=== PATIENT | female | born 1960 | race Caucasian/White ===

== ENCOUNTER → 2017-01-23 | Outpatient (CLI) | payer OTHER ==
[2017-01-23 09:58] LABS: ALT 39 U/L (9-52); AST 22 U/L (14-36); Alkaline Phosphatase 57 U/L (38-126); Anion Gap 7 mmol/L; Blood Urea Nitrogen 17 mg/dL (7-17); Calcium 9.2 mg/dL (8.4-10.2); Carbon Dioxide 28 mmol/L (22-30); Chloride 109 mmol/L (98-107); Cholesterol 181 mg/dL (<200); Glucose 85 mg/dL (74-99); HDL Cholesterol 44 mg/dL (40-60); Non-African American GFR(MDRD) >60 (>60 ml/min/1.73 sqM); Potassium 4.2 mmol/L (3.5-5.1); Sodium 144 mmol/L (137-145); Total Protein 6.4 g/dL (6.3-8.2); Triglycerides 76 mg/dL (<150)
== END | disposition home or self-care (01) ==
LOC: LABWHC1 08:40
PROVIDERS: ATTEND Internal Medicine Endocrinology, Diabetes & Metabolism
DX: E89.0 Postprocedural hypothyroidism (principal)
CPT/HCPCS: 36415; 80053; 80061; 82306; 84439; 84443

== ENCOUNTER → 2017-11-20 | Outpatient (CLI) | payer OTHER ==
--- NOTE | 2017-11-20 15:59 | US ---
EXAMINATION TYPE: US kidneys/renal and bladder DATE OF EXAM: 11/20/2017 COMPARISON: US CLINICAL HISTORY: N39.0 frequent recurrent urinary tract infection. EXAM MEASUREMENTS: Right Kidney: 10.2 x 4.9 x 5.4 cm Left Kidney: 10.4 x 4.6 x 5.1 cm Right Kidney: No hydronephrosis or masses seen Left Kidney: No hydronephrosis or masses seen Bladder: wnl Bilateral Jets seen: Yes There is no evidence for hydronephrosis at this point in time. No nephrolithiasis is seen. No kar s are identified. The urinary bladder is anechoic. Bilateral ureteral jets are seen. IMPRESSION: Unremarkable study.
== END | disposition home or self-care (01) ==
LOC: RADUSWWP 15:39
PROVIDERS: ATTEND Internal Medicine
DX: N39.0 Urinary tract infection, site not specified (principal)
CPT/HCPCS: 76770

== ENCOUNTER → 2018-02-06 | Outpatient (CLI) | payer OTHER ==
--- NOTE | 2018-02-06 15:14 | CT ---
EXAMINATION TYPE: CT facial bones wo con DATE OF EXAM: 02/06/2018 COMPARISON: None HISTORY: Kicked in a face by a horse CT DLP: 594 mGycm CONTRAST: 0 mL of Isovue 300 The paranasal sinuses are examined in the axial plane at 2 mm thick sections. Reconstructed images i n the coronal plane were obtained. There is dental amalgam scatter artifact. Maxillary spine is intact. Zygomatic arches are intact. Tonny al bones are intact. Temporomandibular junction appears within normal limits. Orbital floors appear n ormal. The maxillary sinuses are clear. The ethmoid air cells are clear. The sphenoid sinuses are clear. The frontal sinuses are clear. The septum is evaluated. There is septal deviation to the left. The ostiomeatal units are patent. IMPRESSIONS: 1. No acute fractures or facial bones.
== END | disposition home or self-care (01) ==
LOC: RADCTMAIN 14:47
PROVIDERS: ATTEND Internal Medicine
DX: S09.93XA Unspecified injury of face, initial encounter (principal)
CPT/HCPCS: 70486

== ENCOUNTER → 2018-08-09 | Outpatient (CLI) | payer OTHER ==
--- NOTE | 2018-08-13 08:47 | MM ---
Reason for exam: screening (asymptomatic). Last mammogram was performed 2 years and 4 months ago. History: Patient is postmenopausal. Family history of breast cancer in sister, breast cancer in maternal aunt, and breast cancer in aunt. Excisional biopsy of the left breast, 1999. Benign excisional biopsy of the right breast. Took hormonal contraceptives for 2 years beginning at age 20. Physical Findings: A clinical breast exam by your physician is recommended on an annual basis and results should be correlated with mammographic findings. MG Screening Mammo w CAD Bilateral CC and MLO view(s) were taken. Prior study comparison: April 13, 2016, bilateral MG screening mammo w CAD. January 19, 2014, bilateral MG screening mammo w CAD. The breast tissue is extremely dense which could obscure a lesion on mammography. There is chronic nodularity in the left breast. No significant changes when compared with prior studies. ASSESSMENT: Benign, BI-RAD 2 RECOMMENDATION: Routine screening mammogram of both breasts in 1 year.
== END ==
LOC: RADMAMWWP 09:08
PROVIDERS: ATTEND Internal Medicine
DX: Z12.31 Encounter for screening mammogram for malignant neoplasm of breast (principal)
CPT/HCPCS: 77067

== ENCOUNTER → 2018-08-15 | Outpatient (CLI) | payer OTHER ==
--- NOTE | 2018-08-15 13:56 | US ---
EXAMINATION TYPE: US kidneys/renal and bladder DATE OF EXAM: 08/15/2018 COMPARISON: US 2018 CLINICAL HISTORY: R10.9 Bilateral flank pain, Z87.440 Personal. Lower back pain, recurrent UTI, micro scopic hematuria. EXAM MEASUREMENTS: Right Kidney: 10.3 x 5.1 x 5.0 cm Left Kidney: 10.0 x 4.7 x 4.8 cm Right Kidney: no hydronephrosis or masses seen, inferior pole limited by overlying bowel gas Left Kidney: no hydronephrosis or masses seen Bladder: wnl Bilateral Jets seen: yes There is no evidence for hydronephrosis at this point in time. No nephrolithiasis is seen. No kar s are identified. The urinary bladder is anechoic. Bilateral ureteral jets are seen. IMPRESSION: No distinct abnormality appreciated.
== END | disposition home or self-care (01) ==
LOC: RADUSWWP 11:03
PROVIDERS: ATTEND Internal Medicine
DX: R10.9 Unspecified abdominal pain (principal); N39.0 Urinary tract infection, site not specified
CPT/HCPCS: 76770

== ENCOUNTER → 2018-09-03 | Outpatient (CLI) | payer OTHER ==
[2018-09-03 13:07] LABS: Blood Urea Nitrogen 13 mg/dL (7-17)
--- NOTE | 2018-09-03 14:47 | CT ---
EXAMINATION TYPE: CT abdomen pelvis w con DATE OF EXAM: 09/03/2018 COMPARISON: None HISTORY: Left lower quadrant abdominal pain. CT DLP: 682.2 mGycm Automated exposure control for dose reduction was used. CONTRAST: CT scan of the abdomen pelvis is performed with IV Contrast, patient injected with 100ml mL of Isovue 300. FINDINGS- LUNG BASES-groundglass changes and subsegmental changes involving both lung bases likely the basis of atelectasis correlate clinically to exclude early infiltrate.. LIVER/GB-tiny hypodensity involving the anterior margin of the left lobe and right lobe of the liver is too small to characterize but likely related to simple cyst.. PANCREAS-1 to 2 mm hypodensity within the body of the pancreas too small to characterize but likely b enign.. SPLEEN- No gross abnormality is seen. ADRENALS- No gross abnormality is seen. KIDNEYS/BLADDER- no hydronephrosis, nephrolithiasis or renal mass. BOWEL-bowel gas pattern nonspecific. Small hiatal hernia noted. The colon is decompressed particularl y on the left which limits its evaluation. No definite abnormality noted. LYMPH NODES- No greater than 1cm abdominal or pelvic lymph nodes areappreciated. OSSEOUS STRUCTURES-hypertrophic and mild degenerative changes of the vertebral column. OTHER- aorta of normal caliber. No aneurysm. Retroaortic left renal vein incidentally noted. IMPRESSION- 1. No acute process. 2. Tiny hepatic lesions too small to characterize but likely related to simple cysts. Additionally is a 1 to 2 mm hypodensity within the bilateral pancreas on image 36 to small to characterize and could be followed on six-month basis. Likely benign. 3. Subsegmental groundglass and areas of consolidation involving both lungs. Findings could been the basis of atelectasis rather than developing infiltrate, correlate clinically.
== END ==
LOC: RADCTMAIN 12:31
PROVIDERS: ATTEND Urology
DX: R31.29 Other microscopic hematuria (principal); R10.31 Right lower quadrant pain
CPT/HCPCS: 82565; 84520; 74177; 36415; Q9967

== ENCOUNTER → 2019-01-24 | Outpatient (CLI) | payer OTHER ==
[2019-01-24 18:40] LABS: African American GFR (CKD) 71.9 (60.0-200.0); Albumin 4.3 g/dL (3.80-4.90); Albumin/Globulin Ratio 2.39 (1.60-3.17); Anion Gap 7.9 mmol/L (4.00-12.00); Calcium 9.4 mg/dL (8.7-10.3); Carbon Dioxide 28.1 mmol/L (21.6-31.8); Globulin 1.8 g/dL (1.6-3.3); LDL Cholesterol,Calculated 86.2 mg/dL (0.0-131.0); Total Bilirubin 0.7 mg/dL (0.2-1.2); Total Protein 6.1 g/dL (6.2-8.2); VLDL Calculation 16.8 mg/dL (5.00-40.00)
[2019-01-24 18:48] LABS: T4, Free (Free Thyroxine) 1.2 ng/dL (0.80-1.80)
== END | disposition home or self-care (01) ==
LOC: LABWHC1 08:31
PROVIDERS: ATTEND Internal Medicine
DX: E78.5 Hyperlipidemia, unspecified (principal); E89.0 Postprocedural hypothyroidism; I10 Essential (primary) hypertension
CPT/HCPCS: 36415; 80053; 80061; 84439; 84443

== ENCOUNTER 2019-02-05 09:29 | Day surgery (SDC) | payer OTHER ==
[2019-01-29 11:36] VITALS: BMI 26.8
[~2019-02-05 09:29] MED LIST: LACTATED RINGERS 1,000 ML IV SCH
[2019-02-05] MEDS ORDERED: LIDOCAINE 1% 20 ML VIAL (10MG/ML) FOR IV START INTRADERMA ONE (09:45)
[2019-02-05 09:57] VITALS: TEMP 97.8
[2019-02-05] MEDS ORDERED: LIDOCAINE 1% INJ 10MG/ML (20 ML MDV) ONE (11:04)
[2019-02-05] MEDS ORDERED: PROPOFOL 10 MG/ML 20 ML VIAL IV ONE (11:04)
--- NOTE | 2019-02-05 11:21 | P.GSHP ---
History of Present Illness H&P Date: 02/05/19 Chief Complaint: Colon cancer screening 58-year-old female here today for colonoscopy. No rectal bleeding or melena. Last colonoscopy 9 years ago or so. No family history of colon cancer. No constipation. Occasional loose stools somewhat chronic in nature. Some right-s ided pain. Past Medical History Past Medical History: Hyperlipidemia, Hypertension, Thyroid Disorder Additional Past Medical History / Comment(s): Grave's Disease History of Any Multi-Drug Resistant Organisms: None Reported Past Surgical History: Breast Surgery, Hysterectomy, Orthopedic Surgery, Tonsillectomy Additional Past Surgical History / Comment(s): lumpectomy-BILAT BREASTS. BILAT KNEE SX. FATTY TUMOR REMOVED FROM BACK. COLONOSCOPY Past Anesthesia/Blood Transfusion Reactions: No Reported Reaction Past Psychological History: Anxiety Smoking Status: Current every day smoker Past Alcohol Use History: None Reported Additional Past Alcohol Use History / Comment(s): SMOKES 1/2 PPD FOR PAST 20 YEARS Past Drug Use History: None Reported - Past Family History Father Family Medical History: Cancer Medications and Allergies Home Medications Medication Instructions Recorded Confirmed Type Triamterene-Hctz 37.5-25Mg 1 each PO DAILY 04/14/14 01/29/19 History [Dyazide 37.5-25 Capsule] Atenolol 25 mg PO DAILY 01/29/19 01/29/19 History Cholecalciferol [Vitamin D3 (25 5,000 unit PO DAILY 01/29/19 01/29/19 History Mcg = 1000 Iu)] Escitalopram [Lexapro] 10 mg PO DAILY 01/29/19 01/29/19 History Levothyroxine Sodium [Synthroid] 88 mcg PO DAILY 01/29/19 01/29/19 History Pravastatin Sodium [Pravachol] 40 mg PO HS 01/29/19 01/29/19 History Allergies Allergy/AdvReac Type Severity Reaction Status Date / Time lisinopril Allergy Confusion Verified 02/21/15 18:38 prednisone Allergy Rash/Hives Verified 04/14/14 20:29 promethazine HCl Allergy Confusion Verified 02/21/15 18:38 [From Phenergan] hydrochlorothiazide AdvReac Unknown Verified 02/21/15 18:38 Surgical - Exam Vital Signs Temp Pulse Resp BP Pulse Ox 97.8 F 80 18 124/75 96 02/05/19 09:55 02/05/19 09:55 02/05/19 09:55 02/05/19 09:55 02/05/19 09:55 Physical exam: General: Well-developed, well-nourished HEENT: Normocephalic, sclerae nonicteric Abdomen: Nontender, nondistended Extremities: No edema Neuro: Alert and oriented Assessment and Plan (1) Colon cancer screening Narrative/Plan: Will proceed with colonoscopy Current Visit: Yes Status: Acute Code(s): Z12.11 - ENCOUNTER FOR SCREENING FOR MALIGNANT NEOPLASM OF COLON SNOMED Code(s): 068600615
--- NOTE | 2019-02-05 11:39 | P.PCN ---
Date of Procedure: 02/05/19 Procedure(s) Performed: PREOPERATIVE DIAGNOSIS: Colon cancer screening POSTOPERATIVE DIAGNOSIS: Tortuous colon otherwise normal PROCEDURE: Colonoscopy ANESTHESIA: MAC SURGEON: Herbert Yoder M.D. SPECIMENS: None ENDOSCOPIC PROCEDURE: The patient was placed on the endoscopy table in the left decubitus position. The Olympus colonoscope was inserted into the anus and passed under direct visualization to the base of the cecum. The appendiceal orifice was visualized. From that point the scope was slowly withdrawn inspecting all surfaces carefully. There were no neoplastic inflammatory or polypoid lesions throughout the cecum, ascending, transverse, descending, sigmoid and rectum. There was some tortuosity throughout the sigmoid colon however we were able advanced through that area without significant difficulty. There was no visible diverticulosis noted. Digital rectal examination was minerva l. The patient was taken to the recovery room in stable condition per anesthesia guidelines. RECOMMENDATIONS: Increase fiber. Follow-up colonoscopy 10 years.
[2019-02-05] MEDS ORDERED: IV FLUID CONTINUATION 1,000 ML IV ONE (11:45)
[2019-02-05 12:03] VITALS: BP 136/67; PULSE 67; RESP 18
== END 2019-02-05 12:15 | disposition home or self-care (01) ==
LOC: ORWHC2ENDO 09:29
PROVIDERS: ATTEND Surgery
DX: Z12.11 Encounter for screening for malignant neoplasm of colon (principal); E05.00 Thyrotoxicosis with diffuse goiter without thyrotoxic crisis or storm; E78.5 Hyperlipidemia, unspecified; F17.200 Nicotine dependence, unspecified, uncomplicated; I10 Essential (primary) hypertension; Z79.899 Other long term (current) drug therapy; Z88.8 Allergy status to other drugs, medicaments and biological substances; Z79.890 Hormone replacement therapy
CPT/HCPCS: J2001; J2704; G0121

== ENCOUNTER → 2019-04-30 | Outpatient (CLI) | payer OTHER ==
[2019-04-30 19:40] LABS: T4, Free (Free Thyroxine) 0.9 ng/dL (0.80-1.80)
== END | disposition home or self-care (01) ==
LOC: LABWHC1 12:04
PROVIDERS: ATTEND Internal Medicine
DX: E89.0 Postprocedural hypothyroidism (principal)
CPT/HCPCS: 36415; 84439; 84443

== ENCOUNTER → 2019-11-12 | Outpatient (CLI) | payer OTHER ==
[2019-11-12 18:38] LABS: T4, Free (Free Thyroxine) 1.4 ng/dL (0.80-1.80)
== END | disposition home or self-care (01) ==
LOC: LABWHC1 12:06
PROVIDERS: ATTEND Internal Medicine
DX: E89.0 Postprocedural hypothyroidism (principal)
CPT/HCPCS: 36415; 84439; 84443

== ENCOUNTER → 2020-01-13 | Outpatient (CLI) | payer OTHER ==
--- NOTE | 2020-01-13 12:23 | XR ---
EXAMINATION TYPE: XR foot complete RT DATE OF EXAM: 01/13/2020 COMPARISON: NONE HISTORY: 59-year-old female right foot pain, right foot injury TECHNIQUE: 3 views FINDINGS: Incidental Cintron's toe. Moderate degenerative change at the first MTP joint. Moderate-sized plantar calcaneal spur. No acute fracture, subluxation, dislocation seen. IMPRESSION: Moderate first MTP joint OA and a plantar heel spur. No acute osseous abnormality seen.
== END | disposition home or self-care (01) ==
LOC: RADXRMAIN 09:56
PROVIDERS: ATTEND Internal Medicine
DX: M19.071 Primary osteoarthritis, right ankle and foot (principal); M77.31 Calcaneal spur, right foot

== ENCOUNTER → 2020-04-09 | Outpatient (CLI) | payer OTHER ==
--- NOTE | 2020-04-10 14:22 | MR ---
EXAMINATION TYPE: MR ankle LT wo con DATE OF EXAM: 04/09/2020 COMPARISON: None HISTORY: LEFT ANKLE PAIN, SWELLING AND LIMITED MOTION/ NO PREV Multiplanar multiecho imaging of the left ankle was performed without contrast. There is abnormal increased signal on the T2 images in the soft tissues over the lateral malleolus an d distal fibula. There is increased signal and thickening of the peroneus longus tendon. peroneus curt vis is intact. The collateral ligaments are intact. There is no evidence of a fracture. There is a mi ld ankle joint effusion. Achilles tendon is intact. Plantar fascia appears intact. I see no focal bon e destruction. There is fluid around the peroneal tendons. The tarsal bones appear intact. Ankle mort ise is anatomic. IMPRESSION: Ankle joint effusion with fluid around the peroneal tendons consistent with tenosynovitis. There is p artial tear of the peroneal tendon. No ligamentous tear. No fracture seen.
== END | disposition home or self-care (01) ==
LOC: RADMRIMAIN 14:59
PROVIDERS: ATTEND Internal Medicine
DX: M25.472 Effusion, left ankle (principal); S86.312A Strain of muscle(s) and tendon(s) of peroneal muscle group at lower leg level, left leg, initial encounter

== ENCOUNTER → 2020-05-04 | Outpatient (CLI) | payer OTHER ==
--- NOTE | 2020-05-04 12:04 | XR ---
EXAMINATION TYPE: XR lumbosacral spine min 4V DATE OF EXAM: 05/04/2020 CLINICAL HISTORY: pain COMPARISON: NONE TECHNIQUE: Frontal, lateral, and oblique images of the lumbar spine are obtained. FINDINGS: There are 5 lumbar type vertebral bodies identified. The lumbar spine shows satisfactory alignment without evidence of acute fracture or dislocation. Vertebral body heights are within normal limits. Mild scattered degenerative disc space narrowing and spondylosis identified. The overlying soft tissue appears unremarkable. IMPRESSION: No acute fracture or dislocation is seen in the lumbar spine.ICD 10 NO FRACTURE, INITIAL EVALUATION
--- NOTE | 2020-05-04 12:19 | XR ---
EXAMINATION TYPE: XR Hip Complete LT DATE OF EXAM: 05/04/2020 CLINICAL HISTORY: pain TECHNIQUE: AP and frogleg views of the left hip are obtained. COMPARISON: None. FINDINGS: There is no acute fracture/dislocation evident. The joint space appears within normal li mits. The overlying soft tissue appears unremarkable. IMPRESSION: 1. There is no acute fracture or dislocation.ICD 10 NO FRACTURE, INITIAL EVALUATION
== END | disposition home or self-care (01) ==
LOC: RADXRMAIN 11:16
PROVIDERS: ATTEND Internal Medicine
DX: M54.5 Low back pain (principal); M25.552 Pain in left hip
CPT/HCPCS: 72110; 73502

== ENCOUNTER → 2020-05-27 | Outpatient (CLI) | payer OTHER ==
--- NOTE | 2020-05-27 16:21 | MR ---
EXAMINATION TYPE: MR lumbar spine wo con DATE OF EXAM: 05/27/2020 COMPARISON: None HISTORY: Low back pain into hip/left leg CONTRAST: 0 mL intravenous Gadavist. TECHNIQUE: Multiplanar, multisequence images of the lumbar spine were acquired. FINDINGS: L5-S1: No significant disc bulge or disc herniation. No spinal canal stenosis. No foraminal stenosi s. Appears to be some swelling of the left S1 nerve root exiting the spinal canal. Minimal disc bulg e has contact without obvious stenosis.. L4-L5: Mild disc bulge is present. There may be minimal grade 1 spondylolisthesis with disc uncoverin g. Facet hypertrophy and ligamentum flavum laxity in conjunction with the disc bulges contributing to spinal canal narrowing through the L4-5 level. No foraminal stenosis. L3-L4: No significant disc bulge or disc herniation. No spinal canal stenosis. No foraminal stenosi s. Mild facet hypertrophy is present with posterior lateral thecal sac compression.. L2-L3: No significant disc bulge or disc herniation. No spinal canal stenosis. No foraminal stenosi s. Neural foramen are patent.. L1-L2: No significant disc bulge or disc herniation. No spinal canal stenosis. No foraminal stenosi s. Neural foramen are patent.. T12-L1: No significant disc bulge or disc herniation. No spinal canal stenosis. No foraminal stenos is. Neural foramen are patent.. IMPRESSION: 1. Minimal grade 1 spondylolisthesis of L4 anterior to L5 with disc uncovering and facet hypertrophy and ligamentum flavum laxity contributing to spinal canal stenosis at the L4-5 level. 2. There may be some minimal disc contact with the exiting left S1 nerve root at the L5-S1 level with swelling of the nerve root within the spinal canal.
== END | disposition home or self-care (01) ==
LOC: RADMRIMAIN 07:36
PROVIDERS: ATTEND Internal Medicine
DX: M48.061 Spinal stenosis, lumbar region without neurogenic claudication (principal); M43.16 Spondylolisthesis, lumbar region
CPT/HCPCS: 72148

== ENCOUNTER → 2020-05-31 | Outpatient (CLI) | payer OTHER ==
--- NOTE | 2020-05-31 11:31 | MM ---
Reason for exam: screening (asymptomatic). Last mammogram was performed 1 year and 10 months ago. History: Patient is postmenopausal. Family history of breast cancer in sister, breast cancer in maternal aunt, and breast cancer in aunt. Excisional biopsy of the left breast, 1999. Benign excisional biopsy of the right breast. Took hormonal contraceptives for 2 years beginning at age 20. Physical Findings: A clinical breast exam by your physician is recommended on an annual basis and results should be correlated with mammographic findings. MG Screening Mammo w CAD Bilateral CC and MLO view(s) were taken. Prior study comparison: August 09, 2018, bilateral MG screening mammo w CAD. April 13, 2016, bilateral MG screening mammo w CAD. The breast tissue is heterogeneously dense. This may lower the sensitivity of mammography. There are benign appearing round calcifications bilaterally. There is chronic nodularity in the left breast. There is no discrete abnormality. ASSESSMENT: Benign, BI-RAD 2 RECOMMENDATION: Routine screening mammogram of both breasts in 1 year.
== END | disposition home or self-care (01) ==
LOC: RADMAMWWP 09:46
PROVIDERS: ATTEND Internal Medicine
DX: Z12.31 Encounter for screening mammogram for malignant neoplasm of breast (principal)
CPT/HCPCS: 77067

== ENCOUNTER 2020-08-05 08:39 | Day surgery (SDC) | payer OTHER ==
[2020-08-04 10:28] VITALS: BMI 28.3
[2020-08-05] MEDS ORDERED: LIDOCAINE 1% (10MG/ML) FOR IV START INTRADERMA ONE (09:10)
[2020-08-05 09:15] VITALS: TEMP 97.2
[2020-08-05] MEDS ORDERED: IOPAMIDOL M200 10 ML VIAL ONE (09:17)
[2020-08-05] MEDS ORDERED: fentaNYL (PF) 50 MCG/ML 2 ML AMP ONE (09:17)
[2020-08-05] MEDS ORDERED: DEXAMETHASONE SOD PHOSPHATE 10 MG/ML 1 ML VIAL ONE (09:17)
[2020-08-05] MEDS ORDERED: MIDAZOLAM 2 MG/2 ML VIAL ONE (09:17)
--- NOTE | 2020-08-05 09:34 | P.PCN ---
Date of Procedure: 08/05/20 Procedure(s) Performed: PREOPERATIVE DIAGNOSIS: 1-Lumbar radiculopathy . 2-lumbar spondylolisthesis. 3-lumbar degenerative disc disease POSTOPERATIVE DIAGNOSIS: Same as preoperative diagnoses. PROCEDURE 1. Transforaminal epidural steroid injection under fluoroscopic guidance at left L4-5, and left L5-S1 leveles. (Fluoroscopy images stored on file in the radiology Department ) 2. Lumbar epidurogram . ANESTHESIA: Local with 1% lidocaine 3 ml , moderate sedation with intravenous Versed 2 mg and fentanyle 50 micrograms. EBL: Minimal PROCEDURE INDICATION: The patient with low back pain and radiculopathy symptoms unresponsive to conservative treatment. PROCEDURE DESCRIPTION / TECHNIQUE: The patient was seen and identified in the preoperative area. Risks, benefits, complications, and alternatives were discussed with the patient. The patient agreed to proceed with the procedure and signed the consent. IV was started, and vital signs were stable. Patient was taken to the OR and time out was completed. The patient was placed in the prone position on procedure table and a pillow was placed under the abdomen to reduce lumbar lordosis. The lumbosacral area was prepped and draped in the usual sterile fashion. Critical pause was taken. Vital signs were closely monitored during the procedure. Conscious sedation was used during the procedure to decrease patient s anxiety. Using oblique fluoroscopy, the chin of the `JobGarrett dog at left L4-5 level was identified, and the skin and deeper tissues just below was localized with 1% lidocaine. Subsequently, a 22-gauge 3.5-inch spinal needle was advanced under a tunneled view fluoroscopic guidance just underneath the chin of the `Cristinoy dog at the left L4-5 Under lateral fluoroscopy, the needle was then advanced to the posterior border of the interforaminal space. After negative aspiration of CSF and blood and with no paresthesias, 1 mL Isovue 200 contrast dye was injected excellent epidurogram and outlining of the nerve root Subsequently, 3 mL of block solution containing 10 mg Deamethasone , and 2 mL of 0.9% normal saline PF was injected. Needle was removed and the same procedure was repeated at the left L5-S1 level . At the end of the procedure, skin was cleansed, and bandages were applied. COMPLICATIONS:none DISPOSITION / PLANS: The patient was placed in a supine position and transferred to the recovery area in a stable condition for observation. There was no evidence of lower extremity motor or sensory deficit after the procedure. Patient was discharged from the recovery room after meeting discharge criteria. Home discharge instructions were given to the patient by the staff. The patient was reexamined prior to discharge.
[2020-08-05] MEDS ORDERED: IV FLUID CONTINUATION 1,000 ML IV ONE (09:37)
[2020-08-05 09:41] VITALS: PULSE 65; RESP 18
[2020-08-05 09:56] VITALS: BP 120/81
--- NOTE | 2020-08-05 09:58 | FL ---
Fluoroscopy INDICATION: Pain FINDINGS: Fluoroscopy time: 6 seconds. Images obtained: 2. IMPRESSIONS: 1. Documentation of fluoroscopy.
== END 2020-08-05 10:09 | disposition home or self-care (01) ==
LOC: ORPAIN 08:39
PROVIDERS: ATTEND Specialist
DX: M51.16 Intervertebral disc disorders with radiculopathy, lumbar region (principal); M43.16 Spondylolisthesis, lumbar region; M48.061 Spinal stenosis, lumbar region without neurogenic claudication
CPT/HCPCS: 64483; 64484; J2250; J1100; J3010; Q9966

== ENCOUNTER 2020-12-08 12:45 | Day surgery (SDC) | payer OTHER ==
[2020-12-06 11:29] VITALS: BMI 27.2
[~2020-12-08 12:45] MED LIST changes: +DEXAMETHASONE SOD PHOSPHATE 4 MG/ML 1 ML VIAL IV ONE; +FAMOTIDINE 20 MG/2 ML VIAL IV PRN; +HYDROmorphone 0.5 MG/0.5 ML SYRINGE IVP PRN; +ONDANSETRON 4 MG/2 ML VIAL IVP ONE; +Pre Op ABX Message 1 EACH MISC MISCELLANE ONE
[2020-12-08 13:08] VITALS: TEMP 97.5
[2020-12-08] MEDS ORDERED: ONDANSETRON 4 MG/2 ML VIAL ONE (13:27)
[2020-12-08] MEDS ORDERED: MIDAZOLAM 2 MG/2 ML VIAL IVP ONE ×2 (14:11→14:14)
[2020-12-08] MEDS ORDERED: LIDOCAINE 1% INJ 10MG/ML (20 ML MDV) ONE (14:25)
[2020-12-08] MEDS ORDERED: PROPOFOL 10 MG/ML 20 ML VIAL IV ONE (14:25)
[2020-12-08] MEDS ORDERED: ROPIVACAINE 5 MG/ML 30 ML VIAL ONE (14:25)
[2020-12-08] MEDS ORDERED: DEXAMETHASONE SOD PHOSPHATE 4 MG/ML 1 ML VIAL ONE (14:25)
[2020-12-08] MEDS ORDERED: SUCCINYLCHOLINE CHLORIDE 100 MG/5 ML SYR IV ONE (14:25)
[2020-12-08] MEDS ORDERED: fentaNYL (PF) 50 MCG/ML 2 ML AMP ONE (14:25)
[2020-12-08] MEDS ORDERED: ceFAZolin 1,000 MG in SODIUM CHLORIDE 0.9% 1,000 ML IRRIGATION ONE (14:51)
--- NOTE | 2020-12-08 15:22 | P.ANPRN ---
Procedure Note - Anesthesia - Nerve Block Performed Left Adductor Canal Single Time Out Performed: Yes Date of Procedure: 12/08/20 Procedure Start Time: 14:08 Procedure Stop Time: 14:15 Location of Patient: PreOp Indication: Acute Post-Operative Pain, Requested by Surgeon Sedation Type: Sedate with meaningful contact maintained Preparation: Sterile Prep, Sterile Dressing Position: Supine Catheter: None Needle Types: On-Q Needle Gauge: 20 Ultrasound used to visualize needle placement: Yes Ultrasound used to observe medication spread: Yes Injectate: 0.5% Ropivacaine (see comment for volume) (10 ml + decadron 4 mg) Blood Aspirated: No Pain Paresthesia on Injection Noted: No Resistance on Injection: Normal Image Stored and Saved: Yes Events: Uneventful and Well Tolerated Left Popliteal Single Time Out Performed: Yes Date of Procedure: 12/08/20 Procedure Start Time: 14:13 Procedure Stop Time: 14:20 Location of Patient: PreOp Indication: Acute Post-Operative Pain, Requested by Surgeon Sedation Type: Sedate with meaningful contact maintained Preparation: Sterile Prep, Sterile Dressing Position: Right Lateral Catheter: None Needle Types: On-Q Needle Gauge: 20 Ultrasound used to visualize needle placement: Yes Ultrasound used to observe medication spread: Yes Injectate: 0.5% Ropivacaine (see comment for volume) (20 ml + decadron 4 mg) Blood Aspirated: No Pain Paresthesia on Injection Noted: No Resistance on Injection: Normal Image Stored and Saved: Yes Events: Uneventful and Well Tolerated
--- NOTE | 2020-12-08 15:29 | P.OP ---
Date of Procedure: 12/08/20 Preoperative Diagnosis: Ruptured peroneus brevis tendon left ankle Postoperative Diagnosis: Same Procedure(s) Performed: Open repair flexor tendon left ankle Implants: None Anesthesia: JULIUSA Surgeon: Darvin Garay Estimated Blood Loss (ml): 2 Pathology: other (Tendon left ankle) Condition: stable Disposition: PACU Operative Findings: Partial split longitudinal tear of the peroneus brevis tendon with partial retraction in enlargement just distal to the lateral malleolus Description of Procedure: Prior to the patient being brought to the operating room anesthesia administered a nerve block and left lower extremity under ultrasonic guidance mild sedation. The patient was then brought into the operative room placed on table supine position. Timeout was taken to confirm correct patient identifiers, correct procedure, and correct site of surgery. When the room was in agreement the patient was placed under general anesthetic. A wedge was placed underneath the left hip to internally rotate the left leg and a well-padded tourniquet placed on the left calf. The leg was exsanguinated and the tourniquet inflated to 250 motors mercury. Attention was directed over the posterior lateral ankle where an incision was made along the course of peroneal tendons from the hindfoot to an area approximately 4 cm proximal to the lateral malleolus. Incision was deepened down to the saphenous tissue careful to identify, avoid, and retract any neurovascular structures and cauterize any bleeding vessels. Blunt dissection was continued through the saphenous layer down to the retinaculum overlying the peroneal tendons. The retinaculum was carefully entered and then blunt instrumentation sling deep to the retinaculum but over the peroneal tendons. The retinaculum was incised along the entire length to expose peroneal tendons. Immediately there was abnormality noted the peroneus brevis there was a significant area of enlargement distally distal to the lateral malleolus indicated and more distal split tear with retraction and then a subsequent scarring there is also numerous areas of split tearing proximal to this area of enlargement. Sharp instrumentation was used to remove the diseased portions of the tendon so that normal tendinous tissue observed. The wound is irrigated with antibiotic saline. 4-0 FiberWire was used to re-tubularize the tendon. Once completed there was placed back in the peroneal groove on the posterior aspect of the fibula. The ankle was inverted and everted and the tendon slid smoothly through the groove. The wound is irrigated again with antibiotic saline. The retinaculum was then closed with 2-0 Vicryl. Subcu closure done for Monocryl. Skin closure done with 4-0 Stratafix in a running subcuticular manner. Dermal glue was applied around the incision allowed to dry then covered Steri-Strips. Jumpstart dressing was placed directly in the incision then a dry sterile dressing applied the left foot and ankle. The tourniquet was released and capillary refill return to all digits on left foot. The patient's placed a below-knee fracture boot ankle neutral position. Anesthesia was reversed and the patient was taken recovery with vital signs stable.
[2020-12-08 16:12] VITALS: BP 135/84; RESP 16
[2020-12-08 16:28] VITALS: PULSE 67
--- NOTE | 2020-12-15 11:25 | CDI ---
Outpatient Documentation Clarification Form Date: 12/15/20 CDS/Manager Er Name: Elisha Agrawal Phone: If any questions, call Iman Parker Financial Institution Manager at [phone] Patient Name: Marian Romo Admit Date: 12/08/20 Discharge Date: 12/08/20 ATTENTION: The [facility] Coding Staff appreciate your assistance in clarifying documentation. Please respond to the clarification below the line at the bottom and electronically sign. The [facility] Coding staff will review the response and follow-up if needed. Please note: Queries are made part of the Legal Health Record. If you have any questions, please contact the Financial Institution Manager. Dear Dr. Crane, Please provide clarification as to the exact area of the popliteal block. Please reference below. A popliteal block procedure note, without a description of the anatomy is not helpful in determining the correct code to report. A popliteal fossa injection is reported with CPT code 44239 (sciatic nerve), whereas a saphenous popliteal is reported with CPT code 65329 (other peripheral nerve block). Thank you for your kind consideration. It is referred to as a popliteal nerve block... I am not sure what you are asking. The block is a block of 2 nerves that come off the sciatic nerve. MTDD
== END 2020-12-08 16:42 | disposition home or self-care (01) ==
LOC: OR 12:45
PROVIDERS: ATTEND Podiatrist
DX: M66.372 Spontaneous rupture of flexor tendons, left ankle and foot (principal); E78.5 Hyperlipidemia, unspecified; I10 Essential (primary) hypertension; E03.9 Hypothyroidism, unspecified; E05.00 Thyrotoxicosis with diffuse goiter without thyrotoxic crisis or storm; Z97.3 Presence of spectacles and contact lenses; Z90.89 Acquired absence of other organs; Z90.710 Acquired absence of both cervix and uterus; Z98.891 History of uterine scar from previous surgery; Z98.890 Other specified postprocedural states; Z83.3 Family history of diabetes mellitus; Z82.49 Family history of ischemic heart disease and other diseases of the circulatory system; F17.210 Nicotine dependence, cigarettes, uncomplicated; Z79.890 Hormone replacement therapy; Z79.899 Other long term (current) drug therapy; Z88.8 Allergy status to other drugs, medicaments and biological substances
CPT/HCPCS: 27659; 64447; 64445; 76942; 88304; J2250; J1100; J0690 ×2; J2405; J2001; J3010; J2795; J0330; J2704

== ENCOUNTER → 2021-02-10 | Outpatient (CLI) | payer OTHER ==
--- NOTE | 2021-02-10 13:23 | XR ---
EXAMINATION TYPE: XR chest 2V DATE OF EXAM: 02/10/2021 COMPARISON: None HISTORY: 60-year-old female syncope, fall, chest and shoulder injury TECHNIQUE: Frontal and lateral views FINDINGS: Heart normal size. Aorta and pulmonary vasculature within normal limits. Strandy atelectasis in the l ower lungs. No consolidation, pneumothorax, or pleural effusion. IMPRESSION: Strandy bibasilar atelectasis. No acute cardiopulmonary process.
--- NOTE | 2021-02-10 13:24 | XR ---
EXAMINATION TYPE: XR shoulder complete LT DATE OF EXAM: 02/10/2021 Comparison: None Clinical History: 60-year-old female SYNCOPE, FALL, CHEST AND SHOULDER INJURY Findings: Moderate degenerative joint space narrowing and marginal spurring at the acromioclavicular joint. Sub acromial space is preserved. No tendinous or bursal calcifications. No acute fracture, subluxation, o r dislocation seen. Impression: Moderate AC joint OA. No acute osseous abnormality seen.
== END | disposition home or self-care (01) ==
LOC: RADXRMAIN 10:30
PROVIDERS: ATTEND Internal Medicine
DX: S40.912A Unspecified superficial injury of left shoulder, initial encounter (principal); S29.9XXA Unspecified injury of thorax, initial encounter; M19.012 Primary osteoarthritis, left shoulder; J98.11 Atelectasis; X58.XXXA Exposure to other specified factors, initial encounter
CPT/HCPCS: 71046

== ENCOUNTER → 2021-02-24 | Outpatient (CLI) | payer OTHER ==
--- NOTE | 2021-02-24 12:06 | XR ---
EXAMINATION TYPE: XR clavicle LT DATE OF EXAM: 02/24/2021 COMPARISON: NONE HISTORY: Fall, tenderness TECHNIQUE: 2 view left clavicle FINDINGS: Acromioclavicular junction is normal. Sternal clavicular junction is visualized is normal. No acute fractures are evident. Follow-up studies can be performed as clinically indicated IMPRESSION: 1. Normal left clavicle
== END | disposition home or self-care (01) ==
LOC: RADXRMAIN 10:31
PROVIDERS: ATTEND Internal Medicine
DX: S49.92XA Unspecified injury of left shoulder and upper arm, initial encounter (principal); X58.XXXA Exposure to other specified factors, initial encounter

== ENCOUNTER → 2021-04-08 | Outpatient (CLI) | payer OTHER ==
--- NOTE | 2021-04-08 09:15 | CT ---
EXAMINATION TYPE: CT chest wo con DATE OF EXAM: 04/08/2021 COMPARISON: Left clavicle x-ray February 24, 2021 HISTORY: Unspecified subluxation of left sternoclavicular joint, sprain injury CT DLP: 125.2 mGycm. Automated Exposure Control for Dose Reduction was Utilized. TECHNIQUE: CT scan of the upper one half thorax is performed without IV contrast as requested focusi ng on sternoclavicular joint. FINDINGS: LUNGS: Visualized lungs are clear. OTHER: Sternoclavicular joints appear symmetric and within normal limits coronal images 10 through 13 . No suspicious adjacent fluid or fat stranding noted. Left clavicle appears intact without acute or subacute fracture. Moderate narrowing at the acromioclavicular joints with mild to moderate spurring and moderate capsular hypertrophy is slightly more prominent on the left versus right side. Overlying soft tissue is unremarkable. Visualized portion of the thyroid gland is within normal limits. IMPRESSION: Symmetric appearance to left sternoclavicular joint without subluxation or fracture.
== END | disposition home or self-care (01) ==
LOC: RADCTMAIN 08:26
PROVIDERS: ATTEND Orthopaedic Surgery
DX: S43.202A Unspecified subluxation of left sternoclavicular joint, initial encounter (principal); S43.62XA Sprain of left sternoclavicular joint, initial encounter; X58.XXXA Exposure to other specified factors, initial encounter
CPT/HCPCS: 71250

== ENCOUNTER 2021-09-02 08:32 | Day surgery (SDC) | payer OTHER ==
[2021-09-01 13:32] VITALS: BMI 27.4
[~2021-09-02 08:32] MED LIST changes: -DEXAMETHASONE SOD PHOSPHATE 4 MG/ML 1 ML VIAL IV ONE; -FAMOTIDINE 20 MG/2 ML VIAL IV PRN; -HYDROmorphone 0.5 MG/0.5 ML SYRINGE IVP PRN; -Pre Op ABX Message 1 EACH MISC MISCELLANE ONE; +fentaNYL (PF) 50 MCG/ML 2 ML AMP IV PRN
[2021-09-02] MEDS ORDERED: MIDAZOLAM 2 MG/2 ML VIAL IVP ONE (09:35)
[2021-09-02] MEDS ORDERED: fentaNYL (PF) 50 MCG/ML 2 ML AMP IVP ONE (09:36)
--- NOTE | 2021-09-02 10:18 | P.ANPRN ---
Procedure Note - Anesthesia - Nerve Block Performed Left Adductor Canal Time Out Performed: Yes (09:35) Date of Procedure: 09/02/21 Procedure Start Time: :35 Procedure Stop Time: : Location of Patient: PreOp Indication: Acute Post-Operative Pain, Requested by Surgeon (Dr Garay) Sedation Type: Sedate with meaningful contact maintained Preparation: Sterile Prep Position: Supine Catheter: None Needle Types: Pajunk Needle Gauge: 21 Ultrasound used to visualize needle placement: Yes Ultrasound used to observe medication spread: Yes Injectate: 0.5% Ropivacaine (see comment for volume) (15cc + 5cc PF Normal saline) Blood Aspirated: No Pain Paresthesia on Injection Noted: No Resistance on Injection: Normal Image Stored and Saved: Yes Events: Uneventful and Well Tolerated
--- NOTE | 2021-09-02 10:20 | P.ANPRN ---
Procedure Note - Anesthesia - Nerve Block Performed Left Popliteal Time Out Performed: Yes Date of Procedure: 09/02/21 Procedure Start Time: 09:42 Procedure Stop Time: 09:50 Location of Patient: PreOp Indication: Acute Post-Operative Pain, Requested by Surgeon (Dr Garay) Sedation Type: Sedate with meaningful contact maintained Preparation: Sterile Prep Position: Right Lateral Catheter: None Needle Types: Pajunk Needle Gauge: 21 Ultrasound used to visualize needle placement: Yes Ultrasound used to observe medication spread: Yes Injectate: 0.5% Ropivacaine (see comment for volume) (15cc + 5cc PF Normal saline) Blood Aspirated: No Pain Paresthesia on Injection Noted: No Resistance on Injection: Normal Image Stored and Saved: Yes Events: Uneventful and Well Tolerated
[2021-09-02] MEDS ORDERED: PHENYLEPHRINE-0.9% NACL SYG 1,000 MCG/10 ML SYRINGE ONE (10:58)
[2021-09-02] MEDS ORDERED: SODIUM CHLORIDE 0.9% (PF) 10 ML VIAL ONE (10:58)
[2021-09-02] MEDS ORDERED: ROPIVACAINE 5 MG/ML 30 ML VIAL ONE (10:58)
[2021-09-02] MEDS ORDERED: fentaNYL (PF) 50 MCG/ML 2 ML AMP ONE (10:58)
[2021-09-02] MEDS ORDERED: MIDAZOLAM 2 MG/2 ML VIAL ONE (10:58)
[2021-09-02] MEDS ORDERED: ETOMIDATE 2 MG/ML 10 ML VIAL ONE (10:58)
[2021-09-02] MEDS ORDERED: LIDOCAINE 1% INJ 10MG/ML (20 ML MDV) ONE (10:58)
[2021-09-02] MEDS ORDERED: GLYCOPYRROLATE 0.2 MG/ML 2 ML VIAL ONE (10:58)
[2021-09-02] MEDS ORDERED: ePHEDrine 50 MG/ML 1 ML VIAL ONE (10:58)
[2021-09-02] MEDS ORDERED: ceFAZolin 1,000 MG in SODIUM CHLORIDE 0.9% 1,000 ML IRRIGATION ONE (11:03)
[2021-09-02 12:25] VITALS: TEMP 97.3
[2021-09-02 13:17] VITALS: RESP 20
--- NOTE | 2021-09-02 13:50 | P.OP ---
Date of Procedure: 09/02/21 Preoperative Diagnosis: Rupture of peroneus brevis tendon left ankle Postoperative Diagnosis: Same Procedure(s) Performed: Secondary repair of peroneal tendons left ankle by etmh-mo-ebcc anastomosis with use of allograft Implants: Arthrex AFELX 500 allograft Anesthesia: JULIUSA Surgeon: Darvin Garay Estimated Blood Loss (ml): 2 Pathology: none sent Condition: stable Disposition: PACU Operative Findings: Ruptured and retracted peroneus brevis tendon approximately 6-7 cm superior to the distal tip of the fibula Description of Procedure: Prior to the patient being brought to the operating room, anesthesia administered a nerve block and left lower extremity. The patient was then brought into the operating room and placed on table supine position. Timeout was taken to confirm correct patient identifiers, correct site of surgery, and correct procedure. When everybody in the room was in agreement with the timeout, the patient was induced and placed under general anesthesia. A well- padded tourniquet was placed on the left thigh and a bump underneath the left hip to internally rotate the left leg. The left leg was then prepped and draped usual manner. The leg was exsanguinated, the knee slightly flexed and the matthew rniquet inflated to 250 mmHg. Attention was directed over the lateral aspect of the plate left ankle were a previous incision was used for the current incision. The incision was deepened down to the saphenous tissue careful to identify, avoid, and retract any neurovascular structures and cauterize any bleeding vessels. Blunt dissection was then continued down to the peroneal tendon sheath. The peroneal tendon sheath and retinaculum were incised off the posterior aspect lateral malleolus, and the sheath was opened into the lateral hindfoot. The peroneus longus tendon was immediately identified and found to be intact, however the peroneus brevis was not visible. The course of the longus was then followed proximal into the lateral calf. And then as the expiration continued the brevis tendon stump was found. It appeared to have ruptured and completely contracted. There was no viable tendon for the brevis distal to the rupture site. The decision was made for a sbkc-am-rtwi anastomosis. The peritenon was stripped off both the brevis and longus tendons. Distal tension was placed on the brevis well proximal tension on the longus and then a bzsn-is-bxeg anastomosis was completed with the 2 tendons. Then the Arthrex AFLEX 500 allograft was trimmed to size and then wrapped around the repair site with approximate 5 mm distal and proximal to the repair. The allograft was securely fixated around the repair site utilizing 4-0 Monocryl. At that point the longus tendon was placed back in the fibular groove and the ankle taken through range of motion. The longus continued to glide smoothly through the area. The wound is then thoroughly irrigated with antibiotic saline. The retinaculum was then closed with 0 Vicryl back to the posterior aspect of the fibula. Subcu closure was done with 4-0 Monocryl and skin closure done with 3-0 Stratafix in a running subcuticular manner. Dermal glue was applied Lunder dry. Steri-Strips are placed across incision. An Arthrex jumpstart dressing was placed over the incision and then the area was covered with a bulky dry dressing. The tourniquet was released and capillary refill return to all digits on the left foot. The patient was then placed in a well-padded, well molded plaster posterior mold/sugar tong splint. As the splint dried ankle was held in neutral dorsiflexion and slight eversion. Once dried anesthesia was reversed and the patient was taken recovery with vital signs stable.
[2021-09-02 13:51] VITALS: BP 115/72; PULSE 70
== END 2021-09-02 13:59 | disposition home or self-care (01) ==
LOC: OR 08:32
PROVIDERS: ATTEND Podiatrist
DX: M66.372 Spontaneous rupture of flexor tendons, left ankle and foot (principal); E78.5 Hyperlipidemia, unspecified; I10 Essential (primary) hypertension; E05.00 Thyrotoxicosis with diffuse goiter without thyrotoxic crisis or storm; F17.200 Nicotine dependence, unspecified, uncomplicated; E07.9 Disorder of thyroid, unspecified; Z97.3 Presence of spectacles and contact lenses; Z98.891 History of uterine scar from previous surgery; Z98.890 Other specified postprocedural states; Z83.3 Family history of diabetes mellitus; Z82.49 Family history of ischemic heart disease and other diseases of the circulatory system; Z79.890 Hormone replacement therapy; Z79.899 Other long term (current) drug therapy; Z88.4 Allergy status to anesthetic agent
CPT/HCPCS: 64447; 64445; 76942; 27659; C1713; J2250; J0690 ×2; J2405; J2001; J3010; J2795; J2370

== ENCOUNTER → 2021-11-05 | Outpatient (CLI) | payer OTHER ==
[2021-11-05 23:07] LABS: T4, Free (Free Thyroxine) 1.44 ng/dL (0.800-1.800)
== END | disposition home or self-care (01) ==
LOC: LABWHC1 11:11
PROVIDERS: ATTEND Internal Medicine
DX: E89.0 Postprocedural hypothyroidism (principal); E55.9 Vitamin D deficiency, unspecified
CPT/HCPCS: 36415; 82306; 84439; 84443

== ENCOUNTER → 2021-12-22 | Outpatient (CLI) | payer OTHER ==
--- NOTE | 2021-12-23 13:44 | MM ---
Reason for Exam: Screening (asymptomatic). Last mammogram was performed 1 year(s) and 6 month(s) ago. Patient History: Menarche at age 14. First Full-Term at age 20. Left ovary removed at age 45. Right ovary removed at age 45. Hysterectomy at age 45. Postmenopausal. Hormonal Contraceptives for 2 years from age 20 until age 24. Benign Excisional Biopsy on the right side. 2000, Excisional Biopsy on the Left side. Maternal aunt had breast cancer. Maternal aunt had breast cancer. Sister had breast cancer, age 40. Risk Values: Jayshree 5 year model risk: 3.9%. NCI Lifetime model risk: 17.6%. Prior Study Comparison: 04/13/2016 Bilateral Screening Mammogram, [facility]. 08/09/2018 Bilateral Screening Mammogram, [facility]. 05/31/2020 Bilateral Screening Mammogram, [facility]. Tissue Density: The breast tissue is extremely dense which could obscure a lesion on mammography. Findings: Analyzed By CAD. No suspicious groups of microcalcifications, spiculated or lobular masses, architectural distortion or other secondary signs of malignancy are mammographically apparent. Overall Assessment: Benign, BI-RAD 2 Management: Screening Mammogram of both breasts in 1 year. A negative mammogram report should not preclude additional follow up of suspicious palpable abnormalities. Patient should continue monthly self breast exam. A clinical breast exam by your physician is recommended on an annual basis and results should be correlated with mammographic findings. Electronically signed and approved by: Gómez Royal D.O. Radiologis
--- NOTE | 2021-12-23 15:01 | BD ---
EXAMINATION TYPE: Axial Bone Density DATE OF EXAM: 12/22/2021 COMPARISON: NONE CLINICAL HISTORY: 61 years year old Female. ICD-10 CODE: N95.1 POST MENOPAUSAL SYMPTOMS Height: 65 Weight: 175.4 FRAX RISK QUESTIONS: Alcohol (3 or more units per day): no Family History (Parent hip fracture): no Glucocorticoids (More than 3mos): no (Ex: prednisone, prednisolone, methylprednisolone, dexamethasone, and hydrocortisone). History of Fracture in Adulthood: yes Secondary Osteoporosis: 1. Type 1 Diabetes: no 2. Hyperthyroidism: no 3. Menopause before 45: no 4. Malnutrition: no 5. Chronic liver disease: no Rheumatoid Arthritis: no Current Tobacco Use: yes RISK FACTORS HISTORY OF: Surgery to Spine/Hip(right/left)/Wrist (right/left): no Family History of Osteoporosis: no Active: yes Diet low in dairy products/other sources of calcium: yes Postmenopausal woman: yes Lost more than 2 inches in height since high school: no MEDICATIONS: Thyroid Medications: thyroid How Long: since 2002 Additional History: EXAM MEASUREMENTS: Bone mineral densitometry was performed using the [employer]oco System. Bone mineral density as measured about the Lumbar spine is: ----- L1-L4(G/cm2): 1.107 T Score Values are as follows: ----- L1: -1.6 ----- L2: -1.6 ----- L3: -0.1 ----- L4: 0.1 ----- L1-L4: -0.7 Bone mineral density has: decreased -2.7 % since study of: 07.24.2011 Bone mineral density about the R hip (g/cm2): 0.894 Bone mineral density about the L hip (g/cm2): 0.902 T Score values are as follows: -----R Neck: -1.0 -----L Neck: -1.0 -----R Total: 0.2 -----L Total: -0.3 Bone mineral density has: decreased -8.7 % since study of: FRAX%s: The graph provided illustrates a 12.2% chance for a major osteoporotic fx and a 1.3% chance f or the hips probability for fx in 10 years time. IMPRESSION: Normal (Values between +1 and -1 indicate normal bone mass). Consider repeating this study in 5 year s or sooner if there is some new clinical indication. NOTE: T-SCORE=SD OF THE YOUNG ADULT MEAN.
== END | disposition home or self-care (01) ==
LOC: RADMAMWWP 15:52
PROVIDERS: ATTEND Internal Medicine
DX: Z12.31 Encounter for screening mammogram for malignant neoplasm of breast (principal); N95.1 Menopausal and female climacteric states
CPT/HCPCS: 77067; 77080

== ENCOUNTER 2022-10-17 20:01 | Emergency (ER) | payer MEDICARE, OTHER ==
[2022-10-17 20:19] VITALS: BP 126/56; PULSE 78; TEMP 98.3
[2022-10-17] MEDS ORDERED: SODIUM CHLORIDE 0.9% 1,000 ML IV STA (20:29)
[2022-10-17] MEDS ORDERED: MORPHINE SULFATE 4 MG/ML SYRINGE IVP STA (20:30)
--- NOTE | 2022-10-17 20:35 | ED ---
Abdominal Pain HPI - General Chief Complaint: Abdominal Pain Stated Complaint: R ABD PAIN Time Seen by Provider: 10/17/22 20:21 Source: patient, RN notes reviewed, old records reviewed Mode of arrival: ambulatory Limitations: no limitations - History of Present Illness Initial Comments: This is a pleasant 62-year-old female that presents alert and oriented with complaints of right lower quadrant pain for the past 2 weeks. Worse with any movement. Denies any fevers. Does have nausea that is worse with eating. States that she did see her primary care doctor today and was diagnosed with urinary tract infection and started on Cipro. She states he was concerned that right lower quadrant pain may be appendicitis and sent her to the emergency room . Patient does have a history of Graves' disease, is a daily smoker. Abdominal surgeries in the past consist of hysterectomy, section and bladder surgery. MD Complaint: abdominal pain -: week(s) (2) Location: RLQ Radiation: R flank Severity scale (1-10): 8 Quality: sharp Consistency: constant Improves With: nothing Worsens With: movement Associated Symptoms: nausea Treatments Prior to Arrival: other (PCP today, diagnosed with UTI, Cipro prescribed) - Related Data Home Medications Medication Instructions Recorded Confirmed Triamterene-Hctz 37.5-25Mg 1 each PO DAILY 04/14/14 09/01/21 [Dyazide 37.5-25 Capsule] Escitalopram [Lexapro] 10 mg PO DAILY 01/29/19 09/01/21 Levothyroxine Sodium [Synthroid] 88 mcg PO DAILY 01/29/19 09/01/21 Pravastatin Sodium [Pravachol] 40 mg PO DAILY 01/29/19 09/01/21 atenoloL [Atenolol] 25 mg PO DAILY 01/29/19 09/01/21 Acetaminophen [Tylenol Arthritis] 650 mg PO DIRECTED PRN 09/01/21 09/01/21 Previous Rx's Medication Instructions Recorded HYDROcodone/APAP 7.5-325MG [[place] 1 tab PO Q4-6H PRN #30 tab 09/02/21 7.5-325] Allergies Allergy/AdvReac Type Severity Reaction Status Date / Time lisinopril Allergy Confusion Verified 10/17/22 20:19 prednisone Allergy Rash/Hives Verified 10/17/22 20:19 promethazine HCl Allergy Confusion Verified 10/17/22 20:19 [From Phenergan] propofol Allergy Unknown Verified 10/17/22 20:19 hydrochlorothiazide AdvReac Unknown Verified 10/17/22 20:19 STEROIDS Allergy Unknown Uncoded 10/17/22 20:19 Review of Systems ROS Statement: Those systems with pertinent positive or pertinent negative responses have been documented in the HPI. ROS Other: All systems not noted in ROS Statement are negative. Past Medical History Past Medical History: Hyperlipidemia, Hypertension, Thyroid Disorder Additional Past Medical History / Comment(s): Grave's Disease. lt ankle torn tendon History of Any Multi-Drug Resistant Organisms: None Reported Past Surgical History: Bladder Surgery, Breast Surgery, Hysterectomy, Orthopedic Surgery, Tonsillectomy Additional Past Surgical History / Comment(s): memo lumpectomy, lipoma removed from rt side, memo knee arthroscopy Past Anesthesia/Blood Transfusion Reactions: Previous Problems w/ Anesthesia Additional Past Anesthesia/Blood Transfusion Reaction / Comment(s): allergic reaction to propofol. mother allergic to propofol Past Psychological History: No Psychological Hx Reported Smoking Status: Current every day smoker Past Alcohol Use History: None Reported Past Drug Use History: None Reported General Exam Limitations: no limitations General appearance: alert, in no apparent distress Head exam: Present: atraumatic Eye exam: Present: normal appearance. Absent: scleral icterus, conjunctival injection, periorbital swelling Neck exam: Present: full ROM. Absent: meningismus Respiratory exam: Present: normal lung sounds bilaterally. Absent: respiratory distress, accessory muscle use Cardiovascular Exam: Present: regular rate GI/Abdominal exam: Present: soft, tenderness (RLQ), rebound. Absent: distended, rigid Extremities exam: Present: full ROM, normal capillary refill. Absent: pedal edema Back exam: Absent: paraspinal tenderness, vertebral tenderness Neurological exam: Present: alert, oriented X3 Psychiatric exam: Present: normal affect, normal mood Skin exam: Present: warm, dry. Absent: cyanosis, diaphoretic, pallor Course Vital Signs 10/17/22 20:17 Temperature 98.3 F Pulse Rate 78 Respiratory 20 Rate Blood Pressure 126/56 O2 Sat by Pulse 96 Oximetry Medical Decision Making - Medical Decision Making Labs show no evidence of leukocytosis. Creatinine 1.14 with previous creatinine of 1.31. Lactic acid is negative at 1.3. Patient was given morphine and IV fluids with improvement in her pain. CT of the abdomen with contrast was performed showing the appendix is normal. Small hiatal hernia noted. Impression no evidence of obstructive uropathy or renal calculus. Appendix is normal. Small hiatal hernia. 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 She was prescribed Cipro. She was directed to take this medication as prescribed and follow-up with her primary care doctor this week. She is agreeable to this plan of care. Case was discussed with Dr. Anders. History of hypertension, Graves' disease, hyperlipidemia, hysterectomy Was pt. sent in by a medical professional or institution (, PA, [facility], urgent care, hospital, or fci...) When possible be specific @ -Dr Carter PCP Did you speak to anyone other than the patient for history (EMS, parent, family, police, friend...)? What history was obtained from this source @ -No Did you review nursing and triage notes (agree or disagree)? Why? @ -I reviewed and agree with nursing and triage notes Were old charts reviewed (outside hosp., previous admission, EMS record, old EKG, old radiological studies, urgent care reports/EKG's, fci records)? Report findings @ -No old charts were reviewed Differential Diagnosis (chest pain, altered mental status, abdominal pain women, abdominal pain men, vaginal bleeding, weakness, fever, dyspnea, syncope, headache, dizziness, GI bleed, back pain, seizure, CVA, palpatations, mental health, musculoskeletal)? @ -Differential Abdominal Pain Women: Appendicitis, Cholecystitis, diverticulosis, ischemic bowel, pancreatitis, hepatitis, UTI, gastroenteritis, AAA, incarcerated hernia, bowel obstruction, constipation, inflammatory bowel, hepatitis, peptic ulcer disease, splenic infarction, perforated viscus, vulvitis, ovarian torsion, PID, kidney stone, placenta abruption, this is not meant to be an all-inclusive list EKG interpreted by me (3pts min.). @ -n/a X-rays interpreted by me (1pt min.). @ -None done CT interpreted by me (1pt min.). @ -no U/S interpreted by me (1pt. min.). @ -None done What testing was considered but not performed or refused? (CT, X-rays, U/S, labs)? Why? @ -None What meds were considered but not given or refused? Why? @ -None Did you discuss the management of the patient with other professionals ([facility] i.e., Dr., PA, [facility], lab, RT, psych nurse, social worker clinical, emergency medical services coordinator, teacher, information management officer, business case analyst)? Give summary @ -No Was smoking cessation discussed for >3mins.? @ -No Was critical care preformed (if so, how long)? @ -No Were there social determinants of health that impacted care today? How? (Homelessness, low income, unemployed, alcoholism, drug addiction, transportation, low edu. Level, literacy, decrease access to med. care, senior living, rehab)? @ -No Was there de-escalation of care discussed even if they declined (Discuss DNR or withdrawal of care, Hospice)? DNR status @ -No What co-morbidities impacted this encounter? (DM, HTN, Smoking, COPD, CAD, Cancer, CVA, ARF, Chemo, Hep., AIDS, mental health diagnosis, sleep apnea, morbid obesity)? @ -Hypertension, Graves' disease, hyperlipidemia, hysterectomy Was patient admitted / discharged? Hospital course, mention meds given and route, prescriptions, significant lab abnormalities, going to OR and other pertinent info. @ -Discharged Undiagnosed new problem with uncertain prognosis? @ -No Drug Therapy requiring intensive monitoring for toxicity (Heparin, Nitro, Insulin, Cardizem)? @ -No Were any procedures done? @ -No Diagnosis/symptom? @ -Abdominal pain Acute, or Chronic, or Acute on Chronic? @ -Acute Uncomplicated (without systemic symptoms) or Complicated (systemic symptoms)? @ -Uncomplicated Side effects of treatment? @ -No Exacerbation, Progression, or Severe Exacerbation? @ -No Poses a threat to life or bodily function? How? (Chest pain, USA, HI, pneumonia, PE, COPD, DKA, ARF, appy, cholecystitis, CVA, Diverticulitis, Homicidal, Suicidal, threat to staff... and all critical care pts) @ -No - Lab Data Result diagrams: 10/17/22 20:37 10/17/22 20:37 Lab Results 10/17/22 10/17/22 10/17/22 Range/Units 20:37 20:37 20:37 WBC 8.1 (3.8-10.6) k/uL RBC 4.99 (3.80-5.40) m/uL Hgb 15.1 (11.4-16.0) gm/dL Hct 45.2 (34.0-46.0) % MCV 90.6 (80.0-100.0) fL MCH 30.3 (25.0-35.0) pg MCHC 33.4 (31.0-37.0) g/dL RDW 13.1 (11.5-15.5) % Plt Count 244 (150-450) k/uL MPV 8.1 Neutrophils % 53 % Lymphocytes % 38 % Monocytes % 5 % Eosinophils % 2 % Basophils % 1 % Neutrophils # 4.3 (1.3-7.7) k/uL Lymphocytes # 3.1 (1.0-4.8) k/uL Monocytes # 0.4 (0-1.0) k/uL Eosinophils # 0.1 (0-0.7) k/uL Basophils # 0.1 (0-0.2) k/uL PT 9.9 (9.0-12.0) sec INR 0.9 (<1.2) APTT 23.3 (22.0-30.0) sec Sodium 137 (137-145) mmol/L Potassium 3.9 (3.5-5.1) mmol/L Chloride 105 (98-107) mmol/L Carbon Dioxide 23 (22-30) mmol/L Anion Gap 9 mmol/L BUN 21 H (7-17) mg/dL Creatinine 1.14 H (0.52-1.04) mg/dL Est GFR (CKD-EPI)AfAm 60 (>60 ml/min/1.73 sqM) Est GFR (CKD-EPI)NonAf 52 (>60 ml/min/1.73 sqM) Glucose 136 H (74-99) mg/dL Plasma Lactic Acid Dionte (0.7-2.0) mmol/L Calcium 10.3 H (8.4-10.2) mg/dL Total Bilirubin 1.2 (0.2-1.3) mg/dL AST 26 (14-36) U/L ALT 26 (4-34) U/L Alkaline Phosphatase 59 (38-126) U/L Total Protein 7.1 (6.3-8.2) g/dL Albumin 4.2 (3.5-5.0) g/dL Amylase 55 (30-110) U/L Lipase 212 (23-300) U/L 10/17/22 Range/Units 20:37 WBC (3.8-10.6) k/uL RBC (3.80-5.40) m/uL Hgb (11.4-16.0) gm/dL Hct (34.0-46.0) % MCV (80.0-100.0) fL MCH (25.0-35.0) pg MCHC (31.0-37.0) g/dL RDW (11.5-15.5) % Plt Count (150-450) k/uL MPV Neutrophils % % Lymphocytes % % Monocytes % % Eosinophils % % Basophils % % Neutrophils # (1.3-7.7) k/uL Lymphocytes # (1.0-4.8) k/uL Monocytes # (0-1.0) k/uL Eosinophils # (0-0.7) k/uL Basophils # (0-0.2) k/uL PT (9.0-12.0) sec INR (<1.2) APTT (22.0-30.0) sec Sodium (137-145) mmol/L Potassium (3.5-5.1) mmol/L Chloride (98-107) mmol/L Carbon Dioxide (22-30) mmol/L Anion Gap mmol/L BUN (7-17) mg/dL Creatinine (0.52-1.04) mg/dL Est GFR (CKD-EPI)AfAm (>60 ml/min/1.73 sqM) Est GFR (CKD-EPI)NonAf (>60 ml/min/1.73 sqM) Glucose (74-99) mg/dL Plasma Lactic Acid Dionte 1.3 (0.7-2.0) mmol/L Calcium (8.4-10.2) mg/dL Total Bilirubin (0.2-1.3) mg/dL AST (14-36) U/L ALT (4-34) U/L Alkaline Phosphatase (38-126) U/L Total Protein (6.3-8.2) g/dL Albumin (3.5-5.0) g/dL Amylase (30-110) U/L Lipase (23-300) U/L Disposition Clinical Impression: Abdominal pain Disposition: HOME SELF-CARE Condition: Good Instructions (If sedation given, give patient instructions): Abdominal Pain (ED) Additional Instructions: Take the antibiotics as prescribed today by your primary care doctor for urinary tract infection. Follow-up with your doctor this week. Return to the emergency room with any new or concerning symptoms including increased pain, fevers or persistent nausea vomiting. Is patient prescribed a controlled substance at d/c from ED?: No Referrals: Mike Carter MD [Primary Care Provider] - 1-2 days Time of Disposition: 22:59
--- NOTE | 2022-10-17 21:09 | CT ---
EXAMINATION TYPE: CT abdomen pelvis w con CT DLP: 1120.5 mGycm, Automated exposure control for dose reduction was used. DATE OF EXAM: 10/17/2022 8:56 PM COMPARISON: CT abdomen pelvis most recent from 09/03/2018 CLINICAL INDICATION:Female, 62 years old with history of abdominal pain; RLQ abdominal pain. TECHNIQUE: Axial CT of the abdomen and pelvis. Sagittal and coronal reformats were created on a [employer] workstation. Contrast used:100cc mL of Isovue 300 with IV Contrast, Oral contrast used: without Oral Contrast FINDINGS: LOWER CHEST: Unremarkable ABDOMEN LIVER: Unremarkable GALLBLADDER AND BILE DUCTS: Unremarkable. PANCREAS: Unremarkable. SPLEEN: Unremarkable. ADRENAL GLANDS: Unremarkable. KIDNEYS AND URETERS: No evidence of hydronephrosis or renal calculus. The ureters are unremarkable. PELVIS BLADDER: Unremarkable REPRODUCTIVE: Unremarkable. ABDOMEN & PELVIS STOMACH AND BOWEL: No evidence of bowel obstruction. The appendix is normal. Small hiatal hernia. PERITONEUM/RETROPERITONEUM: No evidence of pneumoperitoneum or free fluid. VASCULATURE: No evidence of aortic aneurysm. MUSCULOSKELETAL: No acute osseous abnormalities. Mild disc degeneration changes are present throughou t the thoracolumbar spine. The spinous process of L3-L4 and L4-L5 and close proximity and demonstrate s pseudoarthrosis. There is grade 2 anterolisthesis of L4 and L5. LYMPH NODES: No gross evidence for lymphadenopathy. SOFT TISSUE/ABDOMINAL WALL: Fat-containing umbilical hernia. IMPRESSION: 1. No evidence of obstructive uropathy or renal calculus. The appendix is normal. 2. Small hiatal hernia. 3. Grade 2 anterolisthesis of L4 and L5. 4. Evidence of Baastrup's disease.
[2022-10-17 21:42] LABS: Albumin 4.2 g/dL (3.5-5.0); Calcium 10.3 mg/dL (8.4-10.2); Potassium 3.9 mmol/L (3.5-5.1); Total Bilirubin 1.2 mg/dL (0.2-1.3); Total Protein 7.1 g/dL (6.3-8.2)
[2022-10-17 21:45] LABS: INR 0.9 (<1.2); Partial Thromboplastin Time 23.3 sec (22.0-30.0); Prothrombin Time 9.9 sec (9.0-12.0)
[2022-10-17 22:40] LABS: Basophils # (A) 0.1 k/uL (0-0.2); Basophils % (A) 1 %; Eosinophils # (A) 0.1 k/uL (0-0.7); Eosinophils % (A) 2 %; HCT 45.2 % (34.0-46.0); HGB 15.1 gm/dL (11.4-16.0); Lymphocytes # (A) 3.1 k/uL (1.0-4.8); Lymphocytes % (A) 38 %; MCH 30.3 pg (25.0-35.0); MCHC 33.4 g/dL (31.0-37.0); MCV 90.6 fL (80.0-100.0); Mean Platelet Volume 8.1; Monocytes # (A) 0.4 k/uL (0-1.0); Monocytes % (A) 5 %; Neutrophils # (A) 4.3 k/uL (1.3-7.7); Neutrophils % (A) 53 %; Platelet Count 244 k/uL (150-450); RBC 4.99 m/uL (3.80-5.40); RDW 13.1 % (11.5-15.5); WBC 8.1 k/uL (3.8-10.6)
[2022-10-17 23:14] VITALS: RESP 18
[2022-10-17 23:14] LABS: Appearance,Urine Clear (Clear); Bacteria,Urine Rare /hpf; Bilirubin,Urine Negative (Negative); Blood,Urine Negative (Negative); Color,Urine Yellow; Glucose,Urine (UA) Negative (Negative); Hyaline Casts,Urine 1 /lpf (0-2); Ketones,Urine Negative (Negative); Leukocyte Esterase,Urine Moderate (Negative); Mucus,Urine Rare /hpf; Nitrite,Urine Negative (Negative); Protein,Urine Negative (Negative); RBC,Urine 2 /hpf (0-5); Squamous Epithelial Cell,Urine 1 /hpf (0-4); WBC,Urine 13 /hpf (0-5)
[2022-10-17 23:33] LABS: Specific Gravity,Urine >1.050 (1.001-1.035)
== END 2022-10-17 23:14 | disposition home or self-care (01) ==
LOC: EC 20:01
DX: R10.31 Right lower quadrant pain (principal); E78.5 Hyperlipidemia, unspecified; I10 Essential (primary) hypertension; E07.9 Disorder of thyroid, unspecified; F17.200 Nicotine dependence, unspecified, uncomplicated; Z88.8 Allergy status to other drugs, medicaments and biological substances; Z79.890 Hormone replacement therapy; Z79.899 Other long term (current) drug therapy
CPT/HCPCS: 36415; 80053; 82150; 83605; 83690; 85025; 85610; 85730; 81001; 74177; 99284; 96374; 96361; J2270; Q9967

== ENCOUNTER → 2022-11-02 | Outpatient (CLI) | payer MEDICARE, OTHER ==
[2022-11-02 15:50] LABS: HCT 45.3 % (37.2-46.3); HGB 14.3 g/dL (12.0-15.0); MCH 29.1 pg (27.0-32.0); MCHC 31.6 g/dL (32.0-37.0); MCV 92.3 fL (80.0-97.0); Mean Platelet Volume 10.2 fL (9.5-12.2); NRBC Per 100 WBC 0 /100 WBCS (0.0-0.0); Platelet Count 257 X 10*3/uL (140-440); RBC 4.91 X 10*6/uL (4.10-5.20); WBC 7.67 X 10*3/uL (4.50-10.00)
[2022-11-02 16:18] LABS: African American GFR (CKD) 50.9 (60.0-200.0); Anion Gap 10.8 mmol/L (10.00-18.00); Blood Urea Nitrogen 19.8 mg/dL (9.0-27.0); Carbon Dioxide 27.2 mmol/L (20.0-27.5); Non-African American GFR(CKD) 43.9 (60.0-200.0); Potassium 4.4 mmol/L (3.5-5.5)
== END | disposition home or self-care (01) ==
LOC: LABPAT 10:38
PROVIDERS: ATTEND Internal Medicine Interventional Cardiology
DX: Z01.812 Encounter for preprocedural laboratory examination (principal); R94.39 Abnormal result of other cardiovascular function study
CPT/HCPCS: 36415; 80051; 82565; 84520; 85027

== ENCOUNTER 2022-11-08 05:42 | Day surgery (SDC) | payer MEDICARE, OTHER ==
[2022-11-08] MEDS ORDERED: ALPRAZolam 0.5 MG TAB PO PRN (05:52)
[2022-11-08] MEDS ORDERED: ALPRAZolam 0.25 MG TAB PO PRN (05:52)
[2022-11-08] MEDS ORDERED: SODIUM CHLORIDE 0.9% 1,000 ML in EMPTY BAG 1 BAG IV SCH (05:52)
[2022-11-08] MEDS ORDERED: ASPIRIN 325 MG TAB PO STA (05:52)
[2022-11-08] MEDS ORDERED: NITROGLYCERIN SL TABS 0.4 MG TAB SUBLINGUAL PRN (05:52)
[2022-11-08] MEDS ORDERED: SODIUM CHLORIDE 0.9% 1,000 ML IV ONE (06:15)
[2022-11-08 06:18] VITALS: RESP 18
[2022-11-08 06:21] VITALS: TEMP 98.1
[2022-11-08] MEDS ORDERED: fentaNYL (PF) 50 MCG/ML 2 ML AMP IV ONE (07:57)
[2022-11-08] MEDS ORDERED: LIDOCAINE 1% INJ 10MG/ML (5 ML VIAL-PF) SQ ONE (07:59)
[2022-11-08] MEDS ORDERED: MIDAZOLAM 2 MG/2 ML VIAL IV ONE (08:03)
[2022-11-08] MEDS ORDERED: VERAPAMIL SYRINGE (5 MG/10 ML) INTRAARTER ONE (08:06)
[2022-11-08] MEDS ORDERED: HEPARIN SODIUM 1,000 UN/ML (10ML VL) IV ONE (08:12)
[2022-11-08] MEDS ORDERED: IOPAMIDOL-370 100ML BTL INJ ONE (08:17)
[2022-11-08] MEDS ORDERED: RX INFO: IV CONTRAST WAS GIVEN 1 EACH MISC MISCELLANE PRN (08:27)
[2022-11-08] MEDS ORDERED: SODIUM CHLORIDE 0.9% 1,000 ML IV SCH (08:30)
--- NOTE | 2022-11-08 08:32 | P.CARDCATH ---
Date of Procedure: 11/08/22 Description of Procedure: Cardiac Catheterization: The patient is a 62-year-old female with known history of hypertension, hyperlipidemia, chronic tobacco use who has been complaining of progressive dyspnea and had an abnormal MPI. Recommendations were made regarding cardiac catheterization, the risks and the complications were discussed with the patient who is in full understanding and agreement. Procedure Description: Patient was brought to outside laborer in fasting semi-sedated state after receiving Fentanyl and Benadryl achieiving moderate conscious sedated state. Using Xylocaine Anesthesia and Seldinger technique, a 6-[place]icaraguan sheath was introduced in the right radial artery . Subsequently, selective coronary angiography was performed using a 5-[place]icaraguan 3.5 bend Deonte catheter. Multiple views of the coronary artery including hemiaxial views were obtained. The 5-[place]icaraguan pigtail catheter was used to cross the aortic valve and LVEDP was calculated. Following that, catheter and sheath were removed. Hemostasis was obtained with deployment of TR band . There was no immediate complication. Patient was returned to room in stable condition. Of note, the patient received a total of 4500 units of intravenous heparin as well as intra-arterial verapamil. Findings: Left main: This is a short sized vessel, bifurcating into LAD and left circumflex, left main has no high-grade stenosis LAD: This is a large size vessel, reaching to the apex, giving rise to a moderately sized diagonal branch the LAD in the mid segment has 10-20% plaque with no high-grade stenosis Left circumflex: This is a large nondominant vessel and rise to a large obtuse marginal branch that has no evidence of high-grade stenosis RCA: This is a dominant vessel, bifurcating distally to PDA and PLV. The RCA has no evidence of high-grade stenosis. Left Ventriculogram: Not performed Hemodynamics: There was no gradient across the aortic valve, LVEDP was 12-14 mmHg Conclusion: 1. Mild disease in the LAD 2. Right dominance 3. Normal LVEDP Recommendations: I have recommended to continue present therapy with smoking cessation and aggressive coronary risk modification. The findings and the recommendations were discussed with the patient and the family and they were in full understanding and agreement. Duration of sedation is 23 minutes.
[2022-11-08 11:27] VITALS: BP 130/69
[2022-11-08 11:42] VITALS: PULSE 58
[2022-11-09] MEDS ORDERED: LEVOTHYROXINE 100 MCG TAB PO SCH (06:30)
[2022-11-09] MEDS ORDERED: ASPIRIN 325 MG TAB PO SCH (09:00)
[2022-11-09] MEDS ORDERED: PRAVASTATIN SODIUM 40 MG TAB PO SCH (09:00)
[2022-11-09] MEDS ORDERED: ESCITALOPRAM 10 MG TAB PO SCH (09:00)
[2022-11-09] MEDS ORDERED: atenoloL 25 MG TAB PO SCH (09:00)
== END 2022-11-08 11:57 | disposition home or self-care (01) ==
LOC: CATHCVL 05:42
PROVIDERS: ATTEND Internal Medicine Interventional Cardiology
DX: I25.10 Atherosclerotic heart disease of native coronary artery without angina pectoris (principal); I10 Essential (primary) hypertension; E78.5 Hyperlipidemia, unspecified; F17.200 Nicotine dependence, unspecified, uncomplicated
CPT/HCPCS: 93458; C1769 ×2; C1894; J2250; J2001; J3010; J1644; Q9967

== ENCOUNTER → 2023-02-20 | Outpatient (CLI) | payer MEDICARE, OTHER ==
--- NOTE | 2023-02-20 12:47 | US ---
EXAMINATION TYPE: US venous doppler duplex LE LT DATE OF EXAM: 02/20/2023 12:36 PM COMPARISON: NONE CLINICAL INDICATION: Female, 62 years old with history of PAIN IN LEG M79.662; Lt leg pain x 3 months , unexplained bruise distal posterior calf SIDE PERFORMED: Left TECHNIQUE: The lower extremity deep venous system is examined utilizing real time linear array sonog gianna with graded compression, doppler sonography and color-flow sonography. VESSELS IMAGED: Common Femoral Vein Deep Femoral Vein Greater Saphenous Vein * Femoral Vein Popliteal Vein Small Saphenous Vein * Proximal Calf Veins (* superficial vessels) Left Leg: Negative for DVT complicated santiago cyst noted at left posterior fossa: 6.7x2.8x1.5cm attempted to call office with results at 12:40, no answer IMPRESSION: Grayscale, color doppler, spectral doppler imaging performed of the deep veins of the lo wer extremities. There is normal flow, compressibility, vascular waveforms.
== END | disposition home or self-care (01) ==
LOC: RADUSWWP 12:04
PROVIDERS: ATTEND Internal Medicine
DX: M79.662 Pain in left lower leg (principal)

== ENCOUNTER → 2023-02-21 | Outpatient (CLI) | payer MEDICARE, OTHER ==
--- NOTE | 2023-02-21 10:06 | XR ---
EXAMINATION TYPE: XR lumbosacral spine 5 views DATE OF EXAM: 02/21/2023 Comparison: 05/04/2020 Clinical History: 62-year-old female M54.40 Findings: 5 lumbar type vertebral bodies. Hypertrophic facet arthropathy lower lumbar spine. Accentuated lower lumbar lordosis. Degenerative grade 1 retrolisthesis T12-L1 and L1-L2. Grade 1 anterolisthesis L4-L5. Mild multilevel endplate spondylosis. Vertebral body heights are preserved. Impression: Mild multilevel degenerative disc disease. Hypertrophic facet arthropathy mid to lower lumbar spine. Degenerative grade 1 spondylolisthesis T12-L1, L1-L2, and L4-L5. No vertebral compression collapse.
== END | disposition home or self-care (01) ==
LOC: RADXRMAIN 09:26
PROVIDERS: ATTEND Internal Medicine
DX: M51.16 Intervertebral disc disorders with radiculopathy, lumbar region (principal); M47.26 Other spondylosis with radiculopathy, lumbar region; M43.15 Spondylolisthesis, thoracolumbar region
CPT/HCPCS: 72110

== ENCOUNTER → 2023-09-14 | Outpatient (CLI) | payer MEDICARE ==
[2023-09-14 17:06] LABS: HCT 43.9 % (37.2-46.3); HGB 14.8 g/dL (12.0-15.0); MCH 30.8 pg (27.0-32.0); MCHC 33.7 g/dL (32.0-37.0); MCV 91.3 FL (80.0-97.0); Mean Platelet Volume 10.5 FL (9.5-12.2); NRBC Per 100 WBC 0 X 10*3/uL (0.00-0.01); Platelet Count 277 X 10*3/uL (140-440); RBC 4.81 X 10*6/uL (4.10-5.20); RDW 13.1 % (11.5-14.5); WBC 6.48 X 10*3/uL (4.50-10.00)
[2023-09-14 17:42] LABS: ALT 36 U/L (8-44); AST 26 U/L (13-35); Albumin 4.5 g/dL (3.8-4.9); Alkaline Phosphatase 66 U/L (41-126); Blood Urea Nitrogen 29.4 mg/dL (9.0-27.0); Calcium 10.5 mg/dL (8.7-10.3); Carbon Dioxide 20.6 mmol/L (21.6-31.8); Chloride 104 mmol/L (96-109); Chol/HDL Ratio 4.03 Ratio; Globulin 2.5 g/dL (1.6-3.3); Glucose 95 mg/dL (70-110); LDL Cholesterol,Calculated 104.5 mg/dL (0.0-131.0); Potassium 4.5 mmol/L (3.5-5.5); Sodium 138 mmol/L (135-145); Total Bilirubin 0.7 mg/dL (0.3-1.2)
[2023-09-14 20:51] LABS: INR 0.95 sec (0.93-1.11); Prothrombin Time 10.3 sec (9.9-11.9)
== END | disposition home or self-care (01) ==
LOC: LABPAT 09:20
PROVIDERS: ATTEND Orthopaedic Surgery
DX: Z01.812 Encounter for preprocedural laboratory examination (principal); M43.16 Spondylolisthesis, lumbar region; M47.26 Other spondylosis with radiculopathy, lumbar region
CPT/HCPCS: 36415; 80053; 80061; 82306; 85027; 85610; 86850; 86900; 86901; 87070

== ENCOUNTER 2023-09-25 09:00 | Inpatient (IN) | payer MEDICARE, OTHER ==
--- NOTE | 2023-09-23 10:35 | P.HPOR ---
History of Present Illness H&P Date: 09/14/23 .D:Date: 09/14/23 : 09:00am .T:Title: [facility] HISTORY AND PHYSICAL Age: 63 year Height: 5'5" Weight: 170 lbs BP:132/80 BMI: 28.29 kg/m2 VAS: 8 Hand:Right IMPRESSION: It was my pleasure to have seen and examined Marian. I reviewed the patient's clinical syndrome, physical findings, and imaging studies during the appointment today. It is my impression that the patient has a diagnosis of. 1. L4-5 Grade I spondylolisthesis, unstable. 2. L4-S1 spondylosis with stenosis and radiculopathy 3. Low back pain I outlined the natural course history without intervention and various interventional options. Spine Surgery Risk Review Ms. Romo is presenting for evaluation of low back pain, LE radiculopathy and weakness with severe pain increase since previous visits to the point where she cannot performe her ADLs without pain, it is affecting her mobility and her life significantly at this time. It was my pleasure to have seen and examined Ms. Romo. In our visit today we have had a chance to go over subjective complaints, physical examination findings and treatments including the natural course history without intervention and various interventional options. The patients imaging demonstrates: L4-5 spondylolistheiss Grade I unstable, L4-S1 spondylosis with stenosis. On physical exam, Ms. Romo demonstrates: Low back pain, mechanical made worse by standing, sitting and twisting. She has LE radiculopathy with increased tension on SLR b/l. She has palapable step off at L4-5 with audible click on back bend. She has LE weakness. I have explained to the patient that as their condition progresses it will cause further neurological deficits and eventual paralysis. Based on the patients imaging, physical exam, and the rapid progression and disabling nature of their symptoms, at this time I recommend surgery in the form of a: Minimally invasive posteriorlateral and interbody fusion L4-S1 I discussed the risk and benefits of this procedure at length with Ms. Romo. The patient and significant other agreed to considered pursuing the procedure abovementioned. Prior to surgery, she should follow up with her PCP (Cardio, ID, IM etc) for clearance. Questions were invited and answered, and the patient wishes to proceed as outlined below. Currently, I am recommendin.Minimally invasive posteriorlateral and interbody fusion L4-S1 2.Review of surgical risks and benefits as well as an educational packet on the proposed surgical procedure. Risks: All surgical procedures come with inherent risks, including those related to positioning, anesthesia, intraoperative findings, and postoperative complications. It is important to understand that surgery does not come with any guarantee of a successful outcome as complications and adverse events are always possible. The patient was given a handout in office today discussing the surgical procedure and risks associated with the intervention, both of which were discussed with the patient. These risks include but are not limited to the following: * Experiencing same, different or even worse symptoms in back, neck, arms, or legs compared to before surgery. Requiring further surgery or other forms of treatment presently or at some time in the future at same or other levels of the intended spine surgery. On an extreme but fortunately relatively rare basis severe complication such as blindness, stroke, heart attack, temporary and/or permanent nerve injury, paralysis, coma, or may occur, sometimes without known explanation. Surgical complications may include but are not limited to risk of infection, fluid accumulation in the surgical dissection site, including a seroma or hematoma, that requires additional surgery, wound drainage, bleeding, new numbness or weakness, vision changes/loss, spinal fluid leakage, non-healing and/or infected incision, headaches, difficulty or inability to swallow, hoarseness, hemopneumothorax, pneumothorax, impotence, retrograde ejaculation, vaginal dryness; injury to nerves, spinal cord, blood vessels, lymphatics or other vital organs (i.e., bowel injury, injury to the great vessels); heterotopic bone formation; complications related to the hardware such as screws, rods, cages including misplaced hardware, device failure, instrumentation at the wrong spine level, hardware fracture/breakage, or hardware loosening; vertebral failure of the spinal column above or below the newly placed hardware; retained surgical instrumentations or devices and the need for further surgery. * Medical risks of the planned spine surgery include but are not limited to generalized Infections to the whole body or local areas outside of the surgical site (sepsis), heart attack, bleeding, anaphylaxis, meningitis, seizure, epilepsy, hearing loss, burn dias, laceration of the head or other areas of the body, bruising, hypersensitivity of the skin, bladder over distension; allergic reaction; shoulder injury related to positioning; fat, blood and air clots to other areas of the body like heart, lungs, brain; failure of internal organs such as lungs, kidneys, liver and excessive bleeding. If blood transfusions are necessary, note that transfusions may cause intolerance reactions such as anaphylaxis or other complex reactions. Despite best efforts, the results of spine surgery might not heal in terms of bone, soft tissues such as skin, fascia, ligaments, and joints. Additionally, in order to achieve best possible results, spine surgery may be carried out beyond the initially planned levels and involve decompression, fusion including insertion of hardware at levels other than the original intended area of surgical interest change some portions of the procedure in order to ensure the best possible outcomes. With spine surgery and spinal fusion, there are different off label uses of instrumentation (devices, implants and hardware) as well as biological substances (bone morphogenic proteins, demineralized bone matrix) as well as using extra bone from allograft sources (i.e. cadaver bone) or autograft (iliac crest bone, ribs, or the spine itself). The patient has been given information about these practices and their inherent risks and benefits. [facility] is an educational center that serves as a training facility for neurosurgical and orthopedic PE MANAGER and Nursing students. Physician assistants are medically trained surgical providers who function in the outpatient, inpatient, and operating room setting under the direct supervision of the attending surgeon. [facility] has multiple operating rooms with single and overlapping rooms running daily. They currently function under the required guidelines as produced by the [facility] Finance Committee with regards to the overlapping rooms and will continue to comply with changes to this policy as they occur. The requirements include and are complied with as follows: (1) the critical portions of the overlapping rooms will not occur at the same time, (2) the attending physician will be physically present during the critical portions of the procedure and immediately available during the entire case, and (3) a back-up attending is designated should the primary attending not be immediately available. The patient has had a chance to review all the listed information, has been given print outs detailing this information, and has had all his/her questions answered to their satisfaction. It was my pleasure to have seen and examined Ms. Romo. In our visit today we have had a chance to go over my understanding of our patient's current condition, the natural course history without intervention and various interventional options. Questions were invited and answered, and the patient wis hes to proceed as outlined above. I have seen and examined the patient for 25 minutes and we have spent more than 50% of the time in repeat and detailed counseling about the patient's condition, its natural course history with out and as much as can be predicted with surgery and re-review of various surgical treatment options. In conclusion, Ms. Romo and her SO requested we proceed with the above suggested surgery and are willing to accept risks and limitations of the suggested surgery as nature of the disease process and our best attempts at treatment for the condition. Thank you again for allowing us to be part of your patient's care. Please don't hesitate to contact me if you have any further questions. FOLLOW UP: Post Procedure PATIENT EDUCATION: Medications Reviewed: YES In our visit today Ms. Romo and I have had a chance to go over my understanding of the patient's current condition, the natural course history without intervention and various interventional options. Questions were invited and answered, and the patient wishes to proceed as outlined above. I will be sure to keep you updated after Ms. Romo returns here for further follow-up. Thank you again for your referral. Please do not hesitate to contact me if you have any further questions. Signed and authenticated by: Nuno Adrian [facility] [address] [place] [id number] This message is confidential, intended only for the named recipient(s) and may contain information that is privileged or exempt from disclosure under applicable law. If you are not the intended recipient(s), you are notified that the dissemination, distribution or copying of this information is strictly prohibited. If you received this message in error, please notify the sender then delete this message. # SIGNED BY Nuno Hagan (VILMAO)09/14/2023 11:31AM Past Medical History Past Medical History: Hyperlipidemia, Hypertension, Osteoarthritis (OA), Thyroid Disorder Additional Past Medical History / Comment(s): Grave's Disease. Left ankle - torn tendon, "repaired twice nani year but still not right." Varicose veins. Heart murmur. History of Any Multi-Drug Resistant Organisms: None Reported Past Surgical History: Bladder Surgery, Breast Surgery, Hysterectomy, Orthopedic Surgery, Tonsillectomy Additional Past Surgical History / Comment(s): Bilateral breast lumpectomy, lipoma removed from right side, bilateral knee arthroscopy, left ankle tendon repair X2. Past Anesthesia/Blood Transfusion Reactions: Previous Problems w/ Anesthesia Additional Past Anesthesia/Blood Transfusion Reaction / Comment(s): Allergic reaction to Propofol, Mother allergic to Propofol. Smoking Status: Current every day smoker - Past Family History Mother Family Medical History: Coronary Artery Disease (CAD) Father Family Medical History: Cancer Sister(s) Family Medical History: Cancer Medications and Allergies Home Medications Medication Instructions Recorded Confirmed Type Triamterene-Hctz 37.5-25Mg 1 each PO QAM 04/14/14 09/18/23 History [Dyazide 37.5-25 Capsule] Escitalopram [Lexapro] 10 mg PO QAM 01/29/19 09/18/23 History Levothyroxine Sodium [Synthroid] 100 mcg PO QAM 01/29/19 09/18/23 History Pravastatin Sodium [Pravachol] 40 mg PO QAM 01/29/19 09/18/23 History atenoloL [Atenolol] 25 mg PO QAM 01/29/19 09/18/23 History Ibuprofen [Motrin] 600 mg PO Q6HR PRN 11/06/22 09/18/23 History Allergies Allergy/AdvReac Type Severity Reaction Status Date / Time lisinopril Allergy Confusion Verified 09/18/23 09:54 prednisone Allergy Rash/Hives Verified 09/18/23 09:54 promethazine HCl Allergy Confusion Verified 09/18/23 09:54 [From Phenergan] propofol Allergy Unknown Verified 09/18/23 09:54 hydrochlorothiazide AdvReac Unknown Verified 09/18/23 09:54 STEROIDS Allergy Unknown Uncoded 09/18/23 09:54 Physical Examination Osteopathic Statement: *. No significant issues noted on an osteopathic structural exam other than those noted in the History and Physical/Consult.
[~2023-09-25 09:00] MED LIST changes: +HYDROmorphone 0.5 MG/0.5 ML SYRINGE IVP PRN; -LACTATED RINGERS 1,000 ML IV SCH; +MIDAZOLAM 2 MG/2 ML VIAL IV PRN; -ONDANSETRON 4 MG/2 ML VIAL IVP ONE; +TRANEXAMIC 1,000 MG/100ML-NACL 1,000 MG in SALINE 1 100ML.BAG IVPB PRN; -fentaNYL (PF) 50 MCG/ML 2 ML AMP IV PRN
[2023-09-25] MEDS: LACTATED RINGERS 1,000 ML IV SCH (09:21)
[2023-09-25] MEDS: HYDROmorphone 0.5 MG/0.5 ML SYRINGE IVP ONE ×3 (09:21→15:37)
[2023-09-25] MEDS: LACTATED RINGERS 1,000 ML IV ONE (09:30)
[2023-09-25] MEDS: ACETAMINOPHEN TAB 500 MG TAB PO PRN (09:56)
[2023-09-25] MEDS: GABAPENTIN 300 MG CAP PO PRN (09:56)
[2023-09-25] MEDS: ONDANSETRON 4 MG/2 ML VIAL IVP PRN (09:56)
[2023-09-25] MEDS ORDERED: ETOMIDATE 2 MG/ML 10 ML VIAL ONE (11:19)
[2023-09-25] MEDS ORDERED: ePHEDrine 50 MG/ML 1 ML VIAL ONE (11:19)
[2023-09-25] MEDS ORDERED: SUCCINYLCHOLINE CHLORIDE 200 MG/10 ML VIAL IV ONE (11:19)
[2023-09-25] MEDS ORDERED: KETAMINE HCL IN 0.9 % NACL 50 MG/5 ML SYRINGE ONE (11:19)
[2023-09-25] MEDS ORDERED: fentaNYL (PF) 50 MCG/ML 2 ML AMP ONE (11:19)
[2023-09-25] MEDS ORDERED: TRANEXAMIC 1,000 MG/100ML-NACL PREMIX BAG ONE (11:19)
[2023-09-25] MEDS ORDERED: MIDAZOLAM 2 MG/2 ML VIAL ONE (11:19)
[2023-09-25] MEDS ORDERED: ROCURONIUM 10 MG/ML (5 ML VIAL) IV ONE (11:19)
[2023-09-25] MEDS ORDERED: LIDOCAINE 1% INJ 10MG/ML (20 ML MDV) ONE (11:19)
[2023-09-25] MEDS: TRANEXAMIC 1,000 MG/100ML-NACL 1,000 MG in SALINE 1 100ML.BAG IVPB PRN (11:24)
[2023-09-25] MEDS: VANCOMYCIN 1,000 MG VIAL MISCELLANE ONE ×2 (12:21→14:01)
[2023-09-25] MEDS: THROMBIN (BOVINE) 5,000 UNIT VIAL TOPICAL ONE (12:22)
[2023-09-25] MEDS: ceFAZolin 3,000 MG in SODIUM CHLORIDE 0.9% IRRIGATIO 3,000 ML IRRIGATION ONE (12:24)
[2023-09-25] MEDS ORDERED: MAGNESIUM HYDROXIDE 2,400 MG/30 ML CUP PO PRN (14:27)
[2023-09-25] MEDS ORDERED: SENNOSIDES-DOCUSATE SODIUM 1 EACH TAB PO PRN (14:27)
--- NOTE | 2023-09-25 14:52 | P.OP ---
Date of Procedure: 09/25/23 Preoperative Diagnosis: 1. L4-5 GRADE I SPONDYLOLISTHESIS, UNSTABLE 2. L4-S1 SPONDYLOSIS WITH STENOSIS, SEVERE 3. LE RADICULOPATHY 4. LOW BACK PAIN Postoperative Diagnosis: 1. L4-5 GRADE I SPONDYLOLISTHESIS, UNSTABLE 2. L4-S1 SPONDYLOSIS WITH STENOSIS, SEVERE 3. LE RADICULOPATHY 4. LOW BACK PAIN Procedure(s) Performed: 1. L4-5 POSTEROLATERAL AND INTERBODY FUSION 2. L5-S1 POSTEROLATERAL AND INTERBODY FUSION 3. L4-5 BILATERAL LAMINECTOMY, FACETECTOMY AND FORAMINOTOMY 4. L5-S1 BILATERAL LAMINECTOMY, FACETECTOMY AND FORAMINOTOMY 5. L4-S1 SEGMENTAL INSTRUMENTATION 6. L4-5 AND L5-S1 INSERTION OF BIOMECHANICAL DEVICE 7. USE OF Mamaya NAVIGAITON FOR SCREW PLACEMENT USE OF IONM [id number], [id number], [id number], 14763, 03600, [id number], [id number], [id number] Implants: -FUAD EVEREST RODS AND SCREWS -GLOBUS SABLE CAGES X2 10MM 9-16MM 8 DEG; 6-12 10MM 8 DEG -AUTOGRAFT, ALLOGRAFT, MAGNATOS Anesthesia: GETA Surgeon: Nuno Hagan Scrap Bunch Maker #1: Flex Ariza (WAS PRESENT AND ASSISTED WITH ALL ASPECTS OF THE CASE FROM POSITIONTO CLOSURE) Estimated Blood Loss (ml): 250 IV fluids (ml): 1,500 Urine output (ml): 350 Pathology: none sent Condition: stable Disposition: PACU Indications for Procedure: Ms. Romo is presenting for evaluation of low back pain, LE radiculopathy and weakness with severe pain increase since previous visits to the point where she cannot performe her ADLs without pain, it is affecting her mobility and her life significantly at this time. It was my pleasure to have seen and examined Ms. Romo. In our visit today we have had a chance to go over subjective complaints, physical examination findings and treatments including the natural course history without intervention and various interventional options. The patients imaging demonstrates: L4-5 spondylolistheiss Grade I unstable, L4-S1 spondylosis with stenosis. On physical exam, Ms. Romo demonstrates: Low back pain, mechanical made worse by standing, sitting and twisting. She has LE radiculopathy with increased tension on SLR b/l. She has palapable step off at L4-5 with audible click on back bend. She has LE weakness. I have explained to the patient that as their condition progresses it will cause further neurological deficits and eventual paralysis. Based on the patients imaging, physical exam, and the rapid progression and disabling nature of their symptoms, at this time I recommend surgery in the form of a: Minimally invasive posteriorlateral and interbody fusion L4-S1 I discussed the risk and benefits of this procedure at length with Ms. Romo. The patient and significant other agreed to considered pursuing the procedure abovementioned. Prior to surgery, she should follow up with her PCP (Cardio, ID, IM etc) for clearance. Questions were invited and answered, and the patient wishes to proceed as outlined below. Currently, I am recommendin.Posteriorlateral and interbody DECOMPRESSION AND fusion L4-S1 Description of Procedure: L4-S1 open Decompression and fusion (gabe) The patient was seen and examined in the preoperative area. All preoperative protocols were followed. Informed consent was obtained, risks and benefits of the procedure were discussed at length. Risks including bleeding infection damage to the surrounding tissue and risk of reoperation were discussed with the patient. Risk of anesthesia up to and including was discussed with the patient. These are outlined in the risk review. They were willing to accept these risks and all the risks of surgery. The patient was given a weight-based dose of antibiotics in the form of 2 g Ancef. The patient was seen and evaluated by the anesthesia team who deemed them fit for surgery. The site was marked, the patient was willing to proceed with the procedure. The patient was transferred to the operative suite by the Department of anesthesia. They were then drifted off to sleep by the department anesthesia and GETA was performed. The patient tolerated this well. Vizcarra catheter was placed by nursing staff, a-traumatically. Once confirmation of lines and ventilation the patient was transferred to a prone Patrick table very carefully. All bony prominences including wrists, elbows, axilla, chest, hips, and thighs, and feet were padded very well. Special attention was paid to the genitalia, and these were padded accordingly. SCDs were placed on bilateral lower extremities and were connected. Arms were well padded and placed on arm boards up and out in the 90/90 position. Once in position, again we confirmed good ventilation capabilities and that lines were running appropriately. The patients Lumbar spine was then exposed. 1010s were placed outlining the incision site. Standard alcohol was used to clean the incision site and allowed to dry. C-arm was used to needle localize the pedicles at L4-S1 and bio-trey the patient and confirm level for incision which was marked with a skin marker. Operative briefing was performed with all teams and everyone in agreement to proceed. The patient was then prepped and draped in a normal sterile fashion. Timeout was then performed, and all parties agreed with the procedure to be performed. Midline skin incision was made over the previously bio-marked area and dissection taken down over the SP of L3-S1. L4-S1 was taken out over facet joints and TPs and a penfield 4 used to trey the L4 pedicle. Lateral image used to confirm levels. Once confirmed, screws were proceeded to be placed b/l at pedicles from L4-S1 using Amp'd Mobile Navigation. An SP clamp was used, 3D C arm spin obtained and confirmed to be accurate. Once this was confirmed screws were placed using a navigated ling, navigated awl-tap and navigated concrete mixing truck driver. Once screws were placed they were confirmed to be in good position using AP and Lateral fluoroscopy. The wound was then irrigated. Screws were tested and all tested above 20 mA. We then proceeded to decompression and cage placement. Attention was then turned to interbody fusion at L5-S1. Bilateral laminectomy, complete facetectomy and foraminotomy performed at L5-S1 using high speed ling and Kerrison rongeur. The ligamentum was removed and the dural sac decompressed. Exiting and traversing roots visualized and decompressed. Neural elements were then protected, and disc space accessed with an osteotome. Sequential shaving then done under lateral imaging and complete discectomy performed using nick, pituitary and curette. Once good bleeding endplates accomplished and good height hoahaoism with trials, a combination of autograft, allograft and synthetic placed anterior in the disc space. The cage was then selected and impacted into place under lateral imaging. The cage was then expanded restoring height, lordosis and alignment. The cage was backfilled with bone graft through a funnel. The mail inserter was removed and the area inspected. Good cage placement, stable cage and no injuries. Area was irrigated copiously, and meticulous hemostasis achieved. The tubular retractor was then removed under direct visualization. Attention was then turned to interbody fusion at L4-5. Bilateral laminectomy, complete facetectomy and foraminotomy performed at L4-5 using high speed ling and Kerrison rongeur. The ligamentum was removed and the dural sac decompressed. Exiting and traversing roots visualized and decompressed. Neural elements were then protected, and disc space accessed with an osteotome. Sequential shaving then done under lateral imaging and complete discectomy performed using nick, pituitary and curette. Once good bleeding endplates accomplished and good height hoahaoism with trials, a combination of autograft, allograft and synthetic placed anterior in the disc space. The cage was then selected and impacted into place under lateral imaging. The cage was then expanded restoring height, lordosis and alignment. The cage was backfilled with bone graft through a funnel. The mail inserter was removed and the area inspected. Good cage placement, stable cage and no injuries. Area was irrigated copiously, and meticulous hemostasis achieved. The wound and disc spaces were irrigated and meticulous hemostasis achieved. Rods were then sized and selected and placed into S1 screws b/l. Set screws locked these in place and then sequentially reduced into L4 and L5 b/l for alig nment hoahaoism. This was accomplished. Set screws were then all placed and final tightened. A cross link was selected and placed and final tightened. TPs were then decorticated with a high speed ling. The wound was irrigated with 3L Ancef irrigation, 3L gentamicin irrigation and 3L NSS. Surgery was placed over the dura. Autograft and MagnatOs then placed in the posterolateral gutters and impacted into place. Deep drain placed and secured to the skin. Final images confirmed good placement of hardware and good reduction of listhesis as well as hoahaoism of height and lordosis. Fascia was then closed with #1 PDS. Deep subq closed with 0 Vicryl. Superficial subq closed with 2-0 Vicryl and skin with rosina. Wound edges approximated very well. Wound was then cleaned with alcohol and dried. Wounds dressed with Optifoam dressings. The patient was then transferred off the table back to their hospital bed a- traumatically. They were extubated by the department of anesthesia. They were then transferred to PACU in stable condition having tolerated the procedure with no complications.
--- NOTE | 2023-09-25 14:53 | FL ---
Fluoroscopy History: PLDF dap [id number], 34 sec fluoro
[2023-09-25] MEDS: GABAPENTIN 300 MG CAP PO SCH (18:08)
[2023-09-25] MEDS: ESCITALOPRAM 10 MG TAB PO SCH (18:08)
[2023-09-25] MEDS: HYDROmorphone 0.5 MG/0.5 ML SYRINGE IVP PRN (18:09)
[2023-09-25] MEDS: ACETAMINOPHEN TAB 325 MG TAB PO SCH (18:09)
[2023-09-25] MEDS: CYCLOBENZAPRINE 5 MG TAB PO PRN (20:01)
[2023-09-25] MEDS: HYDROcodone/APAP 10-325MG 1 EACH TAB PO PRN (20:01)
[2023-09-25] MEDS: HYDROmorphone 1 MG/ML 1 ML SYRINGE IVP PRN (22:27)
[2023-09-26] MEDS: LEVOTHYROXINE 100 MCG TAB PO SCH (05:33)
[2023-09-26] MEDS: MAGNESIUM HYDROXIDE 2,400 MG/30 ML CUP PO SCH (08:18)
[2023-09-26] MEDS: PANTOPRAZOLE 40 MG TABLET PO SCH (08:18)
[2023-09-26] MEDS: TAMSULOSIN 0.4 MG CAP.ER.24H PO SCH (08:18)
[2023-09-26] MEDS: PRAVASTATIN SODIUM 40 MG TAB PO SCH (08:18)
[2023-09-26 08:24] LABS: Basophils # (A) 0.03 X 10*3/uL (0.00-0.10); Basophils % (A) 0.3 %; Eosinophils # (A) 0.05 X 10*3/uL (0.04-0.35); Eosinophils % (A) 0.6 %; HCT 35.1 % (37.2-46.3); HGB 11.5 g/dL (12.0-15.0); Lymphocytes # (A) 1.62 X 10*3/uL (0.90-5.00); Lymphocytes % (A) 18.7 %; MCH 30.4 pg (27.0-32.0); MCHC 32.8 g/dL (32.0-37.0); MCV 92.9 FL (80.0-97.0); Mean Platelet Volume 10.3 FL (9.5-12.2); Monocytes # (A) 0.63 X 10*3/uL (0.20-1.00); Monocytes % (A) 7.3 %; NRBC Per 100 WBC 0 X 10*3/uL (0.00-0.01); Neutrophils # (A) 6.29 X 10*3/uL (1.80-7.70); Neutrophils % (A) 72.8 %; Platelet Count 209 X 10*3/uL (140-440); RBC 3.78 X 10*6/uL (4.10-5.20); RDW 13.2 % (11.5-14.5); WBC 8.65 X 10*3/uL (4.50-10.00)
[2023-09-26 08:41] LABS: Blood Urea Nitrogen 22.4 mg/dL (9.0-27.0); Calcium 8.8 mg/dL (8.7-10.3); Carbon Dioxide 23.8 mmol/L (21.6-31.8); Chloride 101 mmol/L (96-109); Glucose 114 mg/dL (70-110); Potassium 4.3 mmol/L (3.5-5.5); Sodium 137 mmol/L (135-145)
--- NOTE | 2023-09-26 08:59 | CT ---
EXAMINATION TYPE: CT lumbar spine wo con DATE OF EXAM: 09/25/2023 11:30 PM COMPARISON: None HISTORY: s/p revision L4-S1 decompression CT DLP: 1379.9 mGycm Automated exposure control for dose reduction was used. Unenhanced CT of the lumbar spine was performed. Bone and soft tissue window settings are submitted as well as coronal and sagittal reconstructions. Postsurgical changes of revision L4-S1 decompression. Extensive postsurgical soft tissue changes note d. Skin rosina are in place. L1-L2: Normal disc space height. No disc herniation protrusion or central stenosis. No facet joint arthropathy. No evidence for foraminal encroachment. L2-L3: Normal disc space height. No disc herniation protrusion or central stenosis. No facet joint arthropathy. No evidence for foraminal encroachment. L3-L4: Decompressive laminectomy. Pedicular screws at L4. Postsurgical soft tissue air. L4-L5: Decompressive laminectomy with a grade 1 anterolisthesis measuring 5 mm of L4 and L5. Interver tebral spacer in place. Postsurgical soft tissue changes with pedicular screws and extensive streak a rtifact. L5-S1: Decompressive laminectomy with intervertebral body spacer place. Pedicular screws noted. There is 1 mm anterolisthesis L5 on S1. Postsurgical soft tissue changes. IMPRESSION: Postsurgical changes decompressive laminectomy with postoperative alignment and postsurgical soft tis kuldip changes as noted.
--- NOTE | 2023-09-26 11:59 | P.PN ---
Subjective Progress Note Date: 09/26/23 Principal diagnosis: s/p L4-S1 posterior lateral and interbody fusion Patient evaluated today at bedside, she is resting in her hospital bed, her is present at bedside. Patient states that she was able to get up to the chair earlier today. She does have an LSO brace at bedside. She states that the lower extremity symptoms are much improved since surgery. She does c omplain of discomfort in her low back with movement. She denies headaches, lightheadedness, chest pain or shortness of breath Objective - Vital Signs Vital signs: Vital Signs Temp 98.6 F 09/26/23 08:00 Pulse 106 H 09/26/23 08:00 Resp 16 09/26/23 08:00 BP 107/71 09/26/23 08:00 Pulse Ox 94 L 09/26/23 08:00 FiO2 Intake & Output 09/25/23 09/26/23 09/26/23 18:59 06:59 18:59 Intake Total 1951 Output Total 400 350 Balance 1552 -350 Weight 83.1 kg Intake: IV 1951 Output: Urine 150 350 Estimated Blood Loss 250 Other: Voiding Method Indwelling Catheter Indwelling Catheter - Exam Gen: AOx3, NAD VSS stable at this time Integument: Postop dressing is in good position and condition, no significant swelling or redness appreciated Palpation: Tenderness with palpation appreciated to the lower lumbar spine ROM: Full range of motion in all major muscle groups of the bilateral lower extremities and upper extremities, no focal deficits Sensory Exam: Senory exam to light touch is intact C5-T1 Senosry exam to light touch is intact L2-S1 Motor: 4/5 strength appreciated in the right lower extremity with hip flexion, knee extension, knee flexion, plantarflexion, dorsiflexion, EHL, FHL 4-/5 strength appreciated in the left lower extremity with hip flexion, knee extension, knee flexion, plantarflexion, dorsiflexion, EHL, FHL Reflexes: 2/4 in all UE and LE Negative Babinski, negative clonus bilaterally - Labs CBC & Chem 7: 09/26/23 04:10 09/26/23 04:10 Labs: Abnormal Lab Results - Last 24 Hours (Table) 09/26/23 09/26/23 Range/Units 04:10 04:10 RBC 3.78 L (4.10-5.20) X 10*6/uL Hgb 11.5 L (12.0-15.0) g/dL Hct 35.1 L (37.2-46.3) % Anion Gap 12.20 H (4.00-12.00) mmol/L Est GFR (CKD-EPI) 42 L (>=60) Glucose 114 H (70-110) mg/dL Assessment and Plan Assessment: Postoperative day #1 status post L4-S1 posterior lateral and interbody fusion Plan: Pain control, continue with current medications. Explained to patient to try to limit the use of IV pain medication at this time. Continue scheduled stool softeners DVT prophylaxis, heparin 5000 units every 12 hours Monitor surgical dressing Weight-bear as tolerated, LSO brace when walking longer distances Continue with PT/OT Encourage incentive spirometer Discussed with nursing, discontinue Tom catheter later today Medical recommendations appreciated Discharge planning: Anticipate discharge to home with home health care in the next 24-48 hours Time with Patient: Less than 30
--- NOTE | 2023-09-26 12:02 | P.CONS ---
History of Present Illness - Reason for Consult lumbar laminectomy and fusion - History of Present Illness 63-year-old pleasant female is admitted for L4-S1 lumbar laminectomy and fusion surgery. Postsurgery patient is still having some pain does have bowel sounds, did not pass gas yet. Patient is bit hypotensive which is expected in postoperative. Otherwise patient denies any other symptoms REVIEW OF SYSTEMS: CONSTITUTIONAL: No fever, no malaise, no fatigue. HEENT: No recent visual problems or hearing problems. Denied any sore throat. CARDIOVASCULAR: No chest pain, orthopnea, PND, no palpitations, no syncope. PULMONARY: No shortness of breath, no cough, no hemoptysis. GASTROINTESTINAL: No diarrhea, no nausea, no vomiting, no abdominal pain. NEUROLOGICAL: No headaches, no weakness, no numbness. HEMATOLOGICAL: Denies any bleeding or petechiae. GENITOURINARY: Denies any burning micturition, frequency, or urgency. MUSCULOSKELETAL/RHEUMATOLOGICAL: Denies any joint pain, swelling, or any muscle pain. ENDOCRINE: Denies any polyuria or polydipsia. The rest of the 14-point review of systems is negative. PHYSICAL EXAMINATION: GENERAL: The patient is alert and oriented x3, not in any acute distress. Well developed, well nourished. HEENT: Pupils are round and equally reacting to light. EOMI. No scleral icterus. No conjunctival pallor. Normocephalic, atraumatic. No pharyngeal erythema. No thyromegaly. CARDIOVASCULAR: S1 and S2 present. No murmurs, rubs, or gallops. PULMONARY: Chest is clear to auscultation, no wheezing or crackles. ABDOMEN: Soft, nontender, nondistended, normoactive bowel sounds. No palpable organomegaly. MUSCULOSKELETAL: Back pain EXTREMITIES: No cyanosis, clubbing, or pedal edema. NEUROLOGICAL: Gross neurological examination did not reveal any focal deficits. SKIN: No rashes. Assessment and plan -Lumbar laminectomy and fusion surgery: Pain management as per primary service patient does have bowel sounds, patient is on gabapentin for neuropathy -Hyperlipidemia -Hypothyroidism For above-mentioned chronic medical problems patient will be resumed on her home medications DVT prophylaxis: As per primary service surgery Past Medical History Past Medical History: Hyperlipidemia, Hypertension, Osteoarthritis (OA), Thyroid Disorder Additional Past Medical History / Comment(s): Grave's Disease. Left ankle - torn tendon, "repaired twice nani year but still not right." Varicose veins. Heart murmur. History of Any Multi-Drug Resistant Organisms: None Reported Past Surgical History: Bladder Surgery, Breast Surgery, Hysterectomy, Orthopedic Surgery, Tonsillectomy Additional Past Surgical History / Comment(s): Bilateral breast lumpectomy, lipoma removed from right side, bilateral knee arthroscopy, left ankle tendon repair X2. Past Anesthesia/Blood Transfusion Reactions: Previous Problems w/ Anesthesia Additional Past Anesthesia/Blood Transfusion Reaction / Comm: Allergic reaction to Propofol, Mother allergic to Propofol. Past Psychological History: No Psychological Hx Reported Additional Psychological History / Comment(s): raising 7 grandchildren Smoking Status: Former smoker Past Alcohol Use History: None Reported Additional Past Alcohol Use History / Comment(s): Smoker for years 06/28ppd, quit smoking 3 days ago. Past Drug Use History: None Reported - Past Family History Mother Family Medical History: Coronary Artery Disease (CAD) Father Family Medical History: Cancer Sister(s) Family Medical History: Cancer Medications and Allergies Home Medications Medication Instructions Recorded Confirmed Type Triamterene-Hctz 37.5-25Mg 1 each PO QAM 04/14/14 09/25/23 History [Dyazide 37.5-25 Capsule] Escitalopram [Lexapro] 10 mg PO QAM 01/29/19 09/25/23 History Levothyroxine Sodium [Synthroid] 100 mcg PO QAM 01/29/19 09/25/23 History Pravastatin Sodium [Pravachol] 40 mg PO QAM 01/29/19 09/25/23 History atenoloL [Atenolol] 25 mg PO QAM 01/29/19 09/25/23 History Ibuprofen [Motrin] 600 mg PO Q6HR PRN 11/06/22 09/25/23 History Allergies Allergy/AdvReac Type Severity Reaction Status Date / Time lisinopril Allergy Confusion Verified 09/25/23 09:33 prednisone Allergy Rash/Hives Verified 09/25/23 09:33 promethazine HCl Allergy Confusion Verified 09/25/23 09:33 [From Phenergan] propofol Allergy Unknown Verified 09/25/23 09:33 hydrochlorothiazide AdvReac Unknown Verified 09/25/23 09:33 STEROIDS Allergy Unknown Uncoded 04/02/24 09:33 Physical Exam Vitals: Vital Signs Temp Pulse Resp BP Pulse Ox 09/26/23 08:00 98.6 F 106 H 16 107/71 94 L 09/26/23 00:38 82 98/62 96 09/25/23 22:25 96/66 09/25/23 19:59 97.6 F 89 14 97/65 94 L 09/25/23 17:40 77 106/68 98 09/25/23 17:25 81 113/74 99 09/25/23 17:10 79 109/74 98 09/25/23 16:55 76 104/63 98 09/25/23 16:40 82 112/76 99 09/25/23 16:25 97.6 F 72 101/67 97 09/25/23 16:00 77 16 125/74 97 09/25/23 15:45 74 16 130/73 97 09/25/23 15:30 78 16 127/76 96 09/25/23 15:15 72 18 119/73 98 09/25/23 15:00 75 16 131/77 98 09/25/23 14:51 97.4 F L 80 16 144/75 93 L Intake and Output 09/25/23 09/26/23 09/26/23 22:59 06:59 14:59 Output Total 350 Balance -350 Output: Urine 350 Other: Voiding Method Indwelling Catheter Indwelling Catheter Weight 83.1 kg Results CBC & Chem 7: 09/26/23 04:10 09/26/23 04:10 Labs: Abnormal Lab Results - Last 24 Hours (Table) 09/26/23 09/26/23 Range/Units 04:10 04:10 RBC 3.78 L (4.10-5.20) X 10*6/uL Hgb 11.5 L (12.0-15.0) g/dL Hct 35.1 L (37.2-46.3) % Anion Gap 12.20 H (4.00-12.00) mmol/L Est GFR (CKD-EPI) 42 L (>=60) Glucose 114 H (70-110) mg/dL
[2023-09-26] MEDS: HYDROcodone/APAP 5-325MG 1 EACH TAB PO PRN (18:41)
[2023-09-26] MEDS: guaiFENesin SYRUP 100MG/5ML 200 MG/10 ML CUP PO PRN (20:36)
[2023-09-26] MEDS: HEPARIN SODIUM,PORCINE 5,000 UNIT/ML 1 ML VIAL SQ SCH (22:00)
[2023-09-26] MEDS: BENZONATATE 100 MG CAP PO PRN (23:32)
[2023-09-27] MEDS: IPRATROPIUM-ALBUTEROL 3 ML NEB INHALATION PRN (02:10)
--- NOTE | 2023-09-27 07:42 | XR ---
EXAMINATION TYPE: XR chest 1V DATE OF EXAM: 09/27/2023 HISTORY: Shortness of breath. COMPARISON: 08/09/2022 TECHNIQUE: Single view of the chest is submitted. FINDINGS: Demonstrated are scattered senescent parenchymal change. Basilar atelectasis and/or infiltrates. Correlate clinically and progress studies are recommended. The heart is stable. Hilar and mediastinal structures are within normal limits. Degenerative changes are seen of the dorsal spine. IMPRESSION: 1. Basilar atelectasis and/or infiltrates. Correlate clinically and progress studies are recommended .
[2023-09-27] MEDS: DEXMEDETOMIDINE/0.9% NACL(PMX) 400 MCG in EMPTY BAG 1 BAG IV SCH (07:53)
[2023-09-27] MEDS: SENNOSIDES-DOCUSATE SODIUM 1 EACH TAB PO SCH (11:00)
--- NOTE | 2023-09-27 11:23 | P.PN ---
Subjective Progress Note Date: 09/27/23 Principal diagnosis: s/p L4-S1 posterior lateral and interbody fusion Patient evaluated today at bedside, she is resting in her hospital bed, her is present at bedside. Patient appears overly medicated today at bedside, she is quite confused. Patient's states that this has been like that since earlier this morning when he arrived. Chest x-ray was done today which revealed atelectasis like changes, patient recently quit smoking. Patient is also complaining of significant abdominal discomfort at this time. Patient's urinary catheter was removed yesterday, she has been urinating with no issues. She continues to ambulate with the assistance of a walker. The LSO brace has been delivered. Patient cannot remember the last time she had a bowel movement, the states it was before her surgery. She denies headaches, lightheadedness, chest pain or shortness of breath Objective - Vital Signs Vital signs: Vital Signs Temp 98.6 F 09/27/23 06:50 Pulse 99 09/27/23 06:50 Resp 17 09/27/23 06:50 BP 125/76 09/27/23 06:50 Pulse Ox 94 L 09/27/23 06:50 FiO2 Intake & Output 09/26/23 09/27/23 09/27/23 18:59 06:59 18:59 Other: Voiding Method Indwelling Catheter Indwelling Catheter # Voids 2 - Exam Gen: AOx3, NAD VSS stable at this time Integument: Postop dressing was removed today at bedside, rosina are all in good position and condition. A new bandage was placed. Palpation: Tenderness with palpation appreciated to the lower lumbar spine ROM: Full range of motion in all major muscle groups of the bilateral lower extremities and upper extremities, no focal deficits Sensory Exam: Senory exam to light touch is intact C5-T1 Senosry exam to light touch is intact L2-S1 Motor: 4/5 strength appreciated in the right lower extremity with hip flexion, knee extension, knee flexion, plantarflexion, dorsiflexion, EHL, FHL 4-/5 strength appreciated in the left lower extremity with hip flexion, knee extension, knee flexion, plantarflexion, dorsiflexion, EHL, FHL Reflexes: 2/4 in all UE and LE Negative Babinski, negative clonus bilaterally - Labs CBC & Chem 7: 09/26/23 04:10 09/26/23 04:10 Assessment and Plan Assessment: Postoperative day #2 status post L4-S1 posterior lateral and interbody fusion Confusion Abdominal distention Constipation Abnormal chest x-ray Other medical comorbidity Plan: Pain control, discussed with nursing we did adjust significant medications. Discontinued IV pain medication, discontinue gabapentin. Adjusted both the [place] and Flexeril. After discussion with nursing, internal medicine has ordered multiple labs for further evaluation GI prophylaxis, multiple stool softeners have been scheduled as daily DVT prophylaxis, heparin 5000 units every 12 hours Monitor surgical dressing Weight-bear as tolerated, LSO brace when walking longer distances Continue with PT/OT Encourage incentive spirometer Medical recommendations appreciated Will continue to follow during hospital stay Time with Patient: Less than 30
[2023-09-27 12:34] LABS: Basophils % (A) 0 %; Eosinophils # (A) 0.1 k/uL (0-0.7); Eosinophils % (A) 1 %; HCT 37.3 % (34.0-46.0); HGB 11.7 gm/dL (11.4-16.0); Lymphocytes # (A) 1.3 k/uL (1.0-4.8); Lymphocytes % (A) 13 %; MCH 30.7 pg (25.0-35.0); MCHC 31.4 g/dL (31.0-37.0); MCV 97.6 fL (80.0-100.0); Mean Platelet Volume 7.9; Monocytes # (A) 0.4 k/uL (0-1.0); Monocytes % (A) 4 %; Neutrophils # (A) 7.9 k/uL (1.3-7.7); Neutrophils % (A) 80 %; Platelet Count 181 k/uL (150-450); RBC 3.83 m/uL (3.80-5.40); RDW 12.8 % (11.5-15.5); WBC 9.9 k/uL (3.8-10.6)
[2023-09-27 12:50] LABS: ALT 19 U/L (4-34); AST 48 U/L (14-36); African American GFR (CKD) 56 (>60 ml/min/1.73 sqM); Albumin 3.2 g/dL (3.5-5.0); Albumin/Globulin Ratio 1.2; Alkaline Phosphatase 62 U/L (38-126); Anion Gap 4 mmol/L; Blood Urea Nitrogen 22 mg/dL (7-17); Carbon Dioxide 27 mmol/L (22-30); Chloride 99 mmol/L (98-107); Globulin 2.6 g/dL; Glucose 128 mg/dL (74-99); Non-African American GFR(CKD) 48 (>60 ml/min/1.73 sqM); Potassium 4.3 mmol/L (3.5-5.1); Sodium 130 mmol/L (137-145); Total Bilirubin 2.3 mg/dL (0.2-1.3); Total Protein 5.8 g/dL (6.3-8.2)
--- NOTE | 2023-09-27 14:11 | P.PN ---
Subjective Progress Note Date: 09/27/23 - Reason for Consult lumbar laminectomy and fusion - History of Present Illness 63-year-old pleasant female is admitted for L4-S1 lumbar laminectomy and fusion surgery. Postsurgery patient is still having some pain does have bowel sounds, did not pass gas yet. Patient is bit hypotensive which is expected in postoperative. Otherwise patient denies any other symptoms 09/27/2023 Patient is seen in follow-up this morning and is confused and requiring 4 L of oxygen and reports does not wear oxygen outpatient. is at bedside and patient reports this is not her baseline. Recommend holding narcotics and adjusting medications with orthopedics as attending. Abdomen appears distended and patient reports is not passing gas and has not had a bowel movement yet. Patient reports she had a bowel movement prior to being hospitalized. Patient appears slightly jaundiced although denies drinking will add CMP and monitor LFTs and get an ammonia level. Recommend bowel regimen scheduled and will obtain abdominal x-ray as well. Wean FiO2 as tolerated. Encouraged continued incentive spirometer use at least 10 times every hour while awake. Would recommend patient getting up out of the bed and sitting in the chair. LSO brace is ordered. Patient also to be evaluated by physical therapy and walker is being ordered. Patient is afebrile with no reports of chest pain or palpitations. Patient did have a chest x-ray this morning which showed basilar atelectasis and/or infiltrate to correlate clinically. Will order procalcitonin. Review of systems: Constitutional: No reports of fatigue, fever, or chills Cardiovascular: No reports of chest pain or palpitations Respiratory: reports of shortness of breath GI: No reports of nausea, vomiting, or diarrhea, reports not passing gas and has not had a bowel movement since before admission : No reports of dysuria or retention Neurovascular: reports of generalized weakness and some back pain All medications have been reviewed PHYSICAL EXAMINATION: GENERAL: The patient is alert and oriented x2, appears confused. Well developed, well nourished. Obese HEENT: Pupils are round and equally reacting to light. EOMI. No scleral icterus. No conjunctival pallor. Normocephalic, atraumatic. No pharyngeal erythema. No thyromegaly. CARDIOVASCULAR: S1 and S2 present. No murmurs, rubs, or gallops. PULMONARY: Diminished breath sounds bilaterally with some faint expiratory wheezing, no rhonchi noted ABDOMEN: Soft, nontender, appears distended, normoactive bowel sounds. No palpable organomegaly. MUSCULOSKELETAL: Back pain EXTREMITIES: No cyanosis, clubbing, or pedal edema. NEUROLOGICAL: Gross neurological examination did not reveal any focal deficits. Diffusely weak SKIN: No rashes. Appears jaundice Assessment: -Lumbar laminectomy and fusion surgery: Pain management as per primary service patient does have bowel sounds, patient is on gabapentin for neuropathy -Acute hypoxic respiratory failure, likely secondary to atelectasis, incentive spirometer ordered and will wean FiO2 as tolerated. Breathing treatments initiated as well -History of neuropathy -Acute confusion, multifactorial, likely toxic metabolic encephalopathy secondary to narcotic use -Abdominal distention, rule out constipation -Hyperlipidemia -History of hypertension -Hypothyroidism -Continued ongoing nicotine dependence, quit 3 days ago for surgery -Obesity with a BMI of 30.5 -GI prophylaxis -DVT prophylaxis -Full code Plan: Patient is status post laminectomy with fusion of L4-S1 with orthopedics LSO brace ordered and pending patient is being evaluated by physical therapy and walker is also being ordered Incentive spirometer at the bedside and encouraged the patient to continue using at least 10 times every hour. Patient currently on 4 L via nasal cannula and does not wear oxygen outpatient. Patient having some shortness of breath and chest x-ray was obtained likely atelectasis cannot exclude infiltrate. Will order procalcitonin Abdomen is distended and patient appears jaundiced will order CMP along with ammonia Recommend avoiding narcotics if possible especially IV narcotics as patient's mentation is confused today Encouraged oral intake Patient also reports has not had a bowel movement since prior to surgery and reports not passing much gas. Will order abdominal x-ray and recommend bowel regimen to be scheduled. Will add lactulose Home medications reviewed and resumed as appropriate although gabapentin has been discontinued given patient's mentation Will await labs and continue to monitor closely We will continue to follow with orthopedics during hospitalization. Thank you kindly for this consultation. The impression and plan of care has been dictated by Sue Jay, Nurse Practitioner as directed. Dr. Pelon MD I have performed a history and examination and MDM of this patient, discussed the same with the dictator, and agree with the dictator's assessment and plan as written ,documented as a scribe. Based on total visit time, I have performed more than 50% of the visit. Objective - Vital Signs Vital signs: Vital Signs Temp 98.6 F 09/27/23 06:50 Pulse 99 09/27/23 06:50 Resp 17 09/27/23 06:50 BP 125/76 09/27/23 06:50 Pulse Ox 94 L 09/27/23 06:50 FiO2 Intake & Output 09/26/23 09/27/23 09/27/23 18:59 06:59 18:59 Other: Voiding Method Indwelling Catheter Indwelling Catheter # Voids 2 - Labs CBC & Chem 7: 09/27/23 12:07 09/27/23 12:07
[2023-09-27] MEDS: LACTULOSE 20 GM/30 ML CUP PO SCH (14:41)
--- NOTE | 2023-09-27 15:18 | XR ---
EXAMINATION TYPE: XR abdomen 1V DATE OF EXAM: 09/27/2023 HISTORY: Pain. Technique: 2 views of the abdomen are submitted. Comparison: None. Findings: There is no convincing evidence of pneumoperitoneum. The Bowel gas pattern is nonspecific and nonobstructive. Distended small and large bowel scattered air-fluid levels seen felt to reflect ileus. No mass effects are noted. No renal calcifications are identified. IMPRESSION: 1. Nonspecific nonobstructive bowel gas pattern . Findings suggest ileus. Progress studies are advise d.
[2023-09-27] MEDS: bisacodyL 10 MG SUPP RECTAL STA (18:27)
[2023-09-27] MEDS: BUDESONIDE 1 MG/2 ML NEBU INHALATION SCH (21:25)
[2023-09-27] MEDS: CYCLOBENZAPRINE 5 MG TAB PO SCH (21:58)
[2023-09-28] MEDS: PIPERACILLIN-TAZOBACTAM 3.375 GM in SODIUM CHLORIDE 0.9% 100 ML IVPB SCH (06:27)
[2023-09-28] MEDS: bisacodyL 10 MG SUPP RECTAL SCH (08:40)
--- NOTE | 2023-09-28 08:44 | XR ---
EXAMINATION TYPE: XR KUB DATE OF EXAM: 09/28/2023 COMPARISON: NONE HISTORY: Pain TECHNIQUE: Single supine KUB image of the abdomen is obtained FINDINGS: Persistent distention of small and large bowel although somewhat improved compatible with improving i leus. No convincing evidence for pneumoperitoneum. No unusual calcifications. The lung bases are clear. The osseous structures are intact. IMPRESSION: 1. Improving ileus
[2023-09-28 08:49] LABS: Basophils # (A) 0.01 X 10*3/uL (0.00-0.10); Basophils % (A) 0.1 %; Eosinophils # (A) 0.04 X 10*3/uL (0.04-0.35); Eosinophils % (A) 0.5 %; HCT 28.6 % (37.2-46.3); HGB 9.4 g/dL (12.0-15.0); Lymphocytes # (A) 1.04 X 10*3/uL (0.90-5.00); Lymphocytes % (A) 13.4 %; MCH 30.8 pg (27.0-32.0); MCHC 32.9 g/dL (32.0-37.0); MCV 93.8 FL (80.0-97.0); Mean Platelet Volume 10.4 FL (9.5-12.2); Monocytes # (A) 0.71 X 10*3/uL (0.20-1.00); Monocytes % (A) 9.1 %; NRBC Per 100 WBC 0 X 10*3/uL (0.00-0.01); Neutrophils # (A) 5.95 X 10*3/uL (1.80-7.70); Neutrophils % (A) 76.4 %; Platelet Count 178 X 10*3/uL (140-440); RBC 3.05 X 10*6/uL (4.10-5.20); RDW 12.7 % (11.5-14.5); WBC 7.79 X 10*3/uL (4.50-10.00)
[2023-09-28 09:03] LABS: BUN/Creat Ratio 13.55 Ratio (12.00-20.00); Blood Urea Nitrogen 14.9 mg/dL (9.0-27.0); Calcium 8.9 mg/dL (8.7-10.3); Carbon Dioxide 27.6 mmol/L (21.6-31.8); Chloride 100 mmol/L (96-109); Glucose 107 mg/dL (70-110); Potassium 4.1 mmol/L (3.5-5.5); Sodium 134 mmol/L (135-145)
--- NOTE | 2023-09-28 11:42 | P.GSCN ---
History of Present Illness Consult date: 09/28/23 History of present illness: CHIEF COMPLAINT: Back surgery Reason for consult: Ileus HISTORY OF PRESENT ILLNESS: This is a 63-year-old female who is status post L5- S1 bilateral laminectomy and fusion with orthopedic service. Patient had increase in abdominal pain and no bowel movement since surgery. Patient reports she was having pain in the right lower abdomen. She reports a prior surgery on her bladder. Otherwise no further abdominal surgeries. She had an abdominal x- ray that had reported ileus. She has received multiple laxatives including lactulose milk of mag and Dulcolax suppository. After the suppository she had a large bowel movement. Patient reports her abdomen is still distended with decrease in pain in the right lower quadrant. But she is feeling hungry. Patient reports she has been able to ambulate. She reports prior to surgery for about 4 months her mobility was decreased. PAST MEDICAL HISTORY: See below PAST SURGICAL HISTORY: See below MEDICATIONS: See below ALLERGIES: See below SOCIAL HISTORY: No illicit drug use. REVIEW OF SYSTEMS: CONSTITUTIONAL: Denies fever or chills. HEENT: Denies blurred vision, vision changes, or eye pain. Denies hemoptysis CARDIOVASCULAR: Denies chest pain or pressure. RESPIRATORY: No shortness of breath. GASTROINTESTINAL: See HPI for pertinent findings HEMATOLOGIC: Denies bleeding disorders. GENITOURINARY: Denies any blood in urine or increased urinary frequency. SKIN: Denies pruitis. Denies rash. PHYSICAL EXAM: VITAL SIGNS: Reviewed GENERAL: Well-developed in no acute distress. HEENT: No sclera icterus. Extraocular movements grossly intact. Moist buccal mucosa. Head is atraumatic, normocephalic. No nasal drainage. ABDOMEN: Soft. Mildly distended. Tenderness with palpation right lower abdomen NEUROLOGIC: Alert and oriented. Cranial nerves II through XII grossly intact. LABORATORY DATA: WBC 7.79 Hgb 9.4 platelets 178 Sodium is 134 potassium 4.1 creatinine 1.1 IMAGING: Abdominal x-ray from 4 4 reports nonspecific nonobstructive bowel gas pattern. Findings suggest ileus. KUB x-ray from today reports improving ileus ASSESSMENT: 1. Abdominal ileus likely related to patient's back surgery and narcotic use 2. Status post lumbar laminectomy and fusion PLAN: -Further recommendations forthcoming per surgeon -Continue lactulose and Dulcolax suppositories -Encourage patient to ambulate -Continue n.p.o. for now Physician Paper Supervisor note has been reviewed by physician. Signing provider agrees with the documented findings, assessment, and plan of care. I have personally seen and examined the patient, reviewed the MAP CLERK /PAs history, exam and MDM and agree with the assessment and plan as written. Based on total visit time, I have performed more than 50% of the visit. As above: Patient with abdominal bloating after recent back surgery. X-rays consistent with colonic ileus. Patient has had large amount of flatus and bowel movements today. She says she feels less distended. May begin clear liquids. No carbonation. Will follow. Past Medical History Past Medical History: Hyperlipidemia, Hypertension, Osteoarthritis (OA), Thyroid Disorder Additional Past Medical History / Comment(s): Grave's Disease. Left ankle - torn tendon, "repaired twice nani year but still not right." Varicose veins. Heart murmur. History of Any Multi-Drug Resistant Organisms: None Reported Past Surgical History: Bladder Surgery, Breast Surgery, Hysterectomy, Orthopedic Surgery, Tonsillectomy Additional Past Surgical History / Comment(s): Bilateral breast lumpectomy, lipoma removed from right side, bilateral knee arthroscopy, left ankle tendon repair X2. Past Anesthesia/Blood Transfusion Reactions: Previous Problems w/ Anesthesia Additional Past Anesthesia/Blood Transfusion Reaction / Comm: Allergic reaction to Propofol, Mother allergic to Propofol. Past Psychological History: No Psychological Hx Reported Additional Psychological History / Comment(s): raising 7 grandchildren Smoking Status: Former smoker Past Alcohol Use History: None Reported Additional Past Alcohol Use History / Comment(s): Smoker for years /4ppd, quit smoking 3 days ago. Past Drug Use History: None Reported - Past Family History Mother Family Medical History: Coronary Artery Disease (CAD) Father Family Medical History: Cancer Sister(s) Family Medical History: Cancer Medications and Allergies Home Medications Medication Instructions Recorded Confirmed Type Triamterene-Hctz 37.5-25Mg 1 each PO QAM 04/14/14 09/25/23 History [Dyazide 37.5-25 Capsule] Escitalopram [Lexapro] 10 mg PO QAM 01/29/19 09/25/23 History Levothyroxine Sodium [Synthroid] 100 mcg PO QAM 01/29/19 09/25/23 History Pravastatin Sodium [Pravachol] 40 mg PO QAM 01/29/19 09/25/23 History atenoloL [Atenolol] 25 mg PO QAM 01/29/19 09/25/23 History Ibuprofen [Motrin] 600 mg PO Q6HR PRN 11/06/22 09/25/23 History Allergies Allergy/AdvReac Type Severity Reaction Status Date / Time lisinopril Allergy Confusion Verified 09/25/23 09:33 prednisone Allergy Rash/Hives Verified 09/25/23 09:33 promethazine HCl Allergy Confusion Verified 09/25/23 09:33 [From Phenergan] propofol Allergy Unknown Verified 09/25/23 09:33 hydrochlorothiazide AdvReac Unknown Verified 09/25/23 09:33 STEROIDS Allergy Unknown Uncoded 09/25/23 09:33 Surgical - Exam Vital Signs Temp Pulse Resp BP Pulse Ox 96.9 F L 66 18 147/69 94 L 09/25/23 09:17 09/25/23 09:17 09/25/23 09:17 09/25/23 09:17 09/25/23 09:17 Results - Labs 09/28/23 06:00 09/28/23 06:00 Abnormal Lab Results - Last 24 Hours (Table) 09/27/23 09/27/23 09/27/23 Range/Units 12:07 12:07 12:07 RBC (4.10-5.20) X 10*6/uL Hgb (12.0-15.0) g/dL Hct (37.2-46.3) % Neutrophils # 7.9 H (1.3-7.7) k/uL Sodium 130 L (137-145) mmol/L BUN 22 H (7-17) mg/dL Creatinine 1.20 H (0.52-1.04) mg/dL Est GFR (CKD-EPI) (>=60) Glucose 128 H (74-99) mg/dL Total Bilirubin 2.3 H (0.2-1.3) mg/dL AST 48 H (14-36) U/L Total Protein 5.8 L (6.3-8.2) g/dL Albumin 3.2 L (3.5-5.0) g/dL Procalcitonin 1.02 H (0.02-0.09) ng/mL 09/28/23 09/28/23 Range/Units 06:00 06:00 RBC 3.05 L (4.10-5.20) X 10*6/uL Hgb 9.4 L (12.0-15.0) g/dL Hct 28.6 L (37.2-46.3) % Neutrophils # (1.3-7.7) k/uL Sodium 134 L (137-145) mmol/L BUN (7-17) mg/dL Creatinine (0.52-1.04) mg/dL Est GFR (CKD-EPI) 56 L (>=60) Glucose (74-99) mg/dL Total Bilirubin (0.2-1.3) mg/dL AST (14-36) U/L Total Protein (6.3-8.2) g/dL Albumin (3.5-5.0) g/dL Procalcitonin (0.02-0.09) ng/mL Diabetes panel 09/27/23 09/28/23 Range/Units 12: 06:00 Sodium 130 L 134 L (137-145) mmol/L Potassium 4.3 4.1 (3.5-5.1) mmol/L Chloride 99 100 (98-107) mmol/L Carbon Dioxide 27 27.6 (22-30) mmol/L BUN 22 H 14.9 (7-17) mg/dL Creatinine 1.20 H 1.1 (0.52-1.04) mg/dL Glucose 128 H 107 (74-99) mg/dL Calcium 9.0 8.9 (8.4-10.2) mg/dL AST 48 H (14-36) U/L ALT 19 (4-34) U/L Alkaline Phosphatase 62 (38-126) U/L Total Protein 5.8 L (6.3-8.2) g/dL Albumin 3.2 L (3.5-5.0) g/dL Calcium panel 09/27/23 09/28/23 Range/Units 12:07 06:00 Calcium 9.0 8.9 (8.4-10.2) mg/dL Albumin 3.2 L (3.5-5.0) g/dL Pituitary panel 09/27/23 09/28/23 Range/Units 12:07 06:00 Sodium 130 L 134 L (137-145) mmol/L Potassium 4.3 4.1 (3.5-5.1) mmol/L Chloride 99 100 (98-107) mmol/L Carbon Dioxide 27 27.6 (22-30) mmol/L BUN 22 H 14.9 (7-17) mg/dL Creatinine 1.20 H 1.1 (0.52-1.04) mg/dL Glucose 128 H 107 (74-99) mg/dL Calcium 9.0 8.9 (8.4-10.2) mg/dL Adrenal panel 09/27/23 09/28/23 Range/Units 12:07 06:00 Sodium 130 L 134 L (137-145) mmol/L Potassium 4.3 4.1 (3.5-5.1) mmol/L Chloride 99 100 (98-107) mmol/L Carbon Dioxide 27 27.6 (22-30) mmol/L BUN 22 H 14.9 (7-17) mg/dL Creatinine 1.20 H 1.1 (0.52-1.04) mg/dL Glucose 128 H 107 (74-99) mg/dL Calcium 9.0 8.9 (8.4-10.2) mg/dL Total Bilirubin 2.3 H (0.2-1.3) mg/dL AST 48 H (14-36) U/L ALT 19 (4-34) U/L Alkaline Phosphatase 62 (38-126) U/L Total Protein 5.8 L (6.3-8.2) g/dL Albumin 3.2 L (3.5-5.0) g/dL
--- NOTE | 2023-09-28 12:22 | P.PN ---
Subjective Progress Note Date: 09/28/23 Principal diagnosis: s/p L4-S1 posterior lateral and interbody fusion Patient evaluated today at bedside, she is resting in her hospital bed, her is present at bedside. Patient seems a lot more alert today and is feeling much better. She did have a large bowel movement, she still has some distention in the belly. She has been evaluated by general surgery who is r ecommending continuation of stool softeners at this time and n.p.o. diet. She has been limited with regards to her activity level, she has been getting to the bathroom but has not been working significantly with physical therapy. She denies any headaches, lightheadedness, chest pain or shortness of breath Objective - Vital Signs Vital signs: Vital Signs Temp 98.3 F 09/28/23 07:21 Pulse 92 09/28/23 09:23 Resp 18 09/28/23 08:40 BP 126/75 09/28/23 07:21 Pulse Ox 94 L 09/28/23 07:21 FiO2 Intake & Output 09/27/23 09/28/23 09/28/23 18:59 06:59 18:59 Intake Total 200 Balance 200 Intake: Oral 200 Other: Voiding Method Toilet # Voids 3 3 - Exam Gen: AOx3, NAD VSS stable at this time Integument: postop dressing was changed today at bedside, there was some's bloody serosanguineous drainage noted on the previous bandage. [place] are all in good position and condition. Palpation: Tenderness with palpation appreciated to the lower lumbar spine ROM: Full range of motion in all major muscle groups of the bilateral lower extremities and upper extremities, no focal deficits Sensory Exam: Senory exam to light touch is intact C5-T1 Senosry exam to light touch is intact L2-S1 Motor: 4/5 strength appreciated in the right lower extremity with hip flexion, knee extension, knee flexion, plantarflexion, dorsiflexion, EHL, FHL 4-/5 strength appreciated in the left lower extremity with hip flexion, knee extension, knee flexion, plantarflexion, dorsiflexion, EHL, FHL Reflexes: 2/4 in all UE and LE Negative Babinski, negative clonus bilaterally - Labs CBC & Chem 7: 09/28/23 06:00 09/28/23 06:00 Labs: Abnormal Lab Results - Last 24 Hours (Table) 09/27/23 09/27/23 09/27/23 Range/Units 12:07 12:07 12:07 RBC (4.10-5.20) X 10*6/uL Hgb (12.0-15.0) g/dL Hct (37.2-46.3) % Neutrophils # 7.9 H (1.3-7.7) k/uL Sodium 130 L (137-145) mmol/L BUN 22 H (7-17) mg/dL Creatinine 1.20 H (0.52-1.04) mg/dL Est GFR (CKD-EPI) (>=60) Glucose 128 H (74-99) mg/dL Total Bilirubin 2.3 H (0.2-1.3) mg/dL AST 48 H (14-36) U/L Total Protein 5.8 L (6.3-8.2) g/dL Albumin 3.2 L (3.5-5.0) g/dL Procalcitonin 1.02 H (0.02-0.09) ng/mL 09/28/23 09/28/23 Range/Units 06:00 06:00 RBC 3.05 L (4.10-5.20) X 10*6/uL Hgb 9.4 L (12.0-15.0) g/dL Hct 28.6 L (37.2-46.3) % Neutrophils # (1.3-7.7) k/uL Sodium 134 L (137-145) mmol/L BUN (7-17) mg/dL Creatinine (0.52-1.04) mg/dL Est GFR (CKD-EPI) 56 L (>=60) Glucose (74-99) mg/dL Total Bilirubin (0.2-1.3) mg/dL AST (14-36) U/L Total Protein (6.3-8.2) g/dL Albumin (3.5-5.0) g/dL Procalcitonin (0.02-0.09) ng/mL Assessment and Plan Assessment: Postoperative day #3 status post L4-S1 posterior lateral and interbody fusion Confusion, improving Postoperative ileus Constipation Abnormal chest x-ray Other medical comorbidity Plan: Pain control, continue current medication GI prophylaxis, continue stool softeners, general surgery recommendations DVT prophylaxis, heparin 5000 units every 12 hours during hospital stay Monitor surgical dressing Weight-bear as tolerated, LSO brace when walking longer distances Continue with PT/OT Encourage incentive spirometer Medical recommendations appreciated Discharge planning: Had a long discussion today with the patient regarding her activity level. If patient is unable to advance her activities with physical therapy, likely subacute rehab would be needed. Will continue to follow and evaluate patient during hospital stay Time with Patient: Less than 30
[2023-09-29] MEDS ORDERED: LACTULOSE 20 GM/30 ML CUP PO PRN (05:06)
--- NOTE | 2023-09-29 05:15 | P.PN ---
Subjective Progress Note Date: 09/28/23 - Reason for Consult lumbar laminectomy and fusion - History of Present Illness 63-year-old pleasant female is admitted for L4-S1 lumbar laminectomy and fusion surgery. Postsurgery patient is still having some pain does have bowel sounds, did not pass gas yet. Patient is bit hypotensive which is expected in postoperative. Otherwise patient denies any other symptoms 09/27/2023 Patient is seen in follow-up this morning and is confused and requiring 4 L of oxygen and reports does not wear oxygen outpatient. is at bedside and patient reports this is not her baseline. Recommend holding narcotics and adjusting medications with orthopedics as attending. Abdomen appears distended and patient reports is not passing gas and has not had a bowel movement yet. Patient reports she had a bowel movement prior to being hospitalized. Patient appears slightly jaundiced although denies drinking will add CMP and monitor LFTs and get an ammonia level. Recommend bowel regimen scheduled and will obtain abdominal x-ray as well. Wean FiO2 as tolerated. Encouraged continued incentive spirometer use at least 10 times every hour while awake. Would recommend patient getting up out of the bed and sitting in the chair. LSO brace is ordered. Patient also to be evaluated by physical therapy and walker is being ordered. Patient is afebrile with no reports of chest pain or palpitations. Patient did have a chest x-ray this morning which showed basilar atelectasis and/or infiltrate to correlate clinically. Will order procalcitonin. 09/28/2023 Patient is seen in follow-up this morning mentation is much improved and patient reports to feeling hungry. Patient reports her abdominal pain and distention is somewhat improved and patient was able to have multiple bowel movements and is passing gas. Patient was empirically started on Zosyn with a mildly elevated procalcitonin of 1 with concerns of possible infiltrate and/or atelectasis on chest x-ray from yesterday. Patient was requiring 4 L of oxygen currently on room air and reports is tolerating. Oxygen saturations are 90 to 92% on room air. Encouraged incentive spirometer use as patient is not using this much as well as increased activity as tolerated. Patient would benefit from getting up with physical therapy daily. Patient is currently afebrile with no reported chest pain or palpitations. Patient reports to feeling slight shortness of breath at times although improved from yesterday. Review of systems: Constitutional: No reports of fatigue, fever, or chills Cardiovascular: No reports of chest pain or palpitations Respiratory: reports of shortness of breath that is improving GI: No reports of nausea, vomiting, or diarrhea, reports is now passing gas and has had 5 bowel movements since last night : No reports of dysuria or retention Neurovascular: reports of generalized weakness and some back pain All medications have been reviewed PHYSICAL EXAMINATION: GENERAL: The patient is alert and oriented x3, much improved from yesterday. Well developed, well nourished. Obese HEENT: Pupils are round and equally reacting to light. EOMI. No scleral icterus. No conjunctival pallor. Normocephalic, atraumatic. No pharyngeal erythema. No thyromegaly. CARDIOVASCULAR: S1 and S2 present. No murmurs, rubs, or gallops. PULMONARY: Diminished breath sounds bilaterally with no wheezing, no rhonchi noted ABDOMEN: Soft, nontender, appears less distended, normoactive bowel sounds. No palpable organomegaly. MUSCULOSKELETAL: Back pain EXTREMITIES: No cyanosis, clubbing, or pedal edema. NEUROLOGICAL: Gross neurological examination did not reveal any focal deficits. Diffusely weak SKIN: No rashes. Assessment: -Lumbar laminectomy and fusion surgery: Pain management as per primary service patient does have bowel sounds, patient is on gabapentin for neuropathy -Acute hypoxic respiratory failure, likely secondary to atelectasis, incentive spirometer ordered and will wean FiO2 as tolerated. Breathing treatments initiated as well -History of neuropathy -Acute confusion, multifactorial, likely toxic metabolic encephalopathy secondary to narcotic use, improving -Abdominal distention, with concerns of colonic ileus, likely secondary to narcotic use, improving as patient is now having bowel movements and less distended -Hyperlipidemia -History of hypertension -Hypothyroidism -Continued ongoing nicotine dependence, quit 3 days ago for surgery -Obesity with a BMI of 30.5 -GI prophylaxis -DVT prophylaxis -Full code Plan: Patient is status post laminectomy with fusion of L4-S1 with orthopedics LSO brace ordered and pending patient is being evaluated by physical therapy and walker is also being ordered. Patient reports would like to return home although not working much with physical therapy and continues to have weakness. Recommend PT/OT therapy daily. Patient may benefit from ECF for continued PT/OT therapy Incentive spirometer at the bedside and encouraged the patient to continue using at least 10 times every hour. Patient currently off oxygen and maintaining oxygen saturation above 90%. Patient was having some shortness of breath requiring 4 L of oxygen yesterday and chest x-ray was obtained likely atelectasis cannot exclude infiltrate. Procalcitonin mildly elevated at 1 and will continue empiric antibiotics for now Abdomen is less distended and patient is now having multiple bowel movements. Continue current regimen. General surgery was consulted with concerns of poss ible ileus as noted on imaging. Patient to slowly advance to clear liquids as patient reports feeling hungry and denies abdominal pain Recommend avoiding narcotics if possible especially IV narcotics as patient's mentation is much improved from yesterday Encouraged oral intake Home medications reviewed and resumed as appropriate although gabapentin has been discontinued given patient's mentation We will continue to follow with orthopedics during hospitalization. Thank you kindly for this consultation. The impression and plan of care has been dictated by Nurse Erik Stephenson as directed. Dr. Pelon MD I have performed a history and examination and MDM of this patient, discussed the same with the dictator, and agree with the dictator's assessment and plan as written ,documented as a scribe. Based on total visit time, I have performed more than 50% of the visit. Objective - Vital Signs Vital signs: Vital Signs Temp 98.3 F 09/29/23 02:00 Pulse 67 09/29/23 02:00 Resp 18 09/29/23 02:00 BP 131/80 09/29/23 02:00 Pulse Ox 96 09/29/23 02:00 FiO2 Intake & Output 09/28/23 09/28/23 09/29/23 06:59 18:59 06:59 Other: Voiding Method Toilet # Voids 3 1 2 - Labs CBC & Chem 7: 09/28/23 06:00 09/28/23 06:00 Labs: Abnormal Lab Results - Last 24 Hours (Table) 09/28/23 09/28/23 Range/Units 06:00 06:00 RBC 3.05 L (4.10-5.20) X 10*6/uL Hgb 9.4 L (12.0-15.0) g/dL Hct 28.6 L (37.2-46.3) % Sodium 134 L (135-145) mmol/L Est GFR (CKD-EPI) 56 L (>=60)
--- NOTE | 2023-09-29 07:44 | P.PN ---
Subjective Progress Note Date: 09/29/23 Principal diagnosis: s/p L4-S1 posterior lateral and interbody fusion Patient evaluated today at bedside, she is resting in her hospital bed, She is resting comfortably. Patient feels a lot better, she has had 2 bowel movements since yesterday. She has been advanced to clears at this time, general surgery continues to follow. Her back pain is well-controlled. She has been urinating with no issues. She denies any headaches, lightheadedness, chest pain or shortness of breath Objective - Vital Signs Vital signs: Vital Signs Temp 98.3 F 09/29/23 02:00 Pulse 67 09/29/23 02:00 Resp 18 09/29/23 02:00 BP 131/80 09/29/23 02:00 Pulse Ox 96 09/29/23 02:00 FiO2 Intake & Output 09/28/23 09/29/23 09/29/23 18:59 06:59 18:59 Other: Voiding Method Toilet # Voids 1 2 - Exam Gen: AOx3, NAD VSS stable at this time Integument: Postop dressing is in good position and condition, mild bloody serosanguineous drainage present. Palpation: Tenderness with palpation appreciated to the lower lumbar spine ROM: Full range of motion in all major muscle groups of the bilateral lower extremities and upper extremities, no focal deficits Sensory Exam: Senory exam to light touch is intact C5-T1 Senosry exam to light touch is intact L2-S1 Motor: 4/5 strength appreciated in the right lower extremity with hip flexion, knee ex tension, knee flexion, plantarflexion, dorsiflexion, EHL, FHL 4-/5 strength appreciated in the left lower extremity with hip flexion, knee extension, knee flexion, plantarflexion, dorsiflexion, EHL, FHL Reflexes: 2/4 in all UE and LE Negative Babinski, negative clonus bilaterally - Labs CBC & Chem 7: 09/28/23 06:00 09/28/23 06:00 Labs: Abnormal Lab Results - Last 24 Hours (Table) 09/28/23 09/28/23 Range/Units 06:00 06:00 RBC 3.05 L (4.10-5.20) X 10*6/uL Hgb 9.4 L (12.0-15.0) g/dL Hct 28.6 L (37.2-46.3) % Sodium 134 L (135-145) mmol/L Est GFR (CKD-EPI) 56 L (>=60) Assessment and Plan Assessment: Postoperative day #4 status post L4-S1 posterior lateral and interbody fusion Confusion, improving Postoperative ileus, improving Constipation Abnormal chest x-ray Other medical comorbidity Plan: Pain control, continue current medication GI prophylaxis, continue stool softeners, general surgery recommendations DVT prophylaxis, heparin 5000 units every 12 hours during hospital stay Monitor surgical dressing Weight-bear as tolerated, LSO brace when walking longer distances Continue with PT/OT Encourage incentive spirometer Medical recommendations appreciated Discharge planning: possible discharge to home on 09/30/2023 Time with Patient: Less than 30
--- NOTE | 2023-09-29 08:05 | XR ---
EXAMINATION TYPE: XR KUB portable DATE OF EXAM: 09/29/2023 COMPARISON: 09/28/2023 HISTORY: Follow-up ileus TECHNIQUE: Single supine KUB image of the abdomen is obtained FINDINGS: Small bowel demonstrates no evidence for dilatation or air fluid levels. Gas and fecal material is seen in non-distended colon. No convincing evidence for pneumoperitoneum. Midline skin rosina and postoperative changes of lumbar laminectomy and fusion. No unusual calcifications. The lung bases are clear. The osseous structures are intact. IMPRESSION: 1. Resolution of previously noted postoperative ileus. Normal bowel gas pattern seen at this time.
--- NOTE | 2023-09-29 15:10 | P.PN ---
Subjective Progress Note Date: 09/29/23 - Reason for Consult lumbar laminectomy and fusion - History of Present Illness 63-year-old pleasant female is admitted for L4-S1 lumbar laminectomy and fusion surgery. Postsurgery patient is still having some pain does have bowel sounds, did not pass gas yet. Patient is bit hypotensive which is expected in postoperative. Otherwise patient denies any other symptoms 09/27/2023 Patient is seen in follow-up this morning and is confused and requiring 4 L of oxygen and reports does not wear oxygen outpatient. is at bedside and patient reports this is not her baseline. Recommend holding narcotics and adjusting medications with orthopedics as attending. Abdomen appears distended and patient reports is not passing gas and has not had a bowel movement yet. Patient reports she had a bowel movement prior to being hospitalized. Patient appears slightly jaundiced although denies drinking will add CMP and monitor LFTs and get an ammonia level. Recommend bowel regimen scheduled and will ob tain abdominal x-ray as well. Wean FiO2 as tolerated. Encouraged continued incentive spirometer use at least 10 times every hour while awake. Would recommend patient getting up out of the bed and sitting in the chair. LSO brace is ordered. Patient also to be evaluated by physical therapy and walker is being ordered. Patient is afebrile with no reports of chest pain or palpitations. Patient did have a chest x-ray this morning which showed basilar atelectasis and/or infiltrate to correlate clinically. Will order procalcitonin. 09/28/2023 Patient is seen in follow-up this morning mentation is much improved and patient reports to feeling hungry. Patient reports her abdominal pain and distention is somewhat improved and patient was able to have multiple bowel movements and is passing gas. Patient was empirically started on Zosyn with a mildly elevated procalcitonin of 1 with concerns of possible infiltrate and/or atelectasis on chest x-ray from yesterday. Patient was requiring 4 L of oxygen currently on room air and reports is tolerating. Oxygen saturations are 90 to 92% on room air. Encouraged incentive spirometer use as patient is not using this much as well as increased activity as tolerated. Patient would benefit from getting up with physical therapy daily. Patient is currently afebrile with no reported chest pain or palpitations. Patient reports to feeling slight shortness of breath at times although improved from yesterday. 09/29/2023 Patient is evaluated in follow-up today she is postoperative day #4 lumbar laminectomy and fusion. Patient was found to have a postoperative ileus which is improving at this time she has had multiple soft bowel movements and follow- up abdominal imaging reveals resolution of previously noted postoperative ileus with a normal bowel gas pattern seen at this time. Review of systems: Constitutional: No reports of fatigue, fever, or chills Cardiovascular: No reports of chest pain or palpitations Respiratory: reports of shortness of breath that is improving GI: No reports of nausea, vomiting, or diarrhea, reports is now passing gas and has had 5 bowel movements since last night : No reports of dysuria or retention Neurovascular: reports of generalized weakness and some back pain All medications have been reviewed PHYSICAL EXAMINATION: GENERAL: The patient is alert and oriented x3, much improved from yesterday. Well developed, well nourished. Obese HEENT: Pupils are round and equally reacting to light. EOMI. No scleral icterus. No conjunctival pallor. Normocephalic, atraumatic. No pharyngeal erythema. No thyromegaly. CARDIOVASCULAR: S1 and S2 present. No murmurs, rubs, or gallops. PULMONARY: Diminished breath sounds bilaterally with no wheezing, no rhonchi noted ABDOMEN: Soft, nontender, appears less distended, normoactive bowel sounds. No palpable organomegaly. MUSCULOSKELETAL: Back pain EXTREMITIES: No cyanosis, clubbing, or pedal edema. NEUROLOGICAL: Gross neurological examination did not reveal any focal deficits. Diffusely weak SKIN: No rashes. Assessment: -Lumbar laminectomy and fusion surgery: Pain management as per primary service patient does have bowel sounds, patient is on gabapentin for neuropathy -Acute hypoxic respiratory failure, likely secondary to atelectasis, incentive spirometer ordered and will wean FiO2 as tolerated. Breathing treatments initiated as well -History of neuropathy -Acute confusion, multifactorial, likely toxic metabolic encephalopathy second yoshi to narcotic use, improving -Abdominal distention, with concerns of colonic ileus, likely secondary to narcotic use, improving as patient is now having bowel movements and less distended -Hyperlipidemia -History of hypertension -Hypothyroidism -Continued ongoing nicotine dependence, quit 3 days ago for surgery -Obesity with a BMI of 30.5 -GI prophylaxis -DVT prophylaxis -Full code Plan: Patient is status post laminectomy with fusion of L4-S1 with orthopedics LSO brace ordered and pending patient is being evaluated by physical therapy and walker is also being ordered. Patient reports would like to return home although not working much with physical therapy and continues to have weakness. Recommend PT/OT therapy daily. Patient may benefit from ECF for continued PT/OT therapy Incentive spirometer at the bedside and encouraged the patient to continue using at least 10 times every hour. Patient currently off oxygen and maintaining oxygen saturation above 90%. Patient was having some shortness of breath requiring 4 L of oxygen yesterday and chest x-ray was obtained likely atelec tasis cannot exclude infiltrate. Procalcitonin mildly elevated at 1 and will continue empiric antibiotics for now patient has been weaned to 2 L of nasal cannula with improvement in her oxygen saturations. Encouraged to continue to use the incentive spirometer 10 times an hour while awake. Abdomen is less distended and patient is now having multiple bowel movements. Continue current regimen. General surgery was consulted with concerns of possible ileus as noted on imaging. Patient to slowly advance to clear liquids as patient reports feeling hungry and denies abdominal pain Recommend avoiding narcotics if possible especially IV narcotics as patient's mentation is much improved from yesterday Encouraged oral intake Home medications reviewed and resumed as appropriate although gabapentin has been discontinued given patient's mentation We will continue to follow with orthopedics during hospitalization. Thank you kindly for this consultation. Possible discharge home in the next 24 hours. The impression and plan of care has been dictated by Antoinette Bowers, Nurse Practitioner as directed. Dr. Pelon MD I have performed a history and physical examination and medical decision making of this patient, discussed the same with the dictator, and agree with the dictators assessment and plan as written, documented as a scribe. Based on total visit time, I have performed more than 50% of this visit. Objective - Vital Signs Vital signs: Vital Signs Temp 97.9 F 09/29/23 07:29 Pulse 84 09/29/23 08:13 Resp 18 09/29/23 07:29 BP 119/67 09/29/23 07:29 Pulse Ox 94 L 09/29/23 07:29 FiO2 Intake & Output 09/28/23 09/29/23 09/29/23 18:59 06:59 18:59 Other: Voiding Method Toilet # Voids 1 2 # Bowel Movements 1 - Labs CBC & Chem 7: 09/28/23 06:00 09/28/23 06:00 Assessment and Plan Time with Patient: Less than 30
--- NOTE | 2023-09-29 19:36 | P.PN ---
Subjective Patient seen and evaluated at bedside. Patiet has some abdominal pain. Objective - Vital Signs Vital signs: Vital Signs Temp 98.3 F 09/29/23 13:53 Pulse 86 09/29/23 13:53 Resp 18 09/29/23 13:53 BP 129/70 09/29/23 13:53 Pulse Ox 93 L 09/29/23 13:53 FiO2 Intake & Output 09/29/23 09/29/23 09/30/23 06:59 18:59 06:59 Other: # Voids 2 3 # Bowel Movements 1 - Exam gen: nad cv: rrr pul: non labored breathing abd: soft, non tender to palpation, no guarding or rebound tenderness - Labs CBC & Chem 7: 09/28/23 06:00 09/28/23 06:00 Assessment and Plan Assessment: 63 yo female w/ ileus -advance diet as tolerated -pain meds prn -monitor bowel function Time with Patient: Greater than 30
--- NOTE | 2023-09-30 12:44 | P.PN ---
Subjective Progress Note Date: 09/30/23 Principal diagnosis: Colonic ileus Patient doing well today. Tolerating regular diet. Repeat x-ray showed normal bowel pattern. Having bowel function. Last bowel movement this morning. No abdominal pain. Objective - Vital Signs Vital signs: Vital Signs Temp 98.5 F 09/30/23 07:21 Pulse 81 09/30/23 09:16 Resp 18 09/30/23 07:21 BP 138/78 09/30/23 07:21 Pulse Ox 95 09/30/23 09:04 FiO2 Intake & Output 09/29/23 09/30/23 09/30/23 18:59 06:59 18:59 Other: # Voids 3 1 # Bowel Movements 1 - Exam Abdomen: Soft, nondistended, nontender - Labs CBC & Chem 7: 09/28/23 06:00 09/28/23 06:00 Assessment and Plan (1) Paralytic ileus of small intestine and colon Narrative/Plan: 63-year-old female with ileus after recent back surgery. Patient doing better at this time. Symptoms have resolved. Will sign off. Please reconsult if needed. Current Visit: Yes Status: Acute Code(s): K56.0 - PARALYTIC ILEUS SNOMED Code(s): 6215263603
[2023-09-30] MEDS ORDERED: BUTALB/APAP/CAFF 50-325-40MG TAB PO PRN (13:02)
--- NOTE | 2023-09-30 13:13 | P.PN ---
Subjective Progress Note Date: 09/30/23 Principal diagnosis: s/p L4-S1 posterior lateral and interbody fusion Patient evaluated today at bedside, she is resting in her hospital bed, multiple family members are present. Patient's abdominal pain continues to improve, she did have a bowel movement. General surgery has evaluated the patient and signed off. I was notified by nursing that the patient's incision has drained significantly over the last 24 hours, they have been multiple dressing changes, there is also some erythema and warmness noted in her left flank. When discussing lightheadedness, dizziness and headaches it was very difficult to get the patient to describe these. It sounds like she has been getting more dizzy and having a headache when she is ambulating. Patient has been lying in bed quite a bit often, she has been up to the bedside to use the restroom on occasion. Objective - Vital Signs Vital signs: Vital Signs Temp 98.5 F 09/30/23 07:21 Pulse 81 09/30/23 09:16 Resp 18 09/30/23 07:21 BP 138/78 09/30/23 07:21 Pulse Ox 95 09/30/23 09:04 FiO2 Intake & Output 09/29/23 09/30/23 09/30/23 18:59 06:59 18:59 Other: # Voids 3 1 # Bowel Movements 1 - Exam Gen: AOx3, NAD VSS stable at this time Integument: Incision is well-healing, rosina are in good position. There is a moderate amount of serosanguineous/clear fluid. It is not kev blood at this time. There is some redness noted in the left flank, it is warm to touch Palpation: Tenderness with palpation appreciated to the lower lumbar spine ROM: Full range of motion in all major muscle groups of the bilateral lower extremities and upper extremities, no focal deficits Sensory Exam: Senory exam to light touch is intact C5-T1 Senosry exam to light touch is intact L2-S1 Motor: 4/5 strength appreciated in the right lower extremity with hip flexion, knee extension, knee flexion, plantarflexion, dorsiflexion, EHL, FHL 4-/5 strength appreciated in the left lower extremity with hip flexion, knee extension, knee flexion, plantarflexion, dorsiflexion, EHL, FHL Reflexes: 2/4 in all UE and LE Negative Babinski, negative clonus bilaterally - Labs CBC & Chem 7: 09/28/23 06:00 09/28/23 06:00 Assessment and Plan Assessment: Postoperative day #5 status post L4-S1 posterior lateral and interbody fusion Postoperative ileus, resolved Other medical comorbidity Plan: Pain control, continue current medication GI prophylaxis, continue stool softeners, general surgery recommendations DVT prophylaxis, heparin 5000 units every 12 hours during hospital stay Monitor surgical dressing, a compressive dressing was applied today at bedside Weight-bear as tolerated, LSO brace when walking longer distances Continue with PT/OT Encourage incentive spirometer Medical recommendations appreciated I was able to discuss physical exam findings with my attending Dr. Hagan. Order has been placed for Diamox to be given along with an abdominal binder. With the patient's symptoms and if excessive drainage, there is question for a dural leak. Patient will be laid flat the rest of the day, we will reassess on 10/01/2023 dressing and symptoms.
[2023-09-30] MEDS: acetaZOLAMIDE 250 MG TAB PO SCH (13:51)
--- NOTE | 2023-09-30 15:00 | P.PN ---
Subjective Progress Note Date: 09/30/23 - Reason for Consult lumbar laminectomy and fusion - History of Present Illness 63-year-old pleasant female is admitted for L4-S1 lumbar laminectomy and fusion surgery. Postsurgery patient is still having some pain does have bowel sounds, did not pass gas yet. Patient is bit hypotensive which is expected in postoperative. Otherwise patient denies any other symptoms 09/27/2023 Patient is seen in follow-up this morning and is confused and requiring 4 L of oxygen and reports does not wear oxygen outpatient. is at bedside and patient reports this is not her baseline. Recommend holding narcotics and adjusting medications with orthopedics as attending. Abdomen appears distended and patient reports is not passing gas and has not had a bowel movement yet. Patient reports she had a bowel movement prior to being hospitalized. Patient appears slightly jaundiced although denies drinking will add CMP and monitor LFTs and get an ammonia level. Recommend bowel regimen scheduled and will ob tain abdominal x-ray as well. Wean FiO2 as tolerated. Encouraged continued incentive spirometer use at least 10 times every hour while awake. Would recommend patient getting up out of the bed and sitting in the chair. LSO brace is ordered. Patient also to be evaluated by physical therapy and walker is being ordered. Patient is afebrile with no reports of chest pain or palpitations. Patient did have a chest x-ray this morning which showed basilar atelectasis and/or infiltrate to correlate clinically. Will order procalcitonin. 09/28/2023 Patient is seen in follow-up this morning mentation is much improved and patient reports to feeling hungry. Patient reports her abdominal pain and distention is somewhat improved and patient was able to have multiple bowel movements and is passing gas. Patient was empirically started on Zosyn with a mildly elevated procalcitonin of 1 with concerns of possible infiltrate and/or atelectasis on chest x-ray from yesterday. Patient was requiring 4 L of oxygen currently on room air and reports is tolerating. Oxygen saturations are 90 to 92% on room air. Encouraged incentive spirometer use as patient is not using this much as well as increased activity as tolerated. Patient would benefit from getting up with physical therapy daily. Patient is currently afebrile with no reported chest pain or palpitations. Patient reports to feeling slight shortness of breath at times although improved from yesterday. 09/29/2023 Patient is evaluated in follow-up today she is postoperative day #4 lumbar laminectomy and fusion. Patient was found to have a postoperative ileus which is improving at this time she has had multiple soft bowel movements and follow- up abdominal imaging reveals resolution of previously noted postoperative ileus with a normal bowel gas pattern seen at this time. 09/30/2023 Patient is evaluated today postoperative day#5 lumbar laminectomy and fusion. She also had evidence of postoperative ileus which has resolved in the interim. Patient is having copious amounts of serosanguinous drainage from the lumbar surgical site. Stapes are intact with no significant redness or swelling around the immediate incision however to the left flank there is a warm reddended area which is tender to palpation. Patient was initially placed on zosyn with concerns for early infiltrate vs atelectasis however orthopedics requesting pat ient to be transitioned to cefazolin 2gm every 8 hours due to post surgical drainage. Sodium level up to 134. BUN 14.9, creatinine 1.1. Patient remains afebrile, and on room air. Review of systems: Constitutional: No reports of fatigue, fever, or chills Cardiovascular: No reports of chest pain or palpitations Respiratory: reports of shortness of breath that is improving GI: No reports of nausea, vomiting, or diarrhea, reports is now passing gas and has had 5 bowel movements since last night : No reports of dysuria or retention Neurovascular: reports of generalized weakness and some back pain All medications have been reviewed PHYSICAL EXAMINATION: GENERAL: The patient is alert and oriented x3, much improved from yesterday. Well developed, well nourished. Obese HEENT: Pupils are round and equally reacting to light. EOMI. No scleral icterus. No conjunctival pallor. Normocephalic, atraumatic. No pharyngeal erythema. No thyromegaly. CARDIOVASCULAR: S1 and S2 present. No murmurs, rubs, or gallops. PULMONARY: Diminished breath sounds bilaterally with no wheezing, no rhonchi not ed ABDOMEN: Soft, nontender, appears less distended, normoactive bowel sounds. No palpable organomegaly. MUSCULOSKELETAL: Back pain EXTREMITIES: No cyanosis, clubbing, or pedal edema. NEUROLOGICAL: Gross neurological examination did not reveal any focal deficits. Diffusely weak SKIN: No rashes. Stapes are intact with no significant redness or swelling around the immediate incision however to the left flank there is a warm reddended area which is tender to palpation. Copious serosanguineous drainage from lumbar wound. Assessment: -Lumbar laminectomy and fusion surgery: Pain management as per primary service -Acute hypoxic respiratory failure, likely secondary to atelectasis, incentive s pirometer ordered and will wean FiO2 as tolerated. Breathing treatments initiated as well -History of neuropathy -Acute confusion, multifactorial, likely toxic metabolic encephalopathy secondary to narcotic use, improving -Abdominal distention, with concerns of colonic ileus, likely secondary to na rcotic use, improving as patient is now having bowel movements and less distended -Hyperlipidemia -History of hypertension -Hypothyroidism -Continued ongoing nicotine dependence, quit 3 days ago for surgery -Obesity with a BMI of 30.5 -GI prophylaxis -DVT prophylaxis -Full code Plan: Patient is status post laminectomy with fusion of L4-S1 with orthopedics LSO brace ordered and pending patient is being evaluated by physical therapy and walker is also being ordered. Patient reports would like to return home although not working much with physical therapy and continues to have weakness. Recommend PT/OT therapy daily. Patient may benefit from ECF for continued PT/OT therapy Incentive spirometer at the bedside and encouraged the patient to continue using at least 10 times every hour. Patient currently off oxygen and maintaining oxygen saturation above 90%. Patient was having some shortness of breath requiring 4 L of oxygen yesterday and chest x-ray was obtained likely atelectasis cannot exclude infiltrate. Procalcitonin mildly elevated at 1 and will continue empiric antibiotics for now patient has been weaned to 2 L of nasal cannula with improvement in her oxygen saturations. Encouraged to continue to use the incentive spirometer 10 times an hour while awake. Ileus resolving diet advanced to low fat Recommend avoiding narcotics if possible especially IV narcotics as patient's mentation is much improved from yesterday Encouraged oral intake Antibiotics changed to IV cefazolin as orthopedics recommended for the increased drainage from the surgical site. We will continue to follow with orthopedics during hospitalization. Thank you kindly for this consultation. Possible discharge home in the next 24 hours. The impression and plan of care has been dictated by Antoinette Bowers, Nurse Practitioner as directed. Dr. Pelon MD I have performed a history and physical examination and medical decision making of this patient, discussed the same with the dictator, and agree with the dictators assessment and plan as written, documented as a scribe. Based on total visit time, I have performed more than 50% of this visit. Objective - Vital Signs Vital signs: Vital Signs Temp 98.4 F 09/30/23 13:48 Pulse 87 09/30/23 13:48 Resp 18 09/30/23 13:48 BP 130/77 09/30/23 13:48 Pulse Ox 96 09/30/23 13:48 FiO2 Intake & Output 09/29/23 09/30/23 09/30/23 18:59 06:59 18:59 Other: # Voids 3 1 # Bowel Movements 1 - Labs CBC & Chem 7: 09/28/23 06:00 09/28/23 06:00 Assessment and Plan Time with Patient: Less than 30
[2023-09-30] MEDS: HYDROcodone/APAP 7.5-325MG 1 EACH TAB PO PRN (21:06)
[2023-10-01 08:52] LABS: Basophils # (A) 0.03 X 10*3/uL (0.00-0.10); Basophils % (A) 0.5 %; Eosinophils # (A) 0.16 X 10*3/uL (0.04-0.35); Eosinophils % (A) 2.8 %; HCT 30.2 % (37.2-46.3); HGB 9.6 g/dL (12.0-15.0); Lymphocytes # (A) 1.46 X 10*3/uL (0.90-5.00); Lymphocytes % (A) 25.3 %; MCH 30.2 pg (27.0-32.0); MCHC 31.8 g/dL (32.0-37.0); Mean Platelet Volume 9.3 FL (9.5-12.2); Monocytes # (A) 0.59 X 10*3/uL (0.20-1.00); Monocytes % (A) 10.2 %; NRBC Per 100 WBC 0 X 10*3/uL (0.00-0.01); Neutrophils # (A) 3.48 X 10*3/uL (1.80-7.70); Neutrophils % (A) 60.5 %; Platelet Count 267 X 10*3/uL (140-440); RBC 3.18 X 10*6/uL (4.10-5.20); RDW 12.8 % (11.5-14.5); WBC 5.76 X 10*3/uL (4.50-10.00)
[2023-10-01 09:02] LABS: BUN/Creat Ratio 14.75 Ratio (12.00-20.00); Blood Urea Nitrogen 17.7 mg/dL (9.0-27.0); Calcium 8.9 mg/dL (8.7-10.3); Carbon Dioxide 21.1 mmol/L (21.6-31.8); Chloride 109 mmol/L (96-109); Glucose 80 mg/dL (70-110); Potassium 3.8 mmol/L (3.5-5.5); Sodium 139 mmol/L (135-145)
--- NOTE | 2023-10-01 09:34 | P.PN ---
Subjective Progress Note Date: 10/01/23 Principal diagnosis: 1. L4-5 Grade I spondylolisthesis, unstable. 2. L4-S1 spondylosis with stenosis and radiculopathy 3. Low back pain Patient seen and examined this morning. Patient is resting comfortably in bed. Patient does report sciatica pain that is present in the left lower extremity. She does state that this was present prior to procedure. Dr. Hagan was present earlier this morning and changed surgical dressing. IV antibiotics have been changed. We will continue to monitor for incisional output and erythema to the left flank area. Patient is able to sit up at intervals and ambulate to restroom. Patient is looking forward to progress her activity and recovery. Objective - Vital Signs Vital signs: Vital Signs Temp 98.3 F 10/01/23 07:35 Pulse 95 10/01/23 07:35 Resp 18 10/01/23 07:35 BP 155/94 10/01/23 07:35 Pulse Ox 81 L 10/01/23 07:35 FiO2 Intake & Output 09/30/23 10/01/23 10/01/23 18:59 06:59 18:59 Other: # Voids 1 1 - Exam Physical Examination General: The patient is awake and alert, in no acute distress Skin: Skin is warm and dry, left flank area is tender to touch with erythema noted. Surgical incision is well approximated with rosina intact. Decreased output overnight from incision. Dressing was changed by surgeon this morning. Eye: Pupils are equal, round and reactive to light, extra-ocular movements are intact; there is normal conjunctiva bilaterally. Neck: The neck is supple, there is no tenderness and ROM intact. Cardiovascular: There is a regular rate and rhythm. No murmur, rub or gallop is appreciated. Respiratory: Lungs are clear to auscultation, respirations are non-labored, breath sounds are equal. Gastrointestinal: Soft, non-distended, non-tender abdomen. Back: There is no tenderness to palpation in the midline, paralumbar, parathoracic or buttocks region. There is no obvious deformity . Musculoskeletal: ROM limited secondary to pain and stiffness from surgical procedure. Muscle strength in all major muscle groups of bilateral upper extremities 5/5, bilateral lower extremities 4/5 Neurological: CN 2-12 intact. There are no obvious motor or sensory deficits. Movement and coordination equal and intact. Sensory exam to light touch intact C5-T1 and intact from L2-S1. Reflexes 2/4 in bilateral upper and lower extremities. Negative Hoffmans, babinski, and clonus signs. Psychiatric: Cooperative, appropriate mood & affect, normal judgment. - Labs CBC & Chem 7: 10/01/23 05:15 10/01/23 05:15 Labs: Abnormal Lab Results - Last 24 Hours (Table) 10/01/23 Range/Units 05:15 RBC 3.18 L (4.10-5.20) X 10*6/uL Hgb 9.6 L (12.0-15.0) g/dL Hct 30.2 L (37.2-46.3) % MCHC 31.8 L (32.0-37.0) g/dL MPV 9.3 L (9.5-12.2) FL Assessment and Plan Assessment: Postop day 6: L4-S1 PLIF 1. L4-5 Grade I spondylolisthesis, unstable. 2. L4-S1 spondylosis with stenosis and radiculopathy 3. Low back pain Plan: -Appreciate provider relations consultant and team management. -Continue with IV antibiotics. -Activity: Ambulate QID, OOB all meals, up and about, limit lifting bending twisting to less than 5 lbs. Use walker or cane if needed for stability. -Daily PT/OT, increase ambulation strength and balance. -LSO Brace when up and about, not needed in bed or chair -Pain control: Adequate at this time -Meds: reviewed -GI ppx: senna, MOM, Lactulose -DVT PPX: Heparin -Hygiene: Shower today. Maintain dressing clean and dry. Meticulous cleaning after BMs away from the incision site -Encourage IS 10x/hr -Dispo: Clinically pending *I reviewed and discussed this case with my attending Dr. Hagan, whom has reviewed this chart and films and is in agreement with assessment and plan of care as outlined above. I have personally seen and examined the patient, performed the documentation and the assessment and plan as written. Number of minutes spent on the visit: 25m.
--- NOTE | 2023-10-01 13:27 | P.PN ---
Subjective Progress Note Date: 10/01/23 this is a 63-year-old patient who originally presented on 09/28/2023 for an elective L4 to S1 lumbar laminectomy and fusion surgery. Postoperatively patient developed some redness and drainage from surgical site. Also concerns of early infiltrate seen on x-ray. Patient was also evaluated by surgical se rvices for ileus. Ileus has resolved surgical services have signed off. Dr. Leonardo group covering we are resuming care patient on 10/01/2023 On 10/01/2023 patient is resting comfortably in bed. Per surgical services possible plans of returning to or for possible drainage. Patient remains on IV antibiotic kefzole. current vital signs temp 98.3, heart rate 95, respiratory rate 18, blood pressure 150/80 with a pulse ox of 97%. white blood cell 5.76. Repeat labs ordered for a.m. Objective - Vital Signs Vital signs: Vital Signs Temp 98.3 F 10/01/23 07:35 Pulse 88 10/01/23 09:44 Resp 18 10/01/23 08:17 BP 155/94 10/01/23 07:35 Pulse Ox 97 10/01/23 09:33 FiO2 Intake & Output 09/30/23 10/01/23 10/01/23 18:59 06:59 18:59 Other: Voiding Method Toilet # Voids 1 1 - Exam Head normocephalic Neck supple Lungs clear to auscultation bilaterally no wheezing or crackles Heart regular rate and rhythm S1-S2, no rub or gallop Abdomen is soft nontender nondistended positive bowel sounds no hepatosplenomegaly Extremities no edema Neuro alert and orientated to 3 left flank to surgical incision warm reddened to touch with significant serosanguineous drainage from lumbar wound - Labs CBC & Chem 7: 10/01/23 05:15 10/01/23 05:15 Labs: Abnormal Lab Results - Last 24 Hours (Table) 10/01/23 10/01/23 Range/Units 05:15 05:15 RBC 3.18 L (4.10-5.20) X 10*6/uL Hgb 9.6 L (12.0-15.0) g/dL Hct 30.2 L (37.2-46.3) % MCHC 31.8 L (32.0-37.0) g/dL MPV 9.3 L (9.5-12.2) FL Carbon Dioxide 21.1 L (21.6-31.8) mmol/L Est GFR (CKD-EPI) 51 L (>=60) Assessment and Plan Assessment: 1. Status post lumbar laminectomy and fusion surgery on 09/28/2023 2. Increase redness and drainage to surgical site 3. Acute hypoxic respiratory failure. Likely secondary to atelectasis incentive spirometer at bedside continue breathing treatments 4. Acute confusion resolved 5. Abdominal distention concerns of ileus patient was evaluated by surgical services improved 6. History of hyperlipidemia 7. History of essential hypertension 8. History of hypothyroidism 9. Ongoing nicotine dependence Thank you for this consultation we will continue to follow patient closely throughout stay Patient remains on IV antibiotic continue incentive spirometer Repeat labs ordered for a.m.
[2023-10-01] MEDS: ONDANSETRON 4 MG/2 ML VIAL IVP PRN (14:02)
--- NOTE | 2023-10-01 15:56 | P.PN ---
Subjective Progress Note Date: 10/01/23 Principal diagnosis: Colonic ileus We were reconsulted today because of nausea vomiting. Patient states she feels dizzy and feels like the room is spinning at times. She has episodes like this and then in between these episodes her symptoms are mostly gone. Denies abdominal pain. Denies bloating. Had flatus this morning. No bowel movement today. Objective - Vital Signs Vital signs: Vital Signs Temp 98.1 F 10/01/23 12:46 Pulse 84 10/01/23 12:46 Resp 20 10/01/23 12:46 BP 133/78 10/01/23 12:46 Pulse Ox 97 10/01/23 12:46 FiO2 Intake & Output 09/30/23 10/01/23 10/01/23 18:59 06:59 18:59 Other: Voiding Method Toilet # Voids 1 1 - Exam Abdomen: Soft, nondistended, nontender - Labs CBC & Chem 7: 10/01/23 05:15 10/01/23 05:15 Labs: Abnormal Lab Results - Last 24 Hours (Table) 10/01/23 10/01/23 Range/Units 05:15 05:15 RBC 3.18 L (4.10-5.20) X 10*6/uL Hgb 9.6 L (12.0-15.0) g/dL Hct 30.2 L (37.2-46.3) % MCHC 31.8 L (32.0-37.0) g/dL MPV 9.3 L (9.5-12.2) FL Carbon Dioxide 21.1 L (21.6-31.8) mmol/L Est GFR (CKD-EPI) 51 L (>=60) Assessment and Plan (1) Paralytic ileus of small intestine and colon Narrative/Plan: Patient with recurrent vomiting. No bloating at this time. Will order abdominal x-rays for tomorrow morning. Continue antiemetics for now. Will follow. Current Visit: Yes Status: Acute Code(s): K56.0 - PARALYTIC ILEUS SNOMED Code(s): 6541887403
--- NOTE | 2023-10-02 07:12 | P.PN ---
Subjective Progress Note Date: 10/02/23 Principal diagnosis: L4-S1 spondylosis with stenosis LE weakness LE radiculopathy Low back pain Pt s/e this AM in bed with Nursing at bedside. Yesterday, the patient gradually sat up and got up to go to the bathroom, when she was in the bathroom she got really dizzy and had to get back in bed. Once she got back in bed, she was still fairly dizzy and states she vomited. She states today that she is dizzy as well and feels like she is getting worse. No HO. No vomiting since last night. She states some back pain that is better with rest. When she coughs or sneezez she gets a shooting pain down her buttock region. She states otherwise her legs feel good. She denies any f/c/sob/cp at this time. Objective - Vital Signs Vital signs: Vital Signs Temp 98.2 F 10/02/23 01:11 Pulse 72 10/02/23 01:11 Resp 17 10/02/23 01:11 BP 138/81 10/02/23 01:11 Pulse Ox 95 10/02/23 01:11 FiO2 Intake & Output 10/01/23 10/02/23 10/02/23 18:59 06:59 18:59 Other: Voiding Method Toilet # Voids 3 - Exam Physical Exam: -Patient is alert and oriented 3 appears well-nourished well-hydrated is in no acute distress. They do not appear septic. -There is TTP about the incision region with drainage noted from the top of the incision. This is serous in nature and difficult to tell if completely clear, b ut still draining. Most of incision is CDI, but there is drainage from the top portion of the inci son of serous like fluid. -Upper extremities show [5] out of 5 strength in all major muscle groups. -Lower extremities with [5] out of 5 strength in all major muscle groups -There is [FROM] that is [painless] of the b/l UE and LE in all major joints. Neg SLR, NEG tensioning signs -They are intact to light touch sensation in C5 to T1 and L2 to S1 nerve distribution. -DTR [2]/4 all upper and lower extremities -Patient has palpable distal pulses all 4 ext -Compartments are soft and compressible. -Patient shows a negative Eddie's [-Neg Hoffmans b/l] [-Neg Clonus b/l] [-Neg babinski b/l] Cranial nerves II through XII are grossly intact. - Labs CBC & Chem 7: 10/01/23 05:15 10/01/23 05:15 Labs: Abnormal Lab Results - Last 24 Hours (Table) 10/01/23 10/01/23 Range/Units 05:15 05:15 RBC 3.18 L (4.10-5.20) X 10*6/uL Hgb 9.6 L (12.0-15.0) g/dL Hct 30.2 L (37.2-46.3) % MCHC 31.8 L (32.0-37.0) g/dL MPV 9.3 L (9.5-12.2) FL Carbon Dioxide 21.1 L (21.6-31.8) mmol/L Est GFR (CKD-EPI) 51 L (>=60) Assessment and Plan Assessment: POD 7 L4-S1 decompression and fusion Continued drainage from wound, possible CSF leak HO with dizziness LE weakness, resolving LE radiculopathy, resolving Low back pain Plan: Spine Surgery Clinical and Risk Review Marian Romo is a 63 yo female who is s/p L4-S1 decompression and fusion with continued drainage from wound and possible CSF leak. It was my pleasure to have seen and examined Marian Romo. In our visit today we have had a chance to go over subjective complaints, physical examination findings and treatments including the natural course hist ory without intervention and various interventional options. The patients imaging demonstrates post op CT reviewed shows no complicating process. On physical exam, Marian Romo demonstrates continued drainage from wound 1 week PO with serous and clearish fluid with HO, dizziness positional issues and vomiting. I have explained to the patient that as their condition progresses it will cause further neurological deficits. Based on the patients imaging, physical exam, and the rapid progression and disabling nature of their symptoms, at this time I recommend surgery in the form or a: Irrigation and debridement lumbar spine with possible dural repair. I discussed the risk and benefits of this procedure at length with Marian Romo. The patient and so agreed to considered pursuing the procedure abovementioned. Prior to surgery, she should follow up with her PCP (Cardio, ID, IM etc) for clearance. Questions were invited and answered, and the patient wishes to proceed as outlined below. Currently, I am recommendin. Irrigation and debridement lumbar spine with possible dural repair 2. Review of surgical risks and benefits as well as an educational packet on the proposed surgical procedure Risks: All surgical procedures come with inherent risks, including those related to positioning, anesthesia, intraoperative findings, and postoperative complications. It is important to understand that surgery does not come with any guarantee of a successful outcome as complications and adverse events are always possible. The patient was given a handout in office today discussing the surgical procedure and risks associated with the intervention, both of which were discussed with the patient. These risks include but are not limited to the following: * Experiencing same, different or even worse symptoms in back, neck, arms, or legs compared to before surgery. * Requiring further surgery or other forms of treatment presently or at some time in the future at same or other levels of the intended spine surgery. * On an extreme but fortunately relatively rare basis severe complication such as blindness, stroke, heart attack, temporary and/or permanent nerve injury, paralysis, coma, or may occur, sometimes without known explanation. * Surgical complications may include but are not limited to risk of infection, fluid accumulation in the surgical dissection site, including a seroma or hematoma, that requires additional surgery, wound drainage, bleeding, new numbness or weakness, vision changes/loss, spinal fluid leakage, non-healing and/or infected incision, headaches, difficulty or inability to swallow, hoarseness, hemopneumothorax, pneumothorax, impotence, retrograde ejaculation, vaginal dryness; injury to nerves, spinal cord, blood vessels, lymphatics or other vital organs (i.e., bowel injury, injury to the great vessels); heterotopic bone formation; complications related to the hardware such as screws, rods, cages including misplaced hardware, device failure, instrumentation at the wrong spine level, hardware fracture/breakage, or hardware loosening; vertebral failure of the spinal column above or below the newly placed hardware; retained surgical instrumentations or devices and the need for further surgery. * Medical risks of the planned spine surgery include but are not limited to generalized Infections to the whole body or local areas outside of the surgical site (sepsis), heart attack, bleeding, anaphylaxis, meningitis, seizure, epilepsy, hearing loss, burn dias, laceration of the head or other areas of the body, bruising, hypersensitivity of the skin, bladder over di stension; allergic reaction; shoulder injury related to positioning; fat, blood and air clots to other areas of the body like heart, lungs, brain; failure of internal organs such as lungs, kidneys, liver and excessive bleeding. If blood transfusions are necessary, note that transfusions may cause intolerance reactions such as anaphylaxis or other complex reactions. * Despite best efforts, the results of spine surgery might not heal in terms of bone, soft tissues such as skin, fascia, ligaments, and joints. Additionally, in order to achieve best possible results, spine surgery may be carried out beyond the initially planned levels and involve decompression, fusion including insertion of hardware at levels other than the original intended area of surgical interest change some portions of the procedure in order to ensure the best possible outcomes. * With spine surgery and spinal fusion, there are different off label uses of instrumentation (devices, implants and hardware) as well as biological substances (bone morphogenic proteins, demineralized bone matrix) as well as using extra bone from allograft sources (i.e. cadaver bone) or autograft (iliac crest bone, ribs, or the spine itself). The patient has been given information about these practices and their inherent risks and benefits. The patient has had a chance to review all the listed information, has been given print outs detailing this information, and has had all his/her questions answered to their satisfaction. It was my pleasure to have seen and examined Marian Romo. In our visit today we have had a chance to go over my understanding of our patient's current condition, the natural course history without intervention and various interventional options. Questions were invited and answered, and the patient wishes to proceed as outlined above. I have seen and examined the patient for 25 minutes and we have spent more than 50% of the time in repeat and detailed counseling about the patient's condition, its natural course history with out and as much as can be predicted with surgery and re-review of various surgical treatment options. In conclusion, Marian Romo and her s/o requested we proceed with the above suggested surgery and are willing to accept risks and limitations of the suggested surgery as nature of the disease process and our best attempts at treatment for the condition. Thank you again for allowing us to be part of your patient's care. Please don't hesitate to contact me if you have any further questions. Signed and authenticated by: Nuno Hawley [facility] [address] [place] [address]
[2023-10-02 08:29] LABS: Basophils # (A) 0.04 X 10*3/uL (0.00-0.10); Basophils % (A) 0.6 %; Eosinophils # (A) 0.11 X 10*3/uL (0.04-0.35); Eosinophils % (A) 1.6 %; HCT 30.3 % (37.2-46.3); HGB 9.9 g/dL (12.0-15.0); Lymphocytes # (A) 1.53 X 10*3/uL (0.90-5.00); Lymphocytes % (A) 22.6 %; MCH 30.9 pg (27.0-32.0); MCHC 32.7 g/dL (32.0-37.0); MCV 94.7 FL (80.0-97.0); Mean Platelet Volume 9.3 FL (9.5-12.2); Monocytes # (A) 0.58 X 10*3/uL (0.20-1.00); Monocytes % (A) 8.6 %; NRBC Per 100 WBC 0 X 10*3/uL (0.00-0.01); Platelet Count 303 X 10*3/uL (140-440); RDW 12.9 % (11.5-14.5); WBC 6.77 X 10*3/uL (4.50-10.00)
--- NOTE | 2023-10-02 09:25 | P.PN ---
Subjective Progress Note Date: 10/02/23 this is a 63-year-old patient who originally presented on 09/28/2023 for an elective L4 to S1 lumbar laminectomy and fusion surgery. Postoperatively patient developed some redness and drainage from surgical site. Also concerns of early infiltrate seen on x-ray. Patient was also evaluated by surgical se rvices for ileus. Ileus has resolved surgical services have signed off. Dr. Leonardo group covering we are resuming care patient on 10/01/2023 On 10/01/2023 patient is resting comfortably in bed. Per surgical services possible plans of returning to or for possible drainage. Patient remains on IV antibiotic kefzole. current vital signs temp 98.3, heart rate 95, respiratory rate 18, blood pressure 150/80 with a pulse ox of 97%. white blood cell 5.76. Repeat labs ordered for a.m. On 10/02/2023 patient is alert and oriented 3. Plans today forirrigation debridement lumbar spine with Dr. Hagan. Patient still having some nausea surgical services were reconsulted abdominal x-ray has been ordered. Current vital signs temp 97.8, heart rate 74, respiratory rate 18, blood pressure 156/92 with pulse ox 95% on room air. Patient denies chest pain or shortness of breath Objective - Vital Signs Vital signs: Vital Signs Temp 97.8 F 10/02/23 07:38 Pulse 74 10/02/23 07:38 Resp 18 10/02/23 07:38 BP 156/92 10/02/23 07:38 Pulse Ox 94 L 10/02/23 07:38 FiO2 Intake & Output 10/01/23 10/02/23 10/02/23 18:59 06:59 18:59 Other: Voiding Method Toilet # Voids 3 1 - Exam Head normocephalic Neck supple Lungs clear to auscultation bilaterally no wheezing or crackles Heart regular rate and rhythm S1-S2, no rub or gallop Abdomen is soft nontender nondistended positive bowel sounds no hepatosplenomegaly Extremities no edema Neuro alert and orientated to 3 left flank to surgical incision warm reddened to touch with significant serosanguineous drainage from lumbar wound - Labs CBC & Chem 7: 10/02/23 05:21 10/01/23 05:15 Labs: Abnormal Lab Results - Last 24 Hours (Table) 10/02/23 Range/Units 05:21 RBC 3.20 L (4.10-5.20) X 10*6/uL Hgb 9.9 L (12.0-15.0) g/dL Hct 30.3 L (37.2-46.3) % MPV 9.3 L (9.5-12.2) FL Immature Gran # 0.11 H (0.00-0.04) X 10*3/uL Assessment and Plan Assessment: 1. Status post lumbar laminectomy and fusion surgery on 09/28/2023 2. Increase redness and drainage to surgical site 3. Acute hypoxic respiratory failure. Likely secondary to atelectasis incentive spirometer at bedside continue breathing treatments 4. Acute confusion resolved 5. Abdominal distention concerns of ileus patient was evaluated by surgical services improved 6. History of hyperlipidemia 7. History of essential hypertension 8. History of hypothyroidism 9. Ongoing nicotine dependence Thank you for this consultation we will continue to follow patient closely throughout stay Patient remains on IV antibiotic continue incentive spirometer plans today for debridement of lumbar spine 10/02/2023 Repeat labs ordered for a.m.
[2023-10-02] MEDS: IV FLUID CONTINUATION 1,000 ML IV ONE (11:00)
[2023-10-02 11:04] LABS: BUN/Creat Ratio 13.23 Ratio (12.00-20.00); Blood Urea Nitrogen 17.2 mg/dL (9.0-27.0); Carbon Dioxide 18.3 mmol/L (21.6-31.8); Chloride 109 mmol/L (96-109); Glucose 76 mg/dL (70-110); Potassium 3.7 mmol/L (3.5-5.5); Sodium 138 mmol/L (135-145)
[2023-10-02 11:05] LABS: ALT 31 U/L (8-44); AST 32 U/L (13-35); Alkaline Phosphatase 68 U/L (41-126); Calcium 9.2 mg/dL (8.7-10.3); Total Bilirubin 0.2 mg/dL (0.3-1.2)
[2023-10-02 11:17] LABS: Glucose,Whole Blood 79 mg/dL (70-110)
[2023-10-02] MEDS ORDERED: NEOSTIGMINE 1 MG/ML 10 ML VIAL ONE (11:27)
[2023-10-02] MEDS ORDERED: KETAMINE HCL IN 0.9 % NACL 50 MG/5 ML SYRINGE ONE (11:27)
[2023-10-02] MEDS ORDERED: ROCURONIUM 10 MG/ML (5 ML VIAL) IV ONE (11:27)
[2023-10-02] MEDS ORDERED: PHENYLEPHRINE-0.9% NACL SYG 1,000 MCG/10 ML SYRINGE ONE (11:27)
[2023-10-02] MEDS ORDERED: ONDANSETRON 4 MG/2 ML VIAL ONE (11:27)
[2023-10-02] MEDS ORDERED: HYDROmorphone (PF) 1 MG/ML ONE (11:27)
[2023-10-02] MEDS ORDERED: LIDOCAINE 1% INJ 10MG/ML (20 ML MDV) ONE (11:27)
[2023-10-02] MEDS ORDERED: SUCCINYLCHOLINE CHLORIDE 200 MG/10 ML VIAL IV ONE (11:27)
[2023-10-02] MEDS ORDERED: fentaNYL (PF) 50 MCG/ML 2 ML AMP ONE (11:27)
[2023-10-02] MEDS ORDERED: ETOMIDATE 2 MG/ML 10 ML VIAL ONE (11:27)
[2023-10-02] MEDS ORDERED: GLYCOPYRROLATE 0.2 MG/ML 2 ML VIAL ONE (11:27)
[2023-10-02] MEDS: THROMBIN (BOVINE) 5,000 UNIT VIAL TOPICAL ONE (12:18)
[2023-10-02] MEDS: GENTAMICIN 80 MG in SODIUM CHLORIDE 0.9% IRRIGATIO 3,000 ML IRRIGATION ONE (12:53)
[2023-10-02] MEDS: ceFAZolin 3,000 MG in SODIUM CHLORIDE 0.9% IRRIGATIO 3,000 ML IRRIGATION ONE (12:53)
[2023-10-02] MEDS: LACTATED RINGERS 1,000 ML IV ONE (12:54)
[2023-10-02] MEDS: VANCOMYCIN 1,000 MG VIAL MISCELLANE ONE (13:05)
--- NOTE | 2023-10-02 13:29 | P.PN ---
Subjective Progress Note Date: 10/02/23 CHIEF COMPLAINT: Colonic ileus HISTORY OF PRESENT ILLNESS: Patient denies any abdominal pain. She is having flatus. Denies any bowel movements. Denies any further vomiting. She reports having dizziness that is causing her nausea. Abdominal x-ray ordered for today not completed yet. Patient going back to the OR today for with orthopedic service for irrigation and debridement of lumbar spine possible dural repair. Afebrile. WBC 6.77 PHYSICAL EXAM: VITAL SIGNS: Reviewed. GENERAL: Well-developed in no acute distress. ABDOMEN: Soft. Nondistended. Nontender. NEUROLOGIC: Alert and oriented. Cranial nerves II through XII grossly intact. ASSESSMENT: 1. Ileus PLAN: -Abdominal x-ray ordered -Continue antiemetics -Continue supportive care Physician Scanning Tech note has been reviewed by physician. Signing provider agrees with the documented findings, assessment, and plan of care. Objective - Vital Signs Vital signs: Vital Signs Temp 97.8 F 10/02/23 07:38 Pulse 75 10/02/23 10:55 Resp 16 10/02/23 10:55 BP 157/81 10/02/23 10:55 Pulse Ox 97 10/02/23 10:55 FiO2 Intake & Output 10/01/23 10/02/23 10/02/23 18:59 06:59 18:59 Intake Total 802 Output Total 100 Balance 702 Intake: IV 802 Output: Estimated Blood Loss 100 Other: Voiding Method Toilet # Voids 3 1 - Labs CBC & Chem 7: 10/02/23 05:21 10/02/23 05:21 Labs: Abnormal Lab Results - Last 24 Hours (Table) 10/02/23 10/02/23 Range/Units 05:21 05:21 RBC 3.20 L (4.10-5.20) X 10*6/uL Hgb 9.9 L (12.0-15.0) g/dL Hct 30.3 L (37.2-46.3) % MPV 9.3 L (9.5-12.2) FL Immature Gran # 0.11 H (0.00-0.04) X 10*3/uL Carbon Dioxide 18.3 L (21.6-31.8) mmol/L Est GFR (CKD-EPI) 46 L (>=60) Total Bilirubin 0.2 L (0.3-1.2) mg/dL Total Protein 5.0 L (6.2-8.2) g/dL Albumin 3.0 L (3.8-4.9) g/dL Albumin/Globulin Ratio 1.50 L (1.60-3.17) Ratio
--- NOTE | 2023-10-02 13:58 | P.OP ---
Date of Procedure: 10/02/23 Preoperative Diagnosis: 1. S/P L4-S1 DECOMPRESSION FUSION WITH DRAINING WOUND 2. HO, DIZZINESS 3. LOW BACK PAIN 4. POSSIBLE DURAL LESION Postoperative Diagnosis: 1. S/P L4-S1 DECOMPRESSION FUSION WITH DRAINING WOUND 2. HO, DIZZINESS 3. LOW BACK PAIN 4. POSSIBLE DURAL LESION 5. PUNCTATE DURAL LESION MIDLINE L3-4 REGION REMOTE TO PREVIOUS SURGERY Procedure(s) Performed: 1. IRRIGATION AND DEBRIDEMENT LUMBAR SPINE [id number] cm 2. DURAL REPAIR WITH PATCH GRAFT REQUIRING LAMINECTOMY L3-4 REGION MIDLINE POSTERIOR Implants: TISSEAL Anesthesia: GETA Surgeon: Nuno Hagan Assembly Line Machine Operator #1: Ching Hernandes (WAS PRESENT AND ASSISTED WITH ALL ASPECTS OFTHE CASE FROM POSITION TO CLOSURE) Estimated Blood Loss (ml): 150 IV fluids (ml): 1,200 Urine output (ml): 300 Pathology: none sent Condition: stable Disposition: PACU Indications for Procedure: Marian Romo is a 63 yo female who is s/p L4-S1 decompression and fusion with continued drainage from wound and possible CSF leak. It was my pleasure to have seen and examined Marian Romo. In our visit today we have had a chance to go over subjective complaints, physical examination findings and treatments including the natural course history without intervention and various interventional options. The patients imaging demonstrates post op CT reviewed shows no complicating process. On physical exam, Marian Romo demonstrates continued drainage from wound 1 week PO with serous and clearish fluid with HO, dizziness positional issues and vomiting. I have explained to the patient that as their condition progresses it will cause further neurological deficits. Based on the patients imaging, physical exam, and the rapid progression and disabling nature of their symptoms, at this time I recommend surgery in the form or a: Irrigation and debridement lumbar spine with possible dural repair. I discussed the risk and benefits of this procedure at length with Marian Romo. The patient and so agreed to considered pursuing the procedure abovementioned. Prior to surgery, she should follow up with her PCP (Cardio, ID, IM etc) for clearance. Questions were invited and answered, and the patient wishes to proceed as outlined below. Currently, I am recommendin. Irrigation and debridement lumbar spine with possible dural repair Description of Procedure: The patient was seen and examined in the preoperative area. All preoperative protocols were followed. Informed consent was obtained risks and benefits of the procedure were discussed at length. Risks including bleeding infection damage to the surrounding tissue and risk of reoperation were discussed with the patient. Risk of anesthesia up to and including was a discussed with the patient. These are outlined in the risk review. They were willing to accept these risks and all of the risks of surgery. The patient was given a weight- based dose of antibiotics in the form of 2 G aNCEF FROM FLOOR. The patient was seen and evaluated by the anesthesia team who deemed them fit for surgery. The site was marked, the patient was willing to proceed with the procedure. The patient was transferred to the operative suite by the Department of anesthesia. They were then drifted off to sleep by the department anesthesia and GETA was performed. The patient tolerated this well. patient had Vizcarra from the floor. Once confirmation of lines and ventilation the patient was transferred to a [prone Patrick table very carefully]. All bony prominences including wrists, elbows, axilla, chest, hips, and thighs, and feet were padded very well. Special attention was paid to the genitalia and these were padded accordingly. SCDs were placed on bilateral lower extremities and were connected. Arms were well padded and placed [on arm boards up and out in the 90/90 position]. Once in position, again we confirmed good ventilation capabilities and that lines were running appropriately. The patient's lumbar spine was then exposed. 1010s were placed outlining the incision site. Standard alcohol was used to clean the incision site and allowed to dry. C-arm was used to biomark the patient and confirm level for incision which was marked with a skin marker. previous incision rosina were removed. Operative briefing was performed with all teams and everyone in agreement to proceed. The patient was then prepped and draped in a normal sterile fashion. Timeout was then performed and all parties were in agreement with the procedure to be performed. midline skin incision was then made over the previously marked area and dissection taken down. There was drainage in this area which is noted which was somewhat serosanguineous but mostly clear. Sutures were removed from the subcu tissue the fascia was then opened and sutures removed from this area. Once the fascia was opened the area was debrided and washed with irrigant. Once the area had been debrided and the area washed we started investigating whether seem to be some clear fluid coming from underneath the lamina of L3 and L3 4 region this is somewhat remote to the actual surgical bed. Kerrison rongeur were used to remove the spinous process and then lamina of the L3 4 region as well as the ligamentum revealing a midline punctate dural lesion which was essentially remote to the surgical bed. There was a bleb in this area of the arachnoid however was draining CSF. Valsalva showed that this was where the drainage was coming from. 6-0 Prolene was then used to close this area however the dura was extremely thin in this area and further tearing of the dura was noted on the right side at this area and some more sutures were placed once we had sutured the dura completely a fat graft was taken from subcu region and was sewn into p osition over the area Valsalva maneuver was done and there was no continuous leak. We then irrigated the area thoroughly and debrided it with 3 L of Ancef solution 3 L of gentamicin solution 1 L of Betadine solution 1 L of Irricept solution followed by 6 L of normal sterile saline. Once this was done we investigated the area again. The fat graft was in position. There is no continuous leak. Tisseel was then used directly over this area to seal it even further. Surgicel was then placed over this. The skin edges were then freshened to allow for some bleeding skin edges as well as fresh skin edges. Once this was done a good clot formed over the dural repair as well and Surgicel was placed over this as well as Tisseel. Final Valsalva maneuver failed to show any further CSF leak at this time. We then placed vancomycin deep within the wound. We then closed the wound in a layered fashion first deep fascia which was closed in a watertight fashion with #1 PDS. Deep subcu tissue closed with 0 PDS superficial subcu tissue closed with 2-0 Vicryl and skin was closed with 2-0 nylon in a horizontal mattress fashion. The wound edges approximated very well. The wound was then cleaned with alcohol and dressed sterilely with Adaptic 4 x 4's ABDs and foam tape. The patient was transferred back to their hospital bed atraumatically. Patient was then awakened and extubated by the department of anesthesia having tolerated the procedure very well with no complications. They were transferred to the postoperative care unit in stable condition.
[2023-10-02] MEDS: HYDROmorphone 0.5 MG/0.5 ML SYRINGE IVP ONE (14:22)
[2023-10-02] MEDS: LACTATED RINGERS 1,000 ML IV SCH (14:56)
[2023-10-02] MEDS: DEXAMETHASONE SOD PHOSPHATE 4 MG/ML 1 ML VIAL IV ONE (14:56)
[2023-10-02] MEDS: ONDANSETRON 4 MG/2 ML VIAL IVP ONE (14:56)
--- NOTE | 2023-10-02 15:48 | CDI ---
Documentation Clarification Form Date: 10/02/2023 03:31:19 PM From: Gianna Rousseau RN CCDS Phone: [phone] Admit Date: 09/28/2023 02:26:00 PM Patient Name: Marian Romo Visit Number: [id number] Discharge Date: ATTENTION: The Clinical Documentation Specialists (CDI) and [facility] Coding Staff appreciate your assistance in clarifying documentation. Please respond to the clarification below the line at the bottom and electronically sign. The CDI & [facility] Coding staff will review the response and follow-up if needed. Please note: Queries are made part of the Legal Health Record. If you have any questions, please contact the author of this message via ITS. Dr. Nuno Vasquez debridement is documented 10/01, Procedure note. Additional clarification regarding the procedure is requested. History/Risk Factors:63-year-old female s/p L4-S1 decompression and fusion with continued drainage from wound and possible CSF leak. The patient Medical History: HLD, HTN, OA, Thyroid Disorder and spondylolisthesis. 09/22, H&P and 10/01 Surgical note. Clinical Indicators: 10/01, Procedure report: Sutures were removed from the subcu tissue the fascia was then opened and sutures removed from this area. Once the fascia was opened the area was debrided and washed with irrigant. a fat graft was taken from subcu region and was sewn into position over the area Valsalva maneuver was done and there was no continuous leak.We then irrigated the area thoroughly and debrided it with 3 L of Ancef solution 3 L of gentamicin solution 1 L of Betadine solution 1 L of Irricept solution followed by 6 L of normal sterile saline. Treatment: 10/01 Procedure: Irrigation and debridement lumbar spine 20 x 15 x 8cm. Dural repair with patch graft requiring laminectomy 3-4 Region midline posterior. Please clarify the type of procedure performed: [ ] Excisional debridement (the removal of necrotic, devitalized tissue or slough by means of cutting away of tissue) [ ] Non-excisional debridement (the removal of necrotic, devitalized tissue or slough by means of flushing, brushing, or washing. (Irrigation) [ ] Other; please specify [ ] Unable to determine [ ] Instrument used (e.g. scalpel, curette, etc. [ ] Other; please specify [ ] Unable to determine Five elements required for accurate and compliant documentation of a debridement: Technique used (e.g., excisional, excised, cutting, brushing, jet lavage etc.) Instrument(s) used (e.g., scalpel, curette, etc.) Nature of the tissue removed (e.g., necrotic, devitalized tissues, non-viable tissue, etc.) Appearance and size of the wound (e.g., down to fresh bleeding tissue, 7cm x 10cm, etc.) Depth of the debridement* (e.g., skin, subcutaneous tissue, fascia, muscle, bone, etc.) (Template Last Revised: August 2020) Excisional debridement (the removal of necrotic, devitalized tissue or slough by means of cutting away of tissue) scalpal was used to remove skin and freshen edges, curette used to debride bone and soft tissues. Rongure and kerrison used to remove bone and ligament. [facility]
[2023-10-03] MEDS ORDERED: HYDROmorphone 0.5 MG/0.5 ML SYRINGE IVP PRN (07:00)
[2023-10-03 08:48] LABS: Basophils # (A) 0.03 X 10*3/uL (0.00-0.10); Basophils % (A) 0.4 %; Eosinophils # (A) 0.06 X 10*3/uL (0.04-0.35); Eosinophils % (A) 0.7 %; HCT 28.8 % (37.2-46.3); HGB 9.4 g/dL (12.0-15.0); Lymphocytes # (A) 1.45 X 10*3/uL (0.90-5.00); Lymphocytes % (A) 17.6 %; MCH 30.8 pg (27.0-32.0); MCHC 32.6 g/dL (32.0-37.0); MCV 94.4 FL (80.0-97.0); Mean Platelet Volume 9.1 FL (9.5-12.2); Monocytes # (A) 0.61 X 10*3/uL (0.20-1.00); Monocytes % (A) 7.4 %; NRBC Per 100 WBC 0 X 10*3/uL (0.00-0.01); Neutrophils # (A) 5.99 X 10*3/uL (1.80-7.70); Neutrophils % (A) 72.6 %; Platelet Count 309 X 10*3/uL (140-440); RBC 3.05 X 10*6/uL (4.10-5.20); RDW 13.1 % (11.5-14.5); WBC 8.25 X 10*3/uL (4.50-10.00)
[2023-10-03 09:29] LABS: ALT 25 U/L (8-44); AST 31 U/L (13-35); Albumin 2.8 g/dL (3.8-4.9); Albumin/Globulin Ratio 1.47 Ratio (1.60-3.17); Alkaline Phosphatase 63 U/L (41-126); BUN/Creat Ratio 14.67 Ratio (12.00-20.00); Blood Urea Nitrogen 17.6 mg/dL (9.0-27.0); Calcium 8.9 mg/dL (8.7-10.3); Carbon Dioxide 17.8 mmol/L (21.6-31.8); Chloride 108 mmol/L (96-109); Globulin 1.9 g/dL (1.6-3.3); Glucose 78 mg/dL (70-110); Potassium 3.7 mmol/L (3.5-5.5); Sodium 136 mmol/L (135-145); Total Bilirubin 0.3 mg/dL (0.3-1.2); Total Protein 4.7 g/dL (6.2-8.2)
--- NOTE | 2023-10-03 09:32 | P.PN ---
Subjective Progress Note Date: 10/03/23 Principal diagnosis: 1. L4-5 Grade I spondylolisthesis, unstable. 2. L4-S1 spondylosis with stenosis and radiculopathy 3. Low back pain Patient seen and examined this morning. Patient is resting flat in bed. Spouse is present at bedside. Patient does report increased pain to the bilateral hips. Encouraged patient to utilize pain medication, muscle relaxer, and ice packs. Patient does report a mild headache this morning. She does state that she normally drinks coffee every morning and has not had any over the past few days. Encouraged patient to have her coffee and pop as she normally would. Patient is to remain flat until 3 PM today, informed patient that technical writer will be back over around noon to reevaluate her symptoms and change her surgical dressing. No acute concerns at this time. Objective - Vital Signs Vital signs: Vital Signs Temp 98.8 F 10/03/23 07:20 Pulse 84 10/03/23 07:20 Resp 17 10/03/23 07:20 BP 149/83 10/03/23 07:20 Pulse Ox 100 10/03/23 07:40 FiO2 Intake & Output 10/02/23 10/03/23 10/03/23 18:59 06:59 18:59 Intake Total 902 Output Total 500 450 Balance 402 -450 Intake: IV 902 Output: Urine 400 450 Estimated Blood Loss 100 Other: Voiding Method Indwelling Catheter # Voids 1 - Exam Physical Examination General: The patient is awake and alert, in no acute distress Skin: Skin is warm and dry. Will assess incision later this afternoon Eye: Pupils are equal, round and reactive to light, extra-ocular movements are intact; there is normal conjunctiva bilaterally. Neck: The neck is supple, there is no tenderness and ROM intact. Cardiovascular: There is a regular rate and rhythm. No murmur, rub or gallop is appreciated. Respiratory: Lungs are clear to auscultation, respirations are non-labored, breath sounds are equal. Gastrointestinal: Soft, non-distended, non-tender abdomen. Back: There is no tenderness to palpation in the midline, paralumbar, parathoracic or buttocks region. There is no obvious deformity . Musculoskeletal: ROM limited secondary to pain and stiffness from surgical procedure. Muscle strength in all major muscle groups of bilateral upper extremities 5/5, bilateral lower extremities 4/5 Neurological: CN 2-12 intact. There are no obvious motor or sensory deficits. Movement and coordination equal and intact. Sensory exam to light touch intact C5-T1 and intact from L2-S1. Reflexes 2/4 in bilateral upper and lower extremities. Negative Hoffmans, babinski, and clonus signs. Psychiatric: Cooperative, appropriate mood & affect, normal judgment. - Labs CBC & Chem 7: 10/03/23 03:49 10/02/23 05:21 Labs: Abnormal Lab Results - Last 24 Hours (Table) 10/02/23 10/02/23 Range/Units 05:21 05:21 RBC 3.20 L (4.10-5.20) X 10*6/uL Hgb 9.9 L (12.0-15.0) g/dL Hct 30.3 L (37.2-46.3) % MPV 9.3 L (9.5-12.2) FL Immature Gran # 0.11 H (0.00-0.04) X 10*3/uL Carbon Dioxide 18.3 L (21.6-31.8) mmol/L Est GFR (CKD-EPI) 46 L (>=60) Total Bilirubin 0.2 L (0.3-1.2) mg/dL Total Protein 5.0 L (6.2-8.2) g/dL Albumin 3.0 L (3.8-4.9) g/dL Albumin/Globulin Ratio 1.50 L (1.60-3.17) Ratio Assessment and Plan Assessment: Postop day 1: Irrigation and debridement lumbar spine with possible dural repair, Postop day 7: L4-S1 PLIF 1. CSK leak 2. L4-5 Grade I spondylolisthesis, unstable. 3. L4-S1 spondylosis with stenosis and radiculopathy 4. Low back pain Plan: -Appreciate customs consultant and team management. -Continue with IV antibiotics. -Activity: Patient to remain bed rest until 3pm today, at that time she may begin to elevate head of bed 10 degrees every hour as tolerated. If any complain t of dizziness, headaches, nausea, or blurred vision occurs patient is to be laid flat. -Pain control: Adequate at this time -Meds: reviewed -GI ppx: senna, MOM, Lactulose -DVT PPX: Heparin -Hygiene: Maintain dressing clean and dry. Meticulous cleaning after BMs away from the incision site -Encourage IS 10x/hr -Dispo: Clinically pending *I reviewed and discussed this case with my attending Dr. Hagan, whom has reviewed this chart and films and is in agreement with assessment and plan of care as outlined above. I have personally seen and examined the patient, performed the documentation and the assessment and plan as written. Number of minutes spent on the visit: 25m.
--- NOTE | 2023-10-03 12:36 | P.PN ---
Subjective Progress Note Date: 10/03/23 CHIEF COMPLAINT: Colonic ileus HISTORY OF PRESENT ILLNESS: Patient denies any abdominal pain. She is having flatus. Denies any bowel movements. Patient denies any nausea or vomiting. Patient was taken back to the OR yesterday by Dr. Peralta 7 and had irrigation and debridement of lumbar spine with dural repair. Afebrile. WBC 8.25 PHYSICAL EXAM: VITAL SIGNS: Reviewed. GENERAL: no acute distress. ABDOMEN: Soft. Nondistended. Nontender. NEUROLOGIC: Alert and oriented. Cranial nerves II through XII grossly intact. ASSESSMENT: 1. Ileus PLAN: -Continue antiemetics -Continue supportive care -Orthopedic service advanced diet to regular. Continue to monitor. Physician Chick Grader note has been reviewed by physician. Signing provider agrees with the documented findings, assessment, and plan of care. Objective - Vital Signs Vital signs: Vital Signs Temp 98.8 F 10/03/23 07:20 Pulse 84 10/03/23 08:00 Resp 17 10/03/23 08:00 BP 149/83 10/03/23 07:20 Pulse Ox 100 10/03/23 07:40 FiO2 Intake & Output 10/02/23 10/03/23 10/03/23 18:59 06:59 18:59 Intake Total 902 Output Total 500 450 Balance 402 -450 Intake: IV 902 Output: Urine 400 450 Estimated Blood Loss 100 Other: Voiding Method Indwelling Catheter Indwelling Catheter # Voids 1 - Labs CBC & Chem 7: 10/03/23 03:49 10/03/23 03:49 Labs: Abnormal Lab Results - Last 24 Hours (Table) 10/03/23 10/03/23 Range/Units 03:49 03:49 RBC 3.05 L (4.10-5.20) X 10*6/uL Hgb 9.4 L (12.0-15.0) g/dL Hct 28.8 L (37.2-46.3) % MPV 9.1 L (9.5-12.2) FL Immature Gran # 0.11 H (0.00-0.04) X 10*3/uL Carbon Dioxide 17.8 L (21.6-31.8) mmol/L Est GFR (CKD-EPI) 51 L (>=60) Total Protein 4.7 L (6.2-8.2) g/dL Albumin 2.8 L (3.8-4.9) g/dL Albumin/Globulin Ratio 1.47 L (1.60-3.17) Ratio
--- NOTE | 2023-10-03 17:16 | P.PN ---
Subjective Progress Note Date: 10/03/23 this is a 63-year-old patient who originally presented on 09/28/2023 for an elective L4 to S1 lumbar laminectomy and fusion surgery. Postoperatively patient developed some redness and drainage from surgical site. Also concerns of early infiltrate seen on x-ray. Patient was also evaluated by surgical se rvlupe for ileus. Ileus has resolved surgical services have signed off. Dr. Leonardo group covering we are resuming care patient on 10/01/2023 On 10/01/2023 patient is resting comfortably in bed. Per surgical services possible plans of returning to or for possible drainage. Patient remains on IV antibiotic kefzole. current vital signs temp 98.3, heart rate 95, respiratory rate 18, blood pressure 150/80 with a pulse ox of 97%. white blood cell 5.76. Repeat labs ordered for a.m. On 10/02/2023 patient is alert and oriented 3. Plans today for irrigation debridement lumbar spine with Dr. Hagan. Patient still having some nausea surgical services were reconsulted abdominal x-ray has been ordered. Current vital signs temp 97.8, heart rate 74, respiratory rate 18, blood pressure 156/92 with pulse ox 95% on room air. Patient denies chest pain or shortness of breath on 10/03/2023 patient was seen and examined on the medical floor she is alert and oriented 3 in no apparent distress, she is still complaining of lower abdominal discomfort otherwise she denies any complaints there is no fever or chills no headache or dizziness no chest pain no shortness of breath no nausea or vomiting no abdominal pain no diarrhea and no urinary symptoms Objective - Vital Signs Vital signs: Vital Signs Temp 98.8 F 10/03/23 07:20 Pulse 84 10/03/23 08:00 Resp 17 10/03/23 08:00 BP 149/83 10/03/23 07:20 Pulse Ox 100 10/03/23 07:40 FiO2 Intake & Output 10/02/23 10/03/23 10/03/23 18:59 06:59 18:59 Intake Total 902 Output Total 500 450 Balance 402 -450 Intake: IV 902 Output: Urine 400 450 Estimated Blood Loss 100 Other: Voiding Method Indwelling Catheter Indwelling Catheter # Voids 1 - Exam Head normocephalic Neck supple Lungs clear to auscultation bilaterally no wheezing or crackles Heart regular rate and rhythm S1-S2, no rub or gallop Abdomen is soft nontender nondistended positive bowel sounds no hepatosplenomegaly Extremities no edema Neuro alert and orientated to 3 left flank to surgical incision warm reddened to touch with significant serosanguineous drainage from lumbar wound - Labs CBC & Chem 7: 10/03/23 03:49 10/03/23 03:49 Labs: Abnormal Lab Results - Last 24 Hours (Table) 10/03/23 10/03/23 Range/Units 03:49 03:49 RBC 3.05 L (4.10-5.20) X 10*6/uL Hgb 9.4 L (12.0-15.0) g/dL Hct 28.8 L (37.2-46.3) % MPV 9.1 L (9.5-12.2) FL Immature Gran # 0.11 H (0.00-0.04) X 10*3/uL Carbon Dioxide 17.8 L (21.6-31.8) mmol/L Est GFR (CKD-EPI) 51 L (>=60) Total Protein 4.7 L (6.2-8.2) g/dL Albumin 2.8 L (3.8-4.9) g/dL Albumin/Globulin Ratio 1.47 L (1.60-3.17) Ratio Assessment and Plan Assessment: 1. Status post lumbar laminectomy and fusion surgery on 09/28/2023 2. Increase redness and drainage to surgical site 3. Acute hypoxic respiratory failure. Likely secondary to atelectasis incentive spirometer at bedside continue breathing treatments 4. Acute confusion resolved 5. Abdominal distention concerns of ileus patient was evaluated by surgical services improved 6. History of hyperlipidemia 7. History of essential hypertension 8. History of hypothyroidism 9. Ongoing nicotine dependence Thank you for this consultation we will continue to follow patient closely throughout stay Patient remains on IV antibiotic continue incentive spirometer plans today for debridement of lumbar spine 10/02/2023 Repeat labs ordered for a.m.
--- NOTE | 2023-10-04 08:48 | P.PN ---
Subjective Progress Note Date: 10/04/23 Principal diagnosis: 1. L4-5 Grade I spondylolisthesis, unstable. 2. L4-S1 spondylosis with stenosis and radiculopathy 3. Low back pain Patient seen and examined this morning. Patient is resting in bed with HOB at about 25-30 degrees. Patient is to remain at this level. Do not have patient up any further today. Spouse is present at bedside. During assessment this morning patient does report intermittent dizziness when rolling side to side. She is presenting with Nystagmus. Discussed this with Dr. Hagan and we will continue to monitor her closely. Patient does report her pain is managed on current regimen. She denies any radicular symptoms or numbness or tingling to the bilateral lower extremities. Patient denies any headache, nausea, or blurred vision at this time. Diamox has been reordered to start today. MRI of th e brain has been placed for tomorrow morning. Objective - Vital Signs Vital signs: Vital Signs Temp 98.2 F 10/04/23 07:21 Pulse 79 10/04/23 07:21 Resp 20 10/04/23 07:21 BP 169/92 10/04/23 07:21 Pulse Ox 95 10/04/23 07:21 FiO2 Intake & Output 10/03/23 10/04/23 10/04/23 18:59 06:59 18:59 Output Total 600 450 Balance -600 -450 Output: Urine 600 450 Uretheral (Gage) 450 Other: Voiding Method Indwelling Catheter Indwelling Catheter Indwelling Catheter # Bowel Movements 1 - Exam Physical Examination General: The patient is awake and alert, in no acute distress Skin: Skin is warm and dry. Incision is well approximated with sutures intact. Scant amount of sanguineous drainage on dressing, no active draining noted. New surgical dressing applied. Eye: Pupils are equal, round and reactive to light, positive for Nystagmus. Neck: The neck is supple, there is no tenderness and ROM intact. Cardiovascular: There is a regular rate and rhythm. No murmur, rub or gallop is appreciated. Respiratory: Respirations are non-labored, breath sounds are equal. Gastrointestinal: Soft, non-distended, non-tender abdomen. Back: There is no tenderness to palpation in the midline, paralumbar, parathoracic or buttocks region. There is no obvious deformity . Musculoskeletal: ROM limited secondary to pain and stiffness from surgical procedure, also patient is currently bedrest. Muscle strength in all major muscle groups of bilateral upper extremities 5/5, bilateral lower extremities 4/5 Neurological: CN 2-12 intact. There are no obvious motor or sensory deficits. Movement and coordination equal and intact. Sensory exam to light touch intact C5-T1 and intact from L2-S1. Reflexes 2/4 in bilateral upper and lower extremities. Negative Hoffmans, babinski, and clonus signs. Psychiatric: Cooperative, appropriate mood & affect, normal judgment. - Labs CBC & Chem 7: 10/03/23 03:49 10/03/23 03:49 Labs: Abnormal Lab Results - Last 24 Hours (Table) 10/03/23 10/03/23 Range/Units 03:49 03:49 RBC 3.05 L (4.10-5.20) X 10*6/uL Hgb 9.4 L (12.0-15.0) g/dL Hct 28.8 L (37.2-46.3) % MPV 9.1 L (9.5-12.2) FL Immature Gran # 0.11 H (0.00-0.04) X 10*3/uL Carbon Dioxide 17.8 L (21.6-31.8) mmol/L Est GFR (CKD-EPI) 51 L (>=60) Total Protein 4.7 L (6.2-8.2) g/dL Albumin 2.8 L (3.8-4.9) g/dL Albumin/Globulin Ratio 1.47 L (1.60-3.17) Ratio Assessment and Plan Assessment: Postop day 2: Irrigation and debridement lumbar spine with possible dural repair, Postop day 8: L4-S1 PLIF 1. CSF leak 2. Nystagmus 3. L4-5 Grade I spondylolisthesis, unstable. 4. L4-S1 spondylosis with stenosis and radiculopathy 5. Low back pain Plan: -Appreciate sap treasury consultant and team management. -MRI of the Brain ordered for tomorrow am 10/05/23 due to concern of possible intracranial hypotension -Diamox has been reordered. -Activity: Patient to remain bed rest, may stay elevated at current level. DO NOT have patient raise HOB any further today. -Pain control: Adequate at this time -Meds: reviewed -GI ppx: senna, MOM, Lactulose -Gage: Maintain gage catheter at this time and record output every shift. -DVT PPX: Heparin -Hygiene: Maintain dressing clean and dry. Meticulous cleaning after BMs away from the incision site -Encourage IS 10x/hr -Dispo: Clinically pending *I reviewed and discussed this case with my attending Dr. Hagan, whom has reviewed this chart and films and is in agreement with assessment and plan of care as outlined above. I have personally seen and examined the patient, performed the documentation and the assessment and plan as written. Number of minutes spent on the visit: 25m.
[2023-10-04] MEDS: acetaZOLAMIDE 250 MG TAB PO SCH (09:03)
[2023-10-04] MEDS: BUTALB/APAP/CAFF 50-325-40MG TAB PO STA (09:03)
[2023-10-04 09:27] LABS: Basophils % (A) 0 %; Eosinophils # (A) 0.1 k/uL (0-0.7); Eosinophils % (A) 1 %; HCT 31.1 % (34.0-46.0); HGB 10.3 gm/dL (11.4-16.0); Lymphocytes # (A) 1.2 k/uL (1.0-4.8); Lymphocytes % (A) 15 %; MCH 30.6 pg (25.0-35.0); MCHC 33.1 g/dL (31.0-37.0); Mean Platelet Volume 7.9; Monocytes # (A) 0.5 k/uL (0-1.0); Monocytes % (A) 6 %; Neutrophils # (A) 6.3 k/uL (1.3-7.7); Neutrophils % (A) 77 %; RBC 3.37 m/uL (3.80-5.40); RDW 13.7 % (11.5-15.5); WBC 8.1 k/uL (3.8-10.6)
[2023-10-04 09:29] LABS: MCV 92.5 fL (80.0-100.0)
[2023-10-04 09:30] LABS: Platelet Count 393 k/uL (150-450)
[2023-10-04 09:42] LABS: African American GFR (CKD) 69 (>60 ml/min/1.73 sqM); Anion Gap 6 mmol/L; Blood Urea Nitrogen 17 mg/dL (7-17); Calcium 8.5 mg/dL (8.4-10.2); Carbon Dioxide 20 mmol/L (22-30); Chloride 108 mmol/L (98-107); Glucose 102 mg/dL (74-99); Non-African American GFR(CKD) 60 (>60 ml/min/1.73 sqM); Potassium 3.4 mmol/L (3.5-5.1); Sodium 134 mmol/L (137-145)
[2023-10-04] MEDS ORDERED: Potassium Replacement Protocol 1 EACH MISC MISCELLANE PRN (11:43)
[2023-10-04] MEDS: POTASSIUM CHLORIDE ER 20 MEQ TAB.ER PO SCH (12:25)
[2023-10-04 12:58] VITALS: BMI 30.4
--- NOTE | 2023-10-04 16:48 | P.PN ---
Subjective Progress Note Date: 10/04/23 CHIEF COMPLAINT: Colonic ileus HISTORY OF PRESENT ILLNESS: Patient denies any abdominal pain. Patient had BM with suppository this morning. She is still having dizziness. Orthopedic service has ordered MRI of the brain due to concern for possible intracranial hypotension. Afebrile. WBC 8.1 potassium 3.4 and replaced PHYSICAL EXAM: VITAL SIGNS: Reviewed. GENERAL: no acute distress. ABDOMEN: Soft. Nondistended. Nontender. NEUROLOGIC: Alert and oriented. Cranial nerves II through XII grossly intact. ASSESSMENT: 1. Ileus 2. Hypokalemia improved PLAN: -Continue antiemetics -Continue supportive care -Continue regular diet Physician Account Specialist note has been reviewed by physician. Signing provider agrees with the documented findings, assessment, and plan of care. Objective - Vital Signs Vital signs: Vital Signs Temp 98.5 F 10/04/23 16:05 Pulse 82 10/04/23 16:05 Resp 18 10/04/23 16:05 BP 172/84 10/04/23 16:05 Pulse Ox 97 10/04/23 16:05 FiO2 Intake & Output 10/03/23 10/04/23 10/04/23 18:59 06:59 18:59 Output Total 600 450 Balance -600 -450 Weight 83.1 kg Output: Urine 600 450 Uretheral (Vizcarra) 450 Other: Voiding Method Indwelling Catheter Indwelling Catheter Indwelling Catheter # Bowel Movements 1 - Labs CBC & Chem 7: 10/04/23 09:06 10/04/23 09:06 Labs: Abnormal Lab Results - Last 24 Hours (Table) 10/04/23 10/04/23 Range/Units 09:06 09:06 RBC 3.37 L (3.80-5.40) m/uL Hgb 10.3 L (11.4-16.0) gm/dL Hct 31.1 L (34.0-46.0) % Sodium 134 L (137-145) mmol/L Potassium 3.4 L (3.5-5.1) mmol/L Chloride 108 H (98-107) mmol/L Carbon Dioxide 20 L (22-30) mmol/L Glucose 102 H (74-99) mg/dL
--- NOTE | 2023-10-04 17:31 | P.PN ---
Subjective Progress Note Date: 10/04/23 this is a 63-year-old patient who originally presented on 09/28/2023 for an elective L4 to S1 lumbar laminectomy and fusion surgery. Postoperatively patient developed some redness and drainage from surgical site. Also concerns of early infiltrate seen on x-ray. Patient was also evaluated by surgical se rvlupe for ileus. Ileus has resolved surgical services have signed off. Dr. Leonardo group covering we are resuming care patient on 10/01/2023 On 10/01/2023 patient is resting comfortably in bed. Per surgical services possible plans of returning to or for possible drainage. Patient remains on IV antibiotic kefzole. current vital signs temp 98.3, heart rate 95, respiratory rate 18, blood pressure 150/80 with a pulse ox of 97%. white blood cell 5.76. Repeat labs ordered for a.m. On 10/02/2023 patient is alert and oriented 3. Plans today for irrigation debridement lumbar spine with Dr. Hagan. Patient still having some nausea surgical services were reconsulted abdominal x-ray has been ordered. Current vital signs temp 97.8, heart rate 74, respiratory rate 18, blood pressure 156/92 with pulse ox 95% on room air. Patient denies chest pain or shortness of breath on 10/03/2023 patient was seen and examined on the medical floor she is alert and oriented 3 in no apparent distress, she is still complaining of lower abdominal discomfort otherwise she denies any complaints there is no fever or chills no headache or dizziness no chest pain no shortness of breath no nausea or vomiting no abdominal pain no diarrhea and no urinary symptoms on 10/04/2023 patient was seen and examined on the medical floor she is alert and oriented 3 in no apparent distress she is complaining of dizziness and lightheadedness otherwise she denies any complaints there is no fever or chills no headache or dizziness no chest pain no shortness of breath no cough no nausea or vomiting no abdominal pain no diarrhea and no urinary symptoms Objective - Vital Signs Vital signs: Vital Signs Temp 98.2 F 10/04/23 07:21 Pulse 79 10/04/23 07:21 Resp 20 10/04/23 07:21 BP 169/92 10/04/23 07:21 Pulse Ox 95 10/04/23 07:21 FiO2 Intake & Output 10/03/23 10/04/23 10/04/23 18:59 06:59 18:59 Output Total 600 450 Balance -600 -450 Output: Urine 600 450 Uretheral (Vizcarra) 450 Other: Voiding Method Indwelling Catheter Indwelling Catheter Indwelling Catheter # Bowel Movements 1 - Exam Head normocephalic Neck supple Lungs clear to auscultation bilaterally no wheezing or crackles Heart regular rate and rhythm S1-S2, no rub or gallop Abdomen is soft nontender nondistended positive bowel sounds no hepatosplenomegaly Extremities no edema Neuro alert and orientated to 3 left flank to surgical incision warm reddened to touch with significant serosanguineous drainage from lumbar wound - Labs CBC & Chem 7: 10/04/23 09:06 10/04/23 09:06 Labs: Abnormal Lab Results - Last 24 Hours (Table) 10/03/23 Range/Units 03:49 Carbon Dioxide 17.8 L (21.6-31.8) mmol/L Est GFR (CKD-EPI) 51 L (>=60) Total Protein 4.7 L (6.2-8.2) g/dL Albumin 2.8 L (3.8-4.9) g/dL Albumin/Globulin Ratio 1.47 L (1.60-3.17) Ratio Assessment and Plan Assessment: 1. Status post lumbar laminectomy and fusion surgery on 09/28/2023 2. Increase redness and drainage to surgical site 3. Acute hypoxic respiratory failure. Likely secondary to atelectasis incentive spirometer at bedside continue breathing treatments 4. Acute confusion resolved 5. Abdominal distention concerns of ileus patient was evaluated by surgical services improved 6. History of hyperlipidemia 7. History of essential hypertension 8. History of hypothyroidism 9. Ongoing nicotine dependence Thank you for this consultation we will continue to follow patient closely throughout stay Patient remains on IV antibiotic continue incentive spirometer plans today for debridement of lumbar spine 10/02/2023 Repeat labs ordered for a.m.
[2023-10-04] MEDS: CAFFEINE-SODIUM BENZOATE 500 MG in SODIUM CHLORIDE 0.9% 1,000 ML IVPB ONE (17:49)
[2023-10-05 06:13] LABS: Basophils % (A) 0 %; Eosinophils # (A) 0.2 k/uL (0-0.7); Eosinophils % (A) 2 %; HCT 29.7 % (34.0-46.0); HGB 9.7 gm/dL (11.4-16.0); Lymphocytes # (A) 1.2 k/uL (1.0-4.8); Lymphocytes % (A) 19 %; MCH 30.8 pg (25.0-35.0); MCHC 32.7 g/dL (31.0-37.0); MCV 94.3 fL (80.0-100.0); Mean Platelet Volume 7.5; Monocytes # (A) 0.4 k/uL (0-1.0); Monocytes % (A) 7 %; Neutrophils # (A) 4.5 k/uL (1.3-7.7); Neutrophils % (A) 69 %; Platelet Count 439 k/uL (150-450); RBC 3.15 m/uL (3.80-5.40); RDW 13.6 % (11.5-15.5); WBC 6.4 k/uL (3.8-10.6)
[2023-10-05 06:27] LABS: ALT 19 U/L (4-34); AST 27 U/L (14-36); African American GFR (CKD) 70 (>60 ml/min/1.73 sqM); Albumin 2.4 g/dL (3.5-5.0); Alkaline Phosphatase 77 U/L (38-126); Anion Gap 7 mmol/L; Blood Urea Nitrogen 13 mg/dL (7-17); Calcium 8.8 mg/dL (8.4-10.2); Carbon Dioxide 16 mmol/L (22-30); Chloride 113 mmol/L (98-107); Globulin 2.5 g/dL; Glucose 87 mg/dL (74-99); Non-African American GFR(CKD) 61 (>60 ml/min/1.73 sqM); Potassium 3.9 mmol/L (3.5-5.1); Sodium 136 mmol/L (137-145); Total Bilirubin 0.5 mg/dL (0.2-1.3); Total Protein 4.9 g/dL (6.3-8.2)
--- NOTE | 2023-10-05 09:04 | P.PN ---
Subjective Progress Note Date: 10/05/23 Principal diagnosis: 1. L4-5 Grade I spondylolisthesis, unstable. 2. L4-S1 spondylosis with stenosis and radiculopathy 3. Low back pain Patient seen and examined this morning. Patient is resting in bed with HOB at about 15-20 degrees. Continue to maintain HOB at this level. Spouse is present at bedside. Patient continues to report dizziness during the time of rolling patient side to side, demonstrates Nystagmus during this time as well. She states her dizziness feels different than prior to dura repair. Patient does report her pain is managed on current regimen. She denies any radicular symptoms or numbness or tingling to the bilateral lower extremities. Patient denies any headache, nausea, or blurred vision at this time. MRI of the brain is scheduled for this morning at 1015am. Gage catheter is patent and patient has had BM. We will to continue to closely monitor. Objective - Vital Signs Vital signs: Vital Signs Temp 98.0 F 10/05/23 07:35 Pulse 73 10/05/23 07:35 Resp 18 10/05/23 08:00 BP 156/85 10/05/23 07:35 Pulse Ox 97 10/05/23 07:50 FiO2 Intake & Output 10/04/23 10/05/23 10/05/23 18:59 06:59 18:59 Intake Total 340 Output Total 1400 Balance -1060 Weight 83.1 kg Intake: Intake, IV Titration 340 Amount Lactated Ringers 1,000 ml 240 @ 20 mls/hr IV .Q24H DESHAUN Rx#:[id number] ceFAZolin 2 gm In Sodium 100 Chloride 0.9% 50 ml @ 100 mls/hr IVPB Q8HR DESHAUN Rx# :[id number] Output: Urine 1400 Uretheral (Gage) 1400 Other: Voiding Method Indwelling Catheter Indwelling Catheter # Bowel Movements 1 - Exam Physical Examination General: The patient is awake and alert, in no acute distress Skin: Skin is warm and dry. Incision is well approximated with sutures intact. Surgical dressing is CDI, no shadowing noted. No erythema to surrounding tissue. Eye: Pupils are equal, round and reactive to light, positive for Nystagmus. Neck: The neck is supple, there is no tenderness and ROM intact. Cardiovascular: There is a regular rate and rhythm. No murmur, rub or gallop is appreciated. Respiratory: Respirations are non-labored, breath sounds are equal. Gastrointestinal: Soft, non-distended, non-tender abdomen. Back: There is no tenderness to palpation in the midline, paralumbar, parathoracic or buttocks region. There is no obvious deformity . Musculoskeletal: ROM limited secondary to pain and stiffness from surgical procedure, also patient is currently bedrest. Muscle strength in all major mus jovanni groups of bilateral upper extremities 5/5, bilateral lower extremities 4/5 Neurological: CN 2-12 intact. There are no obvious motor or sensory deficits. Movement and coordination equal and intact. Sensory exam to light touch intact C5-T1 and intact from L2-S1. Reflexes 2/4 in bilateral upper and lower extremities. Negative Hoffmans, babinski, and clonus signs. Psychiatric: Cooperative, appropriate mood & affect, normal judgment. - Labs CBC & Chem 7: 10/05/23 05:14 10/05/23 05:14 Labs: Abnormal Lab Results - Last 24 Hours (Table) 10/04/23 10/04/23 10/05/23 Range/Units 09:06 09:06 05:14 RBC 3.37 L 3.15 L (3.80-5.40) m/uL Hgb 10.3 L 9.7 L (11.4-16.0) gm/dL Hct 31.1 L 29.7 L (34.0-46.0) % Sodium 134 L (137-145) mmol/L Potassium 3.4 L (3.5-5.1) mmol/L Chloride 108 H (98-107) mmol/L Carbon Dioxide 20 L (22-30) mmol/L Glucose 102 H (74-99) mg/dL Total Protein (6.3-8.2) g/dL Albumin (3.5-5.0) g/dL 10/05/23 Range/Units 05:14 RBC (3.80-5.40) m/uL Hgb (11.4-16.0) gm/dL Hct (34.0-46.0) % Sodium 136 L (137-145) mmol/L Potassium (3.5-5.1) mmol/L Chloride 113 H (98-107) mmol/L Carbon Dioxide 16 L (22-30) mmol/L Glucose (74-99) mg/dL Total Protein 4.9 L (6.3-8.2) g/dL Albumin 2.4 L (3.5-5.0) g/dL Assessment and Plan Assessment: Postop day 3: Irrigation and debridement lumbar spine with possible dural repair, Postop day 9: L4-S1 PLIF 1. CSF leak 2. Nystagmus 3. L4-5 Grade I spondylolisthesis, unstable. 4. L4-S1 spondylosis with stenosis and radiculopathy 5. Low back pain Plan: -Appreciate political consultant and team management. -MRI of the Brain ordered for this morning at 1015 due to concern of possible intracranial hypotension, awaiting results. -Activity: Patient to remain bed rest, may stay elevated at current level. DO NOT have patient raise HOB any further today. -Pain control: Adequate at this time -Meds: reviewed -GI ppx: senna, MOM, Lactulose -Gage: Maintain gage catheter at this time and record output every shift. -DVT PPX: Heparin -Hygiene: Maintain dressing clean and dry. Meticulous cleaning after BMs away from the incision site -Encourage IS 10x/hr -Dispo: Clinically pending *I reviewed and discussed this case with my attending Dr. Hagan, whom has reviewed this chart and films and is in agreement with assessment and plan of care as outlined above. I have personally seen and examined the patient, performed the documentation and the assessment and plan as written. Number of minutes spent on the visit: 20m.
--- NOTE | 2023-10-05 09:10 | P.PN ---
Subjective Progress Note Date: 10/05/23 this is a 63-year-old patient who originally presented on 09/28/2023 for an elective L4 to S1 lumbar laminectomy and fusion surgery. Postoperatively patient developed some redness and drainage from surgical site. Also concerns of early infiltrate seen on x-ray. Patient was also evaluated by surgical se rvices for ileus. Ileus has resolved surgical services have signed off. Dr. Leonardo group covering we are resuming care patient on 10/01/2023 On 10/01/2023 patient is resting comfortably in bed. Per surgical services possible plans of returning to or for possible drainage. Patient remains on IV antibiotic kefzole. current vital signs temp 98.3, heart rate 95, respiratory rate 18, blood pressure 150/80 with a pulse ox of 97%. white blood cell 5.76. Repeat labs ordered for a.m. On 10/02/2023 patient is alert and oriented 3. Plans today for irrigation debridement lumbar spine with Dr. Hagan. Patient still having some nausea surgical services were reconsulted abdominal x-ray has been ordered. Current vital signs temp 97.8, heart rate 74, respiratory rate 18, blood pressure 156/92 with pulse ox 95% on room air. Patient denies chest pain or shortness of breath on 10/03/2023 patient was seen and examined on the medical floor she is alert and oriented 3 in no apparent distress, she is still complaining of lower abdominal discomfort otherwise she denies any complaints there is no fever or chills no headache or dizziness no chest pain no shortness of breath no nausea or vomiting no abdominal pain no diarrhea and no urinary symptoms on 10/04/2023 patient was seen and examined on the medical floor she is alert and oriented 3 in no apparent distress she is complaining of dizziness and lightheadedness otherwise she denies any complaints there is no fever or chills no headache or dizziness no chest pain no shortness of breath no cough no nausea or vomiting no abdominal pain no diarrhea and no urinary symptoms On 10/05/2023 patient's alert and oriented 3. MRI of the brain has been ordered persurgical services. This time patient is resting comfortably in bed. Patient denies chest pain or shortness breath. Patient reports improvement with back pain. Current vital signs temp 98.0, heart rate 73, respiratory rate 18, blood pressure 156/85 in a pulse ox of 97%. Dr. Leonardo's group will be covering for 10/06/2023 to 10/07/2023 Objective - Vital Signs Vital signs: Vital Signs Temp 98.0 F 10/05/23 07:35 Pulse 73 10/05/23 07:35 Resp 18 10/05/23 08:00 BP 156/85 10/05/23 07:35 Pulse Ox 97 10/05/23 07:50 FiO2 Intake & Output 10/04/23 10/05/23 10/05/23 18:59 06:59 18:59 Intake Total 340 Output Total 1400 Balance -1060 Weight 83.1 kg Intake: Intake, IV Titration 340 Amount Lactated Ringers 1,000 ml 240 @ 20 mls/hr IV .Q24H DESHAUN Rx#:[id number] ceFAZolin 2 gm In Sodium 100 Chloride 0.9% 50 ml @ 100 mls/hr IVPB Q8HR DESHAUN Rx# :[id number] Output: Urine 1400 Uretheral (Vizcarra) 1400 Other: Voiding Method Indwelling Catheter Indwelling Catheter # Bowel Movements 1 - Exam Head normocephalic Neck supple Lungs clear to auscultation bilaterally no wheezing or crackles Heart regular rate and rhythm S1-S2, no rub or gallop Abdomen is soft nontender nondistended positive bowel sounds no hepatosplenomegaly Extremities no edema Neuro alert and orientated to 3 left flank to surgical incision warm reddened to touch with significant serosanguineous drainage from lumbar wound - Labs CBC & Chem 7: 10/05/23 05:14 10/05/23 05:14 Labs: Abnormal Lab Results - Last 24 Hours (Table) 10/04/23 10/04/23 10/05/23 Range/Units 09:06 09:06 05:14 RBC 3.37 L 3.15 L (3.80-5.40) m/uL Hgb 10.3 L 9.7 L (11.4-16.0) gm/dL Hct 31.1 L 29.7 L (34.0-46.0) % Sodium 134 L (137-145) mmol/L Potassium 3.4 L (3.5-5.1) mmol/L Chloride 108 H (98-107) mmol/L Carbon Dioxide 20 L (22-30) mmol/L Glucose 102 H (74-99) mg/dL Total Protein (6.3-8.2) g/dL Albumin (3.5-5.0) g/dL 10/05/23 Range/Units 05:14 RBC (3.80-5.40) m/uL Hgb (11.4-16.0) gm/dL Hct (34.0-46.0) % Sodium 136 L (137-145) mmol/L Potassium (3.5-5.1) mmol/L Chloride 113 H (98-107) mmol/L Carbon Dioxide 16 L (22-30) mmol/L Glucose (74-99) mg/dL Total Protein 4.9 L (6.3-8.2) g/dL Albumin 2.4 L (3.5-5.0) g/dL Assessment and Plan Assessment: 1. Status post lumbar laminectomy and fusion surgery on 09/28/2023 2. Increase redness and drainage to surgical site 3. Acute hypoxic respiratory failure. Likely secondary to atelectasis incentive spirometer at bedside continue breathing treatments 4. Acute confusion resolved 5. Abdominal distention concerns of ileus patient was evaluated by surgical services improved 6. History of hyperlipidemia 7. History of essential hypertension 8. History of hypothyroidism 9. Ongoing nicotine dependence Thank you for this consultation we will continue to follow patient closely throughout stay Patient remains on IV antibiotic continue incentive spirometer debridement of lumbar spine 10/02/2023 MRI of the brain has been ordered for 10/05/2023 Repeat labs ordered for a.m.
--- NOTE | 2023-10-05 10:27 | MR ---
EXAMINATION TYPE: MR brain wo con DATE OF EXAM: 10/05/2023 COMPARISON: NONE HISTORY: Dizziness, intracranial hypotension. TECHNIQUE: T1-weighted sagittal, T2, FLAIR, and diffusion axial, and T2 coronal coronal views of the brain are submitted. FINDINGS: There is no evidence of acute ischemia. The ventricles, basal cisterns, and sulci overlying the conv exities are consistent with the patient's age. There is no mass effect. Craniocervical junction maintained. Sella turcica has a normal appearance. There is ulceration or Right parietal there are couple punctate areas of abnormal signal within the white matter too small t o characterize. May be on the basis of hypertension or remote microvascular disease. Abnormal signal on suggest ischemia. Bilateral changes of chronic mastoiditis. IMPRESSION: 1. No acute intracranial process
--- NOTE | 2023-10-05 11:29 | P.PN ---
Subjective Progress Note Date: 10/05/23 CHIEF COMPLAINT: Colonic ileus HISTORY OF PRESENT ILLNESS: Patient denies any abdominal pain. Patient reports having 3 bowel movements yesterday. Denies any nausea or vomiting. Patient did refuse the Dulcolax suppository this morning. She still having dizziness and had MRI of drain that was negative. Afebrile. WBC 6.4 Na 136 K 3.9 PHYSICAL EXAM: VITAL SIGNS: Reviewed. GENERAL: no acute distress. ABDOMEN: Soft. Nondistended. Nontender. NEUROLOGIC: Alert and oriented. Cranial nerves II through XII grossly intact. ASSESSMENT: 1. Ileus 2. Hypokalemia improved PLAN: -Continue antiemetics -Continue supportive care -Continue regular diet -Continue stool softeners Physician [employer] Laborer note has been reviewed by physician. Signing provider agrees with the documented findings, assessment, and plan of care. I have personally seen and examined the patient, reviewed the DOUGH MOLDER /PAs history, exam and MDM and agree with the assessment and plan as written. Based on total visit time, I have performed more than 50% of the visit. As above: Patient moving her bowels well. No nausea or vomiting. Still having some dizziness. Will sign off. Please reconsult if needed. Objective - Vital Signs Vital signs: Vital Signs Temp 98.0 F 10/05/23 07:35 Pulse 73 10/05/23 08:24 Resp 18 10/05/23 08:24 BP 156/85 10/05/23 07:35 Pulse Ox 97 10/05/23 07:50 FiO2 Intake & Output 10/04/23 10/05/23 10/05/23 18:59 06:59 18:59 Intake Total 340 Output Total 1400 Balance -1060 Weight 83.1 kg Intake: Intake, IV Titration 340 Amount Lactated Ringers 1,000 ml 240 @ 20 mls/hr IV .Q24H DESHAUN Rx#:[id number] ceFAZolin 2 gm In Sodium 100 Chloride 0.9% 50 ml @ 100 mls/hr IVPB Q8HR DESHAUN Rx# :[id number] Output: Urine 1400 Uretheral (Vizcarra) 1400 Other: Voiding Method Indwelling Catheter Indwelling Catheter Indwelling Catheter # Bowel Movements 1 - Labs CBC & Chem 7: 10/05/23 05:14 10/05/23 05:14 Labs: Abnormal Lab Results - Last 24 Hours (Table) 10/05/23 10/05/23 Range/Units 05:14 05:14 RBC 3.15 L (3.80-5.40) m/uL Hgb 9.7 L (11.4-16.0) gm/dL Hct 29.7 L (34.0-46.0) % Sodium 136 L (137-145) mmol/L Chloride 113 H (98-107) mmol/L Carbon Dioxide 16 L (22-30) mmol/L Total Protein 4.9 L (6.3-8.2) g/dL Albumin 2.4 L (3.5-5.0) g/dL
--- NOTE | 2023-10-05 12:59 | P.PN ---
Progress Note - Text Progress Note Date: 10/05/23 MRI reviewed as well as notes and clinicals. Pt still having dizziness when she turns her head and nystagmus. MRI does not show any overt signs of ICH or acute process to suggest issues. Her wound is clean and dry without drainage. She has been at around 10-15 deg HOB without issues, but when sat up and turns head is when she gets issues. She seems to be mixed between a vertigo like sx and issues related to her surgery. It is difficult to tell with her as her low back appears to be doing well. We will continue to monitor her at this time and gradually sit her up still. We will as neurology to consult on her and give recommendations. Will stop Acetazolamide at this time. Cont with Fioracet, caffiene Abd binder and sx control. Consider meclizine for dizziness and possible BPV like sx. Will make pt tired. She should still be moving her legs in bed, pumping ankles, using SCDs etc. As soon as we can we want to get her moving. She needs to be on chemo ppx for dvt since she is not moving at this time and cont to have gage. We will watch her closely.
[2023-10-05] MEDS ORDERED: MECLIZINE 25 MG TAB PO PRN (13:38)
--- NOTE | 2023-10-05 15:11 | P.CNNES ---
History of Present Illness Consult date: 10/05/23 Requesting physician: Ching Hernandes Reason for Consult: nystagmus and dizziness s/p dural repair History of Present Illness: This is a 63-year-old woman who was in the hospital for initially for her lower back pain. Neurologist consulted for dizziness and nystagmus.patient and has spondylolysis and was felt that she had severe L4 to S1 spondylolysis with radiculopathy. On 09/25/2023, she had the laminectomy L4 to S1 bilateral. Then,on 10/02/2023 she had status post decompression fusion over the L4 to S1 and it's reported that she had the dizziness with possible dural lesion from her the previous surgery in which she had the dural repair with patch graft. Patient stated that after a day or 2 after the initial surgery she noticed dizziness and she felt the room is spinning and she had nausea vomiting. She denies any diplopia, any focal weakness any numbness any difficulty swallowing or visual disturbance. Then it seems that this is improved but didn't have some having dizziness in which when she looked to the far left she had nystagmus and dizziness with movement. As stated earlier she was found to have a dural leak and she had a dural repair by the orthopedic surgery team. she denies any fu rther nausea or vomiting. Denies any history of stroke. Denies any falls. She feels minimally better. Some of the workup during his hospital visit consisted of: sodium is 136 Calcium is 8.8. ammonia level is less than 9. MRI Brain is reported as negative intracranial process. Review of Systems The positive and negative as per HPI. Past Medical History Past Medical History: Hyperlipidemia, Hypertension, Osteoarthritis (OA), Thyroid Disorder Additional Past Medical History / Comment(s): Grave's Disease. Left ankle - torn tendon, "repaired twice nani year but still not right." Varicose veins. Heart murmur. History of Any Multi-Drug Resistant Organisms: None Reported Past Surgical History: Bladder Surgery, Breast Surgery, Hysterectomy, Orthopedic Surgery, Tonsillectomy Additional Past Surgical History / Comment(s): Bilateral breast lumpectomy, lipoma removed from right side, bilateral knee arthroscopy, left ankle tendon repair X2. Past Anesthesia/Blood Transfusion Reactions: Previous Problems w/ Anesthesia Additional Past Anesthesia/Blood Transfusion Reaction / Comment(s): Allergic reaction to Propofol, Mother allergic to Propofol. Past Psychological History: No Psychological Hx Reported Additional Psychological History / Comment(s): raising 7 grandchildren Smoking Status: Former smoker Past Alcohol Use History: None Reported Additional Past Alcohol Use History / Comment(s): Smoker for years 06/28ppd, quit smoking 3 days ago. Past Drug Use History: None Reported - Past Family History Mother Family Medical History: Coronary Artery Disease (CAD) Father Family Medical History: Cancer Sister(s) Family Medical History: Cancer Medications and Allergies Home Medications Medication Instructions Recorded Confirmed Type Triamterene-Hctz 37.5-25Mg 1 each PO QAM 04/14/14 09/25/23 History [Dyazide 37.5-25 Capsule] Escitalopram [Lexapro] 10 mg PO QAM 01/29/19 09/25/23 History Levothyroxine Sodium [Synthroid] 100 mcg PO QAM 01/29/19 09/25/23 History Pravastatin Sodium [Pravachol] 40 mg PO QAM 01/29/19 09/25/23 History atenoloL [Atenolol] 25 mg PO QAM 01/29/19 09/25/23 History Ibuprofen [Motrin] 600 mg PO Q6HR PRN 11/06/22 09/25/23 History Allergies Allergy/AdvReac Type Severity Reaction Status Date / Time lisinopril Allergy Confusion Verified 09/25/23 09:33 prednisone Allergy Rash/Hives Verified 09/25/23 09:33 promethazine HCl Allergy Confusion Verified 09/25/23 09:33 [From Phenergan] propofol Allergy Unknown Verified 09/25/23 09:33 hydrochlorothiazide AdvReac Unknown Verified 09/25/23 09:33 STEROIDS Allergy Unknown Uncoded 09/25/23 09:33 Physical Examination - Vital Signs Vital Signs: Vital Signs Temp Pulse Resp BP BP Pulse Ox 10/05/23 08:24 73 18 10/05/23 08:00 18 10/05/23 07:50 97 10/05/23 07:35 98.0 F 73 18 156/85 97 10/04/23 23:50 98.5 F 79 16 172/89 95 10/04/23 19:28 98.5 F 79 14 167/91 10/04/23 16:05 98.5 F 82 18 172/84 97 Intake and Output 10/04/23 10/05/23 10/05/23 22:59 06:59 14:59 Intake Total 340 Output Total 1400 500 Balance -1060 -500 Intake: Intake, IV Titration 340 Amount Lactated Ringers 1,000 ml 240 @ 20 mls/hr IV .Q24H DESHAUN Rx#:[id number] ceFAZolin 2 gm In Sodium 100 Chloride 0.9% 50 ml @ 100 mls/hr IVPB Q8HR DESHAUN Rx# :[id number] Output: Urine 1400 500 Uretheral (Vizcarra) 1400 Other: Voiding Method Indwelling Catheter Indwelling Catheter # Bowel Movements 1 GENERAL: The patient is lying in bed and is not in acute distress. NEUROLOGICAL: Higher mental function: The patient is awake, alert, oriented to self, place and time. Patient is following commands. No aphasia and no neglect. Cranial nerves: The pupils are round, equal and reactive to light and accommodation. Visual newell are full to confrontation throughout. Extraocular movement is mild horizontal nystagmus looking to far left. Then when patient put her face down on pillow towards the left side she had significant transient nystagmus which resolved within 10-15 seconds. Facial sensation is normal to touch throughout. The facial strength is normal throughout. Hearing is normal bilaterally to hand rub. Tongue is midline and moved [id number] without any difficulty. No dysarthria is noted. Shoulder shrug is normal bilaterally. Motor: I attempted gait but patient was in severe pain even to sit up so unable to assess. The strength is 5 over 5 throughout. Normal tone and bulk. Cerebellum: Normal finger to nose bilaterally. Sensation: Sensation is normal to touch throughout. Reflexes (right/left): 2+ throughout. Plantars are downgoing bilaterally. Results - Laboratory Findings CBC and BMP: 10/05/23 05:14 10/05/23 05:14 Abnormal Lab Findings: Abnormal Labs 09/26/23 09/26/23 09/27/23 04:10 04:10 12:07 RBC 3.78 L Hgb 11.5 L Hct 35.1 L MCHC MPV Immature Gran # Neutrophils # Sodium 130 L Potassium Chloride Carbon Dioxide Anion Gap 12.20 H BUN 22 H Creatinine 1.20 H Est GFR (CKD-EPI) 42 L Glucose 114 H 128 H Total Bilirubin 2.3 H AST 48 H Total Protein 5.8 L Albumin 3.2 L Albumin/Globulin Ratio Procalcitonin 09/27/23 09/27/23 09/28/23 12:07 12:07 06:00 RBC 3.05 L Hgb 9.4 L Hct 28.6 L MCHC MPV Immature Gran # Neutrophils # 7.9 H Sodium Potassium Chloride Carbon Dioxide Anion Gap BUN Creatinine Est GFR (CKD-EPI) Glucose Total Bilirubin AST Total Protein Albumin Albumin/Globulin Ratio Procalcitonin 1.02 H 09/28/23 10/01/23 10/01/23 06:00 05:15 05:15 RBC 3.18 L Hgb 9.6 L Hct 30.2 L MCHC 31.8 L MPV 9.3 L Immature Gran # Neutrophils # Sodium 134 L Potassium Chloride Carbon Dioxide 21.1 L Anion Gap BUN Creatinine Est GFR (CKD-EPI) 56 L 51 L Glucose Total Bilirubin AST Total Protein Albumin Albumin/Globulin Ratio Procalcitonin 10/02/23 10/02/23 10/03/23 05:21 05:21 03:49 RBC 3.20 L 3.05 L Hgb 9.9 L 9.4 L Hct 30.3 L 28.8 L MCHC MPV 9.3 L 9.1 L Immature Gran # 0.11 H 0.11 H Neutrophils # Sodium Potassium Chloride Carbon Dioxide 18.3 L Anion Gap BUN Creatinine Est GFR (CKD-EPI) 46 L Glucose Total Bilirubin 0.2 L AST Total Protein 5.0 L Albumin 3.0 L Albumin/Globulin Ratio 1.50 L Procalcitonin 10/03/23 10/04/23 10/04/23 03:49 09:06 09:06 RBC 3.37 L Hgb 10.3 L Hct 31.1 L MCHC MPV Immature Gran # Neutrophils # Sodium 134 L Potassium 3.4 L Chloride 108 H Carbon Dioxide 17.8 L 20 L Anion Gap BUN Creatinine Est GFR (CKD-EPI) 51 L Glucose 102 H Total Bilirubin AST Total Protein 4.7 L Albumin 2.8 L Albumin/Globulin Ratio 1.47 L Procalcitonin 10/05/23 10/05/23 05:14 05:14 RBC 3.15 L Hgb 9.7 L Hct 29.7 L MCHC MPV Immature Gran # Neutrophils # Sodium 136 L Potassium Chloride 113 H Carbon Dioxide 16 L Anion Gap BUN Creatinine Est GFR (CKD-EPI) Glucose Total Bilirubin AST Total Protein 4.9 L Albumin 2.4 L Albumin/Globulin Ratio Procalcitonin Assessment and Plan Assessment: This is a 63-year-old woman who has lower back pain and had severe L4 to S1 spondylolysis with radiculopathy s/p laminectomy on 09/25/2023 then developed dizziness and nystagmus looking to left. She was found to have dural tear and had repair on 10/02/2023. She also had status post decompression fusion over the L4 to S1 on 10/02/2023. Acute dizziness with nystagmus. Seem peripheral vertigo. Cannot rule out intracranial hypotension but unlikely. Patient denies of headache. MRI Brain is unremarkable. Dural tear of lower back due to lower back surgery s/p repair on 10/02/2023. Lower back pain with severe severe L4 to S1 spondylolysis with radiculopathy s/p laminectomy on 09/25/2023 then status post decompression fusion over the L4 to S1 on 10/02/2023. History of Grave's disease Plan: Recommend starting the patient on IV fluids. Started the patient on Meclizine 25mg qid scheduled for now then after a week PRN. Ordered TSH leve. Control back pain to help promote patient ambulate Physical therapy is on board. Will defer the rest of medical management to the primary team and other specialist. The plan is discussed with patient, her family members and Dr. Hagan. Thank you for the consultation. Time with Patient: Greater than 30
[2023-10-05] MEDS: MECLIZINE 25 MG TAB PO SCH (16:23)
[2023-10-05] MEDS: FERROUS SULFATE 325 MG TAB PO SCH (17:48)
[2023-10-05] MEDS: SODIUM CHLORIDE 0.9% 1,000 ML IV SCH (18:02)
[2023-10-06 07:15] LABS: Basophils % (A) 0 %; Eosinophils # (A) 0.2 k/uL (0-0.7); Eosinophils % (A) 4 %; HCT 31.4 % (34.0-46.0); HGB 9.9 gm/dL (11.4-16.0); Hypochromasia Slight; Lymphocytes # (A) 1.2 k/uL (1.0-4.8); Lymphocytes % (A) 22 %; MCH 30.9 pg (25.0-35.0); MCHC 31.7 g/dL (31.0-37.0); MCV 97.4 fL (80.0-100.0); Mean Platelet Volume 7.5; Monocytes # (A) 0.3 k/uL (0-1.0); Monocytes % (A) 6 %; Neutrophils # (A) 3.6 k/uL (1.3-7.7); Neutrophils % (A) 66 %; Platelet Count 467 k/uL (150-450); RBC 3.22 m/uL (3.80-5.40); RDW 13.6 % (11.5-15.5); WBC 5.5 k/uL (3.8-10.6)
--- NOTE | 2023-10-06 07:23 | P.PN ---
Subjective Progress Note Date: 10/06/23 Principal diagnosis: 1. L4-5 Grade I spondylolisthesis, unstable. 2. L4-S1 spondylosis with stenosis and radiculopathy 3. Low back pain Patient seen and examined this morning. Patient is resting in bed with HOB at about 30 degrees. She does state she ambulated to restroom last night. She tolerated activity well. Patient denies any headache, dizziness,nausea, or blurred vision at this time. Patient does report her pain is managed on current regimen. Patient was repositioned to her side to assess surgical incision and when rolled back to supine position there was no s/s of Nystagmus. Surgical dressing CDI, no shadowing noted. She denies any radicular symptoms or numbness or tingling to the bilateral lower extremities. Overall patient reports she is feeling much better today. Vizcarra catheter can be discontinued today. Continue to encourage patient to be up to chair for meals. If any symptoms return of any headache, dizziness,nausea, or blurred vision return to laying flat. Objective - Vital Signs Vital signs: Vital Signs Temp 98.2 F 10/06/23 01:06 Pulse 77 10/06/23 01:06 Resp 17 10/06/23 01:06 BP 157/90 10/06/23 01:06 Pulse Ox 96 10/06/23 01:06 FiO2 Intake & Output 10/05/23 10/06/23 10/06/23 18:59 06:59 18:59 Output Total 800 700 Balance -800 -700 Output: Urine 800 700 Other: Voiding Method Indwelling Catheter Indwelling Catheter # Bowel Movements 1 1 - Exam Physical Examination General: The patient is awake and alert, in no acute distress Skin: Skin is warm and dry. Incision is well approximated with sutures intact. Surgical dressing is CDI, no shadowing noted. No erythema to surrounding tissue. Eye: Pupils are equal, round and reactive to light. Neck: The neck is supple, there is no tenderness and ROM intact. Cardiovascular: There is a regular rate and rhythm. No murmur, rub or gallop is appreciated. Respiratory: Respirations are non-labored, breath sounds are equal. Gastrointestinal: Soft, non-distended, non-tender abdomen. Back: There is no tenderness to palpation in the midline, paralumbar, parathoracic or buttocks region. There is no obvious deformity . Musculoskeletal: ROM limited secondary to pain and stiffness from surgical procedure, also patient is currently bedrest. Muscle strength in all major muscle groups of bilateral upper extremities 5/5, bilateral lower extremities 4/5 Neurological: CN 2-12 intact. There are no obvious motor or sensory deficits. Movement and coordination equal and intact. Sensory exam to light touch intact C5-T1 and intact from L2-S1. Reflexes 2/4 in bilateral upper and lower extremities. Negative Hoffmans, babinski, and clonus signs. Psychiatric: Cooperative, appropriate mood & affect, normal judgment. - Labs CBC & Chem 7: 10/06/23 06:50 10/05/23 05:14 Labs: Abnormal Lab Results - Last 24 Hours (Table) 10/05/23 10/06/23 Range/Units 05:14 06:50 RBC 3.22 L (3.80-5.40) m/uL Hgb 9.9 L (11.4-16.0) gm/dL Hct 31.4 L (34.0-46.0) % Plt Count 467 H (150-450) k/uL TSH 11.500 H (0.350-5.500) UIU/ML Assessment and Plan Assessment: Postop day 4: Irrigation and debridement lumbar spine with possible dural repair, Postop day 10: L4-S1 PLIF 1. CSF leak 2. Nystagmus-resolved 3. L4-5 Grade I spondylolisthesis, unstable. 4. L4-S1 spondylosis with stenosis and radiculopathy 5. Low back pain Plan: -Appreciate product support consultant and team management. -Activity: Continue to gradually increase patient activity to sitting up in c hair with all meals. -Pain control: Adequate at this time -Meds: reviewed -GI ppx: senna, MOM, Lactulose -Vizcarra: Discontinue this morning. -DVT PPX: Heparin -Hygiene: Maintain dressing clean and dry. Meticulous cleaning after BMs away from the incision site -Encourage IS 10x/hr -Dispo: Anticipate discharge home with homecare in the next 24-48hrs. *I reviewed and discussed this case with my attending Dr. Hagan, whom has reviewed this chart and films and is in agreement with assessment and plan of care as outlined above. I have personally seen and examined the patient, performed the documentation and the assessment and plan as written. Number of minutes spent on the visit: 20m.
[2023-10-06 07:27] LABS: ALT 19 U/L (4-34); AST 27 U/L (14-36); African American GFR (CKD) 67 (>60 ml/min/1.73 sqM); Albumin 2.5 g/dL (3.5-5.0); Alkaline Phosphatase 73 U/L (38-126); Anion Gap 7 mmol/L; Blood Urea Nitrogen 13 mg/dL (7-17); Calcium 9.2 mg/dL (8.4-10.2); Carbon Dioxide 14 mmol/L (22-30); Chloride 115 mmol/L (98-107); Globulin 2.5 g/dL; Glucose 86 mg/dL (74-99); Non-African American GFR(CKD) 58 (>60 ml/min/1.73 sqM); Potassium 3.7 mmol/L (3.5-5.1); Sodium 136 mmol/L (137-145); Total Bilirubin 0.4 mg/dL (0.2-1.3)
--- NOTE | 2023-10-06 16:29 | P.PN ---
Subjective Progress Note Date: 10/06/23 Patient was initially seen by Dr. Baldomero Damon. Please refer to his note for details. Patient had lumbar surgery beginning of this month and then had dizziness. Was found to have dural leak in the lumbar spine so had repair but continues to be dizzy with nystagmus. MRI of the brain was negative. Dr. Damon started the patient on fluids and meclizine. Patient was seen for a follow-up. Patient states that her eyes are not twitching as much. She feels "good". Patient states that when she gets up qu ickly, she feels dizzy but it goes away after 1 minute or less. It does not stay. Denies any headache. No ringing in the ears, no loss of hearing. Some of the workup during his hospital visit consisted of: sodium is 136 Calcium is 8.8. ammonia level is less than 9. MRI Brain is reported as negative intracranial process. Objective - Vital Signs Vital signs: Vital Signs Temp 98.1 F 10/06/23 13:51 Pulse 80 10/06/23 13:51 Resp 16 10/06/23 13:51 BP 159/79 10/06/23 13:51 Pulse Ox 96 10/06/23 13:51 FiO2 Intake & Output 10/05/23 10/06/23 10/06/23 18:59 06:59 18:59 Output Total 800 700 200 Balance -800 -700 -200 Output: Urine 800 700 200 Uretheral (Vizcarra) 200 Other: Voiding Method Indwelling Catheter Indwelling Catheter Toilet # Voids 2 # Bowel Movements 1 1 1 - Exam Patient's mental status, speech and language functions are normal. Cranial nerves are normal. No nystagmus. Face is symmetric and tongue protrudes to the midline. Visual newell are full on confrontation. Pupils are equal, round and reactive to light. On muscle strength testing there is no pronator drift and the strength is normal in the arms distally and proximally. Ankle dorsiflexion is normal bilaterally. Hip flexion not checked because of recent surgery. Sensory to touch is equal. Patient is slightly dysmetric for [id number] bilaterally. No ataxia. - Labs CBC & Chem 7: 10/06/23 06:50 10/06/23 06:50 Labs: Abnormal Lab Results - Last 24 Hours (Table) 10/05/23 10/06/2324 Range/Units 05:14 06:50 06:50 RBC 3.22 L (3.80-5.40) m/uL Hgb 9.9 L (11.4-16.0) gm/dL Hct 31.4 L (34.0-46.0) % Plt Count 467 H (150-450) k/uL Sodium 136 L (137-145) mmol/L Chloride 115 H (98-107) mmol/L Carbon Dioxide 14 L (22-30) mmol/L Total Protein 5.0 L (6.3-8.2) g/dL Albumin 2.5 L (3.5-5.0) g/dL TSH 11.500 H (0.350-5.500) UIU/ML Assessment and Plan Assessment: This is a 63-year-old woman who has lower back pain and had severe L4 to S1 spondylolysis with radiculopathy s/p laminectomy on 09/25/2023 then developed dizziness and nystagmus looking to left. She was found to have dural tear and had repair on 10/02/2023. She also had status post decompression fusion over the L4 to S1 on 10/02/2023. Acute dizziness with nystagmus. Seem peripheral vertigo. Cannot rule out intracranial hypotension but unlikely. Patient denies of headache. MRI Brain is unremarkable. Dural tear of lower back due to lower back surgery s/p repair on 10/02/2023. Lower back pain with severe severe L4 to S1 spondylolysis with radiculopathy s/p laminectomy on 09/25/2023 then status post decompression fusion over the L4 to S1 on 10/02/2023. History of Grave's disease Plan: Recommend starting the patient on IV fluids. Patient's dizziness has mostly resolved. May give meclizine 25 mg 4 times daily as needed. TSH level 11.5, with free T4 of 1.14. We will defer IM to address hypothyroidism. Check B12, folate. Control back pain to help promote patient ambulate Physical therapy is on board. Will defer the rest of medical management to the primary team and other speciali st. Patient's neurological/vestibular symptoms have mostly resolved. Neurologically clear. Addendum: B12 808 Folate 6.6. Folate level low, will start folate replacement
--- NOTE | 2023-10-06 18:09 | P.PN ---
Subjective Progress Note Date: 10/06/23 63-year-old woman who was in the hospital for initially for her lower back pain. Neurologist consulted for dizziness and nystagmus.patient and has spondylolysis and was felt that she had severe L4 to S1 spondylolysis with radiculopathy. On 09/25/2023, she had the laminectomy L4 to S1 bilateral. Then,on 10/02/2023 she had status post decompression fusion over the L4 to S1 and it's reported that she had the dizziness with possible dural lesion from her the previous surgery in which she had the dural repair with patch graft. Patient stated that after a day or 2 after the initial surgery she noticed dizziness and she felt the room is spinning and she had nausea vomiting. She denies any diplopia, any focal weakness any numbness any difficulty swallowing or visual disturbance. Then it seems that this is improved but didn't have some having dizziness in which when she looked to the far left she had nystagmus and dizziness with movement. As stated earlier she was found to have a dural leak and she had a dural repair by the orthopedic surgery team. she denies any further nausea or vomiting. Denies any history of stroke. Denies any falls. She feels minimally better. Objective - Vital Signs Vital signs: Vital Signs Temp 98.2 F 10/06/23 07:30 Pulse 85 10/06/23 08:05 Resp 17 10/06/23 08:05 BP 159/94 10/06/23 07:30 Pulse Ox 96 10/06/23 07:30 FiO2 Intake & Output 10/05/23 10/06/23 10/06/23 18:59 06:59 18:59 Output Total 800 700 200 Balance -800 -700 -200 Output: Urine 800 700 200 Uretheral (Vizcarra) 200 Other: Voiding Method Indwelling Catheter Indwelling Catheter Toilet # Voids 1 # Bowel Movements 1 1 1 - Exam Head normocephalic Neck supple Lungs clear to auscultation bilaterally no wheezing or crackles Heart regular rate and rhythm S1-S2, no rub or gallop Abdomen is soft nontender nondistended positive bowel sounds no hepatosplenomegaly Extremities no edema Neuro alert and orientated to 3 left flank to surgical incision warm reddened to touch with significant serosanguineous drainage from lumbar wound - Labs CBC & Chem 7: 10/06/23 06:50 10/06/23 06:50 Labs: Abnormal Lab Results - Last 24 Hours (Table) 10/05/23 10/06/23 10/06/23 Range/Units 05:14 06:50 06:50 RBC 3.22 L (3.80-5.40) m/uL Hgb 9.9 L (11.4-16.0) gm/dL Hct 31.4 L (34.0-46.0) % Plt Count 467 H (150-450) k/uL Sodium 136 L (137-145) mmol/L Chloride 115 H (98-107) mmol/L Carbon Dioxide 14 L (22-30) mmol/L Total Protein 5.0 L (6.3-8.2) g/dL Albumin 2.5 L (3.5-5.0) g/dL TSH 11.500 H (0.350-5.500) UIU/ML Assessment and Plan Assessment: 1. Status post lumbar laminectomy and fusion surgery on 09/28/2023 2. Increase redness and drainage to surgical site 3. Acute hypoxic respiratory failure. Likely secondary to atelectasis incentive spirometer at bedside continue breathing treatments 4. Acute confusion resolved 5. Abdominal distention concerns of ileus patient was evaluated by surgical services improved 6. History of hyperlipidemia 7. History of essential hypertension 8. History of hypothyroidism 9. Ongoing nicotine dependence Patient remains on IV antibiotic continue incentive spirometer debridement of lumbar spine 10/02/2023 MRI of the brain has been ordered for 10/05/2023
--- NOTE | 2023-10-07 12:09 | P.PN ---
Subjective Progress Note Date: 10/07/23 Principal diagnosis: 1. L4-5 Grade I spondylolisthesis, unstable. 2. L4-S1 spondylosis with stenosis and radiculopathy 3. Low back pain Patient seen and examined this morning. Patient is resting in bed with HOB at about 30 degrees. She has been ambulating throughout the room and restroom. She tolerated activity well. Patient denies any headache, dizziness,nausea, or blurred vision at this time. Patient does report her pain is managed on current regimen. Surgical incision is well approximated with sutures intact. No active drainage. New surgical dressing applied. She denies any radicular symptoms or numbness or tingling to the bilateral lower extremities. Patient is looking forward to discharge tomorrow. Objective - Vital Signs Vital signs: Vital Signs Temp 98.6 F 10/07/23 07:52 Pulse 76 10/07/23 08:20 Resp 18 10/07/23 08:20 BP 165/87 10/07/23 07:52 Pulse Ox 98 10/07/23 09:31 FiO2 21 10/07/23 09:31 Intake & Output 10/06/23 10/07/23 10/07/23 18:59 06:59 18:59 Output Total 200 Balance -200 Output: Urine 200 Uretheral (Vizcarra) 200 Other: Voiding Method Toilet Toilet Toilet # Voids 1 2 2 # Bowel Movements 1 - Exam Physical Examination General: The patient is awake and alert, in no acute distress Skin: Skin is warm and dry. Incision is well approximated with sutures intact. Surgical incision to the lumbar spine, edges are well approximated with sutures intact. No active drainage. New surgical dressing applied. Eye: Pupils are equal, round and reactive to light. Neck: The neck is supple, there is no tenderness and ROM intact. Cardiovascular: There is a regular rate and rhythm. No murmur, rub or gallop is appreciated. Respiratory: Respirations are non-labored, breath sounds are equal. Gastrointestinal: Soft, non-distended, non-tender abdomen. Back: There is no tenderness to palpation in the midline, paralumbar, parathoracic or buttocks region. There is no obvious deformity . Musculoskeletal: ROM limited secondary to pain and stiffness from surgical procedure, also patient is currently bedrest. Muscle strength in all major muscle groups of bilateral upper extremities 5/5, bilateral lower extremities 4/5 Neurological: CN 2-12 intact. There are no obvious motor or sensory deficits. Movement and coordination equal and intact. Sensory exam to light touch intact C5-T1 and intact from L2-S1. Reflexes 2/4 in bilateral upper and lower extremities. Negative Hoffmans, babinski, and clonus signs. Psychiatric: Cooperative, appropriate mood & affect, normal judgment. - Labs CBC & Chem 7: 10/06/23 06:50 10/06/23 06:50 Assessment and Plan Assessment: Postop day 5: Irrigation and debridement lumbar spine with possible dural repair, Postop day 11: L4-S1 PLIF 1. CSF leak 2. Nystagmus-resolved 3. L4-5 Grade I spondylolisthesis, unstable. 4. L4-S1 spondylosis with stenosis and radiculopathy 5. Low back pain Plan: -Appreciate siebel consultant and team management. -Activity: Ambulate 4 times a day, patient to be up in chair for all meals. Limit lifting, bending, twisting to no greater than 5 pounds. -Daily PT/OT to increase strength and mobility -LSO brace is at bedside and may be worn when up and about, not needed in bed or chair. -Pain control: Adequate at this time -Meds: reviewed -GI ppx: senna, MOM, Lactulose -DVT PPX: Heparin -Hygiene: Maintain dressing clean and dry. Meticulous cleaning after BMs away from the incision site -Encourage IS 10x/hr -Dispo: Anticipate discharge home with homecare tomorrow 10/08/23 *I reviewed and discussed this case with my attending Dr. Hagan, whom has reviewed this chart and films and is in agreement with assessment and plan of care as outlined above. I have personally seen and examined the patient, performed the documentation and the assessment and plan as written. Number of minutes spent on the visit: 20m.
[2023-10-07] MEDS: FOLIC ACID 1 MG TAB PO SCH (15:01)
--- NOTE | 2023-10-07 17:15 | P.PN ---
Subjective Progress Note Date: 10/07/23 63-year-old woman who was in the hospital for initially for her lower back pain. Neurologist consulted for dizziness and nystagmus.patient and has spondylolysis and was felt that she had severe L4 to S1 spondylolysis with radiculopathy. On 09/25/2023, she had the laminectomy L4 to S1 bilateral. Then,on 10/02/2023 she had status post decompression fusion over the L4 to S1 and it's reported that she had the dizziness with possible dural lesion from her the previous surgery in which she had the dural repair with patch graft. Patient stated that after a day or 2 after the initial surgery she noticed dizziness and she felt the room is spinning and she had nausea vomiting. She denies any diplopia, any focal weakness any numbness any difficulty swallowing or visual disturbance. Then it seems that this is improved but didn't have some having dizziness in which when she looked to the far left she had nystagmus and dizziness with movement. As stated earlier she was found to have a dural leak and she had a dural repair by the orthopedic surgery team. she denies any further nausea or vomiting. Denies any history of stroke. Denies any falls. She feels minimally better. Acute dizziness with nystagmus; peripheral vertigo-resolved. - MRI Brain is unremarkable. Dural tear of lower back due to lower back surgery s/p repair on 10/02/2023. Lower back pain with severe severe L4 to S1 spondylolysis with radiculopathy s/p laminectomy on 09/25/2023 then status post decompression fusion over the L4 to S1 on 10/02/2023. History of Grave's disease Patient has been placed on IV fluids per neurology recommendations. Patient's dizziness has mostly resolved. May give meclizine 25 mg 4 times daily as needed. TSH level 11.5, with free T4 of 1.14. Patient is clinically euthyroid; no changes at this time. Check B12, folate results pending, . Physical therapy is on board. Objective - Vital Signs Vital signs: Vital Signs Temp 98.6 F 10/07/23 07:52 Pulse 76 10/07/23 08:20 Resp 18 10/07/23 08:20 BP 165/87 10/07/23 07:52 Pulse Ox 98 10/07/23 09:31 FiO2 21 10/07/23 09:31 Intake & Output 10/06/23 10/07/23 10/07/23 18:59 06:59 18:59 Output Total 200 Balance -200 Output: Urine 200 Uretheral (Vizcarra) 200 Other: Voiding Method Toilet Toilet Toilet # Voids 1 2 2 # Bowel Movements 1 - Exam Head normocephalic Neck supple Lungs clear to auscultation bilaterally no wheezing or crackles Heart regular rate and rhythm S1-S2, no rub or gallop Abdomen is soft nontender nondistended positive bowel sounds no hepatosp lenomegaly Extremities no edema Neuro alert and orientated to 3 left flank to surgical incision warm reddened to touch with significant serosanguineous drainage from lumbar wound - Labs CBC & Chem 7: 10/06/23 06:50 10/06/23 06:50 Assessment and Plan Assessment: 1. Status post lumbar laminectomy and fusion surgery on 09/28/2023 2. Increase redness and drainage to surgical site 3. Acute hypoxic respiratory failure. Likely secondary to atelectasis incentive spirometer at bedside continue breathing treatments 4. Acute confusion resolved 5. Abdominal distention concerns of ileus patient was evaluated by surgical services improved 6. History of hyperlipidemia 7. History of essential hypertension 8. History of hypothyroidism 9. Ongoing nicotine dependence Patient remains on IV antibiotic continue incentive spirometer debridement of lumbar spine 10/02/2023 MRI of the brain has been ordered for 10/05/2023
--- NOTE | 2023-10-08 08:07 | P.PN ---
Subjective Progress Note Date: 10/08/23 Principal diagnosis: 1. L4-5 Grade I spondylolisthesis, unstable. 2. L4-S1 spondylosis with stenosis and radiculopathy 3. Low back pain Patient seen and examined this morning. Patient is sitting up in bed. She has been ambulating throughout the room and restroom. She tolerated activity well. Patient denies any headache, dizziness,nausea, or blurred vision at this time. Patient does report her pain is managed on current regimen. Surgical dressing is CDI. She denies any radicular symptoms or numbness or tingling to the bilateral lower extremities. Patient is looking forward to going home today. Objective - Vital Signs Vital signs: Vital Signs Temp 97.9 F 10/08/23 06:51 Pulse 73 10/08/23 06:51 Resp 18 10/08/23 06:51 BP 175/96 10/08/23 06:51 Pulse Ox 97 10/08/23 06:51 FiO2 21 10/07/23 09:31 Intake & Output 10/07/23 10/08/23 10/08/23 18:59 06:59 18:59 Other: Voiding Method Toilet Toilet # Voids 4 2 - Exam Physical Examination General: The patient is awake and alert, in no acute distress Skin: Skin is warm and dry. Incision is well approximated with sutures intact. Surgical dressing to the lumbar spine is CDI. Eye: Pupils are equal, round and reactive to light. Neck: The neck is supple, there is no tenderness and ROM intact. Cardiovascular: There is a regular rate and rhythm. No murmur, rub or gallop is appreciated. Respiratory: Respirations are non-labored, breath sounds are equal. Gastrointestinal: Soft, non-distended, non-tender abdomen. Back: There is no tenderness to palpation in the midline, paralumbar, parathoracic or buttocks region. There is no obvious deformity . Musculoskeletal: ROM limited secondary to pain and stiffness from surgical procedure, also patient is currently bedrest. Muscle strength in all major muscle groups of bilateral upper extremities 5/5, bilateral lower extremities 4/5 Neurological: CN 2-12 intact. There are no obvious motor or sensory deficits. Movement and coordination equal and intact. Sensory exam to light touch intact C5-T1 and intact from L2-S1. Reflexes 2/4 in bilateral upper and lower extremities. Negative Hoffmans, babinski, and clonus signs. Psychiatric: Cooperative, appropriate mood & affect, normal judgment. - Labs CBC & Chem 7: 10/06/23 06:50 10/06/23 06:50 Assessment and Plan Assessment: Postop day 6: Irrigation and debridement lumbar spine with possible dural repair, Postop day 12: L4-S1 PLIF 1. CSF leak 2. Nystagmus-resolved 3. L4-5 Grade I spondylolisthesis, unstable. 4. L4-S1 spondylosis with stenosis and radiculopathy 5. Low back pain Plan: -Appreciate talent consultant and team management. -Activity: Ambulate 4 times a day, patient to be up in chair for all meals. Limit lifting, bending, twisting to no greater than 5 pounds. -Daily PT/OT to increase strength and mobility -LSO brace is at bedside and may be worn when up and about, not needed in bed or chair. -Pain control: Adequate at this time -Meds: reviewed -GI ppx: senna, MOM, Lactulose -DVT PPX: Heparin -Hygiene: Maintain dressing clean and dry. Meticulous cleaning after BMs away from the incision site -Encourage IS 10x/hr -Dispo: Anticipate discharge home with homecare today *I reviewed and discussed this case with my attending Dr. Hagan, whom has reviewed this chart and films and is in agreement with assessment and plan of care as outlined above. I have personally seen and examined the patient, performed the documentation and the assessment and plan as written. Number of minutes spent on the visit: 20m.
--- NOTE | 2023-10-08 08:09 | P.DS ---
Providers Date of admission: 09/28/23 14:26 Expected date of discharge: 10/08/23 Attending physician: Nuno Hagan DO Consults: 09/25/23 14:27 Consult Physician Routine Consulting Provider: Mike Caretr Consult Reason/Comments: medical management s/p revision L4-S1 decompr fusion Do you want consulting provider notified?: Yes 10/05/23 09:35 Consult Physician Routine Consulting Provider: Baldomero Damon Consult Reason/Comments: Nystagmus and dizziness, s/p Dura repair Do you want consulting provider notified?: Yes Primary care physician: [facility] Course: Hospital Course: The patient was evaluated preoperatively and found to have the diagnosis of Lumbar spondylosis. They underwent appropriate preoperative care and were willing to undergo the intended procedure. They underwent a successful Revision L4-S1 PLIF and irrigation with dura repair, were recovered appropriately and sent to the floor. While on the floor they worked with physical therapy, occupational therapy and nursing to enhance their recovery experience. Their pain was well controlled through their stay and they were started on appropriate medications, DVT ppx modalities, activity and dietary needs. Daily labs were monitored closely, and transfusions were only used when necessary. Medicine as well as other consulting services have made their input and have helped with our team approach and multidisciplinary care. PT milestones have been met and passed and they have made the recommendation of Home for this patient and treating providers agree with this care path. The patient will be discharged home with appropriate medications, instructions and follow-up information and in stable condition. Patient Condition at Discharge: Good Plan - Discharge Summary Discharge Rx Participant: Yes New Discharge Prescriptions: New HYDROcodone/APAP 7.5-325MG [[place] 7.5] 1 each PO Q4-6H PRN #42 tab PRN Reason: Pain Sennosides/Docusate Sodium [Senna Plus 8.6-50 mg Tablet] 1 each PO DAILY PRN #20 tablet PRN Reason: Constipation cefaDROXiL [Duricef] 500 mg PO Q12HR #10 cap Cyclobenzaprine [Flexeril] 5 mg PO TID PRN #40 tablet PRN Reason: Muscle Spasm Meclizine [Antivert] 25 mg PO TID PRN #40 tab PRN Reason: vertigo No Action Triamterene-Hctz 37.5-25Mg [Dyazide 37.5-25 Capsule] 1 each PO QAM Pravastatin Sodium [Pravachol] 40 mg PO QAM Levothyroxine Sodium [Synthroid] 100 mcg PO QAM Escitalopram [Lexapro] 10 mg PO QAM atenoloL [Atenolol] 25 mg PO QAM Ibuprofen [Motrin] 600 mg PO Q6HR PRN PRN Reason: Pain Discharge Medication List Triamterene-Hctz 37.5-25Mg [Dyazide 37.5-25 Capsule] 1 each PO QAM 04/14/14 [History] Escitalopram [Lexapro] 10 mg PO QAM 01/29/19 [History] Levothyroxine Sodium [Synthroid] 100 mcg PO QAM 01/29/19 [History] Pravastatin Sodium [Pravachol] 40 mg PO QAM 01/29/19 [History] atenoloL [Atenolol] 25 mg PO QAM 01/29/19 [History] Ibuprofen [Motrin] 600 mg PO Q6HR PRN 11/06/22 [History] Cyclobenzaprine [Flexeril] 5 mg PO TID PRN #40 tablet 10/08/23 [Rx] HYDROcodone/APAP 7.5-325MG [[place] 7.5] 1 each PO Q4-6H PRN #42 tab 10/08/23 [Rx] Meclizine [Antivert] 25 mg PO TID PRN #40 tab 10/08/23 [Rx] Sennosides/Docusate Sodium [Senna Plus 8.6-50 mg Tablet] 1 each PO DAILY PRN #20 tablet 10/08/23 [Rx] cefaDROXiL [Duricef] 500 mg PO Q12HR #10 cap 10/08/23 [Rx] Follow up Appointment(s)/Referral(s): Nuno Hagan DO [Doctor of Osteopathic Medicine] - 1 Week Mike Carter MD [Primary Care Provider] - 1 Week [facility] Visiting Nurse, [NON-STAFF] - As Needed Activity/Diet/Wound Care/Special Instructions: Spine Discharge and Recovery Instructions Date of Surgery: 09/25/2023, 10/02/23 Diagnosis: Lumbar spondylosis Procedure: Revision L4-S1 PLIF, Irrigation with dura repair Medications: See medication list All medication refills should be obtained through your primary care doctor or your clinic spine surgeon. Please discuss prescription refills at your follow up appointment. Do not call the hospital for medication refills. Activity: Encourage ambulation with assist of walker, Up and about 6-8x daily PT/OT daily work on balance, strength and mobility Up in chair with all meals Shower daily Brace: Use brace when up and about, do not wear in bed or shower Dressing: Leave your dressing in place for a total of 3 days post operatively. Then you may remove your dressing and leave open to air. Keep the area clean and if not able to keep area clean, then cover with sterile gauze and tape. Showering: You may shower 3 days after your procedure allowing soap and water to run over incision. Do not scrub. Do not soak. Blot dry. Follow up: Please confirm a follow up appointment with your surgeon 2 weeks post operatively. Please make an appointment to follow up with your PCP in 1-2 weeks after surgery for evaluation 3 phase, 3-week plan POST OP WEEKS 1-3 1. Lifting/carrying/pushing/pulling limited to less than 5 pounds. 2. Do not sit for longer than 15 minutes at one time. Get up and walk around. Prolonged sitting is NOT advised. If you lay down, see if you can tolerate laying down on you front (belly side) 3. Walk for periods of 15 minutes = 1 mile but no longer; do it multiple times times each day. 4. Ice your low back after activity. POST OP WEEKS 3-6 1. Lifting limited to less than 20 pounds. 2. Do not sit for longer than 30 minutes at a time. Frequently change positions. Use a sit-to stand workstation or take frequent breaks from sitting if you have returned to work. 3. Walk for 30 minutes each day. If possible, do these three or more times a day POST OP WEEKS 6+ At your 6-week appointment we will give you a physical therapy referral to focus on a core stabilization and strengthening program. You should also work on leg & buttock strengthening, hamstring & quadriceps stretching, and continue a low impact aerobic activity program such as swimming, walking, or riding a stationary bicycle. During the initial 6 weeks after your surgery, you are at the highest risk of re-injuring your spine. You should generally avoid BLTs (bending, lifting and twisting combination motions) and follow the above guidelines to reduce the chance of reinjury. You can anticipate post op appointments in our office at approximately 3 weeks and 6 weeks after your surgery. INCISION CARE: If your incision is not draining you do NOT need to cover it with a dressing. Keep your incision clean, dry and intact. In most cases, we apply skin glue, rosina or sutures to the incision at the time of surgery. This will be like a crust or have the appearance of a scab and will fall off in time on its own. The stitches or rosina need to be removed at 3 weeks post op appointment. You may begin to shower 3 days after surgery (this allows the glue to alvarado well). However, please avoid scrubbing the incision site or peeling off any of the skin glue. This will ensure optimal healing of your incision. Also, during this time avoid soaking the incision area in water - this includes swimming pools, hot tubs or baths. No ointments, lotions or oils on the incision until your surgeon allows. Leave rosina, sutures or glue in place. Neurological dysfunction that comes on suddenly can also be a sign of a stroke. Below some common symptoms of a stroke are listed: B - balance difficulty such as sudden onset walking or leaning to one side - NEW E - eye problem such as sudden double vision or trouble seeing on one side - NEW F - Facial weakness or numbness on one side - NEW A - Arm or leg weakness or numbness on one side - NEW S - Slurred speech or difficulty with word finding - NEW T - Time is BRAIN! Call 911 as soon as you recognize these symptoms Diet: Consume a regular diet rich in vegetables and lean protein such as chicken or fish. You should consume in a ratio of approximately 20% fats|40% carbohydrates|40%protein. Vegetables, sweet potatoes, brown rice or quinoa are examples of good carbohydrates. Chips, white bread, cookies and sweets/sugar are examples of bad carbohydrates. Limit your bad carbs, go wild with good carbs. "Life's Simple 7" Guidelines as per [employer] These will help you reclaim your life after surgery and cellulose insulation helper in your recovery, keeping in mind your restrictions. (1) Get Active. Physical activity can help people lose weight, control high blood pressure and cholesterol, feel emotionally better, and sleep better. (2) Control Cholesterol. Avoid a diet high in saturated fat, trans fat, & cholesterol. Limit whole milk & cream, ice cream, butter, egg yolks, processed meats (like sausage and hot dogs), and fatty meats. Choose healthy foods that are low in saturated fat, trans fat and cholesterol which include: Fruits and vegetables, fiber rich grain products (like whole grain pasta and brown rice), lean meat such as chicken, fish, nuts, seeds, and legumes. (3) Eat Better. Eat small portions. Shop at the grocery with a list and do not stray from it. Tips for a healthy diet include: Limit sodium intake to less than 1500mg daily, avoid prepackaged, processed, and fast foods, choose a diet rich in fruits, vegetables, and whole grain, high fiber foods, and limit saturated & cholesterol in your diet. (4) Manage Blood Pressure. If you have high blood pressure, you should have a cuff at home so that you can check your blood pressure regularly. Be sure you have a good cuff. An arm one is generally better than a wrist one. Bring the cuff to a doctor's appointment to validate that the measurements that your cuff are taking are accurate. Take your blood pressure twice daily when you are sitting down and relaxing. Record the numbers in a log and bring this log with you to your doctors' appointments. (5) Lose Weight if your BMI is above 25. A healthy BMI is between 19-25. To calculate Your BMI, you may use a Standard BMI Calculator on the NIH BMI website: <www.nhlbi.nih.gov/guidelines/obesity/BMI/bmicalc.htm>. Weigh oneself daily. If you are overweight, set a goal to lose weight. A pound a week loss if needed is a good target. (6) Reduce Blood Sugar. Limit foods and liquids with "added sugars." (Added sugars include sucrose, fructose, glucose, maltose, dextrose, high fructose corn syrup, corn syrup, concentrated fruit juice and honey). (7) Stop Smoking. If you smoke, quitting smoking is one of the best things that you can do for your health. Smoking increases your risk of heart attack, stroke, and peripheral vascular disease, which is a build-up of plaque in your arteries. Please discard all the cigarettes and lighters in your house. Have a plan for what you will do when you have the urge to smoke. Direct and second- hand smoke shortens your life as well as the lives of your family, friends and others around you. For your health and the health of those around you, please consider quitting! Proper Bending Body Mechanics: Maintain a wide stance with one foot slightly in front of the other. Keep your back straight. Bend utilizing the strength in your hips and knees. Do not bend at the waist. Maintain the lifted object at your waist-level close to your body. Avoid lifting weight that causes immediately pain or pain anywhere in the body afterwards. Smoking/Nicotine If there was ever one thing that you could do to increase your overall health, decrease your risk of cardiovascular problems by about 39% the second you make the choice, it is to STOP SMOKING. Your body's most instant gratification is the second you stop smoking. We have all heard the studies, read the articles but it is true, smoking is extremely bad for your overall health, and moreover it is detrimental to your bone health. Nicotine, IN ANY FORM, kills bone cells, prevents your body from healing fractures, and significantly prolongs healing after surgery. In spine surgery specifically, it increases your risk of not healing your bones to create a fusion and increases your risk of having a revision surgery due to this up to 60%. I know it is hard. I know it feels impossible. But there are ways. Take control of your life. We are here to help you through it. And when you are ready, ask us and we can direct you to help if you desire. Use the START Plan to Quit Smoking (please visit the Helpguide.org website listed below for more information): S = Set a quit date. Choose a date within the next 2 weeks, so you have enough time to prepare without losing your motivation to quit. If you mainly smoke at work, quit on the weekend, so you have a few days to adjust to the change. T = Tell family, friends, and co-workers that you plan to quit. Let your friends and family in on your plan to quit smoking and tell them you need their support and encouragement to stop. Look for a quit janes who wants to stop smoking as well. You can help each other get through the rough times. A = Anticipate and plan for the challenges you'll face while quitting. Most people who begin smoking again do so within the first 3 months. You can help yourself make it through by preparing ahead for common challenges, such as nicotine withdrawal and cigarette cravings. R = Remove cigarettes and other tobacco products from your home, car, and work. Throw away all your cigarettes (no emergency pack!), lighters, ashtrays, and matches. Wash your clothes and freshen up anything that smells like smoke. Shampoo your car, clean your drapes and carpet, and steam your furniture. T = Talk to your doctor about getting help to quit. Your doctor can prescribe medication to help with withdrawal and suggest other alternatives. If you can't see a doctor, you can get many products over the counter at your local pharmacy or grocery store, including the nicotine patch, nicotine lozenges, and nicotine gum. Resources for Quitting Smoking: <https://www.[place].gov/documents/[facility]/Quit_Tobacco_Resources_for_patients_313 480_7.pdf> Supplementation: Take recommended dosages of Vitamin D and Calcium to help fortify your bones and help them to heal. See your health maintenance packet for dosages and recommended levels. DVT/VTE prophylaxis: You will be given compression stockings from the hospital. Wear these daily for the first two weeks after surgery. You may take them off at night. You may be prescribed a medication to help thin your blood. Take this as directed. If you are not prescribed this medication, early and frequent ambulation has been shown to be the best prophylaxis to deep vein thrombosis and sequelae related to this event. Discharge Disposition: HOME SELF-CARE
[2023-10-08 08:23] VITALS: BP 175/96; PULSE 73; RESP 18; TEMP 97.9
--- NOTE | 2023-10-08 10:03 | P.PN ---
Subjective Progress Note Date: 10/08/23 this is a 63-year-old patient who originally presented on 09/28/2023 for an elective L4 to S1 lumbar laminectomy and fusion surgery. Postoperatively patient developed some redness and drainage from surgical site. Also concerns of early infiltrate seen on x-ray. Patient was also evaluated by surgical se rvices for ileus. Ileus has resolved surgical services have signed off. Dr. Leonardo group covering we are resuming care patient on 10/01/2023 On 10/01/2023 patient is resting comfortably in bed. Per surgical services possible plans of returning to or for possible drainage. Patient remains on IV antibiotic kefzole. current vital signs temp 98.3, heart rate 95, respiratory rate 18, blood pressure 150/80 with a pulse ox of 97%. white blood cell 5.76. Repeat labs ordered for a.m. On 10/02/2023 patient is alert and oriented 3. Plans today for irrigation debridement lumbar spine with Dr. Hagan. Patient still having some nausea surgical services were reconsulted abdominal x-ray has been ordered. Current vital signs temp 97.8, heart rate 74, respiratory rate 18, blood pressure 156/92 with pulse ox 95% on room air. Patient denies chest pain or shortness of breath on 10/03/2023 patient was seen and examined on the medical floor she is alert and oriented 3 in no apparent distress, she is still complaining of lower abdominal discomfort otherwise she denies any complaints there is no fever or chills no headache or dizziness no chest pain no shortness of breath no nausea or vomiting no abdominal pain no diarrhea and no urinary symptoms on 10/04/2023 patient was seen and examined on the medical floor she is alert and oriented 3 in no apparent distress she is complaining of dizziness and lightheadedness otherwise she denies any complaints there is no fever or chills no headache or dizziness no chest pain no shortness of breath no cough no nausea or vomiting no abdominal pain no diarrhea and no urinary symptoms On 10/05/2023 patient's alert and oriented 3. MRI of the brain has been ordered persurgical services. This time patient is resting comfortably in bed. Patient denies chest pain or shortness breath. Patient reports improvement with back pain. Current vital signs temp 98.0, heart rate 73, respiratory rate 18, blood pressure 156/85 in a pulse ox of 97%. Dr. Leonardo's group will be covering for 10/06/2023 to 10/07/2023 Acute dizziness with nystagmus; peripheral vertigo-resolved. - MRI Brain is unremarkable. Dural tear of lower back due to lower back surgery s/p repair on 10/02/2023. Lower back pain with severe severe L4 to S1 spondylolysis with radiculopathy s/p laminectomy on 09/25/2023 then status post decompression fusion over the L4 to S1 on 10/02/2023. History of Grave's disease Patient has been placed on IV fluids per neurology recommendations. Patient's dizziness has mostly resolved. May give meclizine 25 mg 4 times daily as needed. TSH level 11.5, with free T4 of 1.14. Patient is clinically euthyroid; no changes at this time. Check B12, folate results pending, . on 10/08/2023 patient was seen and examined on the medical floor she is alert and oriented 3 in no apparent distress, she is complaining of pain in her lower back otherwise she denies any complaints, there is no fever or chills no headache or dizziness no chest pain no shortness of breath no cough, no nausea or vomiting no abdominal pain no diarrhea no blood in the stools no burning with urination no frequency or urgency and no hematuria. Patient is tolerating medications well, she is able to ambulate with a walker, she was evaluated by neurosurgery today, and is scheduled to be discharged to home today. Will follow in the office within 1 week. Objective - Vital Signs Vital signs: Vital Signs Temp 97.9 F 10/08/23 06:51 Pulse 73 10/08/23 06:51 Resp 18 10/08/23 06:51 BP 175/96 10/08/23 06:51 Pulse Ox 97 10/08/23 06:51 FiO2 21 10/07/23 09:31 Intake & Output 10/07/23 10/08/23 10/08/23 18:59 06:59 18:59 Other: Voiding Method Toilet Toilet # Voids 4 2 - Exam Head normocephalic Neck supple Lungs clear to auscultation bilaterally no wheezing or crackles Heart regular rate and rhythm S1-S2, no rub or gallop Abdomen is soft nontender nondistended positive bowel sounds no hepatosplenomegaly Extremities no edema Neuro alert and orientated to 3 left flank to surgical incision warm reddened to touch with significant serosanguineous drainage from lumbar wound - Labs CBC & Chem 7: 10/06/23 06:50 10/06/23 06:50 Assessment and Plan Assessment: 1. Status post lumbar laminectomy and fusion surgery on 09/28/2023 2. Increase redness and drainage to surgical site 3. Acute hypoxic respiratory failure. Likely secondary to atelectasis incentive spirometer at bedside continue breathing treatments 4. Acute confusion resolved 5. Abdominal distention concerns of ileus patient was evaluated by surgical services improved 6. History of hyperlipidemia 7. History of essential hypertension 8. History of hypothyroidism 9. Ongoing nicotine dependence Thank you for this consultation we will continue to follow patient closely throughout stay Patient remains on IV antibiotic continue incentive spirometer debridement of lumbar spine 10/02/2023 MRI of the brain has been ordered for 10/05/2023 Repeat labs ordered for a.m.
--- NOTE | 2023-10-10 12:53 | CDI ---
Documentation Clarification Form Date: 10/10/2023 12:36:41 PM From: Candi Steele Admit Date: 09/28/2023 02:26:00 PM Patient Name: Marian Romo Visit Number: [id number] Discharge Date: 10/08/2023 10:50:00 AM ATTENTION: The Clinical Documentation Specialists (CDI) and [facility] Coding Staff appreciate your assistance in clarifying documentation. Please respond to the clarification below the line at the bottom and electronically sign. The CDI & [facility] Coding staff will review the response and follow-up if needed. Please note: Queries are made part of the Legal Health Record. If you have any questions, please contact the author of this message via ITS. Dr. Nuno Hagan Patient had lumbosacral fusion on 09/25/23. Patient status changed to inpatient on 09/28/23. Patient had a postoperative ileus and CSF leak and dural tear. Please clarify the reason patient was changed from outpatient to inpatient status. Additional clarification is requested. History/Risk Factors: L 4-5 and L5-[id number] and interbody fusion. Persistent distention of small and large bowel compatible with improving ileus. 10/02/23 patient had revision of L4-S1 revision PLIF with dura repair and debridement. Clinical Indicators: VS 96.9F, 66 bpm, 18, 147/69, 94% RA Treatment: Revision of spinal fusion with dura repair CSF repair, debridement Can you please clarify the diagnosis that changed patient from an outpatient to inpatient. [ ] Ileus [ ] Dura tear [ ] CSF leak [ ] Other, please specify [ ] Unable to determine The patient had extensive lumbar surgery in the form of an open decompression and fusion of L4-S1. Due to her severe lumbar pathology, technicality of the case and her recovery period she required inpatient stay. She developed illeus like sx on day 3 PO and was treated appropriately by Gen sheriff. She was found then on day 6 PO to have a draining wound which was identified as CSF. She was then subsequently brought back to the OR for I&D and closure of this leak. Due to her multiple comorbid conditions she was at high risk for both the illeus post op as well as her CSF leak. Her inpatient stay was related to multiple interrelated factors. ROSEANNA
== END 2023-10-08 10:50 | disposition home health service (06) | DRG 981 ==
LOC: OR 09:00 → 4SSUR 14:22 → OR 09-28 14:26
PROVIDERS: ADMIT Orthopaedic Surgery; ATTEND Orthopaedic Surgery
PROC: 0SG0071 Fusion of Lumbar Vertebral Joint with Autologous Tissue Substitute, Posterior Approach, Posterior Column, Open Approach (ICD-10-PCS; principal; 2023-09-25 10:45)
PROC: 0SG00AJ Fusion of Lumbar Vertebral Joint with Interbody Fusion Device, Posterior Approach, Anterior Column, Open Approach (ICD-10-PCS; principal; 2023-09-25 10:45)
PROC: 01NB0ZZ Release Lumbar Nerve, Open Approach (ICD-10-PCS; principal; 2023-09-25 10:45)
PROC: 0ST40ZZ Resection of Lumbosacral Disc, Open Approach (ICD-10-PCS; principal; 2023-09-25 10:45)
PROC: 4A11X4G Monitoring of Peripheral Nervous Electrical Activity, Intraoperative, External Approach (ICD-10-PCS; principal; 2023-09-25 10:45)
PROC: 01NR0ZZ Release Sacral Nerve, Open Approach (ICD-10-PCS; principal; 2023-09-25 10:45)
PROC: 0SG30AJ Fusion of Lumbosacral Joint with Interbody Fusion Device, Posterior Approach, Anterior Column, Open Approach (ICD-10-PCS; principal; 2023-09-25 10:45)
PROC: 0QB00ZZ Excision of Lumbar Vertebra, Open Approach (ICD-10-PCS; 2023-10-02)
PROC: 00Q24ZZ Repair Dura Mater, Percutaneous Endoscopic Approach (ICD-10-PCS; 2023-10-02)
PROC: 00QT0ZZ Repair Spinal Meninges, Open Approach (ICD-10-PCS; 2023-10-02)
DX: K56.0 Paralytic ileus (principal); G92.8 Other toxic encephalopathy; J96.01 Acute respiratory failure with hypoxia; G96.00 Cerebrospinal fluid leak, unspecified; J98.11 Atelectasis; K91.89 Other postprocedural complications and disorders of digestive system; R17 Unspecified jaundice; G97.41 Accidental puncture or laceration of dura during a procedure; M48.07 Spinal stenosis, lumbosacral region; M47.26 Other spondylosis with radiculopathy, lumbar region; M43.17 Spondylolisthesis, lumbosacral region; T40.605A Adverse effect of unspecified narcotics, initial encounter; I83.90 Asymptomatic varicose veins of unspecified lower extremity; I95.9 Hypotension, unspecified; K59.00 Constipation, unspecified; E05.00 Thyrotoxicosis with diffuse goiter without thyrotoxic crisis or storm; I10 Essential (primary) hypertension; E03.9 Hypothyroidism, unspecified; E66.9 Obesity, unspecified; E78.5 Hyperlipidemia, unspecified; E87.6 Hypokalemia; F17.210 Nicotine dependence, cigarettes, uncomplicated; Z68.30 Body mass index [BMI] 30.0-30.9, adult; G62.9 Polyneuropathy, unspecified; H55.00 Unspecified nystagmus; H81.399 Other peripheral vertigo, unspecified ear; M54.30 Sciatica, unspecified side; Z79.890 Hormone replacement therapy; Z71.3 Dietary counseling and surveillance; Z79.899 Other long term (current) drug therapy
CPT/HCPCS: 70551; 72100; 72131; 74018; 80048; 80053; 82607; 82746; 83735; 84132; 84439; 84443; 85025; 86850; 86900; 86901; 94640; 94760

== ENCOUNTER → 2023-11-27 | Outpatient (CLI) | payer MEDICARE ==
--- NOTE | 2023-11-27 18:29 | MR ---
EXAMINATION TYPE: MR lumbar spine wo/w con DATE OF EXAM: 11/27/2023 COMPARISON: 05/27/2020 HISTORY: Post surgical lump TECHNIQUE: Multiplanar, multisequence images of the lumbar spine were acquired without and with 7.5 mL intraveno us Gadavist gadolinium contrast. Findings: . There are postsurgical changes of wide laminectomy and metallic posterior lumbar fusion from L4 throu gh S1. Lumbar vertebral segments are normal in height and there is no fracture. There is a persistent grade 1 anterolisthesis of L4 and L5. There is a 3.0 x 8.1 x 6.2 cm fluid collection in the epidural space within the surgical bed. This co uld represent a large postoperative stroma but sternotomy or dural tear with pseudomeningocele not ex cluded. This collection appears to communicate with a large 14 x 2.8 cm subcutaneous fluid collection posterior to L1-S1. Following contrast administration, there is no definite pathological enhancement to suggest abscess or infectious process. There is mild spinal stenosis at the L3-4 level secondary to mild thickening of ligamentum flavum and circumferential disc bulge. There are no lumbar disc herniations. Visualized sacrum and SI joints are normal. IMPRESSION: 1. Postsurgical changes of wide laminectomy and metallic fusion from L4 through S1. 2. Large epidural and subcutaneous fluid collections in the region of the surgical bed as described a bisi. See above for differential diagnosis. 3. No lumbar disc herniation. 4. Mild spinal stenosis at the L3-4 level as described above.
== END | disposition home or self-care (01) ==
LOC: RADMRIMAIN 07:14
PROVIDERS: ATTEND Orthopaedic Surgery
DX: M48.061 Spinal stenosis, lumbar region without neurogenic claudication (principal); M47.816 Spondylosis without myelopathy or radiculopathy, lumbar region; Z98.1 Arthrodesis status
CPT/HCPCS: 72158; A9585

== ENCOUNTER 2023-12-17 18:39 | Emergency (ER) | payer MEDICARE ==
--- NOTE | 2023-12-17 19:44 | ED ---
Lower Extremity Injury HPI - General Source: patient, RN notes reviewed Mode of arrival: ambulatory Limitations: no limitations <Marley Shearer - Last Filed: 12/17/23 19:42> - General Source: patient, RN notes reviewed Mode of arrival: ambulatory Limitations: no limitations <Dami Banks - Last Filed: 12/17/23 20:08> - General Chief Complaint: Extremity Injury, Lower Stated Complaint: Fall-L foot injury Time Seen by Provider: 12/17/23 19:42 - History of Present Illness Initial Comments: Quick note: 63 year old female presenting to the ER presenting to the ER with a chief complaint of left ankle injury. Patient reports she was walking down the stairs and accidentally missed a stair injuring her left ankle. She denies any other injuries. She states that extremely painful to bear weight or move her toes. (Marley Shearer) Patient is a 63-year-old female presenting to the emergency department with concern for left ankle injury. Incident occurred prior to arrival. Patient was walking down the steps that she missed. Unclear exact mechanism of injury. Patient has discomfort on the lateral ankle. Patient has difficulty with bearing weight secondary to discomfort. Patient does have history of similar symptoms previously associated with tendon tear. (Dami Banks) - Related Data Home Medications Medication Instructions Recorded Confirmed Triamterene-Hctz 37.5-25Mg 1 each PO QAM 04/14/14 09/25/23 [Dyazide 37.5-25 Capsule] Escitalopram [Lexapro] 10 mg PO QAM 01/29/19 09/25/23 Levothyroxine Sodium [Synthroid] 100 mcg PO QAM 01/29/19 09/25/23 Pravastatin Sodium [Pravachol] 40 mg PO QAM 01/29/19 09/25/23 atenoloL [Atenolol] 25 mg PO QAM 01/29/19 09/25/23 Ibuprofen [Motrin] 600 mg PO Q6HR PRN 11/06/22 09/25/23 Previous Rx's Medication Instructions Recorded Cyclobenzaprine [Flexeril] 5 mg PO TID PRN #40 tablet 10/08/23 HYDROcodone/APAP 7.5-325MG [[place] 1 each PO Q4-6H PRN #42 tab 10/08/23 7.5] Meclizine [Antivert] 25 mg PO TID PRN #40 tab 10/08/23 Sennosides/Docusate Sodium [Senna 1 each PO DAILY PRN #20 tablet 10/08/23 Plus 8.6-50 mg Tablet] cefaDROXiL [Duricef] 500 mg PO Q12HR #10 cap 10/08/23 Allergies Allergy/AdvReac Type Severity Reaction Status Date / Time lisinopril Allergy Confusion Verified 12/17/23 18:46 prednisone Allergy Rash/Hives Verified 12/17/23 18:46 promethazine HCl Allergy Confusion Verified 12/17/23 18:46 [From Phenergan] propofol Allergy Unknown Verified 12/17/23 18:46 hydrochlorothiazide AdvReac Unknown Verified 12/17/23 18:46 STEROIDS Allergy Unknown Uncoded 12/17/23 18:46 Review of Systems ROS Other: All systems not noted in ROS Statement are negative. <Marley Seharer - Last Filed: 12/17/23 19:42> ROS Other: All systems not noted in ROS Statement are negative. Constitutional: Denies: fever Eyes: Denies: eye pain ENT: Denies: ear pain Respiratory: Denies: dyspnea Cardiovascular: Denies: chest pain Endocrine: Denies: fatigue Gastrointestinal: Denies: abdominal pain Musculoskeletal: Reports: as per HPI <Dami Banks - Last Filed: 12/17/23 20:08> ROS Statement: Those systems with pertinent positive or pertinent negative responses have been documented in the HPI. Past Medical History Past Medical History: Hyperlipidemia, Hypertension, Thyroid Disorder Additional Past Medical History / Comment(s): Grave's Disease. lt ankle torn tendon History of Any Multi-Drug Resistant Organisms: None Reported Past Surgical History: Back Surgery Additional Past Surgical History / Comment(s): memo lumpectomy, lipoma removed from rt side, memo knee arthroscopy Past Anesthesia/Blood Transfusion Reactions: Previous Problems w/ Anesthesia Additional Past Anesthesia/Blood Transfusion Reaction / Comment(s): allergic reaction to propofol. mother allergic to propofol Past Psychological History: No Psychological Hx Reported Smoking Status: Former smoker Past Alcohol Use History: None Reported Past Drug Use History: None Reported - Past Family History Mother Family Medical History: Coronary Artery Disease (CAD) Father Family Medical History: Cancer Sister(s) Family Medical History: Cancer <Marley Shearer Last Filed: 12/17/23 19:42> General Exam Limitations: no limitations <Marley Shearer - Last Filed: 12/17/23 19:42> Limitations: no limitations General appearance: alert, in no apparent distress Head exam: Present: normocephalic Eye exam: Present: normal appearance Neck exam: Present: normal inspection. Absent: tenderness Respiratory exam: Present: normal lung sounds bilaterally Cardiovascular Exam: Present: regular rate, normal rhythm Expanded Peripheral pulses: 2+: Dorsalis Pedis (L) GI/Abdominal exam: Present: soft. Absent: tenderness Extremities exam: Present: tenderness (Left lateral ankle with mild to moderate swelling and tenderness. Distally the extremity is neurovascular intact. Achilles intact.) Neurological exam: Present: alert. Absent: motor sensory deficit Psychiatric exam: Present: normal affect, normal mood Skin exam: Present: normal color <Daim Banks - Last Filed: 12/17/23 20:08> - General Exam Comments Initial Comments: Visual Physical Exam Vital signs reviewed General: Well-appearing, nontoxic, no acute distress. Head: Normocephalic, atraumatic Eyes: PERRLA, EOMI ENT: Airway patent Chest: Nonlabored breathing Skin: No visual rash, normal skin tone Neuro: Alert and oriented 3 Musculoskeletal: No gross abnormalities (Marley Shearer) Course Vital Signs 12/17/23 18:44 Temperature 98 F Pulse Rate 80 Respiratory 22 Rate Blood Pressure 146/89 O2 Sat by Pulse 96 Oximetry Medical Decision Making <Marley Shearer - Last Filed: 12/17/23 19:42> <Dami Banks - Last Filed: 12/17/23 20:08> - Medical Decision Making I performed the quick note portion of this chart. Electronically signed by Marley Shearer PA-C (Marley Shearer) Was pt. sent in by a medical professional or institution (CHARY Davila, DRYWALL APPLICATOR, urgent care, hospital, or senior living...) When possible be specific @ -No Did you speak to anyone other than the patient for history (EMS, parent, family, police, friend...)? What history was obtained from this source @ -No Did you review nursing and triage notes (agree or disagree)? Why? @ -I reviewed and agree with nursing and triage notes Were old charts reviewed (outside hosp., previous admission, EMS record, old EKG, old radiological studies, urgent care reports/EKG's, senior living records)? Report findings @ -No old charts were reviewed Differential Diagnosis (chest pain, altered mental status, abdominal pain women, abdominal pain men, vaginal bleeding, weakness, fever, dyspnea, syncope, headache, dizziness, GI bleed, back pain, seizure, CVA, palpatations, mental health, musculoskeletal)? @ -Differential Musculoskeletal Muscular strain, contusion, ligament sprain, fracture, arthritis, septic arthritis, bursitis, cellulitis, muscle spasm, nerve compression, DVT, arterial occlusion, herpes zoster, electrolyte abnormality, tumor.... This is not meant to be in all inclusive list EKG interpreted by me (3pts min.). @ -As above X-rays interpreted by me (1pt min.). @ -Left ankle x-ray without acute fracture CT interpreted by me (1pt min.). @ -None done U/S interpreted by me (1pt. min.). @ -None done What testing was considered but not performed or refused? (CT, X-rays, U/S, labs)? Why? @ -None What meds were considered but not given or refused? Why? @ -None Did you discuss the management of the patient with other professionals (professionals i.e. , PA, DRYWALL APPLICATOR, lab, RT, psych nurse, forensic social worker, hobbies and crafts sales representative, teacher, security police officer, wrapper caser)? Give summary @ -No Was smoking cessation discussed for >3mins.? @ -No Was critical care preformed (if so, how long)? @ -No Were there social determinants of health that impacted care today? How? (Homelessness, low income, unemployed, alcoholism, drug addiction, transportation, low edu. Level, literacy, decrease access to med. care, [place] [facility], rehab)? @ -No Was there de-escalation of care discussed even if they declined (Discuss DNR or withdrawal of care, Hospice)? DNR status @ -No What co-morbidities impacted this encounter? (DM, HTN, Smoking, COPD, CAD, Cancer, CVA, ARF, Chemo, Hep., AIDS, mental health diagnosis, sleep apnea, morbid obesity)? @ -None Was patient admitted / discharged? Hospital course, mention meds given and route, prescriptions, significant lab abnormalities, going to OR and other pertinent info. @ -Patient presents with ankle injury. X-rays unremarkable. Patient will have splint applied and follow-up orthopedics. Undiagnosed new problem with uncertain prognosis? @ -No Drug Therapy requiring intensive monitoring for toxicity (Heparin, Nitro, Insulin, Cardizem)? @ -No Were any procedures done? @ -No Diagnosis/symptom? @ -Ankle sprain Acute, or Chronic, or Acute on Chronic? @ -Acute Uncomplicated (without systemic symptoms) or Complicated (systemic symptoms)? @ -Default Side effects of treatment? @ -No Exacerbation, Progression, or Severe Exacerbation? @ -No Poses a threat to life or bodily function? How? (Chest pain, [place], [place], pneumonia, PE, COPD, DKA, ARF, appy, cholecystitis, CVA, Diverticulitis, Homicidal, Suicidal, threat to staff... and all critical care pts) @ -No (Dami Banks) Disposition <Marley Shearer - Last Filed: 12/17/23 19:42> Is patient prescribed a controlled substance at d/c from ED?: No Time of Disposition: 20:08 <Dami Banks - Last Filed: 12/17/23 20:08> Clinical Impression: Ankle sprain Disposition: HOME SELF-CARE Condition: Stable Instructions (If sedation given, give patient instructions): Ankle Sprain (ED) Additional Instructions: [id number] Motrin as needed. Ice to affected area. Limit walking. Please follow-up with orthopedics in the next couple of days for recheck. Return for increased pain, swelling, foot problems, worsening or changing symptoms or other concerns. Referrals: Mike Carter MD [Primary Care Provider] - 1-2 days Edy Church MD [Medical Doctor] - 1-2 days
--- NOTE | 2023-12-17 19:56 | XR ---
EXAMINATION TYPE: XR ankle complete LT DATE OF EXAM: 12/17/2023 7:06 PM CLINICAL INDICATION:Female, 63 years old with history of fall felt pop; PHH COMPARISON: None TECHNIQUE: XR ankle complete LT; ankle is imaged in frontal, lateral and oblique projections. FINDINGS: There is no evidence of acute osseous pathology. No evidence of subluxation or dislocation. Kager's fat pad is intact. Mild soft tissue swelling around the ankle. No radiopaque foreign bodies are ident ified. Calcaneal plantar spurring is present. IMPRESSION: 1. No evidence of acute fracture. 2. Subcutaneous swelling around the ankle likely secondary to underlying soft tissue injury.
[2023-12-17 20:55] VITALS: BP 142/68; PULSE 78; RESP 18; TEMP 97.8
== END 2023-12-17 20:53 | disposition home or self-care (01) ==
LOC: EC 18:39
DX: S93.402A Sprain of unspecified ligament of left ankle, initial encounter (principal); Z88.6 Allergy status to analgesic agent; Z88.8 Allergy status to other drugs, medicaments and biological substances; Z87.891 Personal history of nicotine dependence; W10.9XXA Fall (on) (from) unspecified stairs and steps, initial encounter
CPT/HCPCS: 99283; 73610; 29515; L4350

== ENCOUNTER → 2024-04-23 | Outpatient (CLI) | payer MEDICARE, OTHER ==
--- NOTE | 2024-04-24 10:45 | MM ---
Reason for Exam: Screening (asymptomatic). Last mammogram was performed 2 year(s) and 4 month(s) ago. Patient History: Menarche at age 14. First Full-Term at age 20. Left ovary removed at age 45. Right ovary removed at age 45. Hysterectomy at age 45. Postmenopausal. Hormonal Contraceptives for 2 years from age 20 until age 24. Benign Excisional Biopsy on the right side. 1999, Excisional Biopsy on the Left side. Maternal aunt had breast cancer, age 60. Maternal aunt had breast cancer. Sister had breast cancer, age 40. Risk Values: Jayshree 5 year model risk: 4.1%. NCI Lifetime model risk: 16.6%. Prior Study Comparison: 08/09/2018 Bilateral Screening Mammogram, [facility]. 05/31/2020 Bilateral Screening Mammogram, [facility]. 12/22/2021 Bilateral MG screening mammo w CAD, [facility]. Tissue Density: The breasts are heterogeneously dense, which may obscure small masses. Findings: Analyzed By CAD. There are chronic areas of nodularity on both sides and unchanged asymmetric densities. There is a palpable marker along the superior aspect of the left breast. Underlying dense tissue is not entirely dispersed on the 3-D images. Further evaluation is recommended. Overall Assessment: Incomplete: need additional imaging evaluation, BI-RAD 0 Management: Special View Mammogram of the left breast. Diagnostic Breast Ultrasound of the left breast. . [facility] will attempt to contact patient to return for supplemental views and ultrasound if indicated. Note on Jayshree scores and lifetime risk: 1. A Jayshree score greater than 3% is considered moderate risk. If this is the case, consider specialist referral to assess eligibility for a risk reducing agent. 2. If overall lifetime risk for the development of breast cancer is 20% or higher, the patient may qualify for future screening with alternating mammogram and breast MRI. [facility], , 04/24/2024 10:42 AM. Electronically signed and approved by: Migel Wood M.D. Radiologist
== END | disposition home or self-care (01) ==
LOC: RADMAMWWP 07:56
PROVIDERS: ATTEND Internal Medicine
DX: Z12.31 Encounter for screening mammogram for malignant neoplasm of breast (principal); R92.333 Mammographic heterogeneous density, bilateral breasts; Z78.0 Asymptomatic menopausal state; Z80.3 Family history of malignant neoplasm of breast; Z90.722 Acquired absence of ovaries, bilateral
CPT/HCPCS: 77063; 77067

== ENCOUNTER → 2024-04-28 | Outpatient (CLI) | payer MEDICARE ==
--- NOTE | 2024-04-28 21:31 | MR ---
EXAMINATION TYPE: MR lumbar spine wo/w con DATE OF EXAM: 04/28/2024 7:48 PM COMPARISON: 11/27/2023 . CLINICAL INDICATION: Female, 63 years old with history of M51.362 Lumbar pain; PHH, low back pain, hi story of surgery September 2023. TECHNIQUE: Multi planar, multi sequence imaging was performed utilizing: T1-weighted, T2-weighted, a nd turbo inversion recovery imaging of the lumbar spine. IV Contrast: 7.5 mL Gadavist (None, if empty) FINDINGS: Alignment: The lumbar vertebral bodies have preserved heights and alignment. Cord: The conus medullaris and the distal spinal cord appear unremarkable with regards to their signa l intensity and morphology. No abnormal postcontrast enhancement. Bones/Discs: Fixation hardware L4-L5 and S1. Hardware appears intact. There is multilevel degeneratio n with joint space and osteophyte formation. There is some mild enhancement along the posterior theca l sac at the surgical bed series 1 image 10 at the level of L4 and L5. T12-L1: No evidence of significant spinal canal stenosis or neural foraminal stenosis. L1-L2: No evidence of significant spinal canal stenosis. Facet joint arthropathy mild bilateral neura l foraminal stenosis. L2-L3: No evidence of significant spinal canal stenosis. Facet joint arthropathy mild bilateral neura l foraminal stenosis. L3-L4: Susceptibility artifact limits evaluation at this level. There is no significant spinal canal stenosis there is moderate bilateral neural foraminal stenosis secondary disc bulge and facet joint a rthropathy. L4-L5: Susceptibility artifact limits evaluation at this level. The spinal canal appears patent, the moderate bilateral neural foramen stenosis. L5-S1: Susceptibility artifact limits evaluation at this level. The spinal canal and neural foramen a ppear patent. No significant spinal canal or neural foraminal stenosis in the remainder of the visualized levels. Other findings: Surgical bed probable seroma measuring 51 x 26 x 43 mm. The more superficial fluid c ollection is no longer visualized in the subcutaneous tissues. IMPRESSION: 1. No definitive evidence of disc herniation or significant spinal canal stenosis. 2. Moderate disc degeneration with associated osteoarthritic changes. There is at least moderate mul tilevel neural foraminal stenosis throughout the surgical levels. 3. Post surgical changes with Decrease in size of surgical bed seroma compared to prior the more sup erficial fluid collection has resolved. 4. Posterior thecal sac enhancement at the site of the surgical bed possibly representing epidural f ibrosis at the level L4-L5. [facility], Workstation: [id number], 04/28/2024 9:29 PM
== END | disposition home or self-care (01) ==
LOC: RADMRIMAIN 18:42
PROVIDERS: ATTEND Orthopaedic Surgery
DX: M51.362 Other intervertebral disc degeneration, lumbar region with discogenic back pain and lower extremity pain (principal); M99.73 Connective tissue and disc stenosis of intervertebral foramina of lumbar region
CPT/HCPCS: 72158; A9585

== ENCOUNTER → 2024-04-29 | Outpatient (CLI) | payer MEDICARE, OTHER ==
--- NOTE | 2024-04-29 11:06 | USB ---
Reason for Exam: Additional evaluation requested from abnormal screening. Patient History: Menarche at age 14. First Full-Term at age 20. Left ovary removed at age 45. Right ovary removed at age 45. Hysterectomy at age 45. Postmenopausal. Hormonal Contraceptives for 2 years from age 20 until age 24. Benign Excisional Biopsy on the right side. 1999, Excisional Biopsy on the Left side. Maternal aunt had breast cancer, age 60. Maternal aunt had breast cancer. Sister had breast cancer, age 40. Risk Values: Jayshree 5 year model risk: 4.1%. NCI Lifetime model risk: 16.6%. Technique: Method: Targeted. Prior Study Comparison: 05/31/2020 Bilateral Screening Mammogram, [facility]. 12/22/2021 Bilateral MG screening mammo w CAD, [facility]. 04/23/2024 Bilateral MG 3D screening mammo w/cad, [facility]. Findings: The area of palpable concern of the left breast, the axilla of the left breast and the retroareolar of the left breast were scanned. At the 12:00 position 5 cm from the nipple corresponding to the palpable abnormality there is a hypoechoic area with undulating margins. There is a cystlike component adjacent to this area. This area measures 2.6 x 1.2 x 1.2 cm. Biopsy is recommended. Overall Assessment: Suspicious, BI-RAD 4 Management: Ultrasound Core Biopsy of the left breast. A clinical breast exam by your physician is recommended on an annual basis and results should be correlated with mammographic findings. This exam should not preclude additional follow-up of suspicious palpable abnormalities. Results were given to the patient verbally at the time of exam. [facility], , 04/29/2024 10:57 AM. Electronically signed and approved by: Gómez Royal D.O. Radiologis
== END | disposition home or self-care (01) ==
LOC: RADMAMWWP 10:00
PROVIDERS: ATTEND Internal Medicine
DX: R92.8 Other abnormal and inconclusive findings on diagnostic imaging of breast (principal); Z78.0 Asymptomatic menopausal state; Z80.3 Family history of malignant neoplasm of breast; Z90.722 Acquired absence of ovaries, bilateral
CPT/HCPCS: 77065; 76642; G0279; 77061

== ENCOUNTER → 2024-05-07 | Day surgery (SDC) | payer MEDICARE, OTHER ==
--- NOTE | 2024-05-07 10:29 | USB ---
Risk Values: Jayshree 5 year model risk: 4.1%. NCI Lifetime model risk: 16.6%. Prior Study Comparison: 12/22/2021 Bilateral MG screening mammo w CAD, [facility]. 04/23/2024 Bilateral MG 3D screening mammo w/cad, [facility]. 04/29/2024 Left MG 3D work up w/cad , [facility]. Pathology Description: Location: 12 o'clock. Marker Left Behind. Needle Type: Mammotome Cores: 5 Skin Nicks: 1 Gauge: 13 The procedure of ultrasound guided core biopsy was explained to the patient. Benefits, alternatives, and risks were discussed. An informed consent was then obtained. A timeout was performed. The patient was placed in supine positioning for imaging and for the procedure. The overlying skin was prepped and draped in usual sterile fashion. Lidocaine was used as anesthetic into the skin and subcutaneous tissue up to area of concern in the left breast. 12:00 position A small skin juliann was made with surgical scalpel. Under ultrasound guidance, a 12-gauge vacuum assisted biopsy gun device was used to obtain 5 core samples. A biopsy clip was left in lesion. Hydromark core marker was placed. The patient tolerated the procedure well without any immediate complication. The patient was kept in the radiology department for short stay after the procedure and then discharged home in stable condition. Postprocedure mammogram: The patient was transferred to mammography for physician ordered post procedure mammogram for clip placement verification. Post procedure mammogram demonstrates the clip in appropriate placement. Impression: Successful ultrasound guided core biopsy of area of concern in the left breast, full pathology results to follow. Recommendations: 1. Recommendations are pending pathology results. [facility], , 05/07/2024 10:14 AM. Pathology Results: Results pending. Electronically signed and approved by: Gómez Royal D.O. Radiologis
--- NOTE | 2024-05-15 10:08 | MM ---
Reason for Exam: Post Procedure Mammogram. Last screening mammogram was performed less than 1 month ago. Patient History: Menarche at age 14. First Full-Term at age 20. Left ovary removed at age 45. Right ovary removed at age 45. Hysterectomy at age 45. Postmenopausal. Hormonal Contraceptives for 2 years from age 20 until age 24. Benign Excisional Biopsy on the right side. 2000, Excisional Biopsy on the Left side. Maternal aunt had breast cancer, age 60. Maternal aunt had breast cancer. Sister had breast cancer, age 40. Risk Values: Jayshree 5 year model risk: 4.1%. NCI Lifetime model risk: 16.6%. Tissue Density: Left: The breasts are heterogeneously dense, which may obscure small masses. Overall Assessment: Post procedure mammogram for marker placement Management: Surgical Consultation of the left breast. Electronically signed and approved by: Gómez Royal D.O. Radiologis
== END ==
LOC: RADUSWWP 07:47
PROVIDERS: ATTEND Internal Medicine
DX: N60.12 Diffuse cystic mastopathy of left breast (principal)
CPT/HCPCS: 88305; 88342; 77065; 19083; A4648

== ENCOUNTER → 2024-06-27 | Outpatient (CLI) | payer MEDICARE ==
[2024-06-27 12:39] VITALS: BP 157/95; PULSE 73; RESP 17; TEMP 98
--- NOTE | 2024-06-27 13:11 | P.GSCN ---
History of Present Illness Consult date: 06/27/24 Reason for Consult: atypical intraductal papilloma left breast 05-07-24 Requesting physician: Mike Carter History of present illness: Marian is a 64 year old female seen in consultation for DR. Carter regarding a biopsy proven left breast intraductal papiloma wit atypia. She had a bilateral screening mammogram on 04-23-24, this led to additiona mammogram adn ultrasound of the left breast. This showed a 2.6 cm area of concern at the 12:00 area of the left breast and biopsy recommended. This was done on 05-07-24 which showed the atypical intraductal papiloma. The clip is in the correct location. These were personally reviewed and discussed with Dr. Wolf. She has had bilateral beast biopsies in the OR no cancer. No other breast surgery. She did have left nipple discharge several months ago which has stopped. She is not complaining of any recent infection in the breast. The patient feels a spot in her right breast near where the biopsy was done for about two months. It has increased in size. She got kicked in the chest by her grandson after she had the biopsy. It was an accident. It did not turn black and blue. She gets mammograms on a regular basis. Caffiene: 4 cups/day nicotine: 1.2 PPD since a teen ages chocolate: occasional BCP: never used hormones: none Family History: not know about any genetic testing for family sister: breast cancer maternal aunt: 3 breast cancer father: cancer colon Hormonal History: menarche: 14 , breast fed: no, age at first : 20 menopause: hysterectomy at 48, took ovaries, not for cancer Surgical History: two back surgeries tonsil knee scopes two ankle breast bilateral lumps removed 2 C-sections hysterectomy bladder repair Medical History: graves disease in the past heart murmur (Dr. Cox) Social History: nicotine: 1/2 PPD alcohol: none drugs: none Review of Systems - Constitutional Denies fever, Denies weight loss - EENT Eyes: denies blurred vision Ears: deny: decreased hearing, tinnitus Ears, nose, mouth and throat: Denies dysphagia - Breasts bilateral: as per HPI - Cardiovascular Cardiovascular Comment(s): tavomodarryl Cox Reports as per HPI - Respiratory Reports as per HPI, Reports cough - Gastrointestinal Reports as per HPI - Genitourinary Genitourinary: Denies dysuria, Denies hematuria Menstruation: Reports post hysterectomy - Musculoskeletal Musculoskeleta Comment(s): back surgery/sciatica Reports as per HPI - Integumentary Denies rash, Denies unusual bruising - Neurological Denies headaches, Denies syncope - Psychiatric Reports as per HPI - Endocrine Reports weight change - Hematologic/Lymphatic Denies easy bleeding, Denies easy bruising - Allergic/Immunologic Reports as per HPI, Reports seasonal allergies Past Medical History Past Medical History: Hyperlipidemia, Hypertension, Thyroid Disorder Additional Past Medical History / Comment(s): Grave's Disease. lt ankle torn tendon History of Any Multi-Drug Resistant Organisms: None Reported Past Surgical History: Back Surgery Additional Past Surgical History / Comment(s): Excisional breast memo lumpectomy, lipoma removed from rt side, memo knee arthroscopy. Past Anesthesia/Blood Transfusion Reactions: Previous Problems w/ Anesthesia Additional Past Anesthesia/Blood Transfusion Reaction / Comm: allergic reaction to propofol. mother allergic to propofol Past Psychological History: No Psychological Hx Reported Additional Psychological History / Comment(s): raising 7 grandchildren Smoking Status: Current every day smoker Past Alcohol Use History: None Reported Additional Past Alcohol Use History / Comment(s): smoker for years 1/2 ppd Past Drug Use History: None Reported - Past Family History Mother Family Medical History: Coronary Artery Disease (CAD) Father Family Medical History: Cancer Sister(s) Family Medical History: Cancer Medications and Allergies Home Medications Medication Instructions Recorded Confirmed Type Triamterene-Hctz 37.5-25Mg 1 each PO QAM 04/14/14 06/27/24 History [Dyazide 37.5-25 Capsule] Escitalopram [Lexapro] 10 mg PO QAM 01/29/19 06/27/24 History Levothyroxine Sodium [Synthroid] 100 mcg PO QAM 01/29/19 06/27/24 History Pravastatin Sodium [Pravachol] 40 mg PO QAM 01/29/19 06/27/24 History atenoloL [Atenolol] 25 mg PO QAM 01/29/19 06/27/24 History Ibuprofen [Motrin] 600 mg PO Q6HR PRN 11/06/22 06/27/24 History Meclizine [Antivert] 25 mg PO TID PRN #40 tab 10/08/23 06/27/24 Rx Allergies Allergy/AdvReac Type Severity Reaction Status Date / Time lisinopril Allergy Confusion Verified 06/27/24 12:36 prednisone Allergy Rash/Hives Verified 06/27/24 12:36 promethazine HCl Allergy Confusion Verified 06/27/24 12:36 [From Phenergan] propofol Allergy Unknown Verified 06/27/24 12:36 hydrochlorothiazide AdvReac Unknown Verified 06/27/24 12:36 STEROIDS Allergy Unknown Uncoded 06/27/24 12:36 Surgical - Exam Vital Signs Temp Pulse Resp BP Pulse Ox 98 F 73 17 157/95 97 06/27/24 12:36 06/27/24 12:36 06/27/24 12:36 06/27/24 12:36 06/27/24 12:36 - General no distress - Eyes normal ocular movement - Neck trachea midline - Respiratory normal respiratory effort, clear to auscultation - Cardiovascular Rhythm: regular Heart Sounds: normal: S1, S2 - Abdomen Abdomen: soft, non tender, no guarding, no rigid, no rebound - Integumentary normal turgor - Neurologic no disoriented, no combative - Musculoskeletal normal gait - Psychiatric oriented to time, oriented to person, oriented to place, speech is normal, memory intact Breast Exam: BRA: 36C Inspection: Bilateral grade 2 ptosis Palpation: Right breast: Multi positional exam fibrocystic changes no dominant masses or nodules of concern Right axilla: No adenopathy of concern Left breast: Multi positional exam mass approximately 12 o'clock position which is approximately 3 x 4 cm in size Left axilla: No adenopathy of concern Results Mammogram and ultrasound personally reviewed with Dr. Royal and discussed, palpable mass felt to be adequately sampled Assessment and Plan Assessment: Impression: Left breast mass/biopsy atypical intraductal papilloma Nicotine dependence Back pain/back surgeries Cardiac murmur Plan: Left breast needle localization resection of palpable mass, we have discussed mastopexy and we will not use a mastopexy incision secondary to nicotine dependence Patient encouraged to stop smoking prior to the surgery Cardiac clearance Clearance from primary care doctor Dr. Carter Risk and benefits of the procedure discussed with the patient. Risk include but are not limited to bleeding, infection, reaction to the anesthetic. Additionally there may be sampling error in the specimen and this may be something more aggressive than an atypical intraductal papilloma. The patient understands and wishes to have it excised. CC: Dr. Carter, Dr. Cox
== END ==
LOC: WWCWWP 11:55
PROVIDERS: ATTEND Surgery
DX: N63.20 Unspecified lump in the left breast, unspecified quadrant (principal); M54.9 Dorsalgia, unspecified; R01.1 Cardiac murmur, unspecified; F17.200 Nicotine dependence, unspecified, uncomplicated; Z80.3 Family history of malignant neoplasm of breast; Z88.6 Allergy status to analgesic agent; Z88.8 Allergy status to other drugs, medicaments and biological substances

== ENCOUNTER 2024-07-05 12:05 | Observation (INO) | payer MEDICARE ==
--- NOTE | 2024-07-05 13:00 | ED ---
General Adult HPI - General Chief complaint: Dizziness Stated complaint: Dizziness Time Seen by Provider: 07/05/24 12:22 Source: patient, RN notes reviewed Mode of arrival: ambulatory Limitations: no limitations - History of Present Illness Initial comments: 64-year-old female presents to the emergency department for evaluation of dizziness. Patient reports that this started last night. She reports that it feels that she is spinning as if she is drunk. She states that this is fairly constant even with lying down. She denies any recent fever. She does admit to 1 episode of vomiting because she felt that she was spinning. She denies any recent illness. Denies fever, chills. - Related Data Home Medications Medication Instructions Recorded Confirmed Pravastatin Sodium [Pravachol] 40 mg PO DAILY 01/29/19 07/05/24 atenoloL 25 mg PO DAILY 01/29/19 07/05/24 Ciprofloxacin HCl [Cipro] 250 mg PO Q12HR 07/05/24 07/05/24 Escitalopram [Lexapro] 20 mg PO DAILY 07/05/24 07/05/24 Levothyroxine Sodium [Synthroid] 112 mcg PO DAILY 07/05/24 07/05/24 Triamterene/Hydrochlorothiazid 0.5 tab PO DAILY 07/05/24 07/05/24 [Triamterene-Hctz 37.5-25 mg Tb] Previous Rx's Medication Instructions Recorded Losartan [Cozaar] 25 mg PO DAILY 30 Days #30 tab 07/06/24 Meclizine [Antivert] 25 mg PO QID PRN 30 Days #120 tab 07/06/24 Allergies Allergy/AdvReac Type Severity Reaction Status Date / Time lisinopril Allergy Confusion Verified 07/05/24 12:08 prednisone Allergy Rash/Hives Verified 07/05/24 12:08 promethazine HCl Allergy Confusion Verified 07/05/24 12:08 [From Phenergan] propofol Allergy Unknown Verified 07/05/24 12:08 hydrochlorothiazide AdvReac Unknown Verified 07/05/24 12:08 STEROIDS Allergy Unknown Uncoded 07/05/24 12:08 Review of Systems ROS Statement: Those systems with pertinent positive or pertinent negative responses have been documented in the HPI. ROS Other: All systems not noted in ROS Statement are negative. Past Medical History Past Medical History: Hyperlipidemia, Hypertension, Thyroid Disorder Additional Past Medical History / Comment(s): Grave's Disease. lt ankle torn tendon History of Any Multi-Drug Resistant Organisms: None Reported Past Surgical History: Back Surgery Additional Past Surgical History / Comment(s): Excisional breast memo lumpectomy, lipoma removed from rt side, memo knee arthroscopy. Past Anesthesia/Blood Transfusion Reactions: Previous Problems w/ Anesthesia Additional Past Anesthesia/Blood Transfusion Reaction / Comment(s): allergic reaction to propofol. mother allergic to propofol Past Psychological History: No Psychological Hx Reported Smoking Status: Current every day smoker Past Alcohol Use History: None Reported Past Drug Use History: None Reported - Past Family History Mother Family Medical History: Coronary Artery Disease (CAD) Father Family Medical History: Cancer Sister(s) Family Medical History: Cancer General Exam Limitations: no limitations General appearance: alert, in no apparent distress Head exam: Present: atraumatic, normocephalic, normal inspection Eye exam: Present: normal appearance, PERRL, EOMI. Absent: scleral icterus, conjunctival injection, periorbital swelling ENT exam: Present: normal exam, mucous membranes moist Neck exam: Present: normal inspection. Absent: tenderness, meningismus, lymphadenopathy Respiratory exam: Present: normal lung sounds bilaterally. Absent: respiratory distress, wheezes, rales, rhonchi, stridor Cardiovascular Exam: Present: regular rate, normal rhythm, normal heart sounds. Absent: systolic murmur, diastolic murmur, rubs, gallop, clicks Extremities exam: Present: normal inspection, full ROM, normal capillary refill. Absent: tenderness, pedal edema, joint swelling, calf tenderness Back exam: Present: normal inspection Neurological exam: Present: alert, oriented X3, CN II-XII intact, other (Normal [id number], [id number]) Psychiatric exam: Present: normal affect, normal mood Skin exam: Present: warm, dry, intact, normal color. Absent: rash Course Vital Signs 07/05/24 07/05/24 07/05/24 12:08 14:38 16:02 Temperature 97.3 F L Pulse Rate 69 58 L 64 Respiratory 18 16 18 Rate Blood Pressure 159/81 147/99 144/92 O2 Sat by Pulse 94 L 98 97 Oximetry 07/05/24 17:54 Temperature Pulse Rate 62 Respiratory 18 Rate Blood Pressure 158/92 O2 Sat by Pulse 98 Oximetry Medical Decision Making - Medical Decision Making Was pt. sent in by a medical professional or institution (, [facility]ARY, CHAIN MENDER, urgent care, hospital, or correction...) When possible be specific @ -No Did you speak to anyone other than the patient for history (EMS, parent, family, police, friend...)? What history was obtained from this source @ -No Did you review nursing and triage notes (agree or disagree)? Why? @ -I reviewed and agree with nursing and triage notes Were old charts reviewed (outside hosp., previous admission, EMS record, old EKG, old radiological studies, urgent care reports/EKG's, correction records)? Report findings @ -No old charts were reviewed Differential Diagnosis (chest pain, altered mental status, abdominal pain women, abdominal pain men, vaginal bleeding, weakness, fever, dyspnea, syncope, headache, dizziness, GI bleed, back pain, seizure, CVA, palpatations, mental health, musculoskeletal)? @ -Differential Dizziness: Benign paroxysmal positional Vertigo, Meniere's disease, otitis media, acoustic neuroma, vertebrobasilar insufficiency, cerebellar stroke, encephalitis, hypovolemic, arrhythmia, coronary artery syndrome, anemia, this is not meant to be an all-inclusive list EKG interpreted by me (3pts min.). @ -EKG at 1241 shows sinus bradycardia rate 58, [place] 215, QRS 80, QT/QTc 209621 X-rays interpreted by me (1pt min.). @ -None done CT interpreted by me (1pt min.). @ -CT brain shows no evidence of acute process CT angio head and neck shows no evidence of significant stenosis or aneurysm U/S interpreted by me (1pt. min.). @ -None done What testing was considered but not performed or refused? (CT, X-rays, U/S, labs)? Why? @ -None What meds were considered but not given or refused? Why? @ -None Did you discuss the management of the patient with other professionals (professionals i.e. CHARY Davila, CHAIN MENDER, lab, RT, psych nurse, bilingual social worker, gunstock spray unit adjuster, teacher, postal sorting officer, correctional case manager)? Give summary @ -Case was discussed with Dr. Carter who is accepting of the admission. Was smoking cessation discussed for >3mins.? @ -No Was critical care preformed (if so, how long)? @ -No Were there social determinants of health that impacted care today? How? (Homelessness, low income, unemployed, alcoholism, drug addiction, transportation, low edu. Level, literacy, decrease access to med. care, [facility] [facility], rehab)? @ -No Was there de-escalation of care discussed even if they declined (Discuss DNR or withdrawal of care, Hospice)? DNR status @ -No What co-morbidities impacted this encounter? (DM, HTN, Smoking, COPD, CAD, Cancer, CVA, ARF, Chemo, Hep., AIDS, mental health diagnosis, sleep apnea, morbid obesity)? @ -None Was patient admitted / discharged? Hospital course, mention meds given and route, prescriptions, significant lab abnormalities, going to OR and other pertinent info. @ -Admitted. Patient presented to emergency department for evaluation of dizzi ness. Laboratory studies obtainedRevealing no significant leukocytosis, hemoglobin stable; normal coagulation studies; BUN 23, creatinine 1.22, negative troponin. UA shows no evidence of infectious process. CT brain no acute process and CT a of the head and neck shows no evidence of no evidence of significant stenosis. Patient was provided medication for symptom control without any significant relief. Patient will be admitted to the hospital for intractable symptoms Case was discussed with Dr. Carter who is accepting of the admission. Case discussed with Dr. Anders Undiagnosed new problem with uncertain prognosis? @ -No Drug Therapy requiring intensive monitoring for toxicity (Heparin, Nitro, Insulin, Cardizem)? @ -No Were any procedures done? @ -No Diagnosis/symptom? @ -Vertigo Acute, or Chronic, or Acute on Chronic? @ -Acute Uncomplicated (without systemic symptoms) or Complicated (systemic symptoms)? @ -Uncomplicated Side effects of treatment? @ -No Exacerbation, Progression, or Severe Exacerbation? @ -No Poses a threat to life or bodily function? How? (Chest pain, USA, SD, pneumonia, PE, COPD, DKA, ARF, appy, cholecystitis, CVA, Diverticulitis, Homicidal, Suicidal, threat to staff... and all critical care pts) @ -No - Lab Data Result diagrams: 07/05/24 13:00 07/05/24 13:00 Lab Results 07/05/24 07/05/24 07/05/24 Range/Units 13:00 13:00 13:00 WBC 7.3 (3.8-10.6) k/uL RBC 5.08 (3.80-5.40) m/uL Hgb 14.7 (11.4-16.0) gm/dL Hct 45.7 (34.0-46.0) % MCV 89.8 (80.0-100.0) fL MCH 28.9 (25.0-35.0) pg MCHC 32.2 (31.0-37.0) g/dL RDW 13.0 (11.5-15.5) % Plt Count 247 (150-450) k/uL MPV 7.5 Neutrophils % 73 % Lymphocytes % 21 % Monocytes % 4 % Eosinophils % 1 % Basophils % 0 % Neutrophils # 5.3 (1.3-7.7) k/uL Lymphocytes # 1.5 (1.0-4.8) k/uL Monocytes # 0.3 (0-1.0) k/uL Eosinophils # 0.1 (0-0.7) k/uL Basophils # 0.0 (0-0.2) k/uL PT 10.5 (10.0-12.5) sec INR 0.9 (<1.2) APTT 22.5 (22.0-30.0) sec Sodium 139 (137-145) mmol/L Potassium 4.3 (3.5-5.1) mmol/L Chloride 105 (98-107) mmol/L Carbon Dioxide 27 (22-30) mmol/L Anion Gap 7 mmol/L BUN 23 H (7-17) mg/dL Creatinine 1.22 H (0.52-1.04) mg/dL Est GFR (CKD-EPI)AfAm 54 (>60 ml/min/1.73 sqM) Est GFR (CKD-EPI)NonAf 47 (>60 ml/min/1.73 sqM) Glucose 129 H (74-99) mg/dL Calcium 10.5 H (8.4-10.2) mg/dL Total Bilirubin 0.8 (0.2-1.3) mg/dL AST 22 (14-36) U/L ALT 23 (4-34) U/L Alkaline Phosphatase 75 (38-126) U/L Troponin I (0.000-0.034) ng/mL Total Protein 6.5 (6.3-8.2) g/dL Albumin 4.0 (3.5-5.0) g/dL 07/05/24 Range/Units 13:00 WBC (3.8-10.6) k/uL RBC (3.80-5.40) m/uL Hgb (11.4-16.0) gm/dL Hct (34.0-46.0) % MCV (80.0-100.0) fL MCH (25.0-35.0) pg MCHC (31.0-37.0) g/dL RDW (11.5-15.5) % Plt Count (150-450) k/uL MPV Neutrophils % % Lymphocytes % % Monocytes % % Eosinophils % % Basophils % % Neutrophils # (1.3-7.7) k/uL Lymphocytes # (1.0-4.8) k/uL Monocytes # (0-1.0) k/uL Eosinophils # (0-0.7) k/uL Basophils # (0-0.2) k/uL PT (10.0-12.5) sec INR (<1.2) APTT (22.0-30.0) sec Sodium (137-145) mmol/L Potassium (3.5-5.1) mmol/L Chloride (98-107) mmol/L Carbon Dioxide (22-30) mmol/L Anion Gap mmol/L BUN (7-17) mg/dL Creatinine (0.52-1.04) mg/dL Est GFR (CKD-EPI)AfAm (>60 ml/min/1.73 sqM) Est GFR (CKD-EPI)NonAf (>60 ml/min/1.73 sqM) Glucose (74-99) mg/dL Calcium (8.4-10.2) mg/dL Total Bilirubin (0.2-1.3) mg/dL AST (14-36) U/L ALT (4-34) U/L Alkaline Phosphatase (38-126) U/L Troponin I <0.012 (0.000-0.034) ng/mL Total Protein (6.3-8.2) g/dL Albumin (3.5-5.0) g/dL Disposition Clinical Impression: Vertigo Disposition: ADMITTED IP TO THIS HOSP Condition: Stable Is patient prescribed a controlled substance at d/c from ED?: No
[2024-07-05] MEDS: MECLIZINE 12.5 MG TAB PO STA ×2 (13:06→16:05)
[2024-07-05] MEDS: SODIUM CHLORIDE 0.9% 1,000 ML IV STA (13:06)
[2024-07-05 13:09] LABS: Basophils % (A) 0 %; Eosinophils # (A) 0.1 k/uL (0-0.7); Eosinophils % (A) 1 %; HCT 45.7 % (34.0-46.0); HGB 14.7 gm/dL (11.4-16.0); Lymphocytes # (A) 1.5 k/uL (1.0-4.8); Lymphocytes % (A) 21 %; MCH 28.9 pg (25.0-35.0); MCHC 32.2 g/dL (31.0-37.0); MCV 89.8 fL (80.0-100.0); Mean Platelet Volume 7.5; Monocytes # (A) 0.3 k/uL (0-1.0); Monocytes % (A) 4 %; Neutrophils # (A) 5.3 k/uL (1.3-7.7); Neutrophils % (A) 73 %; Platelet Count 247 k/uL (150-450); RBC 5.08 m/uL (3.80-5.40); WBC 7.3 k/uL (3.8-10.6)
[2024-07-05 13:18] LABS: ALT 23 U/L (4-34); AST 22 U/L (14-36); African American GFR (CKD) 54 (>60 ml/min/1.73 sqM); Alkaline Phosphatase 75 U/L (38-126); Anion Gap 7 mmol/L; Blood Urea Nitrogen 23 mg/dL (7-17); Calcium 10.5 mg/dL (8.4-10.2); Carbon Dioxide 27 mmol/L (22-30); Chloride 105 mmol/L (98-107); Glucose 129 mg/dL (74-99); Non-African American GFR(CKD) 47 (>60 ml/min/1.73 sqM); Potassium 4.3 mmol/L (3.5-5.1); Sodium 139 mmol/L (137-145); Total Bilirubin 0.8 mg/dL (0.2-1.3); Total Protein 6.5 g/dL (6.3-8.2)
[2024-07-05 13:21] LABS: INR 0.9 (<1.2); Partial Thromboplastin Time 22.5 sec (22.0-30.0); Prothrombin Time 10.5 sec (10.0-12.5)
--- NOTE | 2024-07-05 14:30 | CT ---
EXAMINATION TYPE: CT brain wo con DATE OF EXAM: 07/05/2024 2:24 PM COMPARISON: None. CLINICAL INDICATION: Female, 64 years old with history of vertigo, c/o dizziness, nausea, weakness a nd lethargic. TECHNIQUE: Brain: Axial CT images of the brain were obtained with coronal and sagittal reformats created and rev iewed. Contrast used: None. Oral contrast used: None. CT DLP: 1158.6 mGycm, Automated exposure control for dose reduction was used. FINDINGS: Brain: Extra-axial spaces: No abnormal extra-axial fluid collections. Ventricular system: Within normal limits Cerebral parenchyma: No acute intraparenchymal hemorrhage or mass effect. The farris-white junction is well differentiated. Cerebellum: Unremarkable. Mass effect: No evidence of midline shift. Intracranial vasculature: unremarkable Soft tissues: Normal. Calvarium/osseous structures: No depressed skull fracture. Paranasal sinuses and mastoid air cells: Mild scattered paranasal sinus disease. Visualized orbits: Orbital contents are intact. IMPRESSION: No acute intracranial process. [facility], , 07/05/2024 2:28 PM
--- NOTE | 2024-07-05 14:47 | CT ---
EXAMINATION TYPE: CT angio head neck DATE OF EXAM: 07/05/2024 2:24 PM COMPARISON: 07/05/2024. CLINICAL INDICATION: Female, 64 years old with history of vertigo; PHH, c/o dizziness, nausea, weakn ess and lethargic. TECHNIQUE: Axially acquired helical CT angiogram of the head and neck was obtained with contrast. Axi al images are supplemented with 3D reconstructions and MIP images which were post-processed at an in dependent workstation. NASCET criteria used. Contrast used:65ml mL of Isovue 370 with IV Contrast, Oral contrast used: None. CT DLP: 421.8 mGycm, Automated exposure control for dose reduction was used. FINDINGS: CTA HEAD: No evidence of acute intracranial hemorrhage, mass effect, or midline shift. The ventricles, sulci, a nd cisterns are unremarkable. Vertebral arteries: The vertebral arteries are patent. Vertebral artery dominance: Codominant Basilar artery: The basilar artery is intact. The basilar artery bifurcation is normal. Internal Carotid arteries: The cervical, petrous, cavernous and supraclinoid segments are normal. MICHELLE: Patent with no evidence of aneurysm. ACOM: Present without evidence of aneurysm. MCA: Patent with no evidence of aneurysm. ACQUISITION ASSOCIATE: Patent with no evidence of aneurysm. PCOM: Hypoplastic bilaterally. Dural sinuses: Patent. CTA NECK: Right Carotid System: The common carotid artery and external carotid artery are patent. The carotid bifurcation demonstrate s no evidence of hemodynamically significant stenosis. The remaining portions of the internal carotid artery demonstrate normal size without significant narrowing. Left Carotid System: The common carotid artery and external carotid artery are patent. The carotid bifurcation demonstrate s no evidence of hemodynamically significant stenosis. The remaining portions of the internal carotid artery demonstrate normal size without significant narrowing. Vertebral arteries are patent without evidence hemodynamically significant stenosis. There is a 4-vessel aortic arch. The origins of the great vessels are patent. No evidence of hemodyna mically significant stenosis. IMPRESSION: 1. No evidence of dissection of the cervical internal carotid arteries or vertebral arteries. 2. No any evidence of significant stenosis at the carotid bifurcations. 3. No evidence of intracranial high-grade stenosis or intracranial aneurysm. [facility], , 07/05/2024 2:45 PM
[2024-07-05] MEDS: METOCLOPRAMIDE 5 MG/ML 2 ML VIAL IVP STA (16:04)
[2024-07-05 16:39] LABS: Appearance,Urine Clear (Clear); Bilirubin,Urine Negative (Negative); Blood,Urine Negative (Negative); Color,Urine Colorless; Glucose,Urine (UA) Negative (Negative); Ketones,Urine Negative (Negative); Leukocyte Esterase,Urine Negative (Negative); Nitrite,Urine Negative (Negative); Protein,Urine Negative (Negative); Specific Gravity,Urine 1.038 (1.001-1.035); Urobilinogen,Urine <2.0 mg/dL (<2.0)
[2024-07-05] MEDS ORDERED: ACETAMINOPHEN TAB 325 MG TAB PO PRN (16:41)
[2024-07-05] MEDS ORDERED: NALOXONE 0.4 MG/ML 1 ML VIAL IV PRN (16:41)
[2024-07-05] MEDS ORDERED: HYDROmorphone 0.5 MG/0.5 ML SYRINGE IVP PRN (16:41)
[2024-07-05] MEDS ORDERED: IBUPROFEN 400 MG TAB PO PRN (16:41)
[2024-07-05] MEDS ORDERED: MECLIZINE 12.5 MG TAB PO PRN (16:43)
[2024-07-05] MEDS: atenoloL 25 MG TAB PO SCH (20:48)
[2024-07-05] MEDS: ESCITALOPRAM 20 MG TAB PO SCH (20:48)
[2024-07-05] MEDS: PRAVASTATIN SODIUM 40 MG TAB PO SCH (20:49)
[2024-07-06] MEDS: LEVOTHYROXINE 112 MCG TAB PO SCH (06:04)
[2024-07-06] MEDS: TRIAMTERENE HCTZ PO SCH (08:37)
--- NOTE | 2024-07-06 10:30 | P.HPIM ---
History of Present Illness H&P Date: 07/06/24 Marian Romo is a 64-year-old female patient who presented with concerns of dizziness. Patient reports that symptoms started last night and she felt as if she was spinning even when she was lying down with 1 episode of vomiting. Patient denies any recent trauma or illness. Patient does have a past medical history of hyperlipidemia, hypertension and thyroid disorder. Patient also has a history of ongoing nicotine dependence. Head CT was completed showing no acute intracranial process. CTA performed showing no evidence of dissection of the cervical internal carotid arteries no evidence of significant stenosis. For completed showing creatinine 1.22 bun 23. UA negative. Troponin negative. At this time patient is resting comfortably in bed. Patient reports improvement wi th symptoms reports she has been ambulating without dizziness. Denies any further vomiting. Awaiting neurology input. Patient denies chest pain or shortness of breath. Patient denies nausea vomiting or diarrhea. Patient denies any urinary burning or frequency. Current vital signs temp 98.1, heart 71, respiratory rate 16, blood pressure 124/74 with a pulse ox of 96% on room air Review of Systems Please refer to HPI otherwise unremarkable Past Medical History Past Medical History: Hyperlipidemia, Hypertension, Thyroid Disorder Additional Past Medical History / Comment(s): Grave's Disease. lt ankle torn tendon History of Any Multi-Drug Resistant Organisms: None Reported Past Surgical History: Back Surgery Additional Past Surgical History / Comment(s): Excisional breast memo lumpectomy, lipoma removed from rt side, memo knee arthroscopy, back surgery x2 September 2023 Past Anesthesia/Blood Transfusion Reactions: Previous Problems w/ Anesthesia Additional Past Anesthesia/Blood Transfusion Reaction / Comment(s): allergic reaction to propofol. mother allergic to propofol Past Psychological History: No Psychological Hx Reported Additional Psychological History / Comment(s): raising 4 grandchildren Smoking Status: Current every day smoker Past Alcohol Use History: None Reported Additional Past Alcohol Use History / Comment(s): smoker for years 1/2 ppd Past Drug Use History: None Reported - Past Family History Mother Family Medical History: Coronary Artery Disease (CAD) Father Family Medical History: Cancer Sister(s) Family Medical History: Cancer Medications and Allergies Home Medications Medication Instructions Recorded Confirmed Type Pravastatin Sodium [Pravachol] 40 mg PO DAILY 01/29/19 07/05/24 History atenoloL [Atenolol] 25 mg PO DAILY 01/29/19 07/05/24 History Ciprofloxacin HCl [Cipro] 250 mg PO Q12HR 07/05/24 07/05/24 History Escitalopram [Lexapro] 20 mg PO DAILY 07/05/24 07/05/24 History Levothyroxine Sodium [Synthroid] 112 mcg PO DAILY 07/05/24 07/05/24 History Triamterene/Hydrochlorothiazid 0.5 tab PO DAILY 07/05/24 07/05/24 History [Triamterene-Hctz 37.5-25 mg Tb] Allergies Allergy/AdvReac Type Severity Reaction Status Date / Time lisinopril Allergy Confusion Verified 07/05/24 12:08 prednisone Allergy Rash/Hives Verified 07/05/24 12:08 promethazine HCl Allergy Confusion Verified 07/05/24 12:08 [From Phenergan] propofol Allergy Unknown Verified 07/05/24 12:08 hydrochlorothiazide AdvReac Unknown Verified 07/05/24 12:08 STEROIDS Allergy Unknown Uncoded 07/05/24 12:08 Physical Exam Vitals: Vital Signs Temp Pulse Pulse Resp BP BP Pulse Ox 07/06/24 07:00 98.1 F 71 16 179/89 95 07/06/24 01:30 98.4 F 72 18 124/74 96 07/05/24 20:57 98.1 F 77 18 139/68 97 07/05/24 17:54 62 18 158/92 98 07/05/24 16:02 64 18 144/92 97 07/05/24 14:38 58 L 16 147/99 98 07/05/24 12:08 97.3 F L 69 18 159/81 94 L Intake and Output 07/05/24 07/06/24 07/06/24 22:59 06:59 14:59 Other: Voiding Method Toilet # Voids 1 1 Weight 77.111 kg Head normocephalic Neck supple Lungs clear to auscultation bilaterally no wheezing or crackles Heart regular rate and rhythm S1-S2, no rub or gallop Abdomen is soft nontender nondistended positive bowel sounds no hepatosplenomegaly Extremities no edema Neuro alert and orientated to 3 Results CBC & Chem 7: 07/05/24 13:00 07/05/24 13:00 Labs: Abnormal Lab Results - Last 24 Hours (Table) 07/05/24 07/05/24 Range/Units 13:00 16:30 BUN 23 H (7-17) mg/dL Creatinine 1.22 H (0.52-1.04) mg/dL Glucose 129 H (74-99) mg/dL Calcium 10.5 H (8.4-10.2) mg/dL Ur Specific [place] 1.038 H (1.001-1.035) Thrombosis Risk Factor Assmnt - Choose All That Apply Any of the Below Risk Factors Present?: Yes Each Factor Represents 1 point: Obesity (BMI >25) Other Risk Factors: Yes Each Risk Factor Represents 2 Points: Age 61-74 years Thrombosis Risk Factor Assessment Total Risk Factor Score: 3 Thrombosis Risk Factor Assessment Level: Moderate Risk Assessment and Plan Assessment: 1. Dizziness likely secondary to vertigo symptoms have improved with Antivert. 2. History of hyperlipidemia 3. History of Graves' disease. Will order thyroid level 4. History of ongoing nicotine dependence 5. History of essential hypertension DVT prophylaxis Lovenox. GI prophylax Protonix Neurology services consulted Repeat labs ordered Time with Patient: Greater than 30 (Greater than 60% of the total time spent in counseling and coordination of care)
[2024-07-06 18:14] VITALS: BP 192/84; PULSE 55; RESP 17; TEMP 98.4
[2024-07-06] MEDS: LOSARTAN 25 MG TAB PO SCH (18:39)
--- NOTE | 2024-07-06 19:18 | P.CNNES ---
History of Present Illness Consult date: 07/06/24 Requesting physician: Farnaz Isidro Reason for Consult: Vertigo History of Present Illness: Patient is a 64-year-old female who comes to the hospital yesterday at 12:05 PM for dizziness. Patient states that the night before she was sleeping and when she woke up and lifted her head, everything started spinning. Patient was seen by myself on 10/06/2023 for dizziness and nystagmus looking to the left. Her diz ziness was felt to be related to dural tear after her back surgery. After symptoms resolved at that time, patient was doing well, except for a couple different days in which she had dizzy spell, that lasted a day. Patient had a similar dizzy spell for which she states that she was forced to come to the hospital, as she was vomiting and having nausea. She denies any tinnitus, denies any loss of hearing, denies any recent upper respiratory infection. Only when she was moving her head, she gets dizzy. It is mostly gone now. When she rolls on the sides, she gets dizzy. Patient states that while she was dizzy, she did slip and fell on the ice, but it was not related to dizziness, only slip ping. Patient denies any focal symptoms whatsoever. Denies headache. Vital signs on arrival blood pressure 159/81, pulse is [address] head showed no acute or acute process. I personally reviewed CT head, agree with the findings. Visualized paranasal sinuses are mostly clear external auditory canals revealed some impacted cerumen on the left side. EKG showed sinus bradycardia with first-degree AV block. CTA of head and neck revealed no evidence of dissection of the cervical internal carotid arteries or vertebral arteries. No evidence of significant stenosis at the carotid bifurcations. No evidence of intracranial high-grade stenosis or intracranial aneurysm. Patient has been seen by myself on 10/06/2023 for dizziness and nystagmus looking to the left. Patient was found to have dural tear and had repair on 10/02/2023. Patient also status post decompression fusion over the L4-S1 on 10/02/2023. MRI of the brain was negative. Patient was found to have mild folate deficiency with level 6.6, B12 was 828. Review of Systems All pertinent positive and negative review of systems mentioned in the HPI. Otherwise unremarkable. Past Medical History Past Medical History: Hyperlipidemia, Hypertension, Thyroid Disorder Additional Past Medical History / Comment(s): Grave's Disease. lt ankle torn tendon History of Any Multi-Drug Resistant Organisms: None Reported Past Surgical History: Back Surgery Additional Past Surgical History / Comment(s): Excisional breast memo lumpectomy, lipoma removed from rt side, memo knee arthroscopy, back surgery x2 September 2023 Past Anesthesia/Blood Transfusion Reactions: Previous Problems w/ Anesthesia Additional Past Anesthesia/Blood Transfusion Reaction / Comment(s): allergic reaction to propofol. mother allergic to propofol Past Psychological History: No Psychological Hx Reported Additional Psychological History / Comment(s): raising 4 grandchildren Smoking Status: Current every day smoker Past Alcohol Use History: None Reported Additional Past Alcohol Use History / Comment(s): smoker for years 1/2 ppd Past Drug Use History: None Reported - Past Family History Mother Family Medical History: Coronary Artery Disease (CAD) Father Family Medical History: Cancer Sister(s) Family Medical History: Cancer Medications and Allergies Home Medications Medication Instructions Recorded Confirmed Type Pravastatin Sodium [Pravachol] 40 mg PO DAILY 01/29/19 07/05/24 History atenoloL 25 mg PO DAILY 01/29/19 07/05/24 History Ciprofloxacin HCl [Cipro] 250 mg PO Q12HR 07/05/24 07/05/24 History Escitalopram [Lexapro] 20 mg PO DAILY 07/05/24 07/05/24 History Levothyroxine Sodium [Synthroid] 112 mcg PO DAILY 07/05/24 07/05/24 History Triamterene/Hydrochlorothiazid 0.5 tab PO DAILY 07/05/24 07/05/24 History [Triamterene-Hctz 37.5-25 mg Tb] Losartan [Cozaar] 25 mg PO DAILY 30 Days #30 tab 07/06/24 Rx Meclizine [Antivert] 25 mg PO QID PRN 30 Days #120 tab 07/06/24 Rx Allergies Allergy/AdvReac Type Severity Reaction Status Date / Time lisinopril Allergy Confusion Verified 07/05/24 12:08 prednisone Allergy Rash/Hives Verified 07/05/24 12:08 promethazine HCl Allergy Confusion Verified 07/05/24 12:08 [From Phenergan] propofol Allergy Unknown Verified 07/05/24 12:08 hydrochlorothiazide AdvReac Unknown Verified 07/05/24 12:08 STEROIDS Allergy Unknown Uncoded 07/05/24 12:08 Physical Examination - Vital Signs Vital Signs: Vital Signs Temp Pulse Resp BP Pulse Ox 07/06/24 18:13 98.4 F 55 L 17 192/84 94 L 07/06/24 14:12 98.3 F 61 15 157/80 95 07/06/24 07:00 98.1 F 71 16 179/89 95 07/06/24 01:30 98.4 F 72 18 124/74 96 07/05/24 20:57 98.1 F 77 18 139/68 97 Intake and Output 07/06/24 07/06/24 07/06/24 06:59 14:59 22:59 Other: Voiding Method Toilet # Voids 1 2 Patient is an elderly female, very pleasant, in no acute distress. Patient is alert awake oriented to time place and person. Speech and language functions are normal. Patient can name and repeat very well. No aphasia or dysarthria. Attention, concentration and fund of knowledge is adequate. On cranial nerve examination, pupils are equal, round and reacting to light, visual [place] are full on confrontation, with no neglect on double simultaneous stimulation. Extraocular muscles are intact with no nystagmus. Face is symmetric, tongue protrudes to the midline. Palatal elevation and sensation normal, hearing and shoulder shrug normal, facial sensation normal. On muscle strength testing, there is no pronator drift and the strength is normal in arms and legs distally and proximally. Deep tendon reflexes are symmetric 1+ to 2+ and plantars downgoing. Sensory to touch is equal with no neglect on double simultaneous stimulation. Cerebellar function showed no ataxia for [id number] testing. No dysdiadochokinesia. No ataxia for [id number] testing on either side. Tone and bulk of muscles normal. Gait deferred.. On general examination, there is no carotid bruit or murmur, S1-S2 audible. Chest is clear on consultation. Abdomen is soft nontender. No organomegaly, bowel sounds present. Peripheral pulses are present. No peripheral edema. Results - Laboratory Findings CBC and BMP: 07/05/24 13:00 07/05/24 13:00 Abnormal Lab Findings: Abnormal Labs 07/05/24 07/05/24 13:00 16:30 BUN 23 H Creatinine 1.22 H Glucose 129 H Calcium 10.5 H Ur Specific [place] 1.038 H Assessment and Plan Assessment: * Vertigo, likely multifactorial, as mentioned below. * Probable benign positional peripheral vertigo * Impacted cerumen left ear * Hyperlipidemia * Tobacco use * Hypertension Plan: * Recommend disimpaction of the cerumen from the left ear. * If no improvement, then vestibular rehabilitation. * May follow-up with ENT outpatient to evaluate for peripheral vestibular dysfunction. * B12 808, folate 6.6 normal. * Optimize control of blood pressure, as per IM. * Neurologically no other workup indicated. * Thank you for the consult.
[2024-07-07] MEDS ORDERED: PANTOPRAZOLE 40 MG TABLET PO SCH (07:30)
[2024-07-07] MEDS ORDERED: NICOTINE 14MG/24HR PATCH TRANSDERM SCH (09:00)
[2024-07-07] MEDS ORDERED: ENOXAPARIN 40 MG/0.4 ML SYRINGE SQ SCH (09:00)
--- NOTE | 2024-07-08 13:08 | P.DS ---
Providers Date of admission: 07/05/24 16:22 Expected date of discharge: 07/06/24 Attending physician: Mike Carter Consults: 07/05/24 16:41 Consult Physician Routine Consulting Provider: Anan William Consult Reason/Comments: vertigo Do you want consulting provider notified?: Yes, Notify in am Primary care physician: Mkie Carter [facility] Hospital Course: Discharge diagnosis 1. Dizziness likely secondary to vertigo symptoms have improved with Antivert. 2. History of hyperlipidemia 3. History of Graves' disease. Will order thyroid level 4. History of ongoing nicotine dependence 5. History of essential hypertension Hospital course Marian Romo is a 64-year-old female patient who presented with concerns of dizziness. Patient reports that symptoms started last night and she felt as if she was spinning even when she was lying down with 1 episode of vomiting. Patient denies any recent trauma or illness. Patient does have a past medical history of hyperlipidemia, hypertension and thyroid disorder. Patient also has a history of ongoing nicotine dependence. Head CT was completed showing no acute intracranial process. CTA performed showing no evidence of dissection of the cervical internal carotid arteries no evidence of significant stenosis. For completed showing creatinine 1.22 bun 23. UA negative. Troponin negative. At this time patient is resting comfortably in bed. Patient reports improvement with symptoms reports she has been ambulating without dizziness. Denies any further vomiting. Awaiting neurology input. Patient denies chest pain or shortness of breath. Patient denies nausea vomiting or diarrhea. Patient denies any urinary burning or frequency. Current vital signs temp 98.1, heart 71, respiratory rate 16, blood pressure 124/74 with a pulse ox of 96% on room air Patient was evaluated by neurology services no further workup inpatient recommend outpatient ENT follow-up symptoms likely secondary to vertigo patient will be DC'd on Antivert. Patient Condition at Discharge: Stable Plan - Discharge Summary Discharge Rx Participant: No New Discharge Prescriptions: New Meclizine [Antivert] 25 mg PO QID PRN 30 Days #120 tab PRN Reason: vertigo Losartan [Cozaar] 25 mg PO DAILY 30 Days #30 tab Continue Pravastatin Sodium [Pravachol] 40 mg PO DAILY atenoloL 25 mg PO DAILY Triamterene/Hydrochlorothiazid [Triamterene-Hctz 37.5-25 mg Tb] 0.5 tab PO DAILY Levothyroxine Sodium [Synthroid] 112 mcg PO DAILY Escitalopram [Lexapro] 20 mg PO DAILY Ciprofloxacin HCl [Cipro] 250 mg PO Q12HR Discharge Medication List Pravastatin Sodium [Pravachol] 40 mg PO DAILY 01/29/19 [History] atenoloL 25 mg PO DAILY 01/29/19 [History] Ciprofloxacin HCl [Cipro] 250 mg PO Q12HR 07/05/24 [History] Escitalopram [Lexapro] 20 mg PO DAILY 07/05/24 [History] Levothyroxine Sodium [Synthroid] 112 mcg PO DAILY 07/05/24 [History] Triamterene/Hydrochlorothiazid [Triamterene-Hctz 37.5-25 mg Tb] 0.5 tab PO DAILY 07/05/24 [History] Losartan [Cozaar] 25 mg PO DAILY 30 Days #30 tab 07/06/24 [Rx] Meclizine [Antivert] 25 mg PO QID PRN 30 Days #120 tab 07/06/24 [Rx] Follow up Appointment(s)/Referral(s): Mike Carter MD [Primary Care Provider] - 1-2 days Discharge Disposition: HOME SELF-CARE
== END 2024-07-06 19:54 | disposition home or self-care (01) ==
LOC: EC 12:05 → 6NMEDSUR 16:22
PROVIDERS: ADMIT Internal Medicine; ATTEND Internal Medicine
DX: R42 Dizziness and giddiness (principal); H61.22 Impacted cerumen, left ear; I44.0 Atrioventricular block, first degree; E78.5 Hyperlipidemia, unspecified; E05.00 Thyrotoxicosis with diffuse goiter without thyrotoxic crisis or storm; I10 Essential (primary) hypertension; F17.210 Nicotine dependence, cigarettes, uncomplicated; Z79.899 Other long term (current) drug therapy; Z79.890 Hormone replacement therapy; Z88.8 Allergy status to other drugs, medicaments and biological substances; Z88.4 Allergy status to anesthetic agent; W00.0XXA Fall on same level due to ice and snow, initial encounter
CPT/HCPCS: 96361; 96374; 99285; 36415; 93005; 80053; 84443; 84484; 85025; 85610; 85730; 81003; 70496; 70450; 70498; G0378 ×2; J2765; Q9967

== ENCOUNTER 2024-08-20 10:46 | Emergency (ER) | payer MEDICARE, OTHER ==
[2024-08-20 10:51] VITALS: RESP 18; TEMP 97.9
--- NOTE | 2024-08-20 11:38 | ED ---
Headache HPI - General Chief Complaint: Headache Stated Complaint: high blood pressure Time Seen by Provider: 08/20/24 11:36 Source: patient, RN notes reviewed Mode of arrival: ambulatory Limitations: no limitations - History of Present Illness Initial Comments: 64-year-old female with history of hypertension and hyperlipidemia presenting to the ER for headache x 2 days. States she woke up yesterday morning with a headache. States the headache is frontal and radiates to the back of her head. Endorses pain in her eyes. Denies chest pain or shortness of breath. Denies head injury. States she believes the headache may be related to high blood p ressure. Patient follows with Dr. Carter who told her 4 days ago that she has kidney disease and instructed her to discontinue her triamterene/hydrochlorothiazide for her blood pressure. Patient states she has been monitoring her blood pressure and it has been high over the past few days. Denies blood thinners. - Related Data Home Medications Medication Instructions Recorded Confirmed Pravastatin Sodium [Pravachol] 40 mg PO DAILY 01/29/19 08/20/24 atenoloL 25 mg PO DAILY 01/29/19 08/20/24 Escitalopram [Lexapro] 20 mg PO DAILY 07/05/24 08/20/24 Levothyroxine Sodium [Synthroid] 112 mcg PO DAILY 07/05/24 08/20/24 Triamterene/Hydrochlorothiazid 1 tab PO DAILY 07/05/24 08/20/24 [Triamterene-Hctz 37.5-25 mg Tb] Meclizine [Antivert] 25 mg PO TID PRN 08/20/24 08/20/24 Previous Rx's Medication Instructions Recorded oxyCODONE HCL [OxyIR] 5 mg PO Q6H PRN #5 tab 07/22/24 Allergies Allergy/AdvReac Type Severity Reaction Status Date / Time lisinopril Allergy Confusion Verified 08/20/24 12:08 prednisone Allergy Rash/Hives Verified 08/20/24 12:08 promethazine HCl Allergy Confusion Verified 08/20/24 12:08 [From Phenergan] propofol Allergy affected Verified 08/20/24 12:08 heart rate, thinks it dropped hydrochlorothiazide AdvReac Unknown Verified 08/20/24 12:08 oxycodone AdvReac Unknown Verified 08/20/24 12:08 Review of Systems ROS Statement: Those systems with pertinent positive or pertinent negative responses have been documented in the HPI. ROS Other: All systems not noted in ROS Statement are negative. Past Medical History Past Medical History: GERD/Reflux, Hyperlipidemia, Hypertension, Osteoarthritis (OA), Thyroid Disorder Additional Past Medical History / Comment(s): Grave's Disease, recent adm for vertigo, hx. heart murmur, hiatal hernia, recent adm for dizziness, was seen by neuro, felt was due to vertigo, sx. have resolved History of Any Multi-Drug Resistant Organisms: None Reported Past Surgical History: Back Surgery, Breast Surgery, Orthopedic Surgery Additional Past Surgical History / Comment(s): Excisional breast memo lumpectomy, lipoma removed from rt side rib cage, memo knee arthroscopy. back surg. x2 2023, left ankle tendon repair Past Anesthesia/Blood Transfusion Reactions: Previous Problems w/ Anesthesia Additional Past Anesthesia/Blood Transfusion Reaction / Comment(s): allergic reaction to propofol. mother allergic to propofol Past Psychological History: No Psychological Hx Reported Smoking Status: Current every day smoker Past Alcohol Use History: None Reported Past Drug Use History: None Reported - Past Family History Mother Family Medical History: Coronary Artery Disease (CAD) Father Family Medical History: Cancer Sister(s) Family Medical History: Cancer General Exam Limitations: no limitations General appearance: alert, in no apparent distress Head exam: Present: atraumatic, normocephalic, normal inspection Eye exam: Present: normal appearance, PERRL, EOMI. Absent: scleral icterus, conjunctival injection, periorbital swelling ENT exam: Present: normal exam, mucous membranes moist Neck exam: Present: normal inspection. Absent: tenderness, meningismus, lymphadenopathy Respiratory exam: Present: normal lung sounds bilaterally. Absent: respiratory distress, wheezes, rales, rhonchi, stridor Cardiovascular Exam: Present: regular rate, normal rhythm, normal heart sounds. Absent: systolic murmur, diastolic murmur, rubs, gallop, clicks Neurological exam: Present: alert, oriented X3 Psychiatric exam: Present: normal affect, normal mood Skin exam: Present: warm, dry, intact, normal color. Absent: rash Course Vital Signs 08/20/24 10:48 Temperature 97.9 F Pulse Rate 75 Respiratory 18 Rate Blood Pressure 164/101 O2 Sat by Pulse 97 Oximetry Medical Decision Making - Medical Decision Making Was pt. sent in by a medical professional or institution (, PA, APIGEE DEVELOPER, urgent care, hospital, or care home...) When possible be specific @ -No Did you speak to anyone other than the patient for history (EMS, parent, family, police, friend...)? What history was obtained from this source @ -No Did you review nursing and triage notes (agree or disagree)? Why? @ -I reviewed and agree with nursing and triage notes Were old charts reviewed (outside hosp., previous admission, EMS record, old EKG, old radiological studies, urgent care reports/EKG's, care home records)? Report findings @ -No old charts were reviewed Differential Diagnosis (chest pain, altered mental status, abdominal pain women, abdominal pain men, vaginal bleeding, weakness, fever, dyspnea, syncope, headache, dizziness, GI bleed, back pain, seizure, CVA, palpatations, mental health, musculoskeletal)? @ -Differential Headache: Migraine, tension, cluster, carbon monoxide, central venous thrombosis, pension karma temporal arteritis, acute closure glaucoma, intercranial hemorrhage, mastoiditis, sinusitis, head injury, this is not meant to be an all-inclusive list. EKG interpreted by me (3pts min.). @ -As above X-rays interpreted by me (1pt min.). @ -None done CT interpreted by me (1pt min.). @ -CT brain reveals no acute intracranial abnormality U/S interpreted by me (1pt. min.). @ -None done What testing was considered but not performed or refused? (CT, X-rays, U/S, labs)? Why? @ -None What meds were considered but not given or refused? Why? @ -None Did you discuss the management of the patient with other professionals (professionals i.e. , PA, APIGEE DEVELOPER, lab, RT, psych nurse, social sciences professor, machine cloth measurer, teacher, philanthropy officer, machine adjuster leader case trim)? Give summary @ -No Was smoking cessation discussed for >3mins.? @ -No Was critical care preformed (if so, how long)? @ -No Were there social determinants of health that impacted care today? How? (Homelessness, low income, unemployed, alcoholism, drug addiction, transportation, low edu. Level, literacy, decrease access to med. care, penitentiary, rehab)? @ -No Was there de-escalation of care discussed even if they declined (Discuss DNR or withdrawal of care, Hospice)? DNR status @ -No What co-morbidities impacted this encounter? (DM, HTN, Smoking, COPD, CAD, Ca ncer, CVA, ARF, Chemo, Hep., AIDS, mental health diagnosis, sleep apnea, morbid obesity)? @ -None Was patient admitted / discharged? Hospital course, mention meds given and route, prescriptions, significant lab abnormalities, going to OR and other pertinent info. @ -Discharged. 64-year-old female presenting for headache x 2 days. Patient was instructed to discontinue blood pressure medicine 4 days ago. Denies chest pain, shortness of breath. Patient is hypertensive at 164/101. EKG reveals n ormal sinus rhythm with no ST changes. Patient provided with dose of Cozaar as well as migraine cocktail. Lab work remarkable for GFR 56, creatinine 1.03, BUN 17. CT head reveals no acute intracranial abnormality. Upon reevaluation patient reports significant improvement of symptoms. Results discussed with patient. Instructed to follow-up with PCP. Appropriate return precautions discussed. Case was discussed with the ED attending Dr. Thakur. Undiagnosed new problem with uncertain prognosis? @ -No Drug Therapy requiring intensive monitoring for toxicity (Heparin, Nitro, Insulin, Cardizem)? @ -No Were any procedures done? @ -No Diagnosis/symptom? @ -Headache Acute, or Chronic, or Acute on Chronic? @ -Acute Uncomplicated (without systemic symptoms) or Complicated (systemic symptoms)? @ -Uncomplicated Side effects of treatment? @ -No Exacerbation, Progression, or Severe Exacerbation? @ -No Poses a threat to life or bodily function? How? (Chest pain, [place], [place], pneumonia, PE, COPD, DKA, ARF, appy, cholecystitis, CVA, Diverticulitis, Homicidal, Suicidal, threat to staff... and all critical care pts) @ -No - Lab Data Result diagrams: 08/20/24 11:52 08/20/24 11:52 Lab Results 08/20/24 08/20/24 08/20/24 Range/Units 11:52 11:52 11:52 WBC 7.0 (3.8-10.6) k/uL RBC 5.18 (3.80-5.40) m/uL Hgb 15.0 (11.4-16.0) gm/dL Hct 45.5 (34.0-46.0) % MCV 87.9 (80.0-100.0) fL MCH 29.0 (25.0-35.0) pg MCHC 33.0 (31.0-37.0) g/dL RDW 13.4 (11.5-15.5) % Plt Count 267 (150-450) k/uL MPV 7.5 Neutrophils % 62 % Lymphocytes % 31 % Monocytes % 5 % Eosinophils % 1 % Basophils % 1 % Neutrophils # 4.3 (1.3-7.7) k/uL Lymphocytes # 2.1 (1.0-4.8) k/uL Monocytes # 0.3 (0-1.0) k/uL Eosinophils # 0.1 (0-0.7) k/uL Basophils # 0.0 (0-0.2) k/uL Sodium 136 L (137-145) mmol/L Potassium 3.7 (3.5-5.1) mmol/L Chloride 102 (98-107) mmol/L Carbon Dioxide 26 (22-30) mmol/L Anion Gap 8 mmol/L BUN 17 (7-17) mg/dL Creatinine 1.05 H (0.52-1.04) mg/dL Est GFR (CKD-EPI)AfAm 65 (>60 ml/min/1.73 sqM) Est GFR (CKD-EPI)NonAf 56 (>60 ml/min/1.73 sqM) Glucose 131 H (74-99) mg/dL Calcium 10.5 H (8.4-10.2) mg/dL Total Bilirubin 1.3 (0.2-1.3) mg/dL AST 23 (14-36) U/L ALT 23 (4-34) U/L Alkaline Phosphatase 65 (38-126) U/L Troponin I <0.012 (0.000-0.034) ng/mL Total Protein 6.8 (6.3-8.2) g/dL Albumin 4.0 (3.5-5.0) g/dL - EKG Data -: EKG Interpreted by Tx EKG Comments: EKG reveals normal sinus rhythm with no ST changes. Ventricular rate 60 bpm, OH interval 189, QRS duration 83, QT/QTc 435/437 Disposition Clinical Impression: Headache Disposition: HOME SELF-CARE Condition: Stable Instructions (If sedation given, give patient instructions): Acute Headache (ED) Additional Instructions: Follow-up with your PCP as discussed. Please return to the Emergency Department if symptoms worsen or any other concerns. Is patient prescribed a controlled substance at d/c from ED?: No Referrals: Mike Carter MD [Primary Care Provider] - 1-2 days Time of Disposition: 13:24
[2024-08-20] MEDS: LOSARTAN 50 MG TAB PO STA (11:58)
[2024-08-20] MEDS: METOCLOPRAMIDE 5 MG/ML 2 ML VIAL IVP STA (11:58)
[2024-08-20] MEDS: diphenhydrAMINE 50 MG/ML 1 ML VIAL IVP STA (11:59)
[2024-08-20 12:07] LABS: Basophils % (A) 1 %; Eosinophils # (A) 0.1 k/uL (0-0.7); Eosinophils % (A) 1 %; HCT 45.5 % (34.0-46.0); Lymphocytes # (A) 2.1 k/uL (1.0-4.8); Lymphocytes % (A) 31 %; MCV 87.9 fL (80.0-100.0); Mean Platelet Volume 7.5; Monocytes # (A) 0.3 k/uL (0-1.0); Monocytes % (A) 5 %; Neutrophils # (A) 4.3 k/uL (1.3-7.7); Neutrophils % (A) 62 %; Platelet Count 267 k/uL (150-450); RBC 5.18 m/uL (3.80-5.40); RDW 13.4 % (11.5-15.5)
[2024-08-20 12:15] LABS: ALT 23 U/L (4-34); AST 23 U/L (14-36); African American GFR (CKD) 65 (>60 ml/min/1.73 sqM); Alkaline Phosphatase 65 U/L (38-126); Anion Gap 8 mmol/L; Blood Urea Nitrogen 17 mg/dL (7-17); Calcium 10.5 mg/dL (8.4-10.2); Carbon Dioxide 26 mmol/L (22-30); Chloride 102 mmol/L (98-107); Glucose 131 mg/dL (74-99); Non-African American GFR(CKD) 56 (>60 ml/min/1.73 sqM); Potassium 3.7 mmol/L (3.5-5.1); Sodium 136 mmol/L (137-145); Total Bilirubin 1.3 mg/dL (0.2-1.3); Total Protein 6.8 g/dL (6.3-8.2)
--- NOTE | 2024-08-20 12:47 | CT ---
EXAMINATION TYPE: CT brain wo con DATE OF EXAM: 08/20/2024 12:40 PM COMPARISON: None. CLINICAL INDICATION: Female, 64 years old with history of headache x 2 days, headache x 2 days TECHNIQUE: CT of the brain is performed utilizing 3 mm thick sections through the posterior fossa and 3 mm thick sections through the remaining calvarium. Study is performed within 24 hours of arrival to the hospital. Contrast used: mL of , (none if empty) CT DLP: 1139.4 mGycm, Automated exposure control for dose reduction was used. FINDINGS: No abnormal hyperdensity is present to suggest an acute intracranial hemorrhage. No mass lesion is evident. No acute infarcts are evident. Ventricles and sulci are appropriate for the patient age. Paranasal sinuses and mastoid air cells within the [id number] are clear. IMPRESSION: 1. No acute intracranial process. Follow up MRI can be performed as clinically indicated. [facility], , 08/20/2024 12:45 PM
[2024-08-20 13:33] VITALS: BP 141/79; PULSE 60
== END 2024-08-20 13:33 | disposition home or self-care (01) ==
LOC: EC 10:46
DX: R51.9 Headache, unspecified (principal); I10 Essential (primary) hypertension; E78.5 Hyperlipidemia, unspecified; F17.200 Nicotine dependence, unspecified, uncomplicated; Z88.5 Allergy status to narcotic agent; Z88.8 Allergy status to other drugs, medicaments and biological substances
CPT/HCPCS: 36415; 93005; 80053; 84484; 85025; 70450; 99284; 96374; 96375; J1200; J2765

== ENCOUNTER → 2024-09-11 | Outpatient (CLI) | payer MEDICARE ==
--- NOTE | 2024-09-11 11:28 | MM ---
Reason for Exam: Clinical finding. Last screening mammogram was performed 5 month(s) ago. Patient History: Menarche at age 14. First Full-Term at age 20. Left ovary removed at age 45. Right ovary removed at age 45. Hysterectomy at age 45. Postmenopausal. Breast cancer, left, age 64. Hormonal Contraceptives for 2 years from age 20 until age 24. 07/22/2024, Lumpectomy on the Left side. 07/22/2024, Malignant MG pre op needle loc LT on the left side. 05/07/2024, High risk US biopsy breast VAD LT on the left side. Benign Excisional Biopsy on the right side. 1999, Excisional Biopsy on the Left side. Maternal aunt had breast cancer, age 60. Maternal aunt had breast cancer. Sister had breast cancer, age 40. Prior Study Comparison: 04/23/2024 Bilateral MG 3D screening mammo w/cad, [facility]. 04/29/2024 Left MG 3D work up w/cad LT, [facility]. 05/07/2024 Left MG diagnostic mammo LT wo CAD., [facility]. Tissue Density: Left: The breasts are heterogeneously dense, which may obscure small masses. Findings: Analyzed By CAD. New surgical clips are present. A few tiny punctate calcifications in the left breast are redemonstrated. The targeted biopsy clip is not identified on today's mammogram. Overall Assessment: Probably benign, BI-RAD 3 Management: Diagnostic Mammogram of both breasts in 8 months. Surgical evaluation to address close margins on surgical excision. Results were given to the patient verbally at the time of exam. Patient should continue monthly self-breast exams. A clinical breast exam by your physician is recommended on an annual basis. This exam should not preclude additional follow-up of suspicious palpable abnormalities. Note on Jayshree scores and lifetime risk: 1. A Jayshree score greater than 3% is considered moderate risk. If this is the case, consider specialist referral to assess eligibility for a risk reducing agent. 2. If overall lifetime risk for the development of breast cancer is 20% or higher, the patient may qualify for future screening with alternating mammogram and breast MRI. [facility], Workstation: 3, 09/11/2024 11:25 AM. Electronically signed and approved by: Henri Hunt M.D.
== END | disposition home or self-care (01) ==
LOC: RADMAMWWP 11:03
PROVIDERS: ATTEND Surgery
DX: R92.333 Mammographic heterogeneous density, bilateral breasts (principal); Z85.3 Personal history of malignant neoplasm of breast; Z78.0 Asymptomatic menopausal state; Z80.3 Family history of malignant neoplasm of breast
CPT/HCPCS: 77065; G0279; 77061

== ENCOUNTER → 2024-09-12 | Outpatient (CLI) | payer MEDICARE ==
[2024-09-12 13:49] VITALS: BP 145/85; PULSE 89; RESP 16; TEMP 98.1
--- NOTE | 2024-09-12 14:28 | P.PN ---
Subjective Progress Note Date: 09/12/24 Principal diagnosis: DCIS left breast 06/27/24 Reason for Consult: atypical intraductal papilloma left breast 05-07-24/ DCIS left breast 07-22-24 Requesting physician: Mike Carter History of present illness: Marian is a 64 year old female seen in consultation for DR. Carter regarding a biopsy proven left breast intraductal papiloma with atypia. She had a bilateral screening mammogram on 04-23-24, this led to additiona mammogram and ultrasound of the left breast. This showed a 2.6 cm area of concern at the 12:00 area of the left breast and biopsy recommended. This was done on 05-07-24 which showed the atypical intraductal papiloma. The clip is in the correct location. These were personally reviewed and discussed with Dr. Wolf. She has had bilateral beast biopsies in the OR no cancer. No other breast surgery prior to this. She did have left nipple discharge several months ago which has stopped. She was not complaining of any recent infection in the b reast. The patient felt a spot in her right breast near where the biopsy was done for about two months. It had increased in size. She got kicked in the chest by her grandson after she had the biopsy. It was an accident. It did not turn black and blue. She gets mammograms on a regular basis. On 07-22-24 she had excision in tk OR of hte left bresat lesion. This showed atypical intraductal papilloma, DCIS close to and < 1mm from inferior, medical, and posterior margins. Clip was not int he specimen but mammogram on 09-11-24 shows clip is not in the breast. Note Dr. Smith reviewed 09-04-24 re-excision of close margins and probable hormone and radiation therapy She is doing well at this time. The potential benefit of an MRI and the fact that it may be more positive than specific and we will attempt to get one. Caffiene: 4 cups/day nicotine: 1.2 PPD since a teen ages chocolate: occasional BCP: never used hormones: none Family History: not know about any genetic testing for family sister: breast cancer maternal aunt: 3 breast cancer father: cancer colon Hormonal History: menarche: 14 , breast fed: no, age at first : 20 menopause: hysterectomy at 48, took ovaries, not for cancer Surgical History: two back surgeries tonsil knee scopes two ankle breast bilateral lumps removed 2 C-sections hysterectomy bladder repair left breast lumpectomy 07-22-24 Medical History: graves disease in the past heart murmur (Dr. Cox) Social History: nicotine: 1/2 PPD alcohol: none drugs: none Review of Systems - Constitutional Denies fever, Denies weight loss - EENT Eyes: denies blurred vision Ears: deny: decreased hearing, tinnitus Ears, nose, mouth and throat: Denies dysphagia - Breasts bilateral: as per HPI - Cardiovascular Cardiovascular Comment(s): murmor Dr. Cox Reports as per HPI - Respiratory Reports as per HPI, Reports cough - Gastrointestinal Reports as per HPI - Genitourinary Genitourinary: Denies dysuria, Denies hematuria Menstruation: Reports post hysterectomy - Musculoskeletal Musculoskeleta Comment(s): back surgery/sciatica Reports as per HPI - Integumentary Denies rash, Denies unusual bruising - Neurological Denies headaches, Denies syncope - Psychiatric Reports as per HPI - Endocrine Reports weight change - Hematologic/Lymphatic Denies easy bleeding, Denies easy bruising - Allergic/Immunologic Reports as per HPI, Reports seasonal allergies Past Medical History Past Medical History: Hyperlipidemia, Hypertension, Thyroid Disorder Additional Past Medical History / Comment(s): Grave's Disease. lt ankle torn tendon History of Any Multi-Drug Resistant Organisms: None Reported Past Surgical History: Back Surgery Additional Past Surgical History / Comment(s): Excisional breast memo lumpectomy, lipoma removed from rt side, memo knee arthroscopy. Past Anesthesia/Blood Transfusion Reactions: Previous Problems w/ Anesthesia Additional Past Anesthesia/Blood Transfusion Reaction / Comm: allergic reaction to propofol. mother allergic to propofol Past Psychological History: No Psychological Hx Reported Additional Psychological History / Comment(s): raising 7 grandchildren Smoking Status: Current every day smoker Past Alcohol Use History: None Reported Additional Past Alcohol Use History / Comment(s): smoker for years 1/2 ppd Past Drug Use History: None Reported - Past Family History Mother Family Medical History: Coronary Artery Disease (CAD) Father Family Medical History: Cancer Sister(s) Family Medical History: Cancer Medications and Allergies Home Medications Medication Instructions Recorded Confirmed Type Triamterene-Hctz 37.5-25Mg 1 each PO QAM 04/14/14 06/27/24 History [Dyazide 37.5-25 Capsule] Escitalopram [Lexapro] 10 mg PO QAM 01/29/19 06/27/24 History Levothyroxine Sodium [Synthroid] 100 mcg PO QAM 01/29/19 06/27/24 History Pravastatin Sodium [Pravachol] 40 mg PO QAM 01/29/19 06/27/24 History atenoloL [Atenolol] 25 mg PO QAM 01/29/19 06/27/24 History Ibuprofen [Motrin] 600 mg PO Q6HR PRN 11/06/22 06/27/24 History Meclizine [Antivert] 25 mg PO TID PRN #40 tab 10/08/23 06/27/24 Rx Allergies Allergy/AdvReac Type Severity Reaction Status Date / Time lisinopril Allergy Confusion Verified 06/27/24 12:36 prednisone Allergy Rash/Hives Verified 06/27/24 12:36 promethazine HCl Allergy Confusion Verified 06/27/24 12:36 [From Phenergan] propofol Allergy Unknown Verified 06/27/24 12:36 hydrochlorothiazide AdvReac Unknown Verified 06/27/24 12:36 STEROIDS Allergy Unknown Uncoded 06/27/24 12:36 Objective - Vital Signs Vital signs: Vital Signs Temp 98.1 F 09/12/24 13:47 Pulse 89 09/12/24 13:47 Resp 16 09/12/24 13:47 BP 145/85 09/12/24 13:47 Pulse Ox 96 09/12/24 13:47 FiO2 Intake & Output 09/11/24 09/12/24 09/12/24 18:59 06:59 18:59 Weight 79.379 kg - Constitutional General appearance: Present: cooperative - EENT Eyes: Present: EOMI - Neck Neck: Present: normal ROM - Respiratory Respiratory: bilateral: CTA - Cardiovascular Rhythm: regular Heart sounds: normal: S1, S2 - Integumentary Integumentary: Present: normal turgor - Musculoskeletal Musculoskeletal: Present: gait normal - Psychiatric Psychiatric: Present: A&O x's 3, appropriate affect, intact judgment & insight - Additional findings Additional findings: Breast Exam: BRA: 36C Inspection: Bilateral grade 2 ptosis Palpation: Right breast: Multi positional exam fibrocystic changes no dominant masses or nodules of concern Right axilla: No adenopathy of concern Left breast: Multi positional exam mass well-healed scar from prior surgery no dominant masses or nodules of concern Left axilla: No adenopathy of concern Assessment and Plan Assessment: Impression: Left breast mass/biopsy atypical intraductal papilloma/CIS with close margins inferior medial and posterior Nicotine dependence Back pain/back surgeries Cardiac murmur Original clip for the left breast [place] [id number] Plan: Left breast mammogram personally reviewed original clip not in breast, 3 25 MRI bilateral breast ordered note medical oncology reviewed Surgery scheduled: Reexcision of inferior/medial/posterior margins left breast lumpectomy site Patient encouraged to stop smoking prior to the surgery Cardiac clearance Clearance from primary care doctor Dr. Carter Risk and benefits of the procedure discussed with the patient. Risk include but are not limited to bleeding, infection, reaction to the anesthetic. CC: Dr. Carter, Dr. Cox
== END ==
LOC: WWCWWP 13:06
PROVIDERS: ATTEND Surgery
DX: D05.12 Intraductal carcinoma in situ of left breast (principal); N63.20 Unspecified lump in the left breast, unspecified quadrant; R01.1 Cardiac murmur, unspecified; F17.210 Nicotine dependence, cigarettes, uncomplicated; Z88.8 Allergy status to other drugs, medicaments and biological substances; Z88.4 Allergy status to anesthetic agent

== ENCOUNTER → 2024-10-11 | Outpatient (CLI) | payer MEDICARE ==
--- NOTE | 2024-10-21 11:05 | BMR ---
EXAM DATE: 10/11/2024 EXAM DESCRIPTION: MRI-Breast Bilat (W/WO Contrast) INDICATION: Diagnostic MRI left breast intraductal papilloma DCIS, surgical specimen demonstrates DCIS less than 1 mm from the inferior, medial and posterior margins. COMPARISON: Comparison is made with relevant prior imaging in PACS. CONTRAST: 8.0 cc of Gadavist TECHNIQUE: Multiplanar MRI imaging of both breasts was performed with a dedicated breast coil, before and after intravenous administration of gadolinium contrast, using the standard breast mass protocol. Computer-aided detection was used to aid in interpretation. Study was performed at [facility] with Radiologic interpretation by [facility]. Images were made available at a later date with additional medical information requested. FINDINGS: General breast composition: The breast is heterogeneously dense Background parenchymal enhancement: Marked FINDINGS: Right Breast: Review of the dynamic contrast-enhanced series shows no rapidly enhancing masses, suspicious enhancement patterns or other abnormalities. The T2 weighted series shows no abnormality. Left Breast: Review of the dynamic contrast-enhanced series shows post lumpectomy changes with a 3.6 x 2.5 cm seroma with surrounding enhancement within the lumpectomy bed. There is marked background parenchymal enhancement which limits evaluation for small masses and non mass enhancement however no significant masses identified. There is a T2 bright oval mass in the lower outer breast at posterior depth with hypointense septations measuring 1.0 x 0.8 x 1.0 cm. IMPRESSION: Right Breast: BI-RADS Category1- Negative No MRI evidence of malignancy. Recommendation: Routine screening. Left Breast: BI-RADS Category 3- Probably benign 1. Post lumpectomy changes in the upper central breast with a 3 cm seroma and surrounding enhancement, likely postsurgical. There is marked background parenchymal enhancement which limits the evaluation for small masses and non mass enhancement however no MRI evidence of a suspicious breast mass. If re- excision is being considered mammographic evaluation of calcifications would be a more sensitive examination, alternatively targeted ultrasound could be performed.. 2. 1 cm mass in the lower outer breast at posterior depth with MR characteristics suggestive of a fibroadenoma, targeted ultrasound is recommended for further evaluation. Management based on sonographic findings. Recommendation: Targeted left breast ultrasound. OVERALL ASSESSMENT -- BI-RADS 3 MTDD
== END | disposition home or self-care (01) ==
LOC: RADMRIMAIN 09:12
PROVIDERS: ATTEND Surgery
DX: D24.2 Benign neoplasm of left breast (principal); N63.23 Unspecified lump in the left breast, lower outer quadrant
CPT/HCPCS: C8908; A9585; 77049

== ENCOUNTER → 2024-10-23 | Outpatient (CLI) | payer MEDICARE ==
--- NOTE | 2024-10-24 07:12 | USB ---
Reason for Exam: Follow-up at short interval from prior study. Patient History: Menarche at age 14. First Full-Term at age 20. Left ovary removed at age 45. Right ovary removed at age 45. Hysterectomy at age 45. Postmenopausal. Breast cancer, left, age 64. Hormonal Contraceptives for 2 years from age 20 until age 24. 07/22/2024, Lumpectomy on the Left side. 07/22/2024, Malignant MG pre op needle loc LT on the left side. 05/07/2024, High risk US biopsy breast VAD LT on the left side. Benign Excisional Biopsy on the right side. 1999, Excisional Biopsy on the Left side. Maternal aunt had breast cancer, age 60. Maternal aunt had breast cancer. Maternal aunt had breast cancer. Paternal cousin had breast cancer. Sister had breast cancer, age 40. Technique: Method: Targeted. Prior Study Comparison: 04/29/2024 Left MG 3D work up w/cad LT, [facility]. 05/07/2024 Left MG diagnostic mammo LT wo CAD., [facility]. 09/11/2024 Left MG 3D diag mammo w/cad LT, [facility]. Findings: The lower section of the breast of the left breast, the axilla of the left breast and the retroareolar of the left breast were scanned. Targeted ultrasound. At 5:00 position 6 cm distance from nipple there is lobulated 8 x 9 x 7 mm hypoechoic hypervascular mass. This is believed to correspond to lesion of concern on MRI. Vascular kinetics on MRI favor a benign lesion but ultrasound characteristics are little more suspicious with lobulated margins. Overall Assessment: Suspicious, BI-RAD 4 Management: Ultrasound Core Biopsy of the left breast. Advise surgical review. Advise tissue sampling if this lesion will possibly foreign exchange clerk. A clinical breast exam by your physician is recommended on an annual basis and results should be correlated with mammographic findings. This exam should not preclude additional follow-up of suspicious palpable abnormalities. Results were given to the patient verbally at the time of exam. [facility], , 10/24/2024 7:09 AM. Electronically signed and approved by: Henri Hunt M.D.
== END | disposition home or self-care (01) ==
LOC: RADUSWWP 13:46
PROVIDERS: ATTEND Surgery
DX: N63.20 Unspecified lump in the left breast, unspecified quadrant (principal); Z85.3 Personal history of malignant neoplasm of breast; Z80.3 Family history of malignant neoplasm of breast; Z78.0 Asymptomatic menopausal state

== ENCOUNTER → 2024-10-23 | Outpatient (CLI) | payer MEDICARE | LOC: WWCWWP 13:48 | PROVIDERS: ATTEND Surgery | DX: Z53.9 Procedure and treatment not carried out, unspecified reason (principal) ==

== ENCOUNTER → 2024-10-24 | Outpatient (CLI) | payer MEDICARE ==
[2024-10-24 11:41] VITALS: BP 137/87; PULSE 99; RESP 16; TEMP 98.9
--- NOTE | 2024-10-24 11:55 | P.PN ---
Subjective Progress Note Date: 10/24/24 DCIS left breast 06/27/24 Reason for Consult: atypical intraductal papilloma left breast 05-07-24/ DCIS left breast 07-22-24 Requesting physician: Mike Carter History of present illness: Marian is a 64 year old female seen in consultation for DR. Carter regarding a biopsy proven left breast intraductal papiloma with atypia. She had a bilateral screening mammogram on 04-23-24, this led to additiona mammogram and ultrasound of the left breast. This showed a 2.6 cm area of concern at the 12:00 area of the left breast and biopsy recommended. This was done on 05-07-24 which showed the atypical intraductal papiloma. The clip is in the correct location. These were personally reviewed and discussed with Dr. Wolf. She has had bilateral beast biopsies in the OR no cancer. No other breast loja rgery prior to this. She did have left nipple discharge several months ago which has stopped. She was not complaining of any recent infection in the breast. The patient felt a spot in her right breast near where the biopsy was done for about two months. It had increased in size. She got kicked in the chest by her grandson after she had the biopsy. It was an accident. It did not turn black and blue. She gets mammograms on a regular basis. On 07-22-24 she had excision in the OR of the left breast lesion. This showed atypical intraductal papilloma, DCIS close to and < 1mm from inferior, medical, and posterior margins. Clip was not in the specimen but mammogram on 09-11-24 shows clip is not in the breast. Note Dr. Smith reviewed 09-04-24 re-excision of close margins and probable hormone and radiation therapy She is doing well at this time. The potential benefit of an MRI and the fact that it may be more positive than specific and we will attempt to get one. She underwent an MRI of both breast on 10-11-2024. The MRI in the right breast did not reveal any abnormalities of concern. Left breast MRI revealed enhancement around the seroma lumpectomy cavity as well as a questionable area at 1 x 8 x 1 cm in the lower outer breast. An ultrasound of this area was recommended. An ultrasound of this area was performed on 10 23 24. This was reviewed personally with Dr. Hardin and the concern is that the patient should undergo an ultrasound core biopsy of this area prior to any further surgical intervention. She is going to have an ultrasound core of the left breast on Sunday10-27-24 She is not complaining of any other new lumps masses or nodules of concern in either breast Caffiene: 4 cups/day nicotine: 1.2 PPD since a teen ages chocolate: occasional BCP: never used hormones: none Family History: not know about any genetic testing for family sister: breast cancer maternal aunt: 3 breast cancer father: cancer colon Hormonal History: menarche: 14 , breast fed: no, age at first : 20 menopause: hysterectomy at 48, took ovaries, not for cancer Surgical History: two back surgeries tonsil knee scopes two ankle breast bilateral lumps removed 2 C-sections hysterectomy bladder repair left breast lumpectomy 07-22-24 Medical History: graves disease in the past heart murmur (Dr. oCx) Social History: nicotine: 1/2 PPD alcohol: none drugs: none Review of Systems - Constitutional Denies fever, Denies weight loss - EENT Eyes: denies blurred vision Ears: deny: decreased hearing, tinnitus Ears, nose, mouth and throat: Denies dysphagia - Breasts bilateral: as per HPI - Cardiovascular Cardiovascular Comment(s): murmor Dr. Cox Reports as per HPI - Respiratory Reports as per HPI, Reports cough - Gastrointestinal Reports as per HPI - Genitourinary Genitourinary: Denies dysuria, Denies hematuria Menstruation: Reports post hysterectomy - Musculoskeletal Musculoskeleta Comment(s): back surgery/sciatica Reports as per HPI - Integumentary Denies rash, Denies unusual bruising - Neurological Denies headaches, Denies syncope - Psychiatric Reports as per HPI - Endocrine Reports weight change - Hematologic/Lymphatic Denies easy bleeding, Denies easy bruising - Allergic/Immunologic Reports as per HPI, Reports seasonal allergies Past Medical History Past Medical History: Hyperlipidemia, Hypertension, Thyroid Disorder Additional Past Medical History / Comment(s): Grave's Disease. lt ankle torn tendon History of Any Multi-Drug Resistant Organisms: None Reported Past Surgical History: Back Surgery Additional Past Surgical History / Comment(s): Excisional breast memo lumpectomy, lipoma removed from rt side, memo knee arthroscopy. Past Anesthesia/Blood Transfusion Reactions: Previous Problems w/ Anesthesia Additional Past Anesthesia/Blood Transfusion Reaction / Comm: allergic reaction to propofol. mother allergic to propofol Past Psychological History: No Psychological Hx Reported Additional Psychological History / Comment(s): raising 7 grandchildren Smoking Status: Current every day smoker Past Alcohol Use History: None Reported Additional Past Alcohol Use History / Comment(s): smoker for years 1/2 ppd Past Drug Use History: None Reported - Past Family History Mother Family Medical History: Coronary Artery Disease (CAD) Father Family Medical History: Cancer Sister(s) Family Medical History: Cancer Medications and Allergies Home Medications Medication Instructions Recorded Confirmed Type Triamterene-Hctz 37.5-25Mg 1 each PO QAM 04/14/14 06/27/24 History [Dyazide 37.5-25 Capsule] Escitalopram [Lexapro] 10 mg PO QAM 01/29/19 06/27/24 History Levothyroxine Sodium [Synthroid] 100 mcg PO QAM 01/29/19 06/27/24 History Pravastatin Sodium [Pravachol] 40 mg PO QAM 01/29/19 06/27/24 History atenoloL [Atenolol] 25 mg PO QAM 01/29/19 06/27/24 History Ibuprofen [Motrin] 600 mg PO Q6HR PRN 11/06/22 06/27/24 History Meclizine [Antivert] 25 mg PO TID PRN #40 tab 10/08/23 06/27/24 Rx Allergies Allergy/AdvReac Type Severity Reaction Status Date / Time lisinopril Allergy Confusion Verified 06/27/24 12:36 prednisone Allergy Rash/Hives Verified 06/27/24 12:36 promethazine HCl Allergy Confusion Verified 06/27/24 12:36 [From Phenergan] propofol Allergy Unknown Verified 06/27/24 12:36 hydrochlorothiazide AdvReac Unknown Verified 06/27/24 12:36 STEROIDS Allergy Unknown Uncoded 06/27/24 12:36 Objective - Vital Signs Vital signs: Vital Signs Temp 98.9 F 10/24/24 11:38 Pulse 99 10/24/24 11:38 Resp 16 10/24/24 11:38 BP 137/87 10/24/24 11:38 Pulse Ox 97 10/24/24 11:38 FiO2 Intake & Output 10/23/24 10/24/24 10/24/24 18:59 06:59 18:59 Weight 81.647 kg - Constitutional General appearance: Present: cooperative - EENT Eyes: Present: EOMI ENT: Present: hearing grossly normal - Neck Neck: Present: normal ROM - Respiratory Respiratory: bilateral: CTA - Cardiovascular Rhythm: regular Heart sounds: normal: S1, S2 - Integumentary Integumentary: Present: normal turgor - Musculoskeletal Musculoskeletal: Present: gait normal - Psychiatric Psychiatric: Present: A&O x's 3, appropriate affect, intact judgment & insight - Additional findings Additional findings: Breast Exam: BRA: 36C Inspection: Bilateral grade 2 ptosis Palpation: Right breast: Multi positional exam fibrocystic changes no dominant masses or nodules of concern Right axilla: No adenopathy of concern Left breast: Multi positional exam mass well-healed scar from prior surgery no dominant masses or nodules of concern Left axilla: No adenopathy of concern Assessment and Plan Assessment: Impression: Left breast mass/biopsy atypical intraductal papilloma/CIS with close margins inferior medial and posterior Nicotine dependence Back pain/back surgeries Cardiac murmur Original clip for the left breast lumpectomy [place] [id number] -10-11-2024 revealed an area of concern in the left breast remote from the site of lumpectomy ultrasound of this revealed a lobulated lesion for which ultrasound core biopsy was recommended Plan: Left breast mammogram personally reviewed original clip not in breast, 3 Ultrasound core biopsy left breast lesion; this may change the surgical intervention Follow-up after ultrasound core biopsy left breast prior to reexcision of the lumpectomy site Surgery scheduled: Reexcision of inferior/medial/posterior margins left breast lumpectomy site Patient encouraged to stop smoking prior to the surgery Cardiac clearance Clearance from primary care doctor Dr. Carter
== END ==
LOC: WWCWWP 10:47
PROVIDERS: ATTEND Surgery
DX: D24.2 Benign neoplasm of left breast (principal); N63.0 Unspecified lump in unspecified breast; F17.200 Nicotine dependence, unspecified, uncomplicated; Z88.8 Allergy status to other drugs, medicaments and biological substances; Z88.5 Allergy status to narcotic agent; Z88.4 Allergy status to anesthetic agent

== ENCOUNTER → 2024-10-27 | Day surgery (SDC) | payer MEDICARE ==
--- NOTE | 2024-10-30 08:18 | MM ---
Reason for Exam: Post Procedure Mammogram. Last screening mammogram was performed 7 month(s) ago. Patient History: Menarche at age 14. First Full-Term at age 20. Left ovary removed at age 45. Right ovary removed at age 45. Hysterectomy at age 45. Postmenopausal. Breast cancer, left, age 64. Hormonal Contraceptives for 2 years from age 20 until age 24. 07/22/2024, Lumpectomy on the Left side. 07/22/2024, Malignant MG pre op needle loc LT on the left side. 05/07/2024, High risk US biopsy breast VAD LT on the left side. Benign Excisional Biopsy on the right side. 1999, Excisional Biopsy on the Left side. Maternal aunt had breast cancer, age 60. Maternal aunt had breast cancer. Maternal aunt had breast cancer. Paternal cousin had breast cancer. Sister had breast cancer, age 40. Prior Study Comparison: 04/29/2024 Left MG 3D work up w/cad LT, [facility]. 05/07/2024 Left MG diagnostic mammo LT wo CAD., [facility]. 09/11/2024 Left MG 3D diag mammo w/cad LT, [facility]. Tissue Density: Left: The breasts are heterogeneously dense, which may obscure small masses. Pathology Description: Location: 5 o'clock. Marker Left Behind. Needle Type: Mammotome Cores: 7 Skin Nicks: 1 Gauge: 13 The procedure of ultrasound guided core biopsy was explained to the patient. Benefits, alternatives, and risks were discussed. An informed consent was then obtained. The patient was placed in supine positioning for imaging and for the procedure. The overlying skin was prepped and draped in usual sterile fashion. Lidocaine buffered with bicarbonate was used as anesthetic into the skin and subcutaneous tissue up to area of concern in the left breast. A juliann was made with surgical scalpel. Under ultrasound guidance, a 12-gauge vacuum assisted biopsy gun device was used to obtain 7 core samples. Following this, a biopsy clip was left in lesion. The patient tolerated the procedure well without any immediate complication. The patient was kept in the radiology department for short stay after the procedure and then discharged home in stable condition. Postprocedure mammogram: The patient was transferred to mammography for physician ordered post procedure mammogram which was unable to verify placement due to position in the inferior outer aspect of the breast multiple images were performed. Post procedure mammogram demonstrates appropriate placement of clip. Impression: Successful, uncomplicated ultrasound guided core biopsy of area of concern in the left breast, full pathology results to follow. [facility], , 10/27/2024 11:31 AM. Pathology Results: Result: High risk, Intraductual papilloma high risk. Pathology and radiology were reviewed. Findings are concordant. Left breast, 5:00 6 cm from nipple, needle core biopsy: Intraductal papilloma with sclerosis and background fibrocystic changes with calcifications. Overall Assessment: High risk Assessment: MG diagnostic mammo LT wo CAD. - Left: Probably benign, BI-RAD 3. Management: Surgical Consultation of the left breast. Electronically signed and approved by: David Ward DO
== END ==
LOC: RADUSWWP 10:10
PROVIDERS: ATTEND Surgery
DX: C50.912 Malignant neoplasm of unspecified site of left female breast (principal); Z90.721 Acquired absence of ovaries, unilateral; Z80.3 Family history of malignant neoplasm of breast; Z85.3 Personal history of malignant neoplasm of breast; Z78.0 Asymptomatic menopausal state
CPT/HCPCS: 88305; 77065; 19083; A4648

== ENCOUNTER → 2024-10-31 | Outpatient (CLI) | payer MEDICARE ==
[2024-10-31 09:23] VITALS: BP 142/85; PULSE 65; RESP 18; TEMP 97.9
--- NOTE | 2024-10-31 10:04 | P.PN ---
Subjective Progress Note Date: 10/31/24 Principal diagnosis: close margins DCIS left breast, intraductal papilloma left breast remote site form DCIS DCIS left breast 06/27/24 Reason for Consult: atypical intraductal papilloma left breast 05-07-24/ DCIS left breast 07-22-24 Requesting physician: Mike Carter History of present illness: Marian is a 64 year old female seen in consultation for DR. Carter regarding a biopsy proven left breast intraductal papiloma with atypia. She had a bilateral screening mammogram on 04-23-24, this led to additiona mammogram and ultrasound of the left breast. This showed a 2.6 cm area of concern at the 12:00 area of the left breast and biopsy recommended. This was done on 05-07-24 which showed the atypical intraductal papiloma. The clip is in the correct location. These were personally reviewed and discussed with Dr. Wolf. She has had bilateral beast biopsies in the OR no cancer. No other breast surgery prior to this. She did have left nipple discharge several months ago which has stopped. She was not complaining of any recent infection in the breast. The patient felt a spot in her right breast near where the biopsy was done for about two months. It had increased in size. She got kicked in the chest by her grandson after she had the biopsy. It was an accident. It did not turn black and blue. She gets mammograms on a regular basis. On 07-22-24 she had excision in the OR of the left breast lesion. This showed atypical intraductal papilloma, DCIS close to and < 1mm from inferior, medical, and posterior margins. Clip was not in the specimen but mammogram on 09-11-24 shows clip is not in the breast. Note Dr. Smith reviewed 09-04-24 re-excision of close margins and probable hormone and radiation therapy She is doing well at this time. The potential benefit of an MRI and the fact that it may be more positive than specific and we will attempt to get one. She underwent an MRI of both breast on 10-11-2024. The MRI in the right breast did not reveal any abnormalities of concern. Left breast MRI revealed enhancement around the seroma lumpectomy cavity as well as a questionable area at 1 x 8 x 1 cm in the lower outer breast. An ultrasound of this area was recommended. An ultrasound of this area was performed on 10 23 24. This was reviewed personally with Dr. Hardin and the concern is that the patient should undergo an ultrasound core biopsy of this area prior to any further surgical intervention. She is going to have an ultrasound core of the left breast on Sunday10-27-24 She is not complaining of any other new lumps masses or nodules of concern in either breast ultrasound core biopsy of the left breast intraductal papilloma Caffiene: 4 cups/day nicotine: 1.2 PPD since a teen ages chocolate: occasional BCP: never used hormones: none Family History: not know about any genetic testing for family sister: breast cancer maternal aunt: 3 breast cancer father: cancer colon Hormonal History: menarche: 14 , breast fed: no, age at first : 20 menopause: hysterectomy at 48, took ovaries, not for cancer Surgical History: two back surgeries tonsil knee scopes two ankle breast bilateral lumps removed 2 C-sections hysterectomy bladder repair left breast lumpectomy 07-22-24 Medical History: graves disease in the past heart murmur (Dr. Cox) Social History: nicotine: 1/2 PPD alcohol: none drugs: none Review of Systems - Constitutional Denies fever, Denies weight loss - EENT Eyes: denies blurred vision Ears: deny: decreased hearing, tinnitus Ears, nose, mouth and throat: Denies dysphagia - Breasts bilateral: as per HPI - Cardiovascular Cardiovascular Comment(s): tavomodarryl Cox Reports as per HPI - Respiratory Reports as per HPI, Reports cough - Gastrointestinal Reports as per HPI - Genitourinary Genitourinary: Denies dysuria, Denies hematuria Menstruation: Reports post hysterectomy - Musculoskeletal Musculoskeleta Comment(s): back surgery/sciatica Reports as per HPI - Integumentary Denies rash, Denies unusual bruising - Neurological Denies headaches, Denies syncope - Psychiatric Reports as per HPI - Endocrine Reports weight change - Hematologic/Lymphatic Denies easy bleeding, Denies easy bruising - Allergic/Immunologic Reports as per HPI, Reports seasonal allergies Past Medical History Past Medical History: Hyperlipidemia, Hypertension, Thyroid Disorder Additional Past Medical History / Comment(s): Grave's Disease. lt ankle torn tendon History of Any Multi-Drug Resistant Organisms: None Reported Past Surgical History: Back Surgery Additional Past Surgical History / Comment(s): Excisional breast memo lumpectomy, lipoma removed from rt side, memo knee arthroscopy. Past Anesthesia/Blood Transfusion Reactions: Previous Problems w/ Anesthesia Additional Past Anesthesia/Blood Transfusion Reaction / Comm: allergic reaction to propofol. mother allergic to propofol Past Psychological History: No Psychological Hx Reported Additional Psychological History / Comment(s): raising 7 grandchildren Smoking Status: Current every day smoker Past Alcohol Use History: None Reported Additional Past Alcohol Use History / Comment(s): smoker for years 1/2 ppd Past Drug Use History: None Reported - Past Family History Mother Family Medical History: Coronary Artery Disease (CAD) Father Family Medical History: Cancer Sister(s) Family Medical History: Cancer Medications and Allergies Home Medications Medication Instructions Recorded Confirmed Type Triamterene-Hctz 37.5-25Mg 1 each PO QAM 04/14/14 06/27/24 History [Dyazide 37.5-25 Capsule] Escitalopram [Lexapro] 10 mg PO QAM 01/29/19 06/27/24 History Levothyroxine Sodium [Synthroid] 100 mcg PO QAM 01/29/19 06/27/24 History Pravastatin Sodium [Pravachol] 40 mg PO QAM 01/29/19 06/27/24 History atenoloL [Atenolol] 25 mg PO QAM 01/29/19 06/27/24 History Ibuprofen [Motrin] 600 mg PO Q6HR PRN 11/06/22 06/27/24 History Meclizine [Antivert] 25 mg PO TID PRN #40 tab 10/08/23 06/27/24 Rx Allergies Allergy/AdvReac Type Severity Reaction Status Date / Time lisinopril Allergy Confusion Verified 06/27/24 12:36 prednisone Allergy Rash/Hives Verified 06/27/24 12:36 promethazine HCl Allergy Confusion Verified 06/27/24 12:36 [From Phenergan] propofol Allergy Unknown Verified 06/27/24 12:36 hydrochlorothiazide AdvReac Unknown Verified 06/27/24 12:36 STEROIDS Allergy Unknown Uncoded 06/27/24 12:36 Objective - Vital Signs Vital signs: Vital Signs Temp 97.9 F 10/31/24 09:20 Pulse 65 10/31/24 09:20 Resp 18 10/31/24 09:20 BP 142/85 10/31/24 09:20 Pulse Ox 96 10/31/24 09:20 FiO2 Intake & Output 10/30/24 10/31/24 10/31/24 18:59 06:59 18:59 Weight 81.647 kg - Constitutional General appearance: Present: cooperative - EENT Eyes: Present: EOMI ENT: Present: hearing grossly normal - Neck Neck: Present: normal ROM - Respiratory Respiratory: bilateral: CTA - Cardiovascular Rhythm: regular Heart sounds: normal: S1, S2 - Integumentary Integumentary: Present: normal turgor - Musculoskeletal Musculoskeletal: Present: gait normal - Psychiatric Psychiatric: Present: A&O x's 3, appropriate affect, intact judgment & insight - Additional findings Additional findings: Breast Exam: BRA: 36C Inspection: Bilateral grade 2 ptosis Palpation: Right breast: Multi positional exam fibrocystic changes no dominant masses or nodules of concern Right axilla: No adenopathy of concern Left breast: Multi positional exam mass well-healed scar from prior surgery no dominant masses or nodules of concern Left axilla: No adenopathy of concern Assessment and Plan Assessment: Impression: Left breast mass/biopsy atypical intraductal papilloma/DCIS with close margins inferior medial and posterior Nicotine dependence Back pain/back surgeries Cardiac murmur Original clip for the left breast lumpectomy [place] [id number] 10-11-2024 revealed an area of concern in the left breast remote from the site of lumpectomy ultrasound of this revealed a lobulated lesion for which ultrasound core biopsy was recommended/ done on 10-27-24 intraductal papilloma Plan: Left breast mammogram personally reviewed original clip not in breast, 09 11 24 Ultrasound core biopsy left breast lesion; this may change the surgical intervention/ (+) for intraductal papilloma Surgery scheduled: Reexcision of inferior/medial/posterior margins left breast lumpectomy site; needle localization of intraductal papilloma site from biopsy of 10-27-24, possible oncoplastic tissue transfer ( probable need to localize via ultrasound) Patient encouraged to stop smoking prior to the surgery Cardiac clearance Clearance from primary care doctor Dr. Carter Consent: I have discussed the risks, benefits and alternative therapies for the above-mentioned procedure and for both sedation/analgesia as well as necessary blood product administration, if indicated, as they pertain to this patient. The patient has indicated understanding and acceptance of the risks and procedures discussed. And benefits of the procedure discussed with the patient and her . Risk include but are not limited to bleeding, infection, reaction to the anesthetic. If it is not possible to localize the second area of intraductal papilloma at this time we would still do a reexcision of the margins for the left breast lumpectomy site and follow the other area closely. If margins were positive or she has extensive additional DCIS she may consider in the future a skin sparing mastectomy with reconstruction. CC: Dr. Carter
== END ==
LOC: WWCWWP 09:10
PROVIDERS: ATTEND Surgery
DX: D05.12 Intraductal carcinoma in situ of left breast (principal); D24.2 Benign neoplasm of left breast; N63.20 Unspecified lump in the left breast, unspecified quadrant; M54.9 Dorsalgia, unspecified; R10.11 Right upper quadrant pain; F17.210 Nicotine dependence, cigarettes, uncomplicated; Z98.890 Other specified postprocedural states; Z88.8 Allergy status to other drugs, medicaments and biological substances

== ENCOUNTER 2024-11-04 07:28 | Day surgery (SDC) | payer MEDICARE ==
[~2024-11-04 07:28] MED LIST changes: -HYDROmorphone 0.5 MG/0.5 ML SYRINGE IVP PRN; +LIDOCAINE 1% (10MG/ML) FOR IV START INTRADERMA PRN; +METHYLENE BLUE 50 MG, DEXTROSE 5% IN WATER 50 ML MISCELLANE ONE; -MIDAZOLAM 2 MG/2 ML VIAL IV PRN; -TRANEXAMIC 1,000 MG/100ML-NACL 1,000 MG in SALINE 1 100ML.BAG IVPB PRN; +fentaNYL (PF) 50 MCG/ML 2 ML AMP IV PRN
[2024-11-04] MEDS: IV FLUID CONTINUATION 1,000 ML IV ONE (08:12)
[2024-11-04] MEDS: LACTATED RINGERS 1,000 ML IV SCH (08:17)
[2024-11-04] MEDS: ALPRAZolam 0.25 MG TAB PO STA (08:18)
[2024-11-04] MEDS: ACETAMINOPHEN TAB 500 MG TAB PO PRN (08:18)
[2024-11-04] MEDS: SODIUM BICARB 8.4% 50 ML VIAL (1 MEQ/ML) MISCELLANE ONE (08:54)
[2024-11-04] MEDS: LIDOCAINE 1% INJ 10MG/ML (20 ML MDV) SQ ONE ×3 (08:54→11:29)
[2024-11-04] MEDS: METHYLENE BLUE 50 MG/10 ML VIAL MISCELLANE ONE (08:57)
--- NOTE | 2024-11-04 09:38 | P.NAPBC ---
NAPBC Queries - NAPBC Queries Was patient's case review presented at [facility] tumor board? If no, comment.: Yes Was patient's pathology reviewed at [facility]? If no, comment.: Yes Was breast conservation surgery offered? If no, comment.: Yes Was sentinel node biopsy offered? If no, comment.: No (DCIS) Was diagnosis confirmed by percutaneous core biopsy? If no, comment.: No (DCIS found on open biopsy of atypical papilloma) Is patient mastectomy patient?: No Was a preop referral to reconstructive surgeon offered?: No Clinical Stage: stage 0
[2024-11-04] MEDS: ONDANSETRON 4 MG/2 ML VIAL IVP ONE (09:50)
[2024-11-04] MEDS ORDERED: ETOMIDATE 2 MG/ML 10 ML VIAL ONE (09:51)
[2024-11-04] MEDS ORDERED: MIDAZOLAM 2 MG/2 ML VIAL ONE (09:51)
[2024-11-04] MEDS ORDERED: HYDROmorphone (PF) 1 MG/ML ONE (09:51)
[2024-11-04] MEDS ORDERED: SUCCINYLCHOLINE CHLORIDE 200 MG/10 ML VIAL IV ONE (09:51)
[2024-11-04] MEDS ORDERED: PHENYLEPHRINE-0.9% NACL SYG 1,000 MCG/10 ML SYRINGE ONE (09:51)
[2024-11-04] MEDS ORDERED: fentaNYL (PF) 50 MCG/ML 2 ML AMP ONE (09:51)
[2024-11-04] MEDS ORDERED: LIDOCAINE 1% INJ 10MG/ML (20 ML MDV) ONE (09:51)
[2024-11-04] MEDS: HEPARIN SODIUM,PORCINE 5,000 UNIT/ML 1 ML VIAL SQ PRN (09:51)
[2024-11-04] MEDS: ceFAZolin 2 GM in DEXTROSE 5% IN WATER 50 ML IVPB PRN (09:56)
--- NOTE | 2024-11-04 11:35 | P.BCAON ---
Date of Procedure: 11/04/24 Preoperative Diagnosis: DCIS close margin/intraductal papilloma Postoperative Diagnosis: Same Procedure(s) Performed: Reexcision lumpectomy site, needle localization removal of intraductal papilloma, oncoplastic tissue transfer 106.5 cm Anesthesia: GETA Surgeon: Emilee Barnes Estimated Blood Loss (ml): 5 IV fluids (ml): 300 Pathology: other (DCIS close margins inferior medial posterior/reexcision of lumpectomy site/needle localization excision of intraductal papilloma) Condition: stable Disposition: same day Indications for Procedure: DCIS close margins/core biopsy intraductal papilloma Operative Findings: Fibrofatty breast tissue Description of Procedure: The patient was seen first in the radiology suite. Ultrasound localization of the intraductal papilloma was performed as well as injection of 1-1/2 cc of blue dye. The patient was then brought to the operative suite. Following induction of anesthesia the left breast was prepped and draped in a sterile fashion. Using the prior lumpectomy incision an incision was made and carried down to the prior lumpectomy cavity. Wide excision of the entire cavity was performed. Posteriorly dissection was onto the pectoralis muscle. Through the same incision the area of the needle localization of the intraductal papilloma was approached. Dissection of the tissue in the subcutaneous plane between the subcutaneous tissue and the breast parenchyma was performed to the wire that was used for localization. The wire was brought out into the specimen. Dissection posteriorly on the wire revealed the area of where the blue dye had been injected and circumferential dissection was performed down to the area of the chest wall. The specimen was removed. The size of the reexcision lumpectomy cavity was 9 cm x 4.5 cm, the size of the lumpectomy for the wire local was 6 x 4 cm. The 2 cavities were confluent. The wound was well irrigated. A superior flap 7 x 3 cm was developed. An inferior flap 7 x 3 cm was developed. Total oncoplastic tissue transfer was 106.5 cm. Hemostasis was attained using the electrocautery device. The wound was well irrigated. Titanium clips were placed to trey the cavities. The superior and inferior pedicles were brought together and secured using 3-0 Vicryl suture. After assuring that hemostasis was attained the subcutaneous tissue was closed using 3-0 Vicryl suture. The skin was closed using 4-0 Monocryl. 1% lidocaine was used to anesthetize the area of concern. Radiograph of the specimen did not reveal the clip at the area of the papilloma however ultrasound of it did reveal that the lesion of concern had been removed and the wire was going through the lesion. All instrument and sponge counts were correct at the end of the case. The patient tolerated the procedure in stable condition.
[2024-11-04 12:04] VITALS: TEMP 97.3
[2024-11-04] MEDS: LABETALOL SYRINGE 5 MG/ML (4 ML SYR) IVP STA (12:48)
[2024-11-04 14:10] VITALS: BP 131/84; PULSE 67; RESP 18
--- NOTE | 2024-11-11 08:40 | MM ---
Reason for Exam: Post Procedure Mammogram. Last screening mammogram was performed 7 month(s) ago. Patient History: Menarche at age 14. First Full-Term at age 20. Left ovary removed at age 45. Right ovary removed at age 45. Hysterectomy at age 45. Postmenopausal. Breast cancer, left, age 64. Hormonal Contraceptives for 2 years from age 20 until age 24. 10/27/2024, High risk US biopsy breast VAD LT on the left side. 07/22/2024, Lumpectomy on the Left side. 07/22/2024, Malignant MG pre op needle loc LT on the left side. 05/07/2024, High risk US biopsy breast VAD LT on the left side. Benign Excisional Biopsy on the right side. 1999, Excisional Biopsy on the Left side. Maternal aunt had breast cancer, age 60. Maternal aunt had breast cancer. Maternal aunt had breast cancer. Paternal cousin had breast cancer. Sister had breast cancer, age 40. Prior Study Comparison: 08/09/2018 Bilateral Screening Mammogram, [facility]. 05/31/2020 Bilateral Screening Mammogram, [facility]. 12/22/2021 Bilateral MG screening mammo w CAD, [facility]. 04/23/2024 Bilateral MG 3D screening mammo w/cad, [facility]. 04/29/2024 Left MG 3D work up w/cad LT, [facility]. 05/07/2024 Left MG diagnostic mammo LT wo CAD., [facility]. 09/11/2024 Left MG 3D diag mammo w/cad LT, [facility]. 10/27/2024 Left MG diagnostic mammo LT wo CAD., [facility]. Tissue Density: Left: The breasts are heterogeneously dense, which may obscure small masses. Pathology Description: Location: 5 o'clock. Needle Type: 5 cm Kiesha The procedure of needle localization with wire placement and than surgical excision was explained to the patient. Benefits, alternatives, and risks were discussed. An informed consent was then obtained. Sonographic approach was chosen. Recent biopsy showed papilloma. This is well visualized with adjacent clip on ultrasound at 5:00 position 6 cm distance from nipple. The overlying skin was prepped and draped in usual sterile fashion. Lidocaine buffered with bicarbonate was used as anesthetic into the skin and subcutaneous tissue up to the level of area of concern. A 5 cm needle was used. It was placed via ultrasound guidance. At this point approximately 1.0 cc of methylene blue was injected by myself at the request of ordering surgeon to help her in surgical management. Following this, wire was placed and the needle was withdrawn. The wire was fixed to patient's skin. Patient has subsequent diagnostic mammogram per surgeon request. This shows the wire to be in satisfactory position relative to the targeted clip. Images were reviewed with the surgeon prior to surgery. The patient tolerated the procedure well without any immediate complication. The patient was kept in the radiology department for short stay after the procedure and then taken to surgery for surgical excision. The placed wire was identified in specimen mammogram. Targeted clip is not identified. Second specimen was excised because of margins from prior positive excisional biopsy. At this point, sonographic evaluation of the specimen appears to show wire passing through roughly 8 mm hypoechoic mass that was targeted prior to surgery. The patient was kept in hospital for short stay after the procedure and then discharged home in stable condition. Impression: Successful needle localization with wire placement and surgical excision of targeted high risk lesion or papilloma in the left breast, full pathology results to follow. [facility], , 11/04/2024 1:50 PM. Pathology Results: Result: Malignant. Pathology and radiology were reviewed. Findings are concordant. A. 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 Margins negative for DCIS. Low grade papillary DCIS measures 1 mm from the anterior/inferior margin and 2 mm from the posterior margin. High grade DCIS measures less than 1 mm from the posterior/inferior and anterior/inferior margins. Focal lobular neoplasia (ALH/LCIS). Previous biopsy site and background proliferative fibrocystic changes including moderate to florid usual type ductal hyperplasia, radial scars/complex sclerosing lesions, extensive sclerosing adenosis with calcifications, and multiple intraductal papillomas not involving the margins. See note. B. LEFT BREAST, LUMPECTOMY: Focal atypical ductal hyperplasia (ADH), margins negative. Lobular neoplasia (ALH/LCIS). Previous biopsy site and background proliferative fibrocystic changes including moderate to florid usual type ductal hyperplasia, radial scars/complex sclerosing lesions, extensive sclerosing adenosis with calcifications, focal fibroadenomatoid hyperplasia and multiple intraductal papillomas not contacting margins. Focal pseudoangiomatous stromal hyperplasia (PASH). See note. Notes Sections examined from part A show extensive residual low grade papillary DCIS, similar to that seen in the previous lumpectomy specimen ([id number]). The amount of residual low grade DCIS is estimated to be at least 21 mm by block method. In addition, there is a separate component of high grade apocrine DCIS identified in part A, which focally measures less than 1 mm from the posterior margin and less than 1 mm from the anterior/inferior margin. Calponin and SMMHC immunostains performed on block A18 highlight a myoepithelial layer surrounding small glandular and tubular structures lined by severely atypical cells, consistent with sclerosing adenosis involved by high grade DCIS and without evidence of invasive malignancy. CK5/6 immunostain performed on block B5 highlights a myoepithelial layer surrounding ducts containing papillary structures lined by cells with some atypia. The epithelial cells demonstrate weak mosaic-pattern positivity for CK5/6, with near-complete loss of staining within a rare duct. Given the findings, the focus is felt consistent with ADH. E-Cadherin immunostain performed on block B7 demonstrates loss of staining within ductal and lobular structures expanded by monotonous, atypical epithelial cells. The results confirm the diagnosis of ALH/LCIS. All immunostains were evaluated with appropriate positive controls. Given the presence of a component of high grade DCIS not seen in the previous specimen, ER and MN stains will be performed on block A16 and an addendum will follow. [employer] material from this case was reviewed by Dr. Tee Patricio, who agrees with the diagnosis of DCIS. Overall Assessment: Malignant Assessment: MG diagnostic mammo LT wo CAD. - Left: Known biopsy proven malignancy, BI-RAD 6. Management: Diagnostic Mammogram of the left breast in 6 months. Electronically signed and approved by: Henri Hunt M.D.
== END 2024-11-04 14:19 | disposition home or self-care (01) ==
LOC: OR 07:28
PROVIDERS: ATTEND Surgery
DX: D05.12 Intraductal carcinoma in situ of left breast (principal); D24.2 Benign neoplasm of left breast; N64.81 Ptosis of breast; I10 Essential (primary) hypertension; I25.10 Atherosclerotic heart disease of native coronary artery without angina pectoris; E78.2 Mixed hyperlipidemia; E03.8 Other specified hypothyroidism; I08.1 Rheumatic disorders of both mitral and tricuspid valves; K21.9 Gastro-esophageal reflux disease without esophagitis; E55.9 Vitamin D deficiency, unspecified; F32.A Depression, unspecified; Z91.89 Other specified personal risk factors, not elsewhere classified; F17.210 Nicotine dependence, cigarettes, uncomplicated; Z79.890 Hormone replacement therapy; Z79.82 Long term (current) use of aspirin; Z79.899 Other long term (current) drug therapy; Z88.4 Allergy status to anesthetic agent; Z88.5 Allergy status to narcotic agent; Z88.8 Allergy status to other drugs, medicaments and biological substances; Z80.3 Family history of malignant neoplasm of breast
CPT/HCPCS: 19301; 14301; 14302 ×2; 88342; 88307; 88341; 77065; 76098; 76999; 19285; C1819; J2250; J0330; J1644; J0690; J2405; J2003; J3010; J1171; Q9968; J2371; J1920

== ENCOUNTER → 2025-01-01 | Outpatient (CLI) | payer MEDICARE ==
[2025-01-01 15:23] VITALS: BP 117/71; PULSE 82; RESP 17; TEMP 97.5
--- NOTE | 2025-01-01 16:04 | P.BCPN ---
Subjective Progress Note Date: 01/01/25 Subjective Progress Note Date:01-01-25 Principal diagnosis: DCIS multiple sites/ multiple papillomas 11/12/24 post op Principal diagnosis: close margins DCIS left breast, intraductal papilloma left breast remote site form DCIS DCIS left breast 06/27/24 Reason for Consult: atypical intraductal papilloma left breast 05-07-24/ DCIS left breast 07-22-24 Requesting physician: Mike Carter History of present illness: Marian is a 64 year old female seen in consultation for DR. Carter regarding a biopsy proven left breast intraductal papiloma with atypia. She had a bilateral screening mammogram on 04-23-24, this led to additiona mammogram and ultrasound of the left breast. This showed a 2.6 cm area of concern at the 12:00 area of the left breast and biopsy recommended. This was done on 05-07-24 which showed the atypical intraductal papiloma. The clip is in the correct location. These were personally reviewed and discussed with Dr. Wolf. She has had bilateral beast biopsies in the OR no cancer. No other breast surgery prior to this. She did have left nipple discharge several months ago which has stopped. She was not complaining of any recent infection in the breast. The patient felt a spot in her right breast near where the biopsy was done for about two months. It had increased in size. She got kicked in the chest by her grandson after she had the biopsy. It was an accident. It did not turn black and blue. She gets mammograms on a regular basis. On 07-22-24 she had excision in the OR of the left breast lesion. This showed atypical intraductal papilloma, DCIS close to and < 1mm from inferior, medial, and posterior margins. Clip was not in the specimen but mammogram on 09-11-24 shows clip is not in the breast. Note Dr. Smith reviewed 09-04-24 re-excision of close margins and probable hormone and radiation therapy She is doing well at this time. The potential benefit of an MRI and the fact that it may be more positive than specific and we will attempt to get one. She underwent an MRI of both breast on 10-11-2024. The MRI in the right breast did not reveal any abnormalities of concern. Left breast MRI revealed enhancement around the seroma lumpectomy cavity as well as a questionable area at 1 x 8 x 1 cm in the lower outer breast. An ultrasound of this area was recommended. An ultrasound of this area was performed on 10 23 24. This was reviewed personally with Dr. Hunt and the concern is that the patient should undergo an ultrasound core biopsy of this area prior to any further surgical intervention. She is going to have an ultrasound core of the left breast on Sunday10-27-24 She is not complaining of any other new lumps masses or nodules of concern in either breast ultrasound core biopsy of the left breast intraductal papilloma The patient underwent reexcision of the biopsy cavity on 11-04-2024. This revealed multiple intraductal papillomas as well as atypical ductal hyperplasia. Additionally she had 2 separate foci of DCIS 1 which was low-grade papillary DCIS and 1 which was high-grade DCIS. Both of these are close to margins. Genetic testing is (-) Case presented at tumor board on 11 24 24. Agreement with left breast mastectomy. Patient had genetic testing done and was given a verbal report that this was negative we need these test results to be sent to us. The patient is going to meet with Dr. Rosales regarding immediate reconstruction of the left side. We discussed that she may have pathology in the right breast and she does not want any treatment of that side at this time. Caffeine: 4 cups/day nicotine: 1.2 PPD since a teen ages chocolate: occasional BCP: never used hormones: none Family History: not know about any genetic testing for family sister: breast cancer maternal aunt: 3 breast cancer father: cancer colon Hormonal History: menarche: 14 , breast fed: no, age at first : 20 menopause: hysterectomy at 48, took ovaries, not for cancer Surgical History: two back surgeries tonsil knee scopes two ankle breast bilateral lumps removed 2 C-sections hysterectomy bladder repair left breast lumpectomy 07-22-24 Medical History: graves disease in the past heart murmur (Dr. Cox) Social History: nicotine: 1/2 PPD alcohol: none drugs: none Review of Systems - Constitutional Denies fever, Denies weight loss - EENT Eyes: denies blurred vision Ears: deny: decreased hearing, tinnitus Ears, nose, mouth and throat: Denies dysphagia - Breasts bilateral: as per HPI - Cardiovascular Cardiovascular Comment(s): murmor Dr. Samman Reports as per HPI - Respiratory Reports as per HPI, Reports cough - Gastrointestinal Reports as per HPI - Genitourinary Genitourinary: Denies dysuria, Denies hematuria Menstruation: Reports post hysterectomy - Musculoskeletal Musculoskeleta Comment(s): back surgery/sciatica Reports as per HPI - Integumentary Denies rash, Denies unusual bruising - Neurological Denies headaches, Denies syncope - Psychiatric Reports as per HPI - Endocrine Reports weight change - Hematologic/Lymphatic Denies easy bleeding, Denies easy bruising - Allergic/Immunologic Reports as per HPI, Reports seasonal allergies Past Medical History Past Medical History: Hyperlipidemia, Hypertension, Thyroid Disorder Additional Past Medical History / Comment(s): Grave's Disease. lt ankle torn tendon History of Any Multi-Drug Resistant Organisms: None Reported Past Surgical History: Back Surgery Additional Past Surgical History / Comment(s): Excisional breast memo lumpectomy, lipoma removed from rt side, memo knee arthroscopy. Past Anesthesia/Blood Transfusion Reactions: Previous Problems w/ Anesthesia Additional Past Anesthesia/Blood Transfusion Reaction / Comm: allergic reaction to propofol. mother allergic to propofol Past Psychological History: No Psychological Hx Reported Additional Psychological History / Comment(s): raising 7 grandchildren Smoking Status: Current every day smoker Past Alcohol Use History: None Reported Additional Past Alcohol Use History / Comment(s): smoker for years 1/2 ppd Past Drug Use History: None Reported - Past Family History Mother Family Medical History: Coronary Artery Disease (CAD) Father Family Medical History: Cancer Sister(s) Family Medical History: Cancer Medications and Allergies Home Medications Medication Instructions Recorded Confirmed Type Triamterene-Hctz 37.5-25Mg 1 each PO QAM 04/14/14 06/27/24 History [Dyazide 37.5-25 Capsule] Escitalopram [Lexapro] 10 mg PO QAM 01/29/19 06/27/24 History Levothyroxine Sodium [Synthroid] 100 mcg PO QAM 01/29/19 06/27/24 History Pravastatin Sodium [Pravachol] 40 mg PO QAM 01/29/19 06/27/24 History atenoloL [Atenolol] 25 mg PO QAM 01/29/19 06/27/24 History Ibuprofen [Motrin] 600 mg PO Q6HR PRN 11/06/22 06/27/24 History Meclizine [Antivert] 25 mg PO TID PRN #40 tab 10/08/23 06/27/24 Rx Allergies Allergy/AdvReac Type Severity Reaction Status Date / Time lisinopril Allergy Confusion Verified 06/27/24 12:36 prednisone Allergy Rash/Hives Verified 06/27/24 12:36 promethazine HCl Allergy Confusion Verified 06/27/24 12:36 [From Phenergan] propofol Allergy Unknown Verified 06/27/24 12:36 hydrochlorothiazide AdvReac Unknown Verified 06/27/24 12:36 STEROIDS Allergy Unknown Uncoded 06/27/24 12:36 Objective - Constitutional General appearance: Present: cooperative - EENT Eyes: Present: EOMI ENT: Present: hearing grossly normal - Neck Neck: Present: normal ROM - Respiratory Respiratory: bilateral: CTA - Cardiovascular Rhythm: regular Heart sounds: normal: S1, S2 - Integumentary Integumentary Comment(s): Incision left breast clean and dry no evidence of infection or hematoma Integumentary: Present: normal turgor - Musculoskeletal Musculoskeletal: Present: gait normal - Psychiatric Psychiatric: Present: A&O x's 3, appropriate affect, intact judgment & insight - Additional findings Additional findings: Breast Exam: from 10-31-24 Bra: 36C Inspection: Bilateral grade 2 ptosis Palpation: Right breast: Multi positional exam fibrocystic changes no dominant masses or nodules of concern Right axilla: No adenopathy of concern Left breast: Multi positional exam prior to her excisional resection revealed well-healed scar from prior surgery with no dominant masses or nodules of concern, at this time there is a well-healed scar related to her most recent surgery with no evidence of hematoma or infection Left axilla: From preoperative examination no adenopathy of concern Assessment and Plan Assessment: Impression: Left breast reexcision of lumpectomy cavity which was positive for DCIS with close margins, an intraductal papilloma, The patient had an MRI revealing a remote area in the left breast where an ultrasound core biopsy was done and negative for DCIS but revealed intraductal papilloma and in the area of concern at the biopsy site Pathology from reexcision revealed: Left breast reexcision of entire cavity residual low-grade papillary DCIS and separate component of high-grade apocrine ductal carcinoma in situ. Margins were negative for DCIS. The low-grade papillary DCIS measured 1 mm from the anterior/inferior margin and 2 mm from the posterior margin. The high-grade DCIS measured less than 1 mm from the posterior inferior and anterior inferior margins. She also had focal lobular neoplasia ALH/LCIS. Biopsy site which was previous revealed background proliferative fibrocystic changes including moderate to florid usual type ductal hyperplasia/radial scar/complex sclerosing lesion/extensive sclerosing adenosis with calcifications, and multiple intraductal papillomas. Second lumpectomy site left breast revealed focal atypical ductal hyperplasia, it additionally revealed atypical lobular hyperplasia/lobular carcinoma in situ/and multiple intraductal papillomas. estrogen receptor and progesterone receptor were positive for the papillary DCIS, she was ER and AK negative for the high-grade DCIS Plan: In view of the extensive intraductal papillomas as well as several areas of DCIS the patient and her have discussed with me the possibility of a mastectomy with immediate reconstruction. This would be a reasonable treatment plan. The patient will have an appointment with plastic surgery We will plan to do a left breast skin sparing mastectomy with immediate reconstruction The right breast recent MRI did not show any lesions of concern and we will follow this area conservatively Genetic testing is reportedly negative represent at tumor board CC: DR. Carter Additional CC's: Mike Carter Objective - Vital Signs Vital Signs: Vital Signs Temp 97.5 F L 01/01/25 15:20 Pulse 82 01/01/25 15:20 Resp 17 01/01/25 15:20 BP 117/71 01/01/25 15:20 Pulse Ox 95 01/01/25 15:20 FiO2 Intake & Output 12/31/24 01/01/25 01/01/25 18:59 06:59 18:59 Weight 80.286 kg - Constitutional General appearance: Present: cooperative - EENT Eyes: Present: EOMI ENT: Present: hearing grossly normal - Neck Neck: Present: normal ROM - Breast Breast-Narrative: Bra: 36C Inspection: Bilateral grade 2 ptosis Palpation: Right breast: Multi positional exam fibrocystic changes no dominant masses or nodules of concern Right axilla: No adenopathy of concern Left breast: Multi positional exam prior to her excisional resection revealed well-healed scar from prior surgery with no dominant masses or nodules of concern, at this time there is a well-healed scar related to her most recent surgery with no evidence of hematoma or infection Left axilla: From preoperative examination no adenopathy of concern Ptosis: Grade 2: Right Breast Ptosis, Left Breast Ptosis Breast: right: normal Right Breast Palpation (Multi-positional): No dominant masses Left Breast Palpation (Multi-positional): Other Right Axilla Palpation: No adenopathy of concern Left Axilla Palpation: No adenopathy of concern - Respiratory Respiratory: bilateral: CTA - Cardiovascular Rhythm: regular Heart sounds: normal: S1, S2 - Integumentary Integumentary: Present: normal turgor - Musculoskeletal Musculoskeletal: Present: gait normal - Psychiatric Psychiatric: Present: A&O x's 3, appropriate affect, intact judgment & insight - Additional findings Additional findings: Breast Exam: Bra: 36C Inspection: Bilateral grade 2 ptosis Palpation: Right breast: Multi positional exam fibrocystic changes no dominant masses or nodules of concern Right axilla: No adenopathy of concern Left breast: Multi positional exam prior to her excisional resection revealed well-healed scar from prior surgery with no dominant masses or nodules of concern, at this time there is a well-healed scar related to her most recent surgery with no evidence of hematoma or infection Left axilla: From preoperative examination no adenopathy of concern Assessment and Plan Plan: Impression: Left breast reexcision of lumpectomy cavity which was positive for DCIS with close margins, an intraductal papilloma, The patient had an MRI revealing a remote area in the left breast where an ultrasound core biopsy was done and negative for DCIS but revealed intraductal papilloma and in the area of concern at the biopsy site Pathology from reexcision revealed: Left breast reexcision of entire cavity residual low-grade papillary DCIS and separate component of high-grade apocrine ductal carcinoma in situ. Margins were negative for DCIS. The low-grade papillary DCIS measured 1 mm from the ant erior/inferior margin and 2 mm from the posterior margin. The high-grade DCIS measured less than 1 mm from the posterior inferior and anterior inferior margins. She also had focal lobular neoplasia ALH/LCIS. Biopsy site which was previous revealed background proliferative fibrocystic changes including moderate to florid usual type ductal hyperplasia/radial scar/complex sclerosing lesion/extensive sclerosing adenosis with calcifications, and multiple intraductal papillomas. Second lumpectomy site left breast revealed focal atypical ductal hyperplasia, it additionally revealed atypical lobular hyperplasia/lobular carcinoma in situ/and multiple intraductal papillomas. estrogen receptor and progesterone receptor were positive for the papillary DCIS, she was ER and AK negative for the high-grade DCIS Plan: In view of the extensive intraductal papillomas as well as several areas of DCIS the patient and her have discussed with me the possibility of a mastectomy with immediate reconstruction. This would be a reasonable treatment plan. left breast skin sparing mastectomy with immediate reconstruction The right breast recent MRI did not show any lesions of concern and we will follow this area conservatively Genetic testing pending represented at tumor board on 11-25-24 agreed with left mastectomy and immediate reconstruction Risk and benefits of the procedure discussed with the patient and her . Risk include but are not limited to bleeding, infection, reaction to the anesthetic. We have discussed the possibility of nipple sparing mastectomy. The patient is a smoker smoking half a pack per day. I have told her that I would not recommend a nipple sparing secondary to the fact that she is a smoker, however if she were to stop today we will rediscuss it on the day of surgery. She understands that if we would try to save the nipple areolar complex she may have necrosis requiring additional surgery for resection. Additionally they understand that they may not be further precancer or cancer in the left breast, and that although we are saving the right breast we cannot guarantee that there will not be necessity for resection of lesions in the right breast in the future. CC: DR. Carter Prep Education Provided - Preoperative Education Given Pre-Op Kit Given Date: 01/01/25 - Functional Assessment Performed?: Yes (arm abduction passed) - Smoking Cessation Education Provided?: Yes
== END ==
LOC: WWCWWP 14:58
PROVIDERS: ATTEND Surgery
DX: D05.12 Intraductal carcinoma in situ of left breast (principal); F17.200 Nicotine dependence, unspecified, uncomplicated; Z88.5 Allergy status to narcotic agent; Z88.8 Allergy status to other drugs, medicaments and biological substances; Z98.890 Other specified postprocedural states

== ENCOUNTER 2025-01-13 09:18 | Day surgery (SDC) | payer MEDICARE ==
[~2025-01-13 09:18] MED LIST changes: +HYDROmorphone 0.5 MG/0.5 ML SYRINGE IVP PRN; -METHYLENE BLUE 50 MG, DEXTROSE 5% IN WATER 50 ML MISCELLANE ONE; -fentaNYL (PF) 50 MCG/ML 2 ML AMP IV PRN
[2025-01-13] MEDS: IV FLUID CONTINUATION 1,000 ML IV ONE (09:35)
[2025-01-13] MEDS: ALPRAZolam 0.25 MG TAB PO STA (09:47)
[2025-01-13] MEDS: LACTATED RINGERS 1,000 ML IV SCH (10:28)
[2025-01-13] MEDS: ONDANSETRON 4 MG/2 ML VIAL IVP ONE (10:28)
[2025-01-13] MEDS: ACETAMINOPHEN TAB 500 MG TAB PO PRN (10:29)
[2025-01-13] MEDS: MIDAZOLAM 2 MG/2 ML VIAL IV STA (11:03)
[2025-01-13] MEDS: HEPARIN SODIUM,PORCINE 5,000 UNIT/ML 1 ML VIAL SQ PRN (11:21)
--- NOTE | 2025-01-13 11:56 | P.NAPBC ---
NAPBC Queries - NAPBC Queries Was patient's case review presented at [facility] tumor board? If no, comment.: Yes Was patient's pathology reviewed at [facility]? If no, comment.: Yes Was breast conservation surgery offered? If no, comment.: Yes Was sentinel node biopsy offered? If no, comment.: No Was diagnosis confirmed by percutaneous core biopsy? If no, comment.: Yes Is patient mastectomy patient?: Yes Was a preop referral to reconstructive surgeon offered?: Yes Clinical Stage: left breast DCIS
[2025-01-13] MEDS: LIDOCAINE 1% INJ 10MG/ML (20 ML MDV) SQ ONE (12:22)
[2025-01-13] MEDS ORDERED: NEOSTIGMINE 1 MG/ML 10 ML VIAL ONE (13:00)
[2025-01-13] MEDS ORDERED: ePHEDrine 50 MG/ML 1 ML VIAL ONE (13:00)
[2025-01-13] MEDS ORDERED: ACETAMINOPHEN IV (For NPO) 1,000 MG/100 ML VIAL ONE (13:00)
[2025-01-13] MEDS ORDERED: ROPIVACAINE 5 MG/ML 30 ML VIAL ONE (13:00)
[2025-01-13] MEDS ORDERED: MIDAZOLAM 2 MG/2 ML VIAL ONE (13:00)
[2025-01-13] MEDS ORDERED: LIDOCAINE 1% INJ 10MG/ML (20 ML MDV) ONE (13:00)
[2025-01-13] MEDS ORDERED: fentaNYL (PF) 50 MCG/ML 2 ML AMP ONE (13:00)
[2025-01-13] MEDS ORDERED: SUCCINYLCHOLINE CHLORIDE 200 MG/10 ML VIAL IV ONE (13:00)
[2025-01-13] MEDS ORDERED: HYDROmorphone (PF) 1 MG/ML ONE (13:00)
[2025-01-13] MEDS ORDERED: SODIUM CHLORIDE 0.9% (PF) 10 ML VIAL ONE (13:00)
[2025-01-13] MEDS ORDERED: ETOMIDATE 2 MG/ML 10 ML VIAL ONE (13:00)
[2025-01-13] MEDS ORDERED: ROCURONIUM 10 MG/ML (5 ML VIAL) IV ONE (13:00)
[2025-01-13] MEDS ORDERED: GLYCOPYRROLATE 0.2 MG/ML 2 ML VIAL ONE (13:00)
[2025-01-13] MEDS ORDERED: NALOXONE 0.4 MG/ML 1 ML VIAL IV PRN (14:26)
[2025-01-13] MEDS ORDERED: ONDANSETRON 4 MG/2 ML VIAL IVP PRN (14:26)
--- NOTE | 2025-01-13 14:26 | P.BCAON ---
Date of Procedure: 01/13/25 Preoperative Diagnosis: DCIS/multifocal papillomas left breast Postoperative Diagnosis: Same Procedure(s) Performed: Left simple mastectomy Anesthesia: NATE Surgeon: Emilee Barnes Estimated Blood Loss (ml): 20 IV fluids (ml): 700 Pathology: other (Breast tissue) Condition: stable Disposition: floor Indications for Procedure: DCIS/intraductal papillomas multifocal left breast Operative Findings: Fibrofatty breast tissue/lumpectomy cavity Description of Procedure: The patient was seen by plastic surgery in the preoperative area. Markings for a skin sparing mastectomy were placed. The patient was then brought to the operative suite. Following induction of anesthesia the left breast was prepped and draped in a sterile fashion. Using a periareolar incision dissection was performed circumferentially. Dissection was performed in the plane between the subcutaneous tissue and the skin. The prior seroma cavity was excised. Dissection was performed down to the pectoralis muscle. The breast was resected from medial to lateral being careful to maintain hemostasis using the electrocautery device. The harmonic scalpel was used as needed. The breast was removed. Following this the wound was well irrigated. After we are sure that hemostasis was attained the specimen was marked with a short suture superior and long suture lateral. At this point Dr. Aden from plastic surgery entered to do the prepectoral implant reconstruction.
[2025-01-13] MEDS: LACTATED RINGERS 1,000 ML IV ONE (14:55)
[2025-01-13] MEDS: BACITRACIN ZINC 500 UNIT/GM OINT 28.4 GM TUBE TOPICAL ONE (14:55)
[2025-01-13] MEDS: LABETALOL SYRINGE 5 MG/ML (4 ML SYR) IVP STA (16:11)
[2025-01-13] MEDS: HEPARIN SODIUM,PORCINE 5,000 UNIT/ML 1 ML VIAL SQ SCH (17:19)
[2025-01-13] MEDS: HYDROmorphone 1 MG/ML 1 ML SYRINGE IVP PRN (18:34)
[2025-01-13] MEDS ORDERED: MECLIZINE 25 MG TAB PO PRN (19:41)
[2025-01-13] MEDS: SODIUM CHLORIDE 0.9% 1,000 ML IV SCH (19:58)
[2025-01-13] MEDS: ACETAMINOPHEN TAB 325 MG TAB PO PRN (20:15)
[2025-01-13] MEDS: PRAVASTATIN SODIUM 40 MG TAB PO SCH (20:19)
[2025-01-13] MEDS: TRIAMTERENE-HCTZ 37.5-25MG 1 EACH CAP PO SCH (22:06)
[2025-01-14 06:27] LABS: Basophils # (A) 0.03 10*3/uL (0.00-0.10); Basophils % (A) 0.4 %; Eosinophils # (A) 0.06 10*3/uL (0.04-0.35); Eosinophils % (A) 0.8 %; HCT 38.7 % (37.2-46.3); HGB 12.9 g/dL (12.0-15.0); Lymphocytes # (A) 1.54 10*3/uL (0.90-5.00); Lymphocytes % (A) 20.8 %; MCH 29.7 pg (27.0-32.0); MCHC 33.3 g/dL (32.0-37.0); MCV 89.2 fL (80.0-97.0); Monocytes # (A) 0.43 10*3/uL (0.20-1.00); Monocytes % (A) 5.8 %; Neutrophils # (A) 5.34 10*3/uL (1.80-7.70); Neutrophils % (A) 71.9 %; Platelet Count 197 10*3/uL (140-440); RBC 4.34 10*6/uL (4.10-5.20); RDW 13.2 % (11.5-14.5); WBC 7.42 10*3/uL (4.50-10.00)
[2025-01-14] MEDS: LEVOTHYROXINE 112 MCG TAB PO SCH (06:33)
[2025-01-14 06:41] LABS: ALT 19 U/L (4-34); AST 25 U/L (14-36); African American GFR (CKD) 56 (>60 ml/min/1.73 sqM); Albumin 3.5 g/dL (3.5-5.0); Alkaline Phosphatase 71 U/L (38-126); Anion Gap 9 mmol/L; Blood Urea Nitrogen 20 mg/dL (7-17); Calcium 9.6 mg/dL (8.4-10.2); Carbon Dioxide 20 mmol/L (22-30); Chloride 105 mmol/L (98-107); Glucose 125 mg/dL (74-99); Non-African American GFR(CKD) 48 (>60 ml/min/1.73 sqM); Potassium 3.7 mmol/L (3.5-5.1); Sodium 134 mmol/L (137-145); Total Protein 5.8 g/dL (6.3-8.2)
[2025-01-14] MEDS: ESCITALOPRAM 20 MG TAB PO SCH (08:59)
[2025-01-14 09:18] VITALS: BP 125/77; PULSE 59; RESP 16; TEMP 98.2
--- NOTE | 2025-01-14 11:48 | P.PN ---
Subjective Progress Note Date: 01/14/25 Principal diagnosis: Postop day #1 left mastectomy with prepectoral implant reconstruction Postoperatively the patient is doing well. Her pain is under control. Hemoglobin 12.9. White count 7.42. IZZY output serous in nature approximately 30 cc on the last shift. Objective - Vital Signs Vital signs: Vital Signs Temp 98.2 F 01/14/25 08:00 Pulse 59 L 01/14/25 08:00 Resp 16 01/14/25 08:00 BP 125/77 01/14/25 08:00 Pulse Ox 100 01/14/25 06:00 FiO2 Intake & Output 01/13/25 01/14/25 01/14/25 18:59 06:59 18:59 Intake Total 1050 Output Total 120 65 30 Balance 930 -65 -30 Weight 80.6 kg Intake: IV 1050 Output: Drainage 65 30 Left Breast 65 30 Urine 100 Estimated Blood Loss 20 Other: # Voids 2 - Constitutional General appearance: Present: cooperative - EENT Eyes: Present: EOMI ENT: Present: hearing grossly normal - Neck Neck: Present: normal ROM - Respiratory Respiratory: bilateral: CTA - Cardiovascular Heart sounds: normal: S1, S2 - Integumentary Integumentary Comment(s): Incision clean and dry - Labs CBC & Chem 7: 01/14/25 06:16 01/14/25 06:16 Labs: Abnormal Lab Results - Last 24 Hours (Table) 01/14/25 Range/Units 06:16 Sodium 134 L (137-145) mmol/L Carbon Dioxide 20 L (22-30) mmol/L BUN 20 H (7-17) mg/dL Creatinine 1.19 H (0.52-1.04) mg/dL Glucose 125 H (74-99) mg/dL Total Protein 5.8 L (6.3-8.2) g/dL Assessment and Plan Assessment: Impression: Patient doing well postop day #1 Plan: Discharge home to be followed as an outpatient
--- NOTE | 2025-01-14 11:51 | P.DS ---
Providers Date of admission: 01-13-25 Expected date of discharge: 01/14/25 Attending physician: Emilee Barnes Consults: 01/13/25 14:30 Consult Physician Routine Consulting Provider: Mike Carter Consult Reason/Comments: medical managment Do you want consulting provider notified?: Yes Primary care physician: Mike Emma [place] Hospital Course: The patient is postop day #1 left mastectomy with prepectoral implant reconstruction. She is doing well postoperatively and ready for discharge. Plan - Discharge Summary Discharge Rx Participant: No New Discharge Prescriptions: No Action Pravastatin Sodium [Pravachol] 40 mg PO DAILY atenoloL 25 mg PO DAILY Meclizine [Antivert] 25 mg PO TID PRN PRN Reason: Vertigo Triamterene/Hydrochlorothiazid [Triamterene-Hctz 37.5-25 mg Tb] 1 tab PO DAILY Levothyroxine Sodium [Synthroid] 112 mcg PO DAILY Escitalopram [Lexapro] 20 mg PO DAILY Discharge Medication List Pravastatin Sodium [Pravachol] 40 mg PO DAILY 01/29/19 [History] atenoloL 25 mg PO DAILY 01/29/19 [History] Escitalopram [Lexapro] 20 mg PO DAILY 07/05/24 [History] Levothyroxine Sodium [Synthroid] 112 mcg PO DAILY 07/05/24 [History] Triamterene/Hydrochlorothiazid [Triamterene-Hctz 37.5-25 mg Tb] 1 tab PO DAILY 07/05/24 [History] Meclizine [Antivert] 25 mg PO TID PRN 08/20/24 [History] Follow up Appointment(s)/Referral(s): Emilee Barnes MD [STAFF PHYSICIAN] - 01/22/25 9:00 am Woodrow Malin MD [STAFF PHYSICIAN] - 1-2 Days Activity/Diet/Wound Care/Special Instructions: Do not drive until seen by Dr. Roy Teach drain care Follow-up with Dr. Aden Discharge Disposition: HOME SELF-CARE
--- NOTE | 2025-01-14 16:52 | OP ---
OPERATIVE REPORT DATE OF SERVICE : 01/13/2025 PREOPERATIVE DIAGNOSES: 1. Acquired absence of left breast. 2. Personal history of breast cancer. POSTOPERATIVE DIAGNOSES: 1. Acquired absence of left breast. 2. Personal history of breast cancer. OPERATIVE PROCEDURES: 1. Immediate reconstruction of left breast, following mastectomy with insertion of tissue land inspector, subsequent outpatient expansion. 2. Implantation of reconstructive graft for left breast reconstruction. OPERATIVE INDICATIONS: The patient is a 64-year-old female who is to undergo left simple mastectomy by Dr. Barnes. The patient has history of breast cancer. She is also a chronic tobacco user and understands the potential risks and complications related to the mastectomy reconstructive process due to her habitual smoking including healing problems, infection, among other risks associated with surgery such as hematoma, seroma. The patient has elected to proceed with tissue land inspector cell reconstruction technique. She has requested to perform the surgery today. OPERATIVE PROCEDURE SUMMARY: The patient was seen in the preoperative area, markings made, procedure reviewed. All questions were answered. She was transported to the operative room where she was placed in supine position. Following induction general anesthesia, the patient was prepped and draped in usual fashion. Dr. Barnes and team proceeded with the left simple mastectomy. Once that procedure was completed, I entered the operative suite. Sponge, needle counts from prior procedure were correct. The mastectomy wounds open, no active bleeding. Additional dissection was performed to optimize position of the tissue land inspector for breast reconstruction, elevating skin, subcutaneous tissue, mostly medially and inferiorly where this was required. An irrigations performed, hemostasis was optimal. The cavity was measured, tissue land inspector then opened on the field. The land inspector was from the [employer] 133S tissue land inspector line, reference #[id number] mL volume, serial [id number]. The device was opened to the surgeon. All air extracted, device irrigated with saline, then filled initially to 400 mL. This was placed in the reconstructive cavity, but it was too much volume to allow for closure. The volume was reduced to 300 mL, which appeared optimal to fill the space without undue stress for closure. The land inspector was removed. Cavity re-irrigated. The graft material was now opened on the field. AlloDerm select restore tissue matrix large in perforated measuring 327 square cm. The graft was irrigated with saline several times. The graft was now used to cover all surfaces of the land inspector, secured into the suture tabs using all graft material. The graft was secured to the suture tabs with 2-0 Vicryl suture. A 19-round Chip drain was now inserted, surgical field brought separate stab incision in left anterior lateral chest wall and sutured in place with 2-0 Prolene. The graft covered tissue land inspector was now placed in the reconstructive cavity after ensuring orientation under direct vision. The graft was secured to the chest wall at the suture tab points using 2-0 Vicryl suture. The mastectomy had been completed through circumareolar approach. This wound was now closed in a pursestring fashion approximating the deep dermis using running Prolene pursestring suture followed by finer approximation of the deep dermis using interrupted inverted 4-0 Monocryl and then approximated the epidermal edges with rosina. The drain was connected to close bulb suction patent surgical newell cleansed with saline dried postoperative bandages placed using a bowel patch and Tegaderm around the drain site and bacitracin antibiotic ointment over the closure. Adaptic followed by Kerlix gauze, secured with 3M tape. The patient was then awakened from her anesthetic and transferred to recovery room in good condition, stable vital signs. There were no complications. Estimated blood loss was 20 mL. The final fill in the left-sided tissue land inspector was 300 mL of air. MMODL / IJN: [id number] /
--- NOTE | 2025-01-14 19:54 | P.ANPRN ---
Procedure Note - Anesthesia - Nerve Block Performed Left Erector Spinae Single Time Out Performed: Yes Date of Procedure: 01/13/25 Procedure Start Time: 11:03 Procedure Stop Time: 11:05 Location of Patient: PreOp Indication: Acute Post-Operative Pain Sedation Type: Sedate with meaningful contact maintained Preparation: Sterile Prep Position: Prone Needle Types: Pajunk Needle Gauge: 21 Ultrasound used to visualize needle placement: Yes Ultrasound used to observe medication spread: Yes Blood Aspirated: No Pain Paresthesia on Injection Noted: No Resistance on Injection: Normal Image Stored and Saved: Yes Events: Uneventful and Well Tolerated (Ropivacaine 0.5% 50 cc plus normal saline 10 cc plus dexamethasone 4 mg given at T4 on the left side)
== END 2025-01-14 12:15 | disposition home or self-care (01) ==
LOC: OR 09:18 → 4FBP 15:02 → OR 01-14 12:15
PROVIDERS: ATTEND Surgery
DX: C50.912 Malignant neoplasm of unspecified site of left female breast (principal); N60.22 Fibroadenosis of left breast; K44.9 Diaphragmatic hernia without obstruction or gangrene; K21.9 Gastro-esophageal reflux disease without esophagitis; E78.5 Hyperlipidemia, unspecified; E07.9 Disorder of thyroid, unspecified; I10 Essential (primary) hypertension; F17.210 Nicotine dependence, cigarettes, uncomplicated; Z88.5 Allergy status to narcotic agent; Z88.8 Allergy status to other drugs, medicaments and biological substances; Z79.890 Hormone replacement therapy; Z79.899 Other long term (current) drug therapy
CPT/HCPCS: 19303; 19357; 15777; 64466; 80053; 85025; 88307; C1889; J2250; J0330; J1644 ×2; J2710; J0690 ×2; J2405; J2003; J3010; J1171 ×2; J2795; J0131; J1920; J1596

== ENCOUNTER → 2025-01-22 | Outpatient (CLI) | payer MEDICARE ==
[2025-01-22 09:24] VITALS: BP 147/84; PULSE 77; RESP 17; TEMP 97.8
--- NOTE | 2025-01-22 09:28 | P.BCPO ---
Progress Note - Text Progress Note Date: 01/22/25 Marian is status post left skin sparing mastectomy with implant reconstruction on 01-13-25. 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 Her IZZY drain is still putting out over 30 cc/day. It is serous in nature. Examination: Lungs: Clear Heart: Regular rate and rhythm Incision: Some scabbing at the incision site IZZY drain in place Impression: Patient doing well postoperatively Plan: Will follow-up with plastic surgery next week Follow-up here in 4 months Follow-up with medical oncology CC: DR. Carter Post Op Education - Post Op Education Post Op Education Provided Date: 01/22/25 - Functional Assessment Performed?: Yes (arm abduction passed) Path Report - Was patient given path report? Path Report Date Given: 01/22/25
== END ==
LOC: WWCWWP 09:01
PROVIDERS: ATTEND Surgery
DX: Z48.89 Encounter for other specified surgical aftercare (principal); D24.9 Benign neoplasm of unspecified breast; F17.200 Nicotine dependence, unspecified, uncomplicated; Z90.11 Acquired absence of right breast and nipple; Z98.82 Breast implant status; Z88.8 Allergy status to other drugs, medicaments and biological substances; Z88.4 Allergy status to anesthetic agent; Z88.5 Allergy status to narcotic agent